=== PATIENT | female | born 1945 | race Caucasian/White ===

== ENCOUNTER 2016-12-02 11:11 | Emergency (ER) | payer BC ==
[~2016-12-02] VITALS: Ht 165.1 cm; Wt 118.0 kg
[~2016-12-02 11:11] MED LIST: ALL180 PO; DULO-24 PO; HYDC25 PO; LISI5TAB3 PO; MELO15TA3 PO; MULT-513 PO; PRLSR20 PO
[2016-12-02 11:20] VITALS: TEMP 37.1; Ht 165.1 cm; Wt 118.0 kg
[2016-12-02 11:37] VITALS: O2SAT 95
[2016-12-02] MEDS ORDERED: ALBUT/IPRATROP 3MG/0.5MG NEB 3 ML VIAL INH STA (12:12)
[2016-12-02] MEDS ORDERED: SODIUM CHLORIDE 0.9% 1000ML 1,000 ML IV STA (12:12)
[2016-12-02] MEDS ORDERED: METHYLPREDNISOLONE 125 MG VIAL IV STA (12:12)
[2016-12-02] MEDS ORDERED: LISI-788 PO (12:29)
[2016-12-02] MEDS ORDERED: MOME1AER5 INH (12:29)
--- NOTE | 2016-12-02 12:57 | DIAGNOSTIC IMAGING REPORT ---
CHEST ONE VIEW PORTABLE CLINICAL HISTORY: Respiratory distress. Dyspnea. COMPARISON STUDY: Chest radiograph May 27, 2011. FINDINGS: Lung volumes are normal. There is no pneumothorax or pleural effusion. There is no consolidation to suggest pneumonia. Cardiomediastinal silhouette is normal. IMPRESSION: No acute cardiopulmonary findings. Electronically signed by: Denton Cotton M.D. 12/02/2016 12:55 PM Dictated Date/Time: 12/02/2016 12:54 PM
--- NOTE | 2016-12-02 14:04 | EMERGENCY ROOM VISIT NOTE ---
History Report prepared by Zeferino: Tiana Kraft Under the Supervision of: Dr. Noah Brower M.D. First contact with patient: 12:08 Chief Complaint: SHORTNESS OF BREATH Stated Complaint: SEVERE COUGHING,CAN'T BREATH,VOMITING,NO SLEEP Nursing Triage Summary: Pt arrives with c/o SOB for approx 1 week. Pt reports being diagnosed with COPD. Pt c/o productive cough with white mucus. I&E wheezes heard throughout lung [place]. History of Present Illness The patient is a 71 year old female who presents to the Emergency Room with complaints of worsening shortness of breath that started 8 days ago. The patient is not on oxygen at home, but she uses an inhaler twice a day without any relief. The patient is also experiencing a productive cough with clear white sputum. She is also experiencing a sore throat, nausea, vomiting, loss of appetite, and fatigue. The patient has not seen her PCP for her symptoms, but she states that she called the office earlier today. They could not get her in until 1800 and the nurse told the patient that she "sounded awful" so she recommended coming into the ED. She states that she has been diagnosed with moderate COPD, but she states that she is unsure of if she believes that diagnosis. She has a history of pneumonia. The patient states that her is sick with similar symptoms, but his symptoms started 10 days ago and are improving. The patient states that she received her flu shot this year. Source of History: patient Onset: 8 days ago Position: chest Quality: other (shortnes of breath) Timing: worsening Modifying Factors (Relieving): other (None) Associated Symptoms: + cough (productive with clear white sputum), + fatigue , + nausea, + sorethroat, + vomiting Note: loss of appetite Review of Systems See HPI for pertinent positives & negatives. A total of 10 systems reviewed and were otherwise negative. Past Medical & Surgical Medical Problems: (1) Body mass index 30+ - obesity (2) Carcinoma of breast (3) Chronic osteoarthritis (4) Dyslipidemia Family History Cancer Diabetes mellitus Social History Smoking Status: Never Smoker Marital Status: Occupation Status: disabled, other Current/Historical Medications Scheduled Azithromycin (Zithromax Z-Marek), 0 PO UD Duloxetine Hcl (Cymbalta), 20 MG PO DAILY Lisinopril/Hctz (Zestoretic 20MG/25MG), 1 TAB PO DAILY Meloxicam (Mobic), 15 MG PO DAILY Mometasone Furoate (Inhalation (Asmanex Hfa), 2 PUFFS INH BID Multivitamins/Minerals (Mvi With Minerals), 1 TAB PO DAILY Omeprazole (Prilosec), 40 MG PO DAILY Prednisone (Prednisone), 2 TAB PO DAILY Scheduled PRN Benzonatate (Tessalon Perles), 1 CAP PO TID PRN for Cough Allergies Coded Allergies: Imidazole Antifungals (Verified Allergy, Severe, "BURNING, AGONIZING PAIN ", 05/10/14) Penicillins (Verified Allergy, Intermediate, RASH/HIVES; FATHER FROM PCN REACTION, 05/10/14) HIVES,RASH, UNSURE IF SHORT OF BREATH WITH AMOX PT. FATHER FROM PCN. REACTION Zolpidem (Verified Allergy, Mild, RASH, 05/10/14) Talc (Verified Allergy, Unknown, "CANNOT USE TALC PRODUCTS!" SEVERE BURNING, PAIN, 05/10/14) Physical Exam Vital Signs Date Time Temp Pulse Resp B/P Pulse Ox O2 Delivery O2 Flow Rate FiO2 12/02/16 16:30 100 24 132/84 96 12/02/16 15:15 102 20 125/85 95 Room Air 12/02/16 13:17 104 24 150/95 96 Room Air 12/02/16 11:37 95 Room Air 12/02/16 11:37 95 Room Air 12/02/16 11:20 37.1 110 22 151/88 96 Room Air Physical Exam GENERAL: Patient is in no acute distress. HEENT: No acute trauma, normocephalic atraumatic, mucous membranes moist, no nasal congestion, no scleral icterus. NECK: No stridor, no adenopathy, no meningismus, trachea is midline. LUNGS: Dry cough noted, shortness of breath with speaking, breath sound equal bilaterally, wheezing bilaterally, no rhonchi. HEART: Without murmurs gallops or rubs, regular rate and rhythm. ABDOMEN: Soft, nontender, bowel sounds positive, no hernias, no peritonitis. EXTREMITIES: No cyanosis or edema, full range of motion of all the joints without pain or difficulty, no signs for acute trauma. NEUROLOGIC: Oriented x 3, no acute motor or sensory deficits, no focal weakness. SKIN: No rash, no jaundice, no diaphoresis. Medical Decision & Procedures ER Provider Diagnostic Interpretation: X-ray results as stated below per interpretation by me and the radiologist: CHEST ONE VIEW PORTABLE IMPRESSION: No acute cardiopulmonary findings. Electronically signed by: Denton Cotton M.D. 12/02/2016 12:55 PM Dictated Date/Time: 12/02/2016 12:54 PM Laboratory Results 12/02/16 13:30 Red Blood Count 5.13, Mean Corpuscular Volume 92.0, Mean Corpuscular Hemoglobin 30.6, Mean Corpuscular Hemoglobin Concent 33.3, Mean Platelet Volume 10.0, Neutrophils (%) (Auto) 77.2, Lymphocytes (%) (Auto) 11.8, Monocytes (%) (Auto) 10.1, Eosinophils (%) (Auto) 0.3, Basophils (%) (Auto) 0.3, Neutrophils # (Auto ) 9.07, Lymphocytes # (Auto) 1.39, Monocytes # (Auto) 1.18, Eosinophils # (Auto ) 0.03, Basophils # (Auto) 0.03 12/02/16 13:30 Test 12/02/16 13:20 12/02/16 13:30 12/02/16 15:18 Influenza Type A Antigen Neg for Influ A (NEG) Influenza Type B Antigen Neg for Influ B (NEG) White Blood Count 11.73 K/uL (4.8-10.8) Red Blood Count 5.13 M/uL (4.2-5.4) Hemoglobin 15.7 g/dL (12.0-16.0) Hematocrit 47.2 % (37-47) Mean Corpuscular Volume 92.0 fL (80-100) Mean Corpuscular Hemoglobin 30.6 pg (25-34) Mean Corpuscular Hemoglobin Concent 33.3 g/dl (32-36) Platelet Count 233 K/uL (130-400) Mean Platelet Volume 10.0 fL (7.4-10.4) Neutrophils (%) (Auto) 77.2 % Lymphocytes (%) (Auto) 11.8 % Monocytes (%) (Auto) 10.1 % Eosinophils (%) (Auto) 0.3 % Basophils (%) (Auto) 0.3 % Neutrophils # (Auto) 9.07 K/uL (1.4-6.5) Lymphocytes # (Auto) 1.39 K/uL (1.2-3.4) Monocytes # (Auto) 1.18 K/uL (0.11-0.59) Eosinophils # (Auto) 0.03 K/uL (0-0.5) Basophils # (Auto) 0.03 K/uL (0-0.2) RDW Standard Deviation 48.1 fL (36.4-46.3) RDW Coefficient of Variation 14.2 % (11.5-14.5) Immature Granulocyte % (Auto) 0.3 % Immature Granulocyte # (Auto) 0.03 K/uL (0.00-0.02) Anion Gap 5.0 mmol/L (3-11) Est Creatinine Clear Calc Drug Dose 74.2 ml/min Estimated GFR () 73.6 Estimated GFR (Non- 63.5 BUN/Creatinine Ratio 15.9 (10-20) Calcium Level 9.0 mg/dl (8.5-10.1) Total Bilirubin 1.0 mg/dl (0.2-1) Aspartate Amino Transf (AST/SGOT) 25 U/L (15-37) Alanine Aminotransferase (ALT/SGPT) 31 U/L (12-78) Alkaline Phosphatase 88 U/L (45-117) Troponin I < 0.015 ng/ml (0-0.045) Total Protein 7.9 gm/dl (6.4-8.2) Albumin 3.7 gm/dl (3.4-5.0) Globulin 4.2 gm/dl (2.5-4.0) Albumin/Globulin Ratio 0.9 (0.9-2) Chemistry Specimen Hemolysis Prothrombin Time 10.4 SECONDS (9.0-12.0) Prothromb Time International Ratio 1.0 (0.9-1.1) Activated Partial Thromboplast Time 30.0 SECONDS (21.0-31.0) Partial Thromboplastin Ratio 1.2 Laboratory results reviewed by me. Medications Administered Medications (Trade) Dose Ordered Sig/Mary Route Start Time Stop Time Status Last Admin Dose Admin Sodium Chloride (Nss 1000ml) 1,000 ml @ 200 mls/hr Q5H STAT IV 12/02/16 12:12 12/02/16 17:11 DC 12/02/16 13:56 200 MLS/HR Albuterol/ Ipratropium (Duoneb) 3 ml NOW STAT INH 12/02/16 12:12 12/02/16 12:17 DC 12/02/16 13:16 3 ML Methylprednisolone Sodium Succinate (Solu-Medrol IV) 125 mg NOW STAT IV 12/02/16 12:12 12/02/16 12:17 DC 12/02/16 13:56 125 MG Azithromycin (Zithromax Tab) 500 mg NOW STAT PO 12/02/16 15:42 12/02/16 15:43 DC 12/02/16 16:24 500 MG ECG Indication: SOB/dyspnea Rate (beats per minute): 98 Rhythm: normal sinus Findings: no acute ischemic change, no ectopy, other (Old inferior and possible anterior infarct) ED Course 1211: The patient was evaluated in room C8. A complete history and physical exam was performed. 1212: Ordered Solu-Medrol 125 mg IV, DuoNeb 3 ml INH, Sodium Chloride 1000 ml @ 200 mls/hr IV 1523: I reassessed and updated the patient. 1542: Ordered Azithromycin 500 mg PO 1558: Reevaluated the patient. She would like to go home. Discussed results and discharge instructions: she verbalized understanding and agreement. The patient is ready for discharge. Medical Decision Differential diagnoses considered include bronchitis or pneumonia, exacerbation of COPD, CHF, anemia, electrolyte imbalance, cardiac ischemia. There is a mild leukocytosis which would be consistent with infection, no concerning anemia. No significant electrolyte abnormality, kidney failure or hepatitis. EKG shows a normal sinus rhythm with some older changes, no evidence for acute ischemia. Cardiac enzyme testing times one is not consistent with acute cardiac injury. Chest x-ray does not show pneumonia, CHF or pneumothorax. Influenza testing was negative. Blood cultures are pending. The patient did seem short of breath. She was given a DuoNeb, IV Solu-Medrol, she was given oral Zithromax and IV saline. She feels improved. She would like to try to go home. I think this is reasonable. The patient has an acute bronchitis with an exacerbation of COPD. Given the length of time she's been ill, given her COPD, antibiotics are indicated. She is being discharged on prednisone as well, hydration was encouraged. If she is worsening or not improving, she will report back for reassessment. Impression Primary Impression: Acute bronchitis Additional Impression: COPD exacerbation Scribe Attestation The scribe's documentation has been prepared under my direction and personally reviewed by me in its entirety. I confirm that the note above accurately reflects all work, treatment, procedures, and medical decision making performed by me. Departure Information Dispostion Home / Self-Care Prescriptions Benzonatate (TESSALON PERLES) 100 Mg Cap 1 CAP PO TID Y for Cough for 7 Days, #21 CAP Prov: Noah Brower M.D. 12/02/16 Prednisone (Prednisone) 20 Mg Tab 2 TAB PO DAILY for 4 Days, #8 TAB Prov: Noah Brower M.D. 12/02/16 Azithromycin (ZITHROMAX Z-MAREK) 250 Mg Tab 0 PO UD, #1 PKT Prov: Noah Brower M.D. 12/02/16 Referrals No Doctor, Assigned (PCP) Forms HOME CARE DOCUMENTATION FORM, IMPORTANT VISIT INFORMATION Patient Instructions My [facility] Additional Instructions fluids rest try tessalon perles for cough zpac as directed prednisone as directed use albuterol 3 puffs every 4 hours see nalini johansen this week return for worsening symptoms, worsening breathing or if not improving Problem Qualifiers Primary Impression: Acute bronchitis Bronchitis organism: unspecified organism Qualified Codes: J20.9 - Acute bronchitis, unspecified
[2016-12-02 14:09] LABS: BASO % 0.3 %; BASO ABS # 0.03 K/uL (0-0.2); COMPLETE YES; EOS % 0.3 %; HEMATOCRIT 47.2 % (37-47); IG% 0.3 %; LYMPH % 11.8 %; LYMPH ABS # 1.39 K/uL (1.2-3.4); MEAN CORPUSCULAR HEMOGLOBIN 30.6 pg (25-34); MEAN CORPUSCULAR HGB CONC 33.3 g/dl (32-36); MONO % 10.1 %; NEUT % 77.2 %; PLATELET COUNT 233 K/uL (130-400); RED BLOOD COUNT 5.13 M/uL (4.2-5.4); WHITE BLOOD COUNT 11.73 K/uL (4.8-10.8)
[2016-12-02 15:10] LABS: ALB/GLOB RATIO 0.9 (0.9-2); ALKALINE PHOSPHATASE 88 U/L (45-117); ALT/SGPT 31 U/L (12-78); AST/SGOT 25 U/L (15-37); BLOOD UREA NITROGEN 15 mg/dl (7-18); BUN/CREATININE RATIO 15.9 (10-20); CARBON DIOXIDE 32 mmol/L (21-32); CHLORIDE 103 mmol/L (98-107); CREATININE 0.92 mg/dl (0.60-1.20); GLUCOSE 101 mg/dl (70-99); POTASSIUM 4.2 mmol/L (3.5-5.1); SODIUM 140 mmol/L (136-145)
[2016-12-02 15:40] LABS: PARTIAL THROMBOPLASTIN RATIO 1.2; PROTHROMBIN TIME (PATIENT) 10.4 SECONDS (9.0-12.0)
[2016-12-02] MEDS ORDERED: AZITHROMYCIN 250 MG TAB PO STA (15:42)
[2016-12-02] MEDS ORDERED: BENZ100C18 PO (16:11)
[2016-12-02] MEDS ORDERED: PRED20TA PO (16:11)
[2016-12-02] MEDS ORDERED: AZITTAB PO (16:11)
[2016-12-02 16:30] VITALS: BP 132/84; PULSE 100; O2SAT 96
== END 2016-12-02 16:32 | disposition home or self-care (01) ==
LOC: C.EDB 11:13 → C.EDC 16:32
DX: J44.0 Chronic obstructive pulmonary disease with (acute) lower respiratory infection (principal); J44.1 Chronic obstructive pulmonary disease with (acute) exacerbation; Z87.01 Personal history of pneumonia (recurrent); E66.9 Obesity, unspecified; Z68.41 Body mass index [BMI] 40.0-44.9, adult; Z85.3 Personal history of malignant neoplasm of breast; E78.5 Hyperlipidemia, unspecified; M19.90 Unspecified osteoarthritis, unspecified site; Z80.9 Family history of malignant neoplasm, unspecified; Z83.3 Family history of diabetes mellitus; Z79.899 Other long term (current) drug therapy

== ENCOUNTER 2023-08-18 00:22 | Inpatient (IN) ==
--- OUTSIDE RECORDS SUMMARY | 2023-08-18 00:26 | External Medical Summary | Summary of Care ---
Author Name Unknown Organization [facility] Address [address] [facility] [address] Phone [phone] Care Team Providers Care Smoke Chaser Name Role Phone Maricarmen Ann DO Primary Care Provider Reason for Visit * Reason Onset Date Comments Information 08/14/202308/14; 08/15 Encounter Details Date Type Department Care Team (Late st Contact Info) Description 08/14/2023 Telephone Family Practice [address] [facility] [address] [place] [phone] Maricarmen Ann DO [address] [place] [address] Information (08/14; 08/15) Allergies Active Allergy Reactions Criticality Noted Date Comments Amoxicillin Unknown 03/13/1999 Imidazole Antifungals 03/13/1999 Vaginal infections Tamoxifen Citrate Nausea/vomiting High 02/14/2010 documented as of this encounter (statuses as of 08/15/2023) Medications Medication Sig Dispensed Refills Start Date End Date Status Multiple Vitamins-Minerals (MULTIVITAMIN WOMENS 50+ ADV) TABS Take by mouth daily at noon. 0 Active Calcium Carb-Cholecalciferol 500-600 MG-UNIT Oral Tablet Take by mouth daily at noon. 0 Active Perry-3 Fatty Acids (FISH OIL) 1000 MG Capsule Take 1 Capsule by mouth daily at noon. 0 Active Loratadine 10 MG Oral Tablet Take 1 Tablet by mouth in the morning. 30 Tab 11 03/27/2021 Active Diclofenac Sodium 1 % External Gel (Voltaren)Indication s:Hand arthritis Apply topically to affected area 3 times a day as needed for Pain or Pain, Mild (to hands). 150 g 1 07/26/2022 Active Vitamin B-12 6000 MCG Sublingual Tablet Sublingual Place under the tongue. 0 Active Lisinopril-hydroCHLO ROthiazide 20-12.5 MG Oral TabletIndications:Es sential hypertension with goal blood pressure less than 130/80 TAKE TWO TABLETS BY MOUTH EVERY MORNING 200 Tablet 3 11/20/2022 11/20/2023 Active Omeprazole 20 MG Oral Capsule Delayed Release (PriLOSEC)Indication s:Gastroesophageal reflux disease without esophagitis Take 2 Capsules by mouth daily before dinner. 200 Capsule 3 03/19/2023 Active Pregabalin 25 MG Oral Capsule (Lyrica)Indications: Neuropathy Take one capsule by mouth in the morning and two capsules by mouth in the evening 270 Capsule 1 04/17/2023 Active Meloxicam 7.5 MG Oral Tablet (Mobic) TAKE ONE TABLET BY MOUTH EVERY MORNING 90 Tablet 0 06/13/2023 06/12/2024 Active Qvar RediHaler 40 MCG/ACT Inhalation Aerosol Breath Activated (Beclomethasone Diprop HFA) Inhale 1 Puff by mouth in the morning and 1 Puff before bedtime. 10.6 g 2 07/18/2023 Active Atorvastatin Calcium 20 MG Oral Tablet (Lipitor) TAKE ONE TABLET BY MOUTH EVERY DAY 100 Tablet 3 07/31/2023 07/30/2024 Active Ipratropium-Albutero l 0.5-2.5 (3) MG/3ML Inhalation Solution (Duoneb)Indications: COPD, group A, by GOLD 2017 classification ([facility]) Inhale 3 mL via nebulizer in the morning and 3 mL at noon and 3 mL in the evening and 3 mL before bedtime. 50 mL 1 08/08/2023 Active predniSONE 20 MG Oral Tablet (Deltasone)Indicatio ns:Acute left-sided low back pain with left-sided sciatica Take 1 Tablet by mouth in the morning for 7 days. 7 Tablet 0 08/08/2023 08/15/2023 Active Baclofen 10 MG Oral Tablet (Lioresal)Indication s:Acute left-sided low back pain with left-sided sciatica Take 1 Tablet by mouth in the morning and 1 Tablet before bedtime. Do all this for 10 days. 20 Tablet 0 08/08/2023 08/18/2023 Active documented as of this encounter (statuses as of 08/15/2023) Active Problems Problem Noted Date Diagnosed Date Caregiver stress 10/31/2022 COPD, group A, by GOLD 2017 classification 07/22 Overview: Per COPD GOLD Classification Hypertensive kidney disease with stage 3a chronic kidney disease 07/12/2022 Other specified peripheral vascular diseases 09/2021 Morbid obesity 04/11/2022 Chronic kidney disease, stage 3a 10/16/2020 Overview: Per CKD protocol Solar purpura 09/21/2019 History of breast cancer 05/06/2019 Overview: Lower outer quadrant Prediabetes 08/24/2018 Overview: Per Prediabetes protocol #1 S/P TKR (total knee replacement), left 7 Body mass index (BMI) of 40.0 to 44.9 in adult 1 Overview: Per Obesity protocol #1 Gastroesophageal reflux disease without esophagi tis 12/12/2016 HTN, goal below 140/90 12/12/2016 ADVANCE DIRECTIVE INFORMATION 08/19/2007 Overview: No, Advance Directive brochure given to patient at prior appointment. Dyslipidemia, goal to be determined 10/21/2005 Allergic rhinitis 03/13/1999 documented as of this encounter (statuses as of 08/15/2023) Resolved Problems Problem Noted Date Diagnosed Date Resolved Date Morbid obesity 07/20/2019 10/21/2019 Recurrent major depressive d isorder, in remission 12/12/2016 07/20/2019 Voice quality disorder 08/27/201612/12 COPD, moderate 12/15/2014 07/25/2022 Overview: Per COPD GOLD Classification Obesity, Class II, BMI 35-39 .9, isolated (see actual BMI) 11/06/2009 01/17/2017 Overview: Per Obesity Taxonomy Malignant neoplasm of lower- outer quadrant of female breast 10/27/2007 05/06/2019 Overview: ICD-10 update of inactive term ACUTE BRONCHITIS 12/12/1999 08/17/2007 OBESITY, UNSPECIFIED 03/13/1999 010 Overview: Per Obesity Taxonomy JOINT PAIN-L-LEG 03/13/1999 01/17/2017 documented as of this encounter (statuses as of 08/15/2023) Immunizations Name Administration Dates Next Due COVID-19 mRNA, LNP-s, No Pre serve, 2-Dose Series ([place] For Expecteens) 09/20/2021,11/09/2020,10/19/2020 Pneumococcal Conjugate Vacc, 13 Valent (Prevnar) 07/28/2015 Pneumococcal Polysaccharide PPV23 (Pneumovax) 05/12/2013 Seasonal Influenza, PF, 6 M & above, IM , (FluLaval or Fluzone) 05/08/2020,06/05/2018,05/23/2017 Seasonal Influenza, Quadriva lent Hd (Fluzone Hd) 05/13/2023,04/11/2022,06/15/2021 Seasonal Influenza, Quadriva lent, No Preserve, IM 04/23/2016 Seasonal Influenza, Split, I IV3, With Preserve, Inj 04/21/2015,04/21/2013,04/20/2012,05/31,05/10/2008,06/03/2007 Seasonal Influenza, Trivalen t, Adjuvanted, 65+ yrs 06/28/2019 TDAP (age 10 and older)(Boostrix) 04/11/2022 TDAP (age 11 and older)(Adacel) 12/20/2011 Varicella Zoster Vaccine (Adult) 12/20/2011 Zoster Vaccine Recombinant (Shingrix) 12/25/2020 ,05/01/2020 documented as of this encounter Social History Tobacco Use Types Packs/Day Years Used Date Smoking Tobacco: Never Passive Smoke Exposure: Past Smokeless Tobacco: Never Alcohol Use Standard Drinks/Week Comments Yes 0 (1 standard drink = 0.6 oz pur e alcohol) occasionally PHQ-2 Answer Date Recorded PHQ Adult Total Score 0 08/08/2023 Hunger Vital Sign Answer Date Recorded Within the past 12 months, y ou worried that your food would run out before you got the money to buy more. Never true 08/08/20 23 Within the past 12 months, t he food you bought just didn't last and you didn't have money to get more. Never true 08/08/2023 Sex and Gender Information Value Date Recorded Sex Assigned at Female 04/11/2022 9:21 AM EDT Gender Identity Female 04/11/2022 9:21 AM EDT Sexual Orientation Straight 09/10/2019 2: 34 PM EST Job Start Date Occupation Industry Not on file Not on file Not on file documented as of this encounter Miscellaneous Notes * Telephone Encounter - Maricarmen Ann DO - 08/15/2023 11:56 AM EST Noted. * Telephone Encounter - Beverly Bond LPN - 08/15/2023 11:43 AM EST Call placed to patient and relayed information from Dr. Ann. Patient acknowledged understanding and will try Tylenol as recommended. States she completed prednisone. States she got up to her recliner at 3 am and after several position changes was able to sleep for 3-4 hours. Reports she is scheduled for PT on Friday and as soon as she starts to walk, her muscles tense and she cries. Confirmed office visit scheduled 08/19/23. Instructed to contact office with any questions or concerns. * Telephone Encounter - Maricarmen Ann DO - 08/15/2023 8:05 AM EST Pt should have enough to get her til the or . She then has f/ u with me on 08/19. We can further discuss at that visit. Be sure she is taking the prednisone as well. Can use tylenol 1000mg three times a day for pain as well. * Telephone Encounter - Beverly Bond LPN - 08/14/2023 4:48 PM EST Call placed to patient for more information. Patient reports that her physical therapist suggested she ask for 2 more weeks of Baclofen. In therapy she is receiving massage and heat therapy. Stated she is out of Baclofen. Reviewed directions on taking Baclofen and that she should still have a few days left. Pt stated she may have more left - stated she is only taking them twice a day. Asked if they have caused increased drowsiness or any other side effects - stated she is always drowsyd/t not sleeping d/t pain. Pt states she cries with pain with any movement and cries for hours in bed d/t pain. Also reported that she has been having ocular migraines for the past few days. States they happen when she clenches her eyes and face or cries d/t pain. States she is working on relaxation techniqueswhich help some. * Telephone Encounter - Mery Casey OSA - 08/14/2023 3:56 PM EST Pt calling to request a refill of baclofen. States she saw Dr Toney who prescribed. States her PT doc is asking if this can be re ordered for two more weeks. [facility] is who was requesting. Please send to [facility] in [place] if agreeable. documented in this encounter Plan of Treatment Upcoming Encounters Date Type Department Care Team (Late st Contact Info) Description 08/19/2023 2:20 PM EST Office Visit Family Practice [address] [place] [address] [place] [phone] Maricarmen Ann DO [address] [place] [address] 03/30/2024 2:00 PM EDT Nurse Only Ancillary [address] [facility] [place] [address] [place] [address] College, Nurse Annual Wellness Visit [address] [facility] [address] [place] [address] 08/20/2024 10:45 AM EST [facility] [address] [facility] [place] [address] Richard Ley MD [address] [facility] [place] [address] Scheduled Procedures Name Priority Associated Diagnoses Date/Ti me COLONOSCOPY FLEXIBLE PROXIMA L DIAGNOSTIC Recall Family history of colon cancer Health Maintenance Due Date Last Done Comments Alpha-1 Antitrypsin 1963 CKD PHOS USE SMARTSET 79875 05/10/2022 05/10/2021 COVID-19 Vaccine ( season) 2023 09/20/2021, 11/09/2020, 10/19/2020 GFR 12/29/2023 06/30/2023, 10/10, 04/12/2022, Additional history exists Albumin/Creatinine Ratio 02/29/2024 02/28/2023, 08/2021 O2 ASSESSMENT COMPLETED IN PAST YEAR FOR COPD 05/01/2024 05/01/2023 CKD HGB USE SMARTSET 59667 06/30/202406/30, 06/30/2023, 04/08/2022, Additional history exists HbA1c 06/30/2024 06/30/2023, 090 09/2021, 05/10/2021, Additional history exists Depression Screening 08/08/2024 08/08/2023 COLONOSCOPY-EVERY 5 YRS AGES 18-100 04/21/2025 04/21/2020, 04/21/2020, 03/15/2015, Additional history exists DXA Scan 03/21/2027 03/21/2020, 05/11, 05/26/2013 DTaP,Tdap,and Td Vaccines (3 - Td or Tdap) 04/11/2032 04/11/2022, 12/20/2011, 09/03/2005, Additional history exists Pneumococcal Vaccine: 65+ Years Completed 07/28/2015, 05/12/2013 Zoster Vaccines Completed 12/25/2020, 04/12, 12/20/2011 Influenza Vaccine (FLU shot) Completed 10/2022, 04/11/2022, 06/15/2021, Additional history exists GARDASIL-HPV IMMUNIZATION SERIES Aged Out No longer eligible based on patient's age to complete this topic Hepatitis B Aged Out No longer eligi ble based on patient's age to complete this topic MENINGOCOCCAL (MENACTRA/MENVEO) Aged Out No longer eligible based on patient's age to complete this topic documented as of this encounter Medical Devices Implanted Type Area Metal Caster Device Identifier Shelf Expiration Date Model / Serial / Lot Lens Li61ao 13.00mm 19.00 - [id number] - [id number] Implanted:Qty: 1 on 04/17/2023 by Bryan Richards MD at [facility] Left: Eye [employer] 12/09/2027 [id number] / [id number] / [id number] Lens Li61ao 13.00mm 18.50 - [id number] - [id number] Implanted:Qty: 1 on 05/01/2023 by Bryan Richards MD at [facility] Right: Eye [employer] 10/09/2027 [id number] / [id number] / [id number] documented as of this encounter Advance Directives Latest Code Status on File Code Status Date Activated Date Inactivated Comments Full Code 05/01/2023 9:33 AM 05/01/2023 4:13 PM This order reflects the patients wishes and were consensually agreed upon. Question Answer Comments Discussion of Advance Directives occurred with: Patient Does the patient have a Living Will? No Does the patient have Health Care Power of Job Molder? No Code Status History Code Status Date Activated Date Inactivated Comments Full Code 04/17/2023 8:37 AM 04/17/2023 2:50 PM This or adele reflects the patients wishes and were consensually agreed upon. Question Answer Comments Discussion of Advance Directives occurred with: Patient Does the patient have a Living Will? No Does the patient have Health Care Power of Job Molder? No Care Teams Smoke Chaser Relationship Specialty Start Date End Date Maricarmen Ann DO [address] [facility] [place] [address] PCP - General Family Medicine 03/26/23 documented as of this encounter
--- OUTSIDE RECORDS SUMMARY | 2023-08-18 00:27 | External Medical Summary | Summary of Care ---
Author Name Unknown Organization [facility] Address [address] [facility] [place] [address] Phone [phone] Care Team Providers Care Wire Mesh Filter Fabricator Name Role Phone Maricarmen Ricardo DO Primary Care Provider [phone] Reason for Visit * Reason Comments Medication Refill Encounter Details Date Type Department Care Team (Late st Contact Info) Description 07/31/2023 Refill [facility] [address] [place] [address] Maricarmen Ricardo DO [address] [place] [address] Allergies Active Allergy Reactions Criticality Noted Date Comments Amoxicillin Unknown 03/13/1999 Imidazole Antifungals 03/13/1999 Vaginal infections Tamoxifen Citrate Nausea/vomiting High 02/14/2010 documented as of this encounter (statuses as of 07/31/2023) Medications Medication Sig Dispensed Refills Start Date End Date Status Multiple Vitamins-Minerals (MULTIVITAMIN WOMENS 50+ ADV) TABS Take by mouth daily at noon. 0 Active Calcium Carb-Cholecalcifero l 500-600 MG-UNIT Oral Tablet Take by mouth daily at noon. 0 Active Rogers-3 Fatty Acids (FISH OIL) 1000 MG Capsule Take 1 Capsule by mouth daily at noon. 0 Active Loratadine 10 MG Oral Tablet Take 1 Tablet by mouth in the morning. 30 Tab 11 03/27/2021 Active Ipratropium-Albuter ol 0.5-2.5 (3) MG/3ML Inhalation Solution (Duoneb) Inhale 3 mL via nebulizer in the morning and 3 mL at noon and 3 mL in the evening and 3 mL before bedtime. 50 mL 1 07/23/2022 Active Additional Information Patient not taking.Reported on 04/11/2023 Diclofenac Sodium 1 % External Gel (Voltaren)Indicatio ns:Hand arthritis Apply topically to affected area 3 times a day as needed for Pain or Pain, Mild (to hands). 150 g 1 07/26/2022 Active Vitamin B-12 6000 MCG Sublingual Tablet Sublingual Place under the tongue. 0 Active Asmanex (120 Metered Doses) 220 MCG/ACT Inhalation Aerosol Powder Breath Activated (Mometasone Furoate)Indications :COPD, group A, by GOLD 2017 classification (HCC) Inhale 1 Puff by mouth in the morning and 1 Puff before bedtime. 3 Each 3 02/05/2023 Active Additional Information Patient not taking.Reported on 02/28/2023 Lisinopril-hydroCHL OROthiazide 20-12.5 MG Oral TabletIndications:E ssential hypertension with goal blood pressure less than 130/80 TAKE TWO TABLETS BY MOUTH EVERY MORNING 200 Tablet 3 11/20/2022 11/20/19 24 Active Omeprazole 20 MG Oral Capsule Delayed Release (PriLOSEC)Indicatio ns:Gastroesophageal reflux disease without esophagitis Take 2 Capsules by mouth daily before dinner. 200 Capsule 3 03/19/2023 Active Pregabalin 25 MG Oral Capsule (Lyrica)Indications :Neuropathy Take one capsule by mouth in the morning and two capsules by mouth in the evening 270 Capsule 1 04/17/2023 Active Meloxicam 7.5 MG Oral Tablet (Mobic) TAKE ONE TABLET BY MOUTH EVERY MORNING 90 Tablet 0 06/13/2023 06/12/20 24 Active Qvar RediHaler 40 MCG/ACT Inhalation Aerosol Breath Activated (Beclomethasone Diprop HFA) Inhale 1 Puff by mouth in the morning and 1 Puff before bedtime. 10.6 g 2 07/18/2023 Active Atorvastatin Calcium 20 MG Oral Tablet (Lipitor) TAKE ONE TABLET BY MOUTH EVERY DAY 100 Tablet 3 07/31/2023 07/30/20 24 Active Atorvastatin Calcium 20 MG Oral Tablet (Lipitor) TAKE ONE TABLET BY MOUTH EVERY DAY 100 Tablet 2 09/28/2022 07/31/20 23 Discontinu ed(Refill) documented as of this encounter (statuses as of 07/31/2023) Active Problems Problem Noted Date Diagnosed Date [...] as of this encounter (statuses as of 07/31/2023) Resolved Problems Problem Noted Date Diagnosed Date [...] as of this encounter (statuses as of 07/31/2023) Immunizations Name Administration Dates Next Due COVID-19 mRNA, LNP-s, No Pre serve, 2-Dose Series ([employer]) 09/20/2021,11/09/2020,10/19/2020 Pneumococcal Conjugate Vacc, 13 Valent (Prevnar) [...] Date Recorded PHQ Adult Total Score 0 05/13/2023 Hunger Vital Sign Answer Date Recorded Within the past 12 months, y ou worried that your food would run out before you got the money to buy more. Never true 05/13/20 23 Within the past 12 months, t he food you bought just didn't last and you didn't have money to get more. Never true 05/13/2023 Sex and Gender Information Value Date Recorded Sex Assigned at Female 04/11/2022 9:21 AM EDT Gender Identity Female 04/11/2022 9:21 AM EDT Sexual Orientation Straight 09/10/2019 2: 34 PM EST Job Start Date Occupation Industry Not on file Not on file Not on file documented as of this encounter Miscellaneous Notes * Telephone Encounter - Michael Hernandez [facility] - 07/31/2023 1:26 PM ESTSigned Prescriptions: Disp Refills Atorvastatin Calcium 20 MG Oral Tablet (Li*100 Ta*3 Sig: TAKE ONE TABLET BY MOUTH EVERY DAYAuthorizing Provider: MARICARMEN RICARDO User: MICHAEL HERNANDEZ documented in this encounter Plan of Treatment Upcoming Encounters Date Type Department Care Team (Late st Contact Info) Description 08/14/2023 9:15 AM EST Office Visit Dermatology [facility] [place] [address] [place] [address] Richard Ley MD [address] [place] [address] 08/19/2023 2:20 PM EST Office Visit Family Practice [address] [place] [address] 293 [facility] [place] [address] Maricarmen Ricardo DO 293 [facility], [place] [address] 03/30/2024 2:00 PM EDT Nurse Only Ancillary [address] [place] [address] [facility] [place] [address] College, Nurse Annual Wellness Visit [address] [facility] [address] [facility] [place] [address] Scheduled Procedures Name Priority Associated Diagnoses Date/Ti me COLONOSCOPY FLEXIBLE PROXIMA L DIAGNOSTIC Recall Family history of colon cancer Health Maintenance Due Date Last Done Comments Alpha-1 Antitrypsin 1965 CKD PHOS USE SMARTSET 15311 05/10/2022 05/10/2021 COVID-19 Vaccine ( season) 2023 09/20/2021, 11/09/2020, 10/19/2020 GFR 12/29/2023 06/30/2023, 10/10, 04/12/2022, Additional history exists Albumin/Creatinine Ratio 02/29/2024 02/28/2023, 0908/2021 O2 ASSESSMENT COMPLETED IN PAST YEAR FOR COPD 05/01/2024 05/01/2023 Depression Screening 05/13/2024 05/13/2023 CKD HGB USE SMARTSET 14712 06/30/202406/30, 06/30/2023, 04/08/2022, Additional history exists HbA1c 06/30/2024 06/30/2023, 090 09/2021, 05/10/2021, Additional history exists COLONOSCOPY-EVERY 5 YRS AGES 18-100 04/21/2025 04/21/2020, [...] this encounter Medical Devices Implanted Type Area Cattle Manager Device Identifier Shelf Expiration Date Model / Serial / Lot Lens Li61ao 13.00mm 19.00 - [id number] - [id number] Implanted:Qty: 1 on 04/17/2023 by Bryan Richards MD at OR [facility] Left: Eye [employer] 12/09/2027 [id number] / [id number] / [id number] Lens Li61ao 13.00mm 18.50 - [id number] - [id number] Implanted:Qty: 1 on 05/01/2023 by Bryan Richards MD at OR [facility] Right: Eye [employer]OM[employer] 10/09/2027 [id number] / [id number] / [id number] documented as of this encounter Advance Directives [...] the patient have Health Care Power of Imaging Tech? No Code Status History Code Status Date Activated Date Inactivated Comments Full Code 04/17/2023 8:37 AM 04/17/2023 2:50 PM This or adele reflects the patients wishes and were consensually agreed upon. Question Answer Comments Discussion of Advance Directives occurred with: Patient Does the patient have a Living Will? No Does the patient have Health Care Power of Imaging Tech? No Care Teams Wire Mesh Filter Fabricator Relationship Specialty Start Date End Date Maricarmen Ricardo DO [address] [place] [address] PCP - General Family Medicine 03/26/23 documented as of this encounter
--- OUTSIDE RECORDS SUMMARY | 2023-08-18 00:27 | External Medical Summary | Summary of Care ---
Author Name Unknown Organization [facility] Address [address] [facility] [place] [address] Phone [phone] Care Team Providers Care Network Communications Engineer Name Role Phone Maricarmen Ann DO Primary Care Provider Reason for Visit * Reason Onset Date Comments Appointment 07/17/2023 Advise and refil l question Advice 07/17/202307/18 Encounter Details Date Type Department Care Team (Late st Contact Info) Description 07/17/2023 Telephone Family Practice [address] [place] [address] [place] [address] Maricarmen Ann DO [address] [place] [address] Appointment (Advise and refill question); ... Allergies Active Allergy Reactions Criticality Noted Date Comments Amoxicillin Unknown 03/13/1999 Imidazole Antifungals 03/13/1999 Vaginal infections Tamoxifen Citrate Nausea/vomiting High 02/14/2010 documented as of this encounter (statuses as of 07/21/2023) Medications Medication Sig Dispensed Refills Start Date End Date Status Multiple Vitamins-Minerals (MULTIVITAMIN WOMENS 50+ ADV) TABS Take by mouth daily at noon. 0 Active Calcium Carb-Cholecalciferol 500-600 MG-UNIT Oral Tablet Take by mouth daily at noon. 0 Active Hellier-3 Fatty Acids (FISH OIL) 1000 MG Capsule Take 1 Capsule by mouth daily at noon. 0 Active Loratadine 10 MG Oral Tablet Take 1 Tablet by mouth in the morning. 30 Tab 11 03/27/2021 Active Ipratropium-Albutero l 0.5-2.5 (3) MG/3ML Inhalation Solution (Duoneb) Inhale 3 mL via nebulizer in the morning and 3 mL at noon and 3 mL in the evening and 3 mL before bedtime. 50 mL 1 07/23/2022 Active Additional Information Patient not taking.Reported on 04/11/2023 Diclofenac Sodium 1 % External Gel (Voltaren)Indication s:Hand arthritis Apply topically to affected area 3 times a day as needed for Pain or Pain, Mild (to hands). 150 g 1 07/26/2022 Active Vitamin B-12 6000 MCG Sublingual Tablet Sublingual Place under the tongue. 0 Active Asmanex (120 Metered Doses) 220 MCG/ACT Inhalation Aerosol Powder Breath Activated (Mometasone Furoate)Indications: COPD, group A, by GOLD 2017 classification ([facility]) Inhale 1 Puff by mouth in the morning and 1 Puff before bedtime. 3 Each 3 02/05/2023 Active Additional Information Patient not taking.Reported on 02/28/2023 Lisinopril-hydroCHLO ROthiazide 20-12.5 MG Oral TabletIndications:Es sential hypertension with goal blood pressure less than 130/80 TAKE TWO TABLETS BY MOUTH EVERY MORNING 200 Tablet 3 11/20/2022 4 Active Atorvastatin Calcium 20 MG Oral Tablet (Lipitor) TAKE ONE TABLET BY MOUTH EVERY DAY 100 Tablet 2 09/28/2022 4 Active Omeprazole 20 MG Oral Capsule Delayed [...] MOUTH EVERY MORNING 90 Tablet 0 06/13/2023 4 Active documented as of this encounter (statuses as of 07/21/2023) Active Problems Problem Noted Date Diagnosed Date [...] as of this encounter (statuses as of 07/21/2023) Resolved Problems Problem Noted Date Diagnosed Date [...] as of this encounter (statuses as of 07/21/2023) Immunizations Name Administration Dates Next Due COVID-19 mRNA, LNP-s, No Pre serve, 2-Dose Series (Pfizer) 09/20/2021,11/09/2020,10/19/2020 Pneumococcal Conjugate Vacc, 13 Valent (Prevnar) 07/28/2015 Pneumococcal Polysaccharide PPV23 (Pneumovax) 05/12/2013 SEASONAL INFLUENZA, PF, 6 M & Above, IM , (FLULAVAL or FLUZONE) 05/08/2020,06/05/2018,05/23/2017 Seasonal Influenza, Quadriva lent Hd (Fluzone [...] encounter Miscellaneous Notes * Telephone Encounter - Jessie Bills LPN - 07/21/2023 10:35 AM EST Called, left message for patient to return call. Sent my [employer] message. * Telephone Encounter - Maricarmen Ann DO - 07/21/2023 9:40 AM EST Continue Qvar all the time as this is her controller inhaler. Can use nebulizer if needed until improved. Sounds like she is doing better. Call if she feels she needs appt. * Telephone Encounter - Jessie Bills LPN - 07/21/2023 8:28 AM EST Patient is aware and will comply. States she did start taking the Qvar and also is using the nebulizer-uses duoneb. States she is feeling better Should she use both? Thank you * Telephone Encounter - Jessie Nath RN - 07/18/2023 10:24 AM EST Call to pt- no answer-message left to call back at [phone] * Telephone Encounter - Maricarmen Ann DO - 07/18/2023 9:37 AM EST Qvar was sent. She will likely have cough for some time after COVID. Would need visit prior to consideration of any medications. May also just take time and may not need any prescription. Can come in today as a squeeze in around 140PM. * Telephone Encounter - Beverly Bond LPN - 07/17/2023 4:42 PM EST Call placed to patient. She reports symptoms began on 07/08/23. Aware she is out of window for Paxlovid. Reports she is now testing negative and recovering but states she is still having "bronchial symptoms and cough". Asking if something could be called in. States she would prefer to NOT come in for office visit if possible. She also states that [facility] pharmacy informed her that her Qvar will need reordered. She states that [facility] pharmacy has told her they have sent a request to the office. Pt states she only has a few daysleft of Qvar inhaler. Pharmacy confirmed. * Telephone Encounter - Mery Casey OSA - 07/17/2023 4:16 PM EST Pt calling stating she tested positive for covid last week. She is asking for something to be prescribed for her as the bronchial symptoms are horrible. She needs something for the cough and other symptoms. If agreeable, please send to [facility] in [place] on [address] Pt can be reached at [phone]. Further asking about qvar refill they said it was denied, and they were reaching out to our office,however; she has not heard back and only has a few days left of pills. documented in this encounter Plan of Treatment Upcoming Encounters Date Type Department Care Team (Late st Contact Info) Description 08/14/2023 9:15 AM EST Office Visit Dermatology [facility] [place] [address] [place] [address] Richard Ley MD [address] [place] [address] 08/19/2023 2:20 PM EST Office Visit Family Practice [address] [facility] [address] [place] [address] Maricarmen Ann DO 293 [place] [address] 03/30/2024 2:00 PM EDT Nurse Only Ancillary [address] [facility] [address] [place] [address] College, Nurse Annual Wellness Visit [address] [place] [address] Scheduled Procedures Name Priority Associated Diagnoses Date/Ti me COLONOSCOPY FLEXIBLE PROXIMA L DIAGNOSTIC Recall Family history of colon cancer Health Maintenance Due Date Last Done Comments Alpha-1 Antitrypsin 1965 CKD PHOS USE SMARTSET 21172 05/10/2022 05/10/2021 COVID-19 Vaccine ( season) 2023 09/20/2021, 11/09/2020, 10/19/2020 GFR 12/29/2023 06/30/2023, 10/10, 04/12/2022, Additional history exists Albumin/Creatinine Ratio 02/29/2024 02/28/2023, 08/2021 O2 ASSESSMENT COMPLETED IN PAST YEAR FOR COPD 05/01/2024 05/01/2023 Depression Screening 05/13/2024 05/13/2023 CKD HGB USE SMARTSET 54154 06/30/202406/30, 06/30/2023, 04/08/2022, Additional history exists HbA1c 06/30/2024 06/30/2023, 0 09/2021, 05/10/2021, Additional history exists COLONOSCOPY-EVERY 5 [...] this encounter Medical Devices Implanted Type Area Product Safety Expert Device Identifier Shelf Expiration Date Model / Serial / Lot Lens Li61ao 13.00mm 19.00 - [id number] - [id number] Implanted:Qty: 1 on 04/17/2023 by Bryan Richards MD at OR [facility] Left: Eye [employer] 12/09/2027 [id number] / [id number] / [id number] Lens Li61ao 13.00mm 18.50 - [id number] - [id number] Implanted:Qty: 1 on 05/01/2023 by Bryan Richards MD at OR [facility] Right: Eye [employer]OM[employer] 10/09/2027 [id number] / [id number] / [id number] documented as of this encounter Advance Directives [...] the patient have Health Care Power of Caul Puller? No Code Status History Code Status Date Activated Date Inactivated Comments Full Code 04/17/2023 8:37 AM 04/17/2023 2:50 PM This or adele reflects the patients wishes and were consensually agreed upon. Question Answer Comments Discussion of Advance Directives occurred with: Patient Does the patient have a Living Will? No Does the patient have Health Care Power of Caul Puller? No Care Teams Network Communications Engineer Relationship Specialty Start Date End Date Maricarmen Ann DO [address] [place] [address] PCP - General Family Medicine 03/26/23 documented as of this encounter
--- OUTSIDE RECORDS SUMMARY | 2023-08-18 00:27 | External Medical Summary | Summary of Care ---
Author Name Unknown Organization [facility] Address [address] [place] [address] Phone [phone] Care Team Providers Care Cherry Dipper Name Role Phone SethMaricarmen Primary Care Provider Reason for Visit * Reason Comments Acute Encounter Details Date Type Department Care Team (Latest Contact Info) Description 08/08/2023 2:00 PM EST Office Visit Family Practice [address] [facility] [address] [place] [address] Ben Toney, [address] [place] [address] Acute left-sided low back pain with left-sided sciatica*; Hypertensive kidney disease with stage 3a chronic kidney disease (HCC); COPD, group A, by GOLD 2017 classification ([facility]); Prediabetes Allergies Active Allergy Reactions Criticality Noted Date Comments Amoxicillin Unknown 03/13/1999 Imidazole Antifungals 03/13/1999 Vaginal infections Tamoxifen Citrate Nausea/vomiting High 02/14/2010 documented as of this encounter (statuses as of 08/08/2023) Medications Medication Sig Dispensed Refills Start Date End Date Status Multiple Vitamins-Minerals (MULTIVITAMIN WOMENS 50+ ADV) TABS Take by mouth daily at noon. 0 Active Calcium Carb-Cholecalcifero l 500-600 MG-UNIT Oral Tablet Take by mouth daily at noon. 0 Active Elizabeth-3 Fatty Acids (FISH OIL) 1000 MG Capsule Take 1 Capsule by mouth daily at noon. 0 Active Loratadine 10 MG Oral Tablet Take 1 Tablet by mouth in the morning. 30 Tab 11 03/27/2021 Active Diclofenac Sodium 1 % External Gel (Voltaren)Indicatio ns:Hand arthritis Apply topically to affected area 3 times a day as needed for Pain or Pain, Mild (to hands). 150 g 1 07/26/2022 Active Vitamin B-12 6000 MCG Sublingual Tablet Sublingual Place under the tongue. 0 Active Lisinopril-hydroCHL OROthiazide 20-12.5 MG Oral TabletIndications:E ssential hypertension with goal blood pressure less than 130/80 TAKE TWO TABLETS BY MOUTH EVERY MORNING 200 Tablet 3 11/20/2022 4 Active Omeprazole 20 MG Oral Capsule [...] MORNING 90 Tablet 0 06/13/2023 4 Active Qvar RediHaler 40 MCG/ACT Inhalation Aerosol Breath Activated (Beclomethasone Diprop HFA) Inhale 1 Puff by mouth in the morning and 1 Puff before bedtime. 10.6 g 2 07/18/2023 Active Atorvastatin Calcium 20 MG Oral Tablet (Lipitor) TAKE ONE TABLET BY MOUTH EVERY DAY 100 Tablet 3 07/31/2023 4 Active Ipratropium-Albuter ol 0.5-2.5 (3) MG/3ML Inhalation Solution (Duoneb)Indications :COPD, group A, by GOLD 2017 classification (HCC) Inhale 3 mL via nebulizer in the morning and 3 mL at noon and 3 mL in the evening and 3 mL before bedtime. 50 mL 1 08/08/2023 Active predniSONE 20 MG Oral Tablet (Deltasone)Indicati ons:Acute left-sided low back pain with left-sided sciatica Take 1 Tablet by mouth in the morning for 7 days. 7 Tablet 0 08/08/2023 4 Active Baclofen 10 MG Oral Tablet (Lioresal)Indicatio ns:Acute left-sided low back pain with left-sided sciatica Take 1 Tablet by mouth in the morning and 1 Tablet before bedtime. Do all this for 10 days. 20 Tablet 0 08/08/2023 4 Active Ipratropium-Albuter ol 0.5-2.5 (3) MG/3ML Inhalation Solution (Duoneb) Inhale 3 mL via nebulizer in the morning and 3 mL at noon and 3 mL in the evening and 3 mL before bedtime. 50 mL 1 07/23/2022 3 Discontinue d(Refill) Asmanex (120 Metered Doses) 220 MCG/ACT Inhalation Aerosol Powder Breath Activated (Mometasone Furoate)Indications :COPD, group A, by GOLD 2017 classification ([facility]) Inhale 1 Puff by mouth in the morning and 1 Puff before bedtime. 3 Each 3 02/05/2023 3 Discontinue d(Medicatio n List Clean Up) documented as of this encounter (statuses as of 08/08/2023) Active Problems Problem Noted Date Diagnosed Date [...] as of this encounter (statuses as of 08/08/2023) Resolved Problems Problem Noted Date Diagnosed Date [...] as of this encounter (statuses as of 08/08/2023) Immunizations Name Administration Dates Next Due COVID-19 [...] Passive Smoke Exposure: Past Smokeless Tobacco: Never Tobacco Cessation:Counseling Given: Yes Alcohol Use Standard Drinks/Week Comments Yes 0 [...] on file documented as of this encounter Last Filed Vital Signs Vital Sign Reading Time Taken Comments Blood Pressure 110/66 08/08/2023 2:14 PM EST Pulse 74 08/08/2023 2:14 PM EST Temperature 36.5 C (97.7 F) 08/08/2023 2:14 PM ES T Respiratory Rate 14 08/08/2023 2:14 PM EST Oxygen Saturation 98% 08/08/2023 2:14 PM EST Inhaled Oxygen Concentration - - Weight 107.5 kg (236 lb 14.4 oz) 08/08/2023 2:14 PM EST Height 165.1 cm (5' 5") 08/08/2023 2:14 PM EST Body Mass Index 39.42 08/08/2023 2:14 PM EST documented in this encounter Progress Notes * Ben Toney, DO - 08/08/2023 2:54 PM EST SUBJECTIVE: Yari Long is a 78 year old female. Chief Complaint Patient presents with Acute HPI: Patient is a 78 year old female with a history of HTN, COPD, Peripheral Neuropathy, GERD, and Prediabetes that is seen for left back pain that radiates to the left lateral thigh. The patient started 4 days ago. The patient did a lot of cleaning 5 days ago. No falls or trauma. No loss of bowel or bladder function. No saddle anesthesia is present. No chest pain or shortness of breath. Patient Active Problem List Diagnosis Code Allergic rhinitis J30.9 Dyslipidemia, goal to be determined E78.5 ADVANCE DIRECTIVE INFORMATION Gastroesophageal reflux disease without esophagitis K21.9 HTN, goal below 140/90 I10 Body mass index (BMI) of 40.0 to 44.9 in adult ([facility]) Z68.41 S/P TKR (total knee replacement), left Z96.652 Prediabetes R73.03 History of breast cancer Z85.3 Solar purpura ([facility]) D69.2 Chronic kidney disease, stage 3a N18.31 Morbid obesity ([facility]) E66.01 Hypertensive kidney disease with stage 3a chronic kidney disease ([facility]) I12.9, N18.31 Other specified peripheral vascular diseases ([facility]) I73.89 COPD, group A, by GOLD 2017 classification ([facility]) J44.9 Caregiver stress Z63.6 Current Outpatient Medications Medication Sig Dispense Refill Multiple Vitamins-Minerals (MULTIVITAMIN WOMENS 50+ ADV) TABS Take by mouth daily at noon. Calcium Carb-Cholecalciferol 500-600 MG-UNIT Oral Tablet Take by mouth daily at noon. Elizabeth-3 Fatty Acids (FISH OIL) 1000 MG Capsule Take 1 Capsule by mouth daily at noon. Loratadine 10 MG Oral Tablet Take 1 Tablet by mouth in the morning. 30 Tab 11 Diclofenac Sodium 1 % External Gel (Voltaren) Apply topically to affected area 3 times a day as needed for Pain or Pain, Mild (to hands). 150 g 1 Vitamin B-12 6000 MCG Sublingual Tablet Sublingual Place under the tongue. Lisinopril-hydroCHLOROthiazide 20-12.5 MG Oral Tablet TAKE TWO TABLETS BY MOUTH EVERY MORNING 200 Tablet 3 Omeprazole 20 MG Oral Capsule Delayed Release (PriLOSEC) Take 2 Capsules by mouth daily before dinner. 200 Capsule 3 Pregabalin 25 MG Oral Capsule (Lyrica) Take one capsule by mouth in the morning and two capsules bymouth in the evening 270 Capsule 1 Meloxicam 7.5 MG Oral Tablet (Mobic) TAKE ONE TABLET BY MOUTH EVERY MORNING 90 Tablet 0 Qvar RediHaler 40 MCG/ACT Inhalation Aerosol Breath Activated (Beclomethasone Diprop HFA) Inhale 1 Puff by mouth in the morning and 1 Puff before bedtime. 10.6 g 2 Atorvastatin Calcium 20 MG Oral Tablet (Lipitor) TAKE ONE TABLET BY MOUTH EVERY DAY 100 Tablet 3 Ipratropium-Albuterol 0.5-2.5 (3) MG/3ML Inhalation Solution (Duoneb) Inhale 3 mL via nebulizer in the morning and 3 mL at noon and 3 mL in the evening and 3 mL before bedtime. 50 mL 1 predniSONE 20 MG Oral Tablet (Deltasone) Take 1 Tablet by mouth in the morning for 7 days. 7 Tablet0 Baclofen 10 MG Oral Tablet (Lioresal) Take 1 Tablet by mouth in the morning and 1 Tablet before bedtime. Do all this for 10 days. 20 Tablet 0 No current facility-administered medications for this visit. The patient's medication list was reviewed and updated as needed. Past Medical History: Diagnosis Date Allergic rhinitis Benign neoplasm of colon 03/07/10 diverticulosis, polyp x1--hyperplastic tissue repeat in 5 years Breast cancer (HCC) 08/24/2007 Infiltrating Lobular Carcinoma w/ Lumpectomy 2007 Diverticulosis of colon 11/13 colo Gastroesophageal reflux disease without esophagitis 12/12/2016 HTN, goal below 140/90 INFORMATION MRI-restricted blood flow to big toes Malignant neoplasm of lower-outer quadrant of female breast (HCC) 10/27/2007 ICD-10 update of inactive term Recurrent major depressive disorder, in remission (HCC) 12/12/2016 Vertigo BPV, MRI 2007, min microvascular disease Past Surgical History: Procedure Laterality Date BREAST LESION,OTHER,EXCISION 08/24/2007 Excision left breast mass (infiltrating lobular carcinoma) at [facility] - Dr. You DELIVERY 1982 Delivery Only COLONOSCOPY 11/2004 tics COLONOSCOPY W/ LESION REMOVAL, SNARE 03/07/2010 done diverticulosis, polyp x1--hyperplastic tissue repeat in 5 years COLONOSCOPY, DIAGNOSTIC (RECTUM) 03/15/2015 diverticulosis, repeat 5 yrs/COLONOSCOPY FLEXIBLE PROXIMAL DIAGNOSTIC performed by Brendan Miller MD at ENDOSCOPY [facility] COLONOSCOPY, DIAGNOSTIC (RECTUM) 04/21/2020 diverticulosis, repeat 5 yrs / COLONOSCOPY FLEXIBLE PROXIMAL DIAGNOSTIC performed by Janneth Coffey MDa ENDOSCOPY [facility] INFORMATION 1999 double knee replacement INFORMATION 7 knee surgeries INFORMATION EPL tendon rupture repair KNEE ARTHROSCOPY, DIAGNOSTIC bilateral MASTECTOMY, PARTIAL 09/11/2007 Left PM with deep axillary SLNB at [facility] -Dr. You MISCELLANEOUS ORDER ([facility] ONLY) 1979 FNAB of left breast (benign) REMOVAL OF APPENDIX 04/30/2008 REMOVE CATARACT, INSERT LENS PROSTH Left 04/17/2023 Left EXTRACAPSULAR CATARACT REMOVAL WITH INTRAOCULAR LENS performed by Bryan Richards MD at OR [facility] REMOVE CATARACT, INSERT LENS PROSTH Right 05/01/2023 Right EXTRACAPSULAR CATARACT REMOVAL WITH INTRAOCULAR LENS performed by Bryan Richards MD at OR [facility] REVISION OF TENNIS ELBOW Review of patient's allergies indicates: Allergen Reactions Tamoxifen Citrate Nausea/vomiting Amoxicillin Unknown Imidazole Antifungals Vaginal infections Review of Systems Constitutional: Negative for appetite change, fatigue and unexpected weight change. Respiratory: Negative for cough, shortness of breath and wheezing. Cardiovascular: Negative for chest pain, palpitations and leg swelling. Musculoskeletal: Positive for arthralgias, back pain and gait problem. OBJECTIVE: BP 110/66 | Pulse 74 | Temp 36.5 C (97.7 F) (Tympanic) | Resp 14 | Ht 1.651 m (5' 5") | Wt 107.5 kg (236 lb 14.4 oz) | SpO2 98% | BMI 39.42 kg/m | BSA 2.22 m Physical Exam Vitals and nursing note reviewed. Constitutional: General: She is not in acute distress. Appearance: Normal appearance. She is not toxic-appearing. HENT: Head: Normocephalic and atraumatic. Cardiovascular: Rate and Rhythm: Normal rate and regular rhythm. Heart sounds: Normal heart sounds. No murmur heard. No gallop. Pulmonary: Effort: Pulmonary effort is normal. Breath sounds: Normal breath sounds. No wheezing, rhonchi or rales. Musculoskeletal: Lumbar back: Spasms and tenderness present. No bony tenderness. Right lower leg: No edema. Left lower leg: No edema. Comments: Bilateral lower extremity strength is normal Neurological: Mental Status: She is alert. PLAN AND ASSESSMENT: Acute left-sided low back pain with left-sided sciatica (Primary) - predniSONE 20 MG Oral Tablet (Deltasone); Take 1 Tablet by mouth in the morning for 7 days. - Baclofen 10 MG Oral Tablet (Lioresal); Take 1 Tablet by mouth in the morning and 1 Tablet before bedtime. Do all this for 10 days. Patient will consider PT if medication does not work Hypertensive kidney disease with stage 3a chronic kidney disease (HCC) Controlled with Lisinopril and HCTZ COPD, group A, by GOLD 2017 classification (HCC) - Ipratropium-Albuterol 0.5-2.5 (3) MG/3ML Inhalation Solution (Duoneb); Inhale 3 mL via nebulizer in the morning and 3 mL at noon and 3 mL in the evening and 3 mL before bedtime. Prediabetes Ben Toney DO 2:54 PM 08/08/2023 documented in this encounter Nursing Notes * Jessie Bills LPN - 08/08/2023 2:14 PM EST Patient presents today with complaint of lower left sided back pain radiates into left thigh. Has had since . documented in this encounter Plan of Treatment Upcoming Encounters Date Type Department Care Team (Late st Contact Info) Description 08/14/2023 9:15 AM EST Office Visit [facility] [address] [place] [id number] Richard Ley MD [address] [place] [address] 08/19/2023 2:20 PM EST Office Visit Family Practice [address] [place] [address] [place] [address] Maricarmen Ann, [address] [place] [address] 03/30/2024 2:00 PM EDT Nurse Only Ancillary [address] [facility] [address] [place] [address] College, Nurse Annual Wellness Visit [address] [address] Scheduled Procedures Name Priority Associated Diagnoses Date/Ti me COLONOSCOPY FLEXIBLE PROXIMA L DIAGNOSTIC Recall Family history of colon cancer Health Maintenance Due Date Last Done Comments Alpha-1 Antitrypsin 1965 CKD PHOS USE SMARTSET 20798 05/10/2022 05/10/2021 COVID-19 Vaccine ( season) 2023 09/20/2021, 11/09/2020, 10/19/2020 GFR 12/29/2023 06/30/2023, 10/10, 04/12/2022, Additional history exists Albumin/Creatinine Ratio 02/29/2024 02/28/2023, 08/2021 O2 ASSESSMENT COMPLETED IN PAST YEAR FOR COPD 05/01/2024 05/01/2023 Depression Screening 05/13/2024 08/08/2023 CKD HGB USE SMARTSET 64184 06/30/202406/30, 06/30/2023, 04/08/2022, Additional history exists HbA1c [...] this encounter Medical Devices Implanted Type Area Crtts Device Identifier Shelf Expiration Date Model / Serial / Lot Lens Li61ao 13.00mm 19.00 - [id number] - [id number] Implanted:Qty: 1 on 04/17/2023 by Bryan Richards MD at OR [facility] Left: Eye [employer] 12/09/2027 [id number] / [id number] / [id number] Lens Li61ao 13.00mm 18.50 - [id number] - [id number] Implanted:Qty: 1 on 05/01/2023 by Bryan Richards MD at OR [facility] Right: Eye [employer] 10/09/2027 [id number] / [id number] / [id number] documented as of this encounter Visit Diagnoses Diagnosis Acute left-sided low back pain with left-sided sciatica- Primary Hypertensive kidney disease with stage 3a chronic kidney disease (HCC) COPD, group A, by GOLD 2017 classification (HCC) Prediabetes Other abnormal glucose documented in this encounter Advance Directives Latest Code Status on File Code Status Date Activated Date Inactivated Comments Full Code 05/01/2023 9:33 AM 05/01/2023 4:13 PM This order reflects the patients wishes and were consensually agreed upon. Question Answer Comments Discussion of Advance Directives occurred with: Patient Does the patient have a Living Will? No Does the patient have Health Care Power of Park Services Specialist? No Code Status History Code Status Date Activated Date Inactivated Comments Full Code 04/17/2023 8:37 AM 04/17/2023 2:50 PM This or adele reflects the patients wishes and were consensually agreed upon. Question Answer Comments Discussion of Advance Directives occurred with: Patient Does the patient have a Living Will? No Does the patient have Health Care Power of Park Services Specialist? No Care Teams Cherry Dipper Relationship Specialty Start Date End Date Maricarmen Ann DO [address] [place] [address] PCP - General Family Medicine 03/26/23 documented as of this encounter
--- OUTSIDE RECORDS SUMMARY | 2023-08-18 00:27 | External Medical Summary | Summary of Care ---
Author Name Unknown Organization [facility] Address [address] [place] [place] [address] Phone [phone] Care Team Providers Care Help Desk Technician Name Role Phone Maricarmen Ricardo Primary Care Provider Reason for Visit * Reason Comments Follow Up Patient here for a s kin check with hx of NMSC. Encounter Details Date Type Department Care Team (Late st Contact Info) Description 08/14/2023 9:15 AM EST Office Visit Dermatology [facility] [address] [facility] [place] [address] Richard Ley MD [address] [facility] [place] [address] Actinic skin damage*; Seborrheic keratoses; Hx of basal cell carcinoma; Scar; Actinic keratosis Allergies Active Allergy Reactions Criticality Noted Date Comments Amoxicillin Unknown 03/13/1999 Imidazole Antifungals 03/13/1999 Vaginal infections Tamoxifen Citrate Nausea/vomiting High 02/14/2010 documented as of this encounter (statuses as of 08/14/2023) Medications Medication Sig Dispensed Refills Start Date End Date Status Multiple Vitamins-Minerals (MULTIVITAMIN WOMENS 50+ ADV) TABS Take by mouth daily at noon. 0 Active Calcium Carb-Cholecalciferol 500-600 MG-UNIT Oral Tablet Take by mouth daily at noon. 0 Active Bradley-3 Fatty Acids (FISH OIL) 1000 MG Capsule [...] COPD, group A, by GOLD 2017 classification ([facility]) Inhale 3 mL via nebulizer in the [...] as of this encounter (statuses as of 08/14/2023) Active Problems Problem Noted Date Diagnosed Date [...] as of this encounter (statuses as of 08/14/2023) Resolved Problems Problem Noted Date Diagnosed Date [...] as of this encounter (statuses as of 08/14/2023) Immunizations Name Administration Dates Next Due COVID-19 mRNA, LNP-s, No Pre serve, 2-Dose Series ([employer]) 09/20/2021,11/09/2020,10/19/2020 Pneumococcal Conjugate Vacc, 13 Valent (Prevnar) [...] on file documented as of this encounter Progress Notes * Richard Ley MD - 08/14/2023 9:29 AM EST SUBJECTIVE: Chief Complaint: Chief Complaint Patient presents with Follow Up Patient here for a skin check with hx of NMSC. HPI: Yari Long is a 78 year old female seen for a full skin check for history of nonmelanomaskin cancer. Patient with no concerns. Denies any spots that are itching, burning, and bleeding. Denies any spots that are changing. DERMATOLOGIC HISTORY: 2022 - BCC, l mid cheek s/p mohs 2021 - BCC left ala s/p mohs 2021 - BCC r superior [place] - efudex REVIEW OF SYSTEMS: CONSTITUTIONAL: negative SKIN: No new or changing moles or rashes other than those noted in HPI HEME/LYMPH: No new or enlarging lumps or bumps OBJECTIVE: GEN: Alert, no distress, appears oriented, pleasant, and cooperative SKIN: Detailed exam of hair, face, trunk, arms, and legs Right cheek x2, left upper eyelid - 3 thin gritty erythematous macules/papules Well-healed scar(s) at primary site(s) without evidence of recurrence Scattered on face, chest, back - diffuse mottled hypopigmented and hyperpigmented macules without significant irregularity. Associated telangiectasias At the trunk and extremities are several scattered parra/brown hyperkeratotic stuck on appearing waxypapules. ASSESSMENT/PLAN: Actinic Keratosis - The patient was counseled on the premalignant nature of these lesions. - Discussed observation only, cryotherapy and topical Efudex. Patient opted for observation. - Does have efudex at home that she has used in the past. Has been treating these spots. Recommend continuing for 2-3 weeks then stop - If area worsens encouraged to call office for treatment. Scar(s), History of Nonmelanoma Skin Cancer - Well healed scar(s) with no evidence of recurrence - Recommended periodic skin exams and instructed to call clinic if patient notices any changing lesions, including rapid enlargement, changes in color or shape or symptoms, bleeding, or other concerns. The common features and behavior of non-melanoma skin cancers (e.g. basal cell carcinoma/squamouscell carcinoma) as well as the features of melanoma were also reviewed. -Daily sun protection recommended including physical (i.e. clothing) and chemical blockers. Broad spectrum sunscreens with at least SPF 30 for UVA and UVA protection were recommended. Chronic Actinic Damage - Discussed that skin changes are due to chronic sun exposure. - Daily sun protection recommended as discussed above Seborrheic keratoses - The benign nature of these lesions was discussed with the patient and that no treatment is indicated today. Richard Ley MD Ref: SELF[[id number]] NO STREET ADDRESS AVAILABLE None (office) None (fax) PCP: MARICARMEN RICARDO [address] [place] [address] [phone] documented in this encounter Nursing Notes * Holli Mesa LPN - 08/14/2023 9:17 AM EST Patient identified by name and date of . Do you have any concerns about pain management for today's visit? No Living Will or Advance Directive for Health Care as noted on problem list. [facility] is a way you can talk to your provider online through e-mail. Would you like to sign up? I can activate it for you? ALREADY ACTIVE Chief Complaint Patient presents with Follow Up Patient here for a skin check with hx of NMSC. documented in this encounter Plan of Treatment Upcoming Encounters Date Type Department Care Team (Late st Contact Info) Description 08/19/2023 2:20 PM EST Office Visit Family Practice [address] [facility] [address] [facility] [address] [place] [address] Maricarmen Ricardo, [address] [place] [address] 03/30/2024 2:00 PM EDT Nurse Only Ancillary [address] [address] [employer], Nurse Annual Wellness Visit [address] [address] 08/20/2024 10:45 AM EST Office Visit Dermatology [facility] [place] [address] [facility] [place], [place] [address] [facility] [address] Scheduled Procedures Name Priority Associated Diagnoses Date/Ti me COLONOSCOPY FLEXIBLE PROXIMA L DIAGNOSTIC Recall Family history of colon cancer Health Maintenance Due Date Last Done Comments Alpha-1 Antitrypsin 1963 CKD PHOS USE SMARTSET 08149 05/10/2022 05/10/2021 COVID-19 Vaccine ( season) 2023 09/20/2021, 11/09/2020, 10/19/2020 GFR 12/29/2023 06/30/2023, 10/10, 04/12/2022, Additional history exists Albumin/Creatinine Ratio 02/29/2024 02/28/2023, 0908/2021 O2 ASSESSMENT COMPLETED IN PAST YEAR FOR COPD 05/01/2024 05/01/2023 CKD HGB USE SMARTSET 76981 06/30/202406/30, 06/30/2023, 04/08/2022, Additional history exists HbA1c 06/30/2024 06/30/2023, 0 09/2021, 05/10/2021, Additional history exists Depression Screening [...] this encounter Medical Devices Implanted Type Area Medical Lab Director Device Identifier Shelf Expiration Date Model / Serial / Lot Lens Li61ao 13.00mm 19.00 - [id number] - [id number] Implanted:Qty: 1 on 04/17/2023 by Bryan Richards MD at OR [facility] Left: Eye [employer]OM[employer] 12/09/2027 [id number] / [id number] / [id number] Lens Li61ao 13.00mm 18.50 - [id number] - [id number] Implanted:Qty: 1 on 05/01/2023 by Bryan Richards MD at OR [facility] Right: Eye [employer]OMB 10/09/2027 [id number] / [id number] / [id number] documented as of this encounter Visit Diagnoses Diagnosis Actinic skin damage- Primary Other dermatitis due to solar radiation Seborrheic keratoses Hx of basal cell carcinoma Personal history of other malignant neoplasm of skin Scar Scar condition and fibrosis of skin Actinic keratosis documented in this encounter Advance Directives Latest Code Status on File Code Status Date Activated Date Inactivated Comments Full Code 05/01/2023 9:33 AM 05/01/2023 4:13 PM This order reflects the patients wishes and were consensually agreed upon. Question Answer Comments Discussion of Advance Directives occurred with: Patient Does the patient have a Living Will? No Does the patient have Health Care Power of Cell Stripper? No Code Status History Code Status Date Activated Date Inactivated Comments Full Code 04/17/2023 8:37 AM 04/17/2023 2:50 PM This or adele reflects the patients wishes and were consensually agreed upon. Question Answer Comments Discussion of Advance Directives occurred with: Patient Does the patient have a Living Will? No Does the patient have Health Care Power of Cell Stripper? No Care Teams Help Desk Technician Relationship Specialty Start Date End Date Maricarmen Ricardo DO [address] [place] [address] PCP - General Family Medicine 03/26/23 documented as of this encounter
--- OUTSIDE RECORDS SUMMARY | 2023-08-18 00:27 | External Medical Summary | Summary of Care ---
Author Name Unknown Organization [facility] Address [address] [place] [address] Phone [phone] Care Team Providers Care Delivery Stock Clerk Name Role Phone Maricarmen Ann DO Primary Care Provider [phone] Reason for Referral * Evaluate & Treat - Unlimited Visits (Within 10 days (routine)) - Authorized Specialty Diagnoses / Procedures Referred By Contlisa t Referred To Contact Physical Therapy / Physical Medicine And Rehab Diagnoses Low back pain with left-sided sciatica Maricarmen Ann DO [address] [place] [address] Referral ID Status Reason Start Date Expiration Date Visits Requested Visits Authorized [id number] Authorized Specialty Services Required 08/12/2023 999 999 Question Answer Referral Priority Within 10 days (routine) Where should this appointment be scheduled? External Reason for Visit * Reason Onset Date Comments Referral 08/12/2023 PT requested Encounter Details Date Type Department Care Team (Late st Contact Info) Description 08/12/2023 Telephone Family Practice [address] [place] [address] [place] [address] Maricarmen Ann DO [address] [place] [address] Referral (PT requested) Allergies Active Allergy Reactions Criticality Noted Date Comments Amoxicillin Unknown 03/13/1999 Imidazole Antifungals 03/13/1999 Vaginal infections Tamoxifen Citrate Nausea/vomiting High 02/14/2010 documented as of this encounter (statuses as of 08/12/2023) Medications Medication Sig Dispensed Refills Start Date End Date Status Multiple Vitamins-Minerals (MULTIVITAMIN WOMENS 50+ ADV) TABS Take by mouth daily at noon. 0 Active Calcium Carb-Cholecalciferol 500-600 MG-UNIT Oral Tablet Take by mouth daily at noon. 0 Active Dewart-3 Fatty Acids (FISH OIL) 1000 MG Capsule [...] COPD, group A, by GOLD 2017 classification ([facility]) Inhale 3 mL via nebulizer in the [...] as of this encounter (statuses as of 08/12/2023) Active Problems Problem Noted Date Diagnosed Date [...] as of this encounter (statuses as of 08/12/2023) Resolved Problems Problem Noted Date Diagnosed Date [...] as of this encounter (statuses as of 08/12/2023) Immunizations Name Administration Dates Next Due COVID-19 mRNA, LNP-s, No Pre serve, 2-Dose Series ([employer] 09/20/2021,11/09/2020,10/19/2020 Pneumococcal Conjugate Vacc, 13 Valent (Prevnar) [...] encounter Miscellaneous Notes * Telephone Encounter - Mery Casey OSA - 08/12/2023 4:32 PM EST Order faxed to [facility] in [place]. Pt aware * Telephone Encounter - Ben Toney DO - 08/12/2023 4:26 PM EST PT order signed Assist with scheduling * Telephone Encounter - Beverly Bond LPN - 08/12/2023 4:13 PM EST Please advise. Therapy order pended. * Telephone Encounter - Mery Casey OSA - 08/12/2023 4:08 PM EST Pt calling in to request a PT referral for back pain. Pt asking to go to [facility] in [place] Pt saw Dr toney 08.08.23 who recommended PT as a next step. Pt called [facility] and if we can get them a referral by today, she can be scheduled next week, otherwise she will have to wait much longer. [facility] in [place] fax [phone] today. documented in this encounter Plan of Treatment Upcoming Encounters Date Type Department Care Team (Late st Contact Info) Description 08/14/2023 9:15 AM EST Office Visit Dermatology [facility] [address] [facility] [place] [address] Richard Ley MD [address] [facility] [place] [address] 08/19/2023 2:20 PM EST Office Visit Family Practice [address] [address] Maricarmen Ann DO [address] [place] [address] 03/30/2024 2:00 PM EDT Nurse Only Ancillary [address] [place] [address] College, Nurse Annual Wellness Visit [address] [place] [address] Scheduled Procedures Name Priority Associated Diagnoses Date/Ti me COLONOSCOPY FLEXIBLE PROXIMA L DIAGNOSTIC Recall Family history of colon cancer Scheduled Referrals Name Type Priority Associated Diagnoses Orde r Schedule PHYSICAL THERAPY REFERRAL OP Referral Within 10 days (routine) Low back pain with left-sided sciatica Ordered: 08/12/2023 Health Maintenance Due Date Last Done Comments Alpha-1 Antitrypsin 1963 CKD PHOS USE SMARTSET 68095 05/10/2022 05/10/2021 COVID-19 Vaccine ( season) 2023 09/20/2021, 11/09/2020, 10/19/2020 GFR 12/29/2023 06/30/2023, 10/10, 04/12/2022, Additional history exists Albumin/Creatinine Ratio 02/29/2024 02/28/2023, 09/0 08/2021 O2 ASSESSMENT COMPLETED IN PAST YEAR FOR COPD 05/01/2024 05/01/2023 CKD HGB USE SMARTSET 21044 06/30/202406/30, 06/30/2023, 04/08/2022, Additional history exists HbA1c [...] this encounter Medical Devices Implanted Type Area Low Pressure Kettle Operator Device Identifier Shelf Expiration Date Model / Serial / Lot Lens Li61ao 13.00mm 19.00 - [id number] - [id number] Implanted:Qty: 1 on 04/17/2023 by Bryan Richards MD at OR [facility] Left: Eye [employer]OMB 12/09/2027 [id number] / [id number] / [id number] Lens Li61ao 13.00mm 18.50 - [id number] - [id number] Implanted:Qty: 1 on 05/01/2023 by Bryan Richards MD at OR [facility] Right: Eye [employer]CH [employer] LOMB 10/09/2027 [id number] / [id number] / [id number] documented as of this encounter Visit Diagnoses Diagnosis Low back pain with left-sided sciatica- Primary documented in this encounter Advance Directives Latest Code Status on File Code Status Date Activated Date Inactivated Comments Full Code 05/01/2023 9:33 AM 05/01/2023 4:13 PM This order reflects the patients wishes and were consensually agreed upon. Question Answer Comments Discussion of Advance Directives occurred with: Patient Does the patient have a Living Will? No Does the patient have Health Care Power of Choir Director? No Code Status History Code Status Date Activated Date Inactivated Comments Full Code 04/17/2023 8:37 AM 04/17/2023 2:50 PM This or adele reflects the patients wishes and were consensually agreed upon. Question Answer Comments Discussion of Advance Directives occurred with: Patient Does the patient have a Living Will? No Does the patient have Health Care Power of Choir Director? No Care Teams Delivery Stock Clerk Relationship Specialty Start Date End Date Maricarmen Ann DO [address] [place] [address] PCP - General Family Medicine 03/26/23 documented as of this encounter
--- OUTSIDE RECORDS SUMMARY | 2023-08-18 00:28 | External Medical Summary | Summary of Care ---
Author Name Unknown Organization [facility] Address [address] [facility] [place] [address] Phone [phone] Care Team Providers Care Nuclear Waste Management Engineer Name Role Phone Maricarmen Ricardo DO Primary Care Provider [phone] Reason for Visit * Reason Onset Date Comments Medication Refill 07/17/2023 Encounter Details Date Type Department Care Team (Late st Contact Info) Description 07/17/2023 Refill Family Practice [address] [place] [address] [place] [address] Maricarmen Ricardo DO [address] [place] [address] Allergies Active Allergy Reactions Criticality Noted Date Comments Amoxicillin Unknown 03/13/1999 Imidazole Antifungals 03/13/1999 Vaginal infections Tamoxifen Citrate Nausea/vomiting High 02/14/2010 documented as of this encounter (statuses as of 07/18/2023) Medications Medication Sig Dispensed Refills Start Date [...] 200 Tablet 3 11/20/2022 11/20/19 24 Active Atorvastatin Calcium 20 MG Oral Tablet (Lipitor) TAKE ONE TABLET BY MOUTH EVERY DAY 100 Tablet 2 09/28/2022 09/28/19 24 Active Omeprazole 20 MG Oral Capsule [...] before bedtime. 10.6 g 2 07/18/2023 Active Qvar RediHaler 40 MCG/ACT Inhalation Aerosol Breath Activated (Beclomethasone Diprop HFA) Inhale 1 Puff by mouth in the morning and 1 Puff before bedtime. 10.6 g 0 05/16/2023 07/17/20 Discontinu ed(Refill) documented as of this encounter (statuses as of 07/18/2023) Active Problems Problem Noted Date Diagnosed Date [...] as of this encounter (statuses as of 07/18/2023) Resolved Problems Problem Noted Date Diagnosed Date [...] as of this encounter (statuses as of 07/18/2023) Immunizations Name Administration Dates Next Due COVID-19 mRNA, LNP-s, No Pre serve, 2-Dose Series ([employer]ool) 09/20/2021,11/09/2020,10/19/2020 Pneumococcal Conjugate Vacc, 13 Valent (Prevnar) [...] Miscellaneous Notes * Telephone Encounter - Maricarmen Ricardo DO - 07/18/2023 8:54 AM ESTSigned Prescriptions: Disp Refills Qvar RediHaler 40 MCG/ACT Inhalation Aeros*10.6 g 2 Sig: Inhale 1 Puff by mouth in the morning and 1 Puff before bedtime. Authorizing Provider: MARICARMEN RICARDO * Telephone Encounter - Isabelle Rendon [facility] - 07/18/2023 5:12 AM ESTPending Prescriptions: Disp Refills Qvar RediHaler 40 MCG/ACT Inhalation Aeros*10.6 g 2 Sig: Inhale 1 Puff by mouth in the morning and 1 Puff before bedtime. * Telephone Encounter - Isabelle Rendon [facility] - 07/18/2023 5:12 AM EST Unable to authorize proactive medication refills at this time. Part of the criteria used for refill authorization was not satisfied. Patients using a daily maintenance inhaler should have an active short-acting beta agonist rescue inhaler. Please approve if appropriate. Thank You, Isabelle Rendon [facility] Clinical Pharmacist [facility] ([facility] [phone] 07/18/2023, 5:12 AM * Telephone Encounter - Brisa Crowley PHARM Tech - 07/17/2023 3:04 PM EST Did you pend patient's preferred pharmacy and medication before forwarding?yes Pharmacy: [id number] Pending Prescriptions: Disp Refills Qvar RediHaler 40 MCG/ACT Inhalation Aero*10.6 g 0 Sig: Inhale 1 Puff by mouth in the morning and 1 Puff before bedtime. Last Visit: 05/13/2023 (in office), Visit date not found (telemedicine) Next Visit: 08/19/2023 If no future appointments scheduled, and last appointment is greater than a year ago, please schedule patient for a follow-up appointment Last date the medication was ordered: 05/16 Is this request for a controlled substance?No Urine Drug Screen:No results found for this or any previous visit. Patient Phone Numbers Labs: Lab Results Component Value Date/Time CREAT 1.0 06/30/2023 12:47 PM CREAT 1.1 (H) 03/21/2020 11:03 AM POTASSIUM 4.2 06/30/2023 12:47 PM POTASSIUM 5.0 03/21/2020 11:03 AM TSH 0.58 10/14/2020 01:49 PM TSH 1.68 02/13/2010 08:05 AM TSH 1.12 06/16/1996 08:15 AM LDLCALC 119 04/12/2022 10:26 AM LDLCALC 115 03/21/2020 11:03 AM LDLCALC 131. (H) 06/16/1996 08:15 AM LDLDIRECT 62 06/30/2023 12:47 PM LDLDIRECT NOT APPLICABLE 03/21/2020 11:03 AM LDLDIRECT 131 (H) 12/12/2014 03:45 PM ALT 14 06/30/2023 12:47 PM ALT 20 03/21/2020 11:03 AM HGBA1C 5.7 (H) 06/30/2023 12:47 PM HGBA1C 5.9 (H) 03/21/2020 11:03 AM documented in this encounter Plan of Treatment Upcoming Encounters Date Type Department Care Team (Late st Contact Info) Description 08/14/2023 9:15 AM EST [facility] [address] [facility] [place] [address] Richard Ley MD [address] [facility] [place] [address] 08/19/2023 2:20 PM EST Office Visit Family Practice [address] [facility] [address] [place] [address] Maricarmen Ricardo DO [address] [place] [address] 03/30/2024 2:00 PM EDT Nurse Only Ancillary [address] [address] College, Nurse Annual Wellness Visit [address] [address] Scheduled Procedures Name Priority Associated Diagnoses Date/Ti me COLONOSCOPY FLEXIBLE PROXIMA L DIAGNOSTIC Recall Family history of colon cancer Health Maintenance Due Date Last Done Comments Alpha-1 Antitrypsin 1963 CKD PHOS USE SMARTSET 17177 05/10/2022 05/10/2021 COVID-19 Vaccine ( season) 2023 09/20/2021, 11/09/2020, 10/19/2020 GFR 12/29/2023 06/30/2023, 10/10, 04/12/2022, Additional history exists Albumin/Creatinine Ratio 02/29/2024 02/28/2023, 08/2021 O2 ASSESSMENT COMPLETED IN PAST YEAR FOR COPD 05/01/2024 05/01/2023 Depression Screening 05/13/2024 05/13/2023 CKD HGB USE SMARTSET 04430 06/30/202406/30, 06/30/2023, 04/08/2022, Additional history exists HbA1c 06/30/2024 06/30/2023, 09/2021, 05/10/2021, Additional history exists COLONOSCOPY-EVERY 5 [...] this encounter Medical Devices Implanted Type Area Transport Rn Device Identifier Shelf Expiration Date Model / Serial / Lot Lens Li61ao 13.00mm 19.00 - [id number] - [id number] Implanted:Qty: 1 on 04/17/2023 by Bryan Richards MD at OR [facility] Left: Eye [employer]OMB 12/09/2027 [id number] / [id number] / [id number] Lens Li61ao 13.00mm 18.50 - [id number] - [id number] Implanted:Qty: 1 on 05/01/2023 by Bryan Richards MD at OR [facility] Right: Eye [employer] LOMB 10/09/2027 [id number] / [id number] / [id number] documented as of this encounter Advance Directives [...] the patient have Health Care Power of Physician Obstetrician? No Code Status History Code Status Date Activated Date Inactivated Comments Full Code 04/17/2023 8:37 AM 04/17/2023 2:50 PM This or adele reflects the patients wishes and were consensually agreed upon. Question Answer Comments Discussion of Advance Directives occurred with: Patient Does the patient have a Living Will? No Does the patient have Health Care Power of Physician Obstetrician? No Care Teams Nuclear Waste Management Engineer Relationship Specialty Start Date End Date Maricarmen Ricardo DO [address] [place] [address] PCP - General Family Medicine 03/26/23 documented as of this encounter
--- OUTSIDE RECORDS SUMMARY | 2023-08-18 00:28 | External Medical Summary | Summary of Care ---
Author Name Unknown Organization [facility] Address [address] [facility] [place] [address] Phone [phone] Care Team Providers Care Tunnel Heading Inspector Name Role Phone Maricarmen Ann DO Primary Care Provider Reason for Visit * Reason Onset Date Comments Appointment 07/17/2023 Advise and refil l question Advice 07/17/202307/18 Encounter Details Date Type Department Care Team (Late st Contact Info) Description 07/17/2023 Telephone Family Practice [address] [place] [address] [place] [address] Maricarmen Ann DO [address] [place] [address] Appointment (Advise and refill question); ... Allergies [...] by mouth daily at noon. 0 Active [place]-3 Fatty Acids (FISH OIL) 1000 MG Capsule [...] group A, by GOLD 2017 classification ([facility]) Inhale 1 Puff by mouth [...] for patient to return call. Sent my Trovit message. * Telephone Encounter - Maricarmen Ann [...] no answer-message left to call back at [phone] * Telephone Encounter - Maricarmen Ann DO [...] visit if possible. She also states that [facility] pharmacy informed her that her Qvar will need reordered. She states that [facility] pharmacy has told her they have sent [...] other symptoms. If agreeable, please send to [facility] in [place] on [email or web address] Pt can be reached at [phone]. Further asking about qvar refill they said it was denied, and they were reaching out to our office,however; she has not heard back and only has a few days left of pills. documented in this encounter Plan of Treatment Upcoming Encounters Date Type Department Care Team (Late st Contact Info) Description 08/14/2023 9:15 AM EST Office Visit Dermatology [facility] [place] 200 [facility] [place] [address] Richard Ley MD [address] [facility] [place] [address] 08/19/2023 2:20 PM EST Office Visit Family Practice 65 [facility] 293 [facility] [address] Maricarmen Ann DO 293 [place] [address] 03/30/2024 2:00 PM EDT Nurse Only Ancillary 65 [facility] 293 [facility] [address] College, Nurse Annual Wellness Visit [address] [place] [address] Scheduled Procedures Name Priority Associated Diagnoses Date/Ti me COLONOSCOPY FLEXIBLE PROXIMA L DIAGNOSTIC Recall Family history of colon cancer Health Maintenance Due Date Last Done Comments Alpha-1 Antitrypsin 1963 CKD PHOS USE SMARTSET 39320 05/10/2022 05/10/2021 COVID-19 Vaccine ( season) 2023 09/20/2021, 11/09/2020, 10/19/2020 GFR 12/29/2023 06/30/2023, 10/10, 04/12/2022, Additional history exists Albumin/Creatinine Ratio 02/29/2024 02/28/2023, 08/2021 O2 ASSESSMENT COMPLETED IN PAST YEAR FOR COPD 05/01/2024 05/01/2023 Depression Screening 05/13/2024 05/13/2023 CKD HGB USE SMARTSET 83782 06/30/202406/30, 06/30/2023, 04/08/2022, Additional history exists HbA1c [...] this encounter Medical Devices Implanted Type Area Computerized Mill Recorder Device Identifier Shelf Expiration Date Model / Serial / Lot Lens Li61ao 13.00mm 19.00 - [id number] - [id number] Implanted:Qty: 1 on 04/17/2023 by Bryan Richards MD at OR [facility] Left: Eye [employer]USCH [employer] LOMB 12/09/2027 [id number] / [id number] / [id number] Lens Li61ao 13.00mm 18.50 - [id number] - [id number] Implanted:Qty: 1 on 05/01/2023 by Bryan Richards MD at OR [facility] Right: Eye BAUSCH [employer] LOMB 10/09/2027 [id number] / [id number] / [id number] documented as of this encounter Advance Directives [...] the patient have Health Care Power of Spanish Translator? No Code Status History Code Status Date Activated Date Inactivated Comments Full Code 04/17/2023 8:37 AM 04/17/2023 2:50 PM This or adele reflects the patients wishes and were consensually agreed upon. Question Answer Comments Discussion of Advance Directives occurred with: Patient Does the patient have a Living Will? No Does the patient have Health Care Power of Spanish Translator? No Care Teams Tunnel Heading Inspector Relationship Specialty Start Date End Date Maricarmen Ann DO [address] [place] [address] PCP - General Family Medicine 03/26/23 documented as of this encounter
--- OUTSIDE RECORDS SUMMARY | 2023-08-18 00:28 | External Medical Summary | Summary of Care ---
Author Name Unknown Organization [facility] Address [address] [place] [address] Phone [phone] Care Team Providers Care Hospice Massage Therapist Name Role Phone Maricarmen Ann Primary Care Provider Encounter Details Date Type Department Care Team (Late st Contact Info) Description 07/08/2023 Orders Only Outcomes Research Department [address] [place], [place] [id number] Allie Tesfaye CHRA MyCode Research Other*[id number] Allergies Active Allergy Reactions Criticality Noted Date Comments Amoxicillin Unknown 03/13/1999 Imidazole Antifungals 03/13/1999 Vaginal infections Tamoxifen Citrate Nausea/vomiting High 02/14/2010 documented as of this encounter (statuses as of 07/08/2023) Medications Medication Sig Dispensed Refills Start Date End Date Status Multiple Vitamins-Minerals (MULTIVITAMIN WOMENS 50+ ADV) TABS Take by mouth daily at noon. 0 Active Calcium Carb-Cholecalciferol 500-600 MG-UNIT Oral Tablet Take by mouth daily at noon. 0 Active [place]-3 Fatty Acids (FISH OIL) 1000 MG Capsule [...] group A, by GOLD 2017 classification ([facility]) Inhale 1 Puff by [...] the evening 270 Capsule 1 04/17/2023 Active Qvar RediHaler 40 MCG/ACT Inhalation Aerosol Breath Activated (Beclomethasone Diprop HFA) Inhale 1 Puff by mouth in the morning and 1 Puff before bedtime. 10.6 g 0 05/16/2023 Active Meloxicam 7.5 MG Oral Tablet (Mobic) TAKE ONE TABLET BY MOUTH EVERY MORNING 90 Tablet 0 06/13/2023 4 Active documented as of this encounter (statuses as of 07/08/2023) Active Problems Problem Noted Date Diagnosed Date [...] as of this encounter (statuses as of 07/08/2023) Resolved Problems Problem Noted Date Diagnosed Date [...] as of this encounter (statuses as of 07/08/2023) Immunizations Name Administration Dates Next Due COVID-19 [...] on file documented as of this encounter Plan of Treatment Upcoming Encounters Date Type Department Care Team (Late st Contact Info) Description 08/14/2023 9:15 AM EST Office [facility] 200 [facility] [place] [address] Richard Ley MD 200 [facility] [place] [address] 08/19/2023 2:20 PM EST Office Visit Family Practice [address] [address] Maricarmen Ann DO [address] [place] [address] 03/30/2024 2:00 PM EDT Nurse Only Ancillary [address] [address] [place], Nurse Annual Wellness Visit [address] [address] Scheduled Orders Name Type Priority Associated Diagnoses Orde r Schedule MYCODE SUBSEQUENT ADULT Lab Routine MyCode Research Other*[id number] Every 6 Months for 2 Occurrences starting 07/08/2023 until 07/27/2024 Scheduled Procedures Name Priority Associated Diagnoses Date/Ti me COLONOSCOPY FLEXIBLE PROXIMA L DIAGNOSTIC Recall Family history of colon cancer Health Maintenance Due Date Last Done Comments Alpha-1 Antitrypsin 1963 CKD PHOS USE SMARTSET 40581 05/10/2022 05/10/2021 COVID-19 Vaccine ( season) 2023 09/20/2021, 11/09/2020, 10/19/2020 GFR 12/29/2023 06/30/2023, 10/10, 04/12/2022, Additional history exists Albumin/Creatinine Ratio 02/29/2024 02/28/2023, 08/2021 O2 ASSESSMENT COMPLETED IN PAST YEAR FOR COPD 05/01/2024 05/01/2023 Depression Screening 05/13/2024 05/13/2023 CKD HGB USE SMARTSET 37040 06/30/202406/30, 06/30/2023, 04/08/2022, Additional history exists HbA1c [...] this encounter Medical Devices Implanted Type Area Integration Developer Device Identifier Shelf Expiration Date Model / Serial / Lot Lens Li61ao 13.00mm 19.00 - [id number] - [id number] Implanted:Qty: 1 on 04/17/2023 by Bryan Richards MD at [facility] Left: Eye [employer]USCH [employer] LOMB 12/09/2027 [id number] / [id number] / [id number] Lens Li61ao 13.00mm 18.50 - [id number] - [id number] Implanted:Qty: 1 on 05/01/2023 by Bryan Richards MD at OR [facility] Right: Eye BAUSCH [employer] LOMB 10/09/2027 [id number] / [id number] / [id number] documented as of this encounter Visit Diagnoses Diagnosis MyCode Research Other*[id number] documented in this encounter Advance Directives Latest Code Status on File Code Status Date Activated Date Inactivated Comments Full Code 05/01/2023 9:33 AM 05/01/2023 4:13 PM This order reflects the patients wishes and were consensually agreed upon. Question Answer Comments Discussion of Advance Directives occurred with: Patient Does the patient have a Living Will? No Does the patient have Health Care Power of Project Manager Industrial? No Code Status History Code Status Date Activated Date Inactivated Comments Full Code 04/17/2023 8:37 AM 04/17/2023 2:50 PM This or adele reflects the patients wishes and were consensually agreed upon. Question Answer Comments Discussion of Advance Directives occurred with: Patient Does the patient have a Living Will? No Does the patient have Health Care Power of Project Manager Industrial? No Care Teams Hospice Massage Therapist Relationship Specialty Start Date End Date Maricarmen Ann DO [address] [place] [address] PCP - General Family Medicine 03/26/23 documented as of this encounter
--- OUTSIDE RECORDS SUMMARY | 2023-08-18 00:28 | External Medical Summary | Summary of Care ---
Author Name Unknown Organization [facility] Address [address] [facility] [address] Phone [phone] Care Team Providers Care Flight Coordinator Name Role Phone Maricarmen Ann Primary Care Provider Reason for Visit * Reason Comments Outpatient Testing Encounter Details Date Type Department Care Team (Late st Contact Info) Description 06/30/2023 1:10 PM EST Laboratory [facility], [facility] [address] [facility] [phone] [facility] [address] [facility] [address] Dyslipidemia, goal to be determined; Chronic kidney disease, stage 3a; Prediabetes; Gastroesophageal reflux disease without esophagitis Allergies Active Allergy Reactions Criticality Noted Date Comments Amoxicillin Unknown 03/13/1999 Imidazole Antifungals 03/13/1999 Vaginal infections Tamoxifen Citrate Nausea/vomiting High 02/14/2010 documented as of this encounter (statuses as of 06/30/2023) Medications Medication Sig Dispensed Refills Start Date End Date Status Multiple Vitamins-Minerals (MULTIVITAMIN WOMENS 50+ ADV) TABS Take by mouth daily at noon. 0 Active Calcium Carb-Cholecalciferol 500-600 MG-UNIT Oral Tablet Take by mouth daily at noon. 0 Active [place]-3 Fatty Acids (FISH OIL) 1000 MG Capsule [...] A, by GOLD 2017 classification ([facility]) Inhale 1 Puff by mouth in the [...] as of this encounter (statuses as of 06/30/2023) Active Problems Problem Noted Date Diagnosed Date [...] as of this encounter (statuses as of 06/30/2023) Resolved Problems Problem Noted Date Diagnosed Date [...] as of this encounter (statuses as of 06/30/2023) Immunizations Name Administration Dates Next Due COVID-19 mRNA, LNP-s, No Pre serve, 2-Dose Series ([employer]) 09/20/2021,11/09/2020,10/19/2020 Pneumococcal Conjugate Vacc, 13 Valent (Prevnar) [...] 08/14/2023 9:15 AM EST Office Visit Dermatology [facility] [address] [facility] [address] Richard Ley MD 200 [place] [address] 08/19/2023 2:20 PM EST Office Visit Family Practice 65 [facility] [address] [place] [address] Maricarmen Ann DO [address] [place] [address] 03/30/2024 2:00 PM EDT Nurse Only Ancillary [address] [address] College, Nurse Annual Wellness Visit [address] [address] Pending Results Name Type Priority Associated Diagnoses Date /Time LIPID PANEL WITH DIRECT LDL IF TG IS HIGH Lab Routine Dyslipidemia, goal to be determined 06/30/2023 12:47 PM EST COMPREHENSIVE METABOLIC PANEL Lab Routine Dyslipidemia, goal to be determined 06/30/2023 12:47 PM EST HEMOGLOBIN A1C Lab Routine Prediabetes 06/30/2023 12:47 PM EST MAGNESIUM Lab Routine Gastroesophageal reflux disease without esophagitis 06/30/2023 12:47 PM EST VITAMIN B12 Lab Routine Gastroesophageal reflux disease without esophagitis 06/30/2023 12:47 PM EST Scheduled Procedures Name Priority Associated Diagnoses Date/Ti me COLONOSCOPY FLEXIBLE PROXIMA L DIAGNOSTIC Recall Family history of colon cancer Health Maintenance Due Date Last Done Comments Alpha-1 Antitrypsin 1963 CKD PHOS USE SMARTSET 29743 05/10/2022 05/10/2021 CKD HGB USE SMARTSET 71588 04/08/202306/30, 06/30/2023, 04/08/2022, Additional history exists COVID-19 Vaccine ( season) 2023 09/20/2021, 11/09/2020, 10/19/2020 HbA1c 04/12/2023 04/12/2022, 04/13, 03/21/2020, Additional history exists GFR 05/03/2023 10/31/2022, 090 09/2021, 05/10/2021, Additional history exists Albumin/Creatinine Ratio 02/29/2024 02/28/2023, 090 08/2021 O2 ASSESSMENT COMPLETED IN PAST YEAR FOR COPD 05/01/2024 05/01/2023 Depression Screening 05/13/2024 05/13/2023 COLONOSCOPY-EVERY 5 YRS AGES 18-100 04/21/2025 04/21/2020, [...] this encounter Medical Devices Implanted Type Area Bag Builder Device Identifier Shelf Expiration Date Model / Serial / Lot Lens Li61ao 13.00mm 19.00 - [id number] - [id number] Implanted:Qty: 1 on 04/17/2023 by Bryan Richards MD at OR [facility] Left: Eye BAUSCH [employer] LOMB 12/09/2027 [id number] / [id number] / [id number] Lens Li61ao 13.00mm 18.50 - [id number] - [id number] Implanted:Qty: 1 on 05/01/2023 by Bryan Richards MD at OR [facility] Right: Eye BAUSCH & LOMB 10/09/2027 [id number] / [id number] / [id number] documented as of this encounter Procedures Procedure Name Priority Date/Time Associated Diagnosis Comments DIFFERENTIAL, AUTOMATED Routine 06/30/2023 12:47 PM EST Chronic kidney disease, stage 3a CBC Routine 06/30/2023 12:47 PM EST Chronic kidney disease, stage 3a CBC Routine 06/30/2023 12:47 PM EST Chronic kidney disease, stage 3a documented in this encounter Results * (ABNORMAL) DIFFERENTIAL, AUTOMATED (06/30/2023 12:47 PM EST) WBC 7.30 4.00 - 10.80 K/uL 06/30/2023 1:00 PM EST [facility] Neutrophils % 61.7 40.0 - 75.0 % 06/30/2023 1:00 PM EST [facility] Lymphocytes % 21.2 18.0 - 42.0 % 06/30/2023 1:00 PM EST [facility] Monocytes % 12.6(H) 1.0 - 11.0 % 06/30/2023 1:00 PM EST [facility] Eosinophils % 2.6 0.0 - 6.0 % 06/30/2023 1:00 PM EST [facility] Basophils % 1.9 0.0 - 2.0 % 06/30/2023 1:00 PM EST [facility] Absolute Neutrophils 4.50 1.80 - 7.70 K/uL 06/30/2023 1:00 PM EST [facility] Absolute Lymphocytes 1.55 1.00 - 4.80 K/ul 06/30/2023 1:00 PM EST [facility] Absolute Monocytes 0.92 0.00 - 1.10 K/uL 06/30/2023 1:00 PM EST [facility] Absolute Eosinophils 0.19 0.00 - 0.70 K/uL 06/30/2023 1:00 PM EST [facility] Absolute Basophils 0.14 0.00 - 0.20 K/uL 06/30/2023 1:00 PM EST [facility] Blood Venous blood specimen / Unknown Venipuncture / Unknown 06/30/2023 12:47 PM EST 06/30/2023 12:47 PM EST Maricarmen Ann DO LAB BLOOD ORDERABLES [facility] [place] [address] * CBC (06/30/2023 12:47 PM EST) WBC 7.30 4.00 - 10.80 K/uL 06/30/2023 1:00 PM EST [facility] RBC 4.62 3.85 - 5.15 M/uL 06/30/2023 1:00 PM EST [facility] HGB 14.0 12.0 - 15.3 g/dL 06/30/2023 1:00 PM EST [facility] HCT 42.6 36.0 - 45.2 % 06/30/2023 1:00 PM EST [facility] MCV 92.2 81.5 - 97.5 fL 06/30/2023 1:00 PM EST [facility] MCH 30.3 27.0 - 34.0 pg 06/30/2023 1:00 PM EST [facility] MCHC 32.9 32.0 - 36.0 g/dL 06/30/2023 1:00 PM EST [facility] RDW 13.9 11.5 - 15.5 % 06/30/2023 1:00 PM EST [facility] PLT 291 140 - 400 K/uL 06/30/2023 1:00 PM EST [facility] MPV 9.4 6.6 - 11.1 fL 06/30/2023 1:00 PM EST [facility] Blood Venous blood specimen / Unknown Venipuncture / Unknown 06/30/2023 12:47 PM EST 06/30/2023 12:47 PM EST Maricarmen Ann DO LAB BLOOD ORDERABLES [facility] [place] [address] documented in this encounter Visit Diagnoses Diagnosis Dyslipidemia, goal to be determined Other and unspecified hyperlipidemia Chronic kidney disease, stage 3a Prediabetes Other abnormal glucose Gastroesophageal reflux disease without esophagitis Esophageal reflux documented in this encounter Advance Directives Latest Code Status on File Code Status Date Activated Date Inactivated Comments Full Code 05/01/2023 9:33 AM 05/01/2023 4:13 PM This order reflects the patients wishes and were consensually agreed upon. Question Answer Comments Discussion of Advance Directives occurred with: Patient Does the patient have a Living Will? No Does the patient have Health Care Power of Paper Bag Making Machinist? No Code Status History Code Status Date Activated Date Inactivated Comments Full Code 04/17/2023 8:37 AM 04/17/2023 2:50 PM This or adele reflects the patients wishes and were consensually agreed upon. Question Answer Comments Discussion of Advance Directives occurred with: Patient Does the patient have a Living Will? No Does the patient have Health Care Power of Paper Bag Making Machinist? No Care Teams Flight Coordinator Relationship Specialty Start Date End Date Maricarmen Ann DO [address] [facility] [place] [address] PCP - General Family Medicine 03/26/23 documented as of this encounter
--- OUTSIDE RECORDS SUMMARY | 2023-08-18 00:29 | External Medical Summary ---
Author Name Unknown Address Unknown Organization K01:[facility] [address] [place] [address] Laboratory Report Ordering Provider Test Date Status DAVION PIÑA 06/30/2023 12:47:06 Final Observation Date Value Abnormality Reference (Units ) Status Magnesium 06/30/2023 12:47:06 2.1 1.5-2.6 (m g/dL) Final Performing Location [facility] [address] [place] [address]
--- OUTSIDE RECORDS SUMMARY | 2023-08-18 00:29 | External Medical Summary ---
Author Name Unknown Address Unknown Organization [id number]:[facility] - [address] [place] [address] Laboratory Report Ordering Provider Test Date Status DAVION PIÑA 06/30/2023 12:47:06 Final Observation Date Value Abnormality Reference (Units ) Status WBC, Total 06/30/2023 12:47:06 7.30 4.00-10.8 0 (K/uL) Final RBC 06/30/2023 12:47:06 4.62 3.85-5.15 (M/uL) Final Hemoglobin 06/30/2023 12:47:06 14.0 12.0-15.3 (g/dL) Final HCT 06/30/2023 12:47:06 42.6 36.0-45.2 (%) Final MCV 06/30/2023 12:47:06 92.2 81.5-97.5 (fL) Final MCH 06/30/2023 12:47:06 30.3 27.0-34.0 (pg) Final MCHC 06/30/2023 12:47:06 32.9 32.0-36.0 (g/dL) Final RDW 06/30/2023 12:47:06 13.9 11.5-15.5 (%) Final Platelets 06/30/2023 12:47:06 291 140-400 (K /uL) Final MPV 06/30/2023 12:47:06 9.4 6.6-11.1 ( fL) Final Performing Location [facility] [address] - [address] [place] [address]
--- OUTSIDE RECORDS SUMMARY | 2023-08-18 00:29 | External Medical Summary ---
Author Name Unknown Address Unknown Organization K01:[facility] [address] [facility] [address] [place] [address] Laboratory Report Ordering Provider Test Date Status DAVION PIÑA 06/30/2023 12:47:06 Final Observation Date Value Abnormality Reference (Units ) Status Triglyceride 06/30/2023 12:47:06 172 <=174 ( mg/dL) Final Triglyceride Reference Range s (mg/dL):
<150 Acceptable
150-174 Borderline high
175-499 High
>=500 Very high Cholesterol 06/30/2023 12:47:06 149 <200 (mg /dL) Final Total Cholesterol Reference Ranges (mg/dL):
<200 Desirable
200-239 Borderline high
>=240 High HDL 06/30/2023 12:47:06 63 >49 (mg/dL ) Final HDL Cholesterol Reference Ra nges (mg/dL):
>=60 High (Desirable)
<50 Low (Undesirable) For Females
<40 Low (Undesirable) For Males NON-HDL CHOLESTEROL 06/30/2023 12:47:06 86 <=159 (mg/dL) Final Non-HDL Cholesterol Referenc e Range (mg/dL):
<100 Target level for high risk ASCVD patient
<130 Optimal for general population
130-159 Near optimal for general population
160-189 Borderline High
190-219 High
>=220 Very High Performing Location [facility] - [address] [place] [address]
--- OUTSIDE RECORDS SUMMARY | 2023-08-18 00:29 | External Medical Summary | Summary of Care ---
Author Name Unknown Organization [facility] Address [address] [facility] [place] [address] Phone [phone] Care Team Providers Care Numerical Control Nesting Operator Name Role Phone Maricarmen Ann DO Primary Care Provider [phone] Reason for Visit * Reason Onset Date Comments Appointment 05/13/2023 Fitness assessme nt Encounter Details Date Type Department Care Team Description 05/13/2023 Telephone Family Practice [facility] [address] [place] [address] Maricarmen Ann DO [address] [place] [address] Appointment (Fitness assessment) Allergies Active Allergy Reactions Severity Noted Date Comments Amoxicillin Unknown 03/13/1999 Imidazole Antifungals 03/13/1999 Vaginal infections Tamoxifen Citrate Nausea/vomiting High 02/14/2010 documented as of this encounter (statuses as of 05/20/2023) Medications Medication Sig Dispensed Refills Start Date End Date Status Multiple Vitamins-Minerals (MULTIVITAMIN WOMENS 50+ ADV) TABS Take by mouth daily at noon. 0 Active Calcium Carb-Cholecalciferol 500-600 MG-UNIT Oral Tablet Take by mouth daily at noon. 0 Active Coram-3 Fatty Acids (FISH OIL) 1000 MG Capsule [...] group A, by GOLD 2017 classification ([facility]) Inhale 1 Puff by mouth in the [...] DAY 100 Tablet 2 09/28/2022 4 Active Meloxicam 7.5 MG Oral Tablet (Mobic) TAKE ONE TABLET BY MOUTH EVERY MORNING 90 Tablet 0 09/19/2022 4 Active Arnuity Ellipta 100 MCG/ACT Inhalation Aerosol Powder Breath Activated (fluticasone Furoate) Inhale 1 Puff by mouth in the morning. 90 Each 3 02/28/2023 Active Omeprazole 20 MG Oral Capsule Delayed Release (PriLOSEC)Indication s:Gastroesophageal reflux disease without esophagitis Take 2 Capsules by mouth daily before dinner. 200 Capsule 3 03/19/2023 Active Pregabalin 25 MG Oral Capsule (Lyrica)Indications: Neuropathy Take one capsule by mouth in the morning and two capsules by mouth in the evening 270 Capsule 1 04/17/2023 Active documented as of this encounter (statuses as of 05/20/2023) Active Problems Problem Noted Date Caregiver stress 10/31/2022 COPD, group A, by GOLD 2017 classificati on 07/22/2022 Overview: Per COPD GOLD Classification Hypertensive kidney disease with stage 3 a chronic kidney disease 07/12/2022 Other specified peripheral vascular dise ases 07/12/2022 Morbid obesity 04/11/2022 Chronic kidney disease, stage 3a 021 Overview: Per CKD protocol Solar purpura 09/21/2019 History of breast cancer 05/06/2019 Overview: Lower outer quadrant Prediabetes 08/24/2018 Overview: Per Prediabetes protocol #1 S/P TKR (total knee replacement), left 1 Body mass index (BMI) of 40.0 to 44.9 in adult 05/12/2017 Overview: Per Obesity protocol #1 Gastroesophageal reflux disease without esophagitis 12/12/2016 HTN, goal below 140/90 12/12/2016 ADVANCE DIRECTIVE INFORMATION 08/19/2007 Overview: No, Advance Directive brochure given to patient at prior appointment. Dyslipidemia, goal to be determined 10/09 Allergic rhinitis 03/13/1999 documented as of this encounter (statuses as of 05/20/2023) Resolved Problems Problem Noted Date Resolved Date Morbid obesity 07/20/2019 10/21/2019 Recurrent major depressive disorder, in remissio n 12/12/2016 07/20/2019 Voice quality disorder 08/27/2016 7 COPD, moderate 12/15/2014 07/25/2022 Overview: Per COPD GOLD Classification Obesity, Class II, BMI 35-39.9, isolated (see ac tual BMI) 11/06/2009 01/17/2017 Overview: Per Obesity Taxonomy Malignant neoplasm of lower-outer quadrant of fe male breast 10/27/2007 05/06/2019 Overview: ICD-10 update of inactive term ACUTE BRONCHITIS 12/12/1999 08/17/2007 OBESITY, UNSPECIFIED 03/13/1999 11/06/2009 Overview: Per Obesity Taxonomy JOINT PAIN-L-LEG 03/13/1999 01/17/2017 documented as of this encounter (statuses as of 05/20/2023) Immunizations Name Administration Dates Next Due COVID-19 mRNA, LNP-s, No Pre serve, 2-Dose Series (Pfizer) 09/20/2021,11/09/2020,10/19/2020 Diptheria/Tetanus (Adult) 07/07/1991 Pneumococcal Conjugate Vacc, 13 Valent (Prevnar) 07/28/2015 Pneumococcal Polysaccharide PPV23 (Pneumovax) 05/12/2013 SEASONAL INFLUENZA, PF, 6 M & Above, IM , (FLULAVAL or FLUZONE) 05/08/2020,06/05/2018,05/23/2017 Seasonal Influenza, Quadriva lent Hd (Fluzone Hd) 05/13/2023,04/11/2022,06/15/2021 Seasonal Influenza, Quadriva lent, No Preserve, IM 04/23/2016 Seasonal Influenza, Split, I IV3, With Preserve, Inj 04/21/2015,04/21/2013,04/20/2012,05/31,05/10/2008,06/03/2007,06/11/2005 ,06/22/2003 Seasonal Influenza, Trivalen t, Adjuvanted, 65+ yrs 06/28/2019 TD - Tetanus/Diptheria (ADULT) 09/03/2005 TDAP (age 10 and older)(Boostrix) 04/11/2022 TDAP [...] = 0.6 oz pur e alcohol) occasionally Food Insecurity Answer Date Recorded Within the past 12 months, y ou worried that your food would run out before you got money to buy more. Never true 05/13/2023 Within the past 12 months, t he food you bought just didn't last and you didn't have money to get more. Never true 05/13/2023 Sex Assigned at Date Recorded Female 04/11/2022 9:21 AM E DT Job Start Date Occupation Industry Not on file Not on file Not on file documented as of this encounter Miscellaneous Notes * Telephone Encounter - Lindsay Olivares Health Board Saw Runner - 05/20/2023 3:35 PM EDT Patient canceled her fitness and balance assessment that was scheduled for 05/19 and rescheduled for05/20. She no showed for her assessments on 05/20. I called and spoke to patient to see if she would like to reschedule. She is rescheduled for her assessment on 05/30/23 at 2:00 p.m. * Telephone Encounter - Lindsay Olivares Health Board Saw Runner - 05/14/2023 3:36 PM EDT Called and spoke to patient about scheduling a balance and fitness assessment. She was agreeable and is scheduled for 05/19/23 at 10:00 a.m. * Telephone Encounter - AMAN Murphy - 05/13/2023 10:30 AM EDT Please contact pt to set up balance assessment. documented in this encounter Plan of Treatment Upcoming Encounters Date Type Specialty Care Team Description 08/14/2023 Office Visit Dermatology Richard Ley MD [address] [place] [address] 08/19/2023 Office Visit Family Medicine Maricarmen Ann DO [address] [place] [address] 03/30/2024 Nurse Only Ancillary College, Nurse Annual Wellness Visit [address] [facility] [address] [place] [address] Scheduled Procedures Name Priority Associated Diagnoses Date/Ti me COLONOSCOPY FLEXIBLE PROXIMA L DIAGNOSTIC Recall Family history of colon cancer Health Maintenance Due Date Last Done Comments Alpha-1 Antitrypsin 1963 CKD PHOS USE SMARTSET 15699 05/10/2022 05/10/2021 CKD HGB USE SMARTSET 36894 04/08/202304/08, 04/08/2022, 10/14/2020, Additional history exists COVID-19 Vaccine ( season) 2023 09/20/2021, 11/09/2020, 10/19/2020 HbA1c 04/12/2023 04/12/2022, 04/13, 03/21/2020, Additional history exists GFR 05/03/2023 10/31/2022, 09/0 09/2021, 05/10/2021, Additional history exists Albumin/Creatinine Ratio [...] this encounter Medical Devices Implanted Type Area Consumer Lender Device Identifier Shelf Expiration Date Model / Serial / Lot Lens Li61ao 13.00mm 19.00 - [id number] - [id number] Implanted:Qty: 1 on 04/17/2023 by Bryan Richards MD at OR [facility] Left: Eye BAUSCH [employer] LOMB 12/09/2027 [id number] / [id number] / [id number] Lens Li61ao 13.00mm 18.50 - [id number] - [id number] Implanted:Qty: 1 on 05/01/2023 by Bryan Richards MD at OR [facility] Right: Eye BAUSCH & LOMB 10/09/2027 [id number] / [id number] / [id number] documented as of this encounter Advance Directives [...] the patient have Health Care Power of Line Dancer? No Code Status History Code Status Date Activated Date Inactivated Comments Full Code 04/17/2023 8:37 AM 04/17/2023 2:50 PM This or adele reflects the patients wishes and were consensually agreed upon. Question Answer Comments Discussion of Advance Directives occurred with: Patient Does the patient have a Living Will? No Does the patient have Health Care Power of Line Dancer? No Care Teams Numerical Control Nesting Operator Relationship Specialty Start Date End Date Maricarmen Ann, DO [address] [place] [address] PCP - General Family Medicine 03/26/23 documented as of this encounter
--- OUTSIDE RECORDS SUMMARY | 2023-08-18 00:29 | External Medical Summary | Summary of Care ---
Author Name Unknown Organization [facility] Address [address] [facility] [address] Phone [phone] Care Team Providers Care Energy Efficient Site Manager Name Role Phone Maricarmen Ann Primary Care Provider [phone] Encounter Details Date Type Department Care Team Description 05/30/2023 Documentation [facility] Lindsay Olivares, Health Field Tech Allergies Active Allergy Reactions Severity Noted Date Comments Amoxicillin Unknown 03/13/1999 Imidazole Antifungals 03/13/1999 Vaginal infections Tamoxifen Citrate Nausea/vomiting High 02/14/2010 documented as of this encounter (statuses as of 05/30/2023) Medications Medication Sig Dispensed Refills Start Date End Date Status Multiple Vitamins-Minerals (MULTIVITAMIN WOMENS 50+ ADV) TABS Take by mouth daily at noon. 0 Active Calcium Carb-Cholecalciferol 500-600 MG-UNIT Oral Tablet Take by mouth daily at noon. 0 Active Doyle-3 Fatty Acids (FISH OIL) 1000 MG Capsule [...] group A, by GOLD 2017 classification ([facility]) Inhale 1 Puff by mouth in the [...] before bedtime. 10.6 g 0 05/16/2023 Active documented as of this encounter (statuses as of 05/30/2023) Active Problems Problem Noted Date Caregiver stress [...] as of this encounter (statuses as of 05/30/2023) Resolved Problems Problem Noted Date Resolved Date [...] as of this encounter (statuses as of 05/30/2023) Immunizations Name Administration Dates Next Due COVID-19 [...] as of this encounter Progress Notes * Lindsay Olivares, Health Field Tech - 05/30/2023 3:24 PM EDT Images from the original note were not included. 1. Chair Stand (30 seconds): Followed Protocol: Yes, Result 7 2. Arm Curls (30 seconds): Followed Protocol: Yes, Result: Right 13, Left 13 3. Two Minute October: Followed Protocol: No, 1 minute with 57 reps SO2 was 94% 4. Chair Sit and Reach (nearest 1/2 inch: +/-): Followed Protocol: Yes, Result: Right 0, Left -2 5. Back Stretch (nearest 1/2 inch: +/-): Followed Protocol: No, deferred due to L shoulder pain and limited ROM 6. Tug test Followed Protocol: (less than 12 seconds No, completed in 15.01s Modified Carlos Balance Test - Standing unsupported with eyes closed instructions: 4 - able to stand 10 seconds safely Standing unsupported with feet together instructions: 4 - able to place feet together independentlyand stand 1 minute safely Reaching forward with outstretched arm while standin - can reach forward 12 cm (5 inches) dive supervisor object from the floor from a standing position: 4 - able to poultry picker slipper safely and easily Turning to look behind over left and right shoulders while standin - looks behind from both sides and weight shifts well Turn 360 degrees: 2 - able to turn 360 degrees safely but slowly Place alternate foot on step or stool while standing unsupported: 3 - able to stand independently and complete 8 steps in greater than 20 seconds Standing unsupported one foot in front: 4 - able to place foot tandem independently and hold 30 seconds Standing on one le - tries to lift leg, unable to hold 3 seconds but remains standing independently Balance Assessment Modified total: Patient completed fitness and balance assessment. She tolerated exercises well. She is interested in improving strength and balance. She states she has noticed a big difference in both. She is interested in group exercise classes and is going to check her calendar to see when she can attend. I gaveher my contact information and encouraged her to reach out with any questions and if she needed me to sign her up for classes. documented in this encounter Plan of Treatment Upcoming Encounters Date Type Specialty Care Team Description 08/14/2023 Office Visit Dermatology Richard Ley MD [address] [place] [address] 08/19/2023 Office Visit Family Medicine Maricarmen Ann, DO [address] [place] [address] 03/30/2024 Nurse Only Ancillary College, Nurse Annual Wellness Visit [address] [facility] [address] [place] [address] Scheduled Procedures Name Priority Associated Diagnoses Date/Ti me COLONOSCOPY FLEXIBLE PROXIMA L DIAGNOSTIC Recall Family history of colon cancer Health Maintenance Due Date Last Done Comments Alpha-1 Antitrypsin 1965 CKD PHOS USE SMARTSET 65479 05/10/2022 05/10/2021 CKD HGB USE SMARTSET 88929 04/08/202304/08, 04/08/2022, 10/14/2020, Additional history exists COVID-19 [...] this encounter Medical Devices Implanted Type Area Nonprofit Director Device Identifier Shelf Expiration Date Model / Serial / Lot Lens Li61ao 13.00mm 19.00 - [id number] - [id number] Implanted:Qty: 1 on 04/17/2023 by Bryan Richards MD at OR [facility] Left: Eye BAUSCH [employer] LOMB 12/09/2027 [id number] / [id number] / [id number] Lens Li61ao 13.00mm 18.50 - [id number] - [id number] Implanted:Qty: 1 on 05/01/2023 by Bryan Richards MD at OR [facility] Right: Eye BAUSCH & LOMB 10/09/2027 [id number] / [id number] / [id number] documented as of this encounter Advance Directives [...] the patient have Health Care Power of Targeteer? No Code Status History Code Status Date Activated Date Inactivated Comments Full Code 04/17/2023 8:37 AM 04/17/2023 2:50 PM This or adele reflects the patients wishes and were consensually agreed upon. Question Answer Comments Discussion of Advance Directives occurred with: Patient Does the patient have a Living Will? No Does the patient have Health Care Power of Targeteer? No Care Teams Energy Efficient Site Manager Relationship Specialty Start Date End Date Maricarmen Ann, DO [address] [place] [address] PCP - General Family Medicine 03/26/23 documented as of this encounter
--- OUTSIDE RECORDS SUMMARY | 2023-08-18 00:29 | External Medical Summary ---
Author Name Unknown Address Unknown Organization [id number]:[facility] [place] [address] [place] [address] Laboratory Report Ordering Provider Test Date Status DAVION PIÑA 06/30/2023 12:47:06 Final Observation Date Value Abnormality Reference (Units ) Status LDL, (direct) 06/30/2023 12:47:06 62 <=129 (mg/dL) Final LDL Cholesterol Reference Ra nges (mg/dL):
<70 Target level for high risk ASCVD patient
<100 Optimal for general population
100-129 Near optimal for general population
130-159 Borderline high
160-189 High
>=190 Very high Performing Location [facility] - [address] [place] [address]
--- OUTSIDE RECORDS SUMMARY | 2023-08-18 00:29 | External Medical Summary ---
Author Name Unknown Address Unknown Organization [id number]:[facility] [place] [address] [place] [address] Laboratory Report Ordering Provider Test Date Status DAVION PIÑA 06/30/2023 12:47:06 Final Observation Date Value Abnormality Reference (Units ) Status SYNC LEUKOCYTES IN BLOOD BY AUTOMATED COUNT 06/30/2023 12:47:06 7.30 4.00-10.80 (K/uL) Final Segs 06/30/2023 12:47:06 61.7 40.0-75.0 (%) Final Lymphs % 06/30/2023 12:47:06 21.2 18.0-42.0 (%) Final Monos 06/30/2023 12:47:06 12.6 Above high normal 1.0-11.0 (%) Final Eosinophils 06/30/2023 12:47:06 2.6 0.0-6.0 (%) Final Basos 06/30/2023 12:47:06 1.9 0.0-2.0 (%) Final Absolute Segs 06/30/2023 12:47:06 4.50 1.80-7.70 (K/uL) Final Lymphs, absolute 06/30/2023 12:47:06 1.55 1.00-4.80 (K/ul) Final Monos, Abs 06/30/2023 12:47:06 0.92 0.00-1.10 (K/uL) Final Eos, Abs 06/30/2023 12:47:06 0.19 0.00-0.70 (K/uL) Final Basos, Abs 06/30/2023 12:47:06 0.14 0.00-0.20 (K/uL) Final Performing Location [facility] [place] [address] [place] [address]
--- OUTSIDE RECORDS SUMMARY | 2023-08-18 00:29 | External Medical Summary ---
Author Name Unknown Address Unknown Organization [id number][facility] [place] [address] [facility] [address] [place] [address] Laboratory Report Ordering Provider Test Date Status DAVION PIÑA 06/30/2023 12:47:06 Final Observation Date Value Abnormality Reference (Units ) Status HbA1C 06/30/2023 12:47:06 5.7 Above high normal 4. 0-5.6 (%) Final The use of HbA1c to monitor glycemic status is based on normal hemoglobin and HbA composition. This test should not be used in patients with abnormal hemoglobin that affects the half life of the red blood cell or the in vivo glycation rates. Glucose, estimated average 06/30/2023 12:47:06 117 <126 (mg/dL) Final Performing Location [facility] [place] [address] [place] [address]
--- OUTSIDE RECORDS SUMMARY | 2023-08-18 00:29 | External Medical Summary ---
Author Name Unknown Address Unknown Organization [id number]:[facility] [place] [place] [address] - [address] [place] [address] Laboratory Report Ordering Provider Test Date Status DAVION PIÑA 06/30/2023 12:47:06 Final Observation Date Value Abnormality Reference (Units ) Status BUN 06/30/2023 12:47:06 26 Above high normal 6-20 (mg/dL) Final Creatinine 06/30/2023 12:47:06 1.0 0.5-1.0 (mg/dL) Final Glomerular filtration rate/1.73 sq M.predicted [Volume Rate/Area] in Serum, Plasma or Blood by Creatinine-based formula (CKD-EPI) 06/30/2023 12:47:06 61 >=60 (mL/min) Final eGFR is calculated based on the CKD-EPI 2020 equation SODIUM 06/30/2023 12:47:06 142 135-146 (m mol/L) Final Potassium 06/30/2023 12:47:06 4.2 3.5-5.1 (m mol/L) Final Cl 06/30/2023 12:47:06 102 98-107 (mm ol/L) Final CO2 06/30/2023 12:47:06 30 22-32 (mmo l/L) Final Anion gap 06/30/2023 12:47:06 10 7-15 (mmol /L) Final Glucose 06/30/2023 12:47:06 81 70-120 (mg /dL) Final Albumin 06/30/2023 12:47:06 4.0 3.8-5.0 (g /dL) Final AST (Aspartate aminotransferase) 06/30/2023 12:47:06 17 10-35 (U/L) Final Alk Phos 06/30/2023 12:47:06 93 35-130 (U/ L) Final Bilirubin, Total 06/30/2023 12:47:06 0.5 <=1 .2 (mg/dL) Final Calcium 06/30/2023 12:47:06 9.6 8.4-10.2 ( mg/dL) Final Protein 06/30/2023 12:47:06 6.3 6.0-8.3 (g /dL) Final ALT (Alanine aminotransferase) 06/30/2023 12:47:06 14 10-35 (U/L) Final Performing Location [facility] [address] - [address] [facility] [address]
--- OUTSIDE RECORDS SUMMARY | 2023-08-18 00:29 | External Medical Summary | Summary of Care ---
Author Name Unknown Organization [facility] Address [address] [place] [address] Phone [phone] Care Team Providers Care Director Prison Name Role Phone SolomonMaricarmen sim Primary Care Provider [phone] Reason for Visit * Reason Comments Medication Refill Encounter Details Date Type Department Care Team (Late st Contact Info) Description 06/13/2023 Refill Family Practice [address] [facility] [address] [place] [address] Ben Toney, [address] [place] [address] Allergies Active Allergy Reactions Criticality Noted Date Comments Amoxicillin Unknown 03/13/1999 Imidazole Antifungals 03/13/1999 Vaginal infections Tamoxifen Citrate Nausea/vomiting High 02/14/2010 documented as of this encounter (statuses as of 06/13/2023) Medications Medication Sig Dispensed Refills Start Date End Date Status Multiple Vitamins-Minerals (MULTIVITAMIN WOMENS 50+ ADV) TABS Take by mouth daily at noon. 0 Active Calcium Carb-Cholecalcifero l 500-600 MG-UNIT Oral Tablet Take by mouth daily at noon. 0 Active Mcarthur-3 Fatty Acids (FISH OIL) 1000 MG Capsule [...] :COPD, group A, by GOLD 2017 classification ([facility]) Inhale 1 Puff by mouth [...] 100 Tablet 2 09/28/2022 09/28/19 24 Active Arnuity Ellipta 100 MCG/ACT Inhalation Aerosol [...] 90 Tablet 0 06/13/2023 06/12/20 24 Active Meloxicam 7.5 MG Oral Tablet (Mobic) TAKE ONE TABLET BY MOUTH EVERY MORNING 90 Tablet 0 09/19/2022 06/13/20 23 Discontinu ed(Refill) documented as of this encounter (statuses as of 06/13/2023) Active Problems Problem Noted Date Diagnosed Date [...] as of this encounter (statuses as of 06/13/2023) Resolved Problems Problem Noted Date Diagnosed Date [...] as of this encounter (statuses as of 06/13/2023) Immunizations Name Administration Dates Next Due COVID-19 mRNA, LNP-s, No Pre serve, 2-Dose Series (Speek) 09/20/2021,11/09/2020,10/19/2020 Pneumococcal Conjugate Vacc, 13 Valent (Prevnar) [...] encounter Miscellaneous Notes * Telephone Encounter - Alexandr Hinojosa [facility] - 06/13/2023 12:56 PM EDTSigned Prescriptions: Disp Refills Meloxicam 7.5 MG Oral Tablet (Mobic) 90 Tab*0 Sig: TAKE ONE TABLET BY MOUTH EVERY MORNINGAuthorizing Provider: MARICARMEN RICARDO User: ALEXANDR GUNDERSON----- documented in this encounter Plan of Treatment Upcoming Encounters Date Type Department Care Team (Late st Contact Info) Description 08/14/2023 9:15 AM EST Office Visit Dermatology [facility] [place] [address] [place] [address] Richard Ley MD [address] [place] [address] 08/19/2023 2:20 PM EST Office Visit Family Practice [address] [place] [address] 293 [place] [address] Maricarmen Ricardo DO 293 [place] [address] 03/30/2024 2:00 PM EDT Nurse Only Ancillary [address] [facility] 293 [place] [address] College, Nurse Annual Wellness Visit [address] [place] [address] Scheduled Procedures Name Priority Associated Diagnoses Date/Ti me COLONOSCOPY FLEXIBLE PROXIMA L DIAGNOSTIC Recall Family history of colon cancer Health Maintenance Due Date Last Done Comments Alpha-1 Antitrypsin 1963 CKD PHOS USE SMARTSET 57109 05/10/2022 05/10/2021 CKD HGB USE SMARTSET 77534 04/08/202304/08, 04/08/2022, 10/14/2020, Additional history exists COVID-19 [...] this encounter Medical Devices Implanted Type Area Quartz Cutter Device Identifier Shelf Expiration Date Model / Serial / Lot Lens Li61ao 13.00mm 19.00 - [id number] - [id number] Implanted:Qty: 1 on 04/17/2023 by Bryan Richards MD at OR [facility] Left: Eye BAUSCH [employer] LOMB 12/09/2027 [id number] / [id number] / [id number] Lens Li61ao 13.00mm 18.50 - [id number] - [id number] Implanted:Qty: 1 on 05/01/2023 by Bryan Richards MD at OR [facility] Right: Eye BAUSCH & LOMB 10/09/2027 [id number] / [id number] / [id number] documented as of this encounter Advance Directives [...] the patient have Health Care Power of Rest Room Attendant? No Code Status History Code Status Date Activated Date Inactivated Comments Full Code 04/17/2023 8:37 AM 04/17/2023 2:50 PM This or adele reflects the patients wishes and were consensually agreed upon. Question Answer Comments Discussion of Advance Directives occurred with: Patient Does the patient have a Living Will? No Does the patient have Health Care Power of Rest Room Attendant? No Care Teams Director Prison Relationship Specialty Start Date End Date Maricarmen Ricardo DO [address] [place] [address] PCP - General Family Medicine 03/26/23 documented as of this encounter
--- OUTSIDE RECORDS SUMMARY | 2023-08-18 00:29 | External Medical Summary ---
Author Name Unknown Address Unknown Organization K01:[facility] [place] [address] [place] [address] Laboratory Report Ordering Provider Test Date Status DAVION PIÑA 06/30/2023 12:47:06 Final Observation Date Value Abnormality Reference (Units ) Status Vitamin B12 06/30/2023 12:47:06 2948 112-2352 (pg/mL) Final Performing Location [facility] - [address] [place] [address]
--- OUTSIDE RECORDS SUMMARY | 2023-08-18 00:30 | External Medical Summary | Summary of Care ---
Author Name Unknown Organization [facility] Address [address] [place] [address] Phone [phone] Care Team Providers Care Power Cleaner Operator Name Role Phone Maricarmen Ann DO Primary Care Provider [phone] Reason for Visit * Reason Onset Date Comments Pre Cert/Prior Auth 05/13/2023 asmanex Encounter Details Date Type Department Care Team Description 05/13/2023 Telephone Family Practice [facility] [place] [address] [place] [id number] Maricarmen Ann DO [address] [place] [address] Pre Cert/Prior Auth (asmanex) Allergies Active Allergy Reactions Severity Noted Date Comments Amoxicillin Unknown 03/13/1999 Imidazole Antifungals 03/13/1999 Vaginal infections Tamoxifen Citrate Nausea/vomiting High 02/14/2010 documented as of this encounter (statuses as of 05/16/2023) Medications Medication Sig Dispensed Refills Start Date End Date Status Multiple Vitamins-Minerals (MULTIVITAMIN WOMENS 50+ ADV) TABS Take by mouth daily at noon. 0 Active Calcium Carb-Cholecalciferol 500-600 MG-UNIT Oral Tablet Take by mouth daily at noon. 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 * Telephone Encounter - Jessie Bills LPN - 05/16/2023 1:32 PM EDT Patient is aware and will comply. Please send on inhaler to the [facility] in [place]. Thank you * Telephone Encounter - Maricarmen Ann DO - 05/15/2023 1:10 PM EDT Pt can continue to be forced to try all of these different inhalers or they can approve the one shehas been controlled on for nearly a decade. Spoke with [facility] again given the call. They are noting a denial because patient did not trial Qvar. Nursing, please see previous message to pt and relay * Telephone Encounter - AMAN Murphy - 05/15/2023 12:18 PM EDT Rhett from [facility] calling to speak with someone regarding the auth. States a formulary alternative of qvar and want to know if pt can take that. Rhett stated to contact [phone] * Telephone Encounter - Maricarmen Ann DO - 05/15/2023 8:56 AM EDT freelance art director from insurance is stating med is denied and must try Qvar will see what pt would like to do. Please let pt know that insurance is requiring she try one more inhaler before they will approve the Asmanex. I would suggest we send 1 inhaler locally for a month trial. If it is not working when she picks up within the first couple of weeks, she should let us know and we can send the Asamanex. Isshe agreeable to this? * Telephone Encounter - AMAN Murphy - 05/14/2023 3:58 PM EDT Received voicemail from [facility] Med director stating that the med was denied, however; what is in formulary is QVAR and pulmacort. Was unable to catch name on voicemail left. The number he called in from was [phone] but askedto call him directly at [phone] * Telephone Encounter - Maricarmen Ann DO - 05/14/2023 2:42 PM EDT Spoke with Shanna and requested peer to peer. She will initiate and I should expect a call back. She was not able to give a time line but stated they would call with a call back number for me to contact. * Telephone Encounter - Ree Tirado [facility] - 05/14/2023 8:05 AM EDT Received fax stating that patient does not meet clinical criteria for Asmanex because of not tryingqvar. IT provided a number for peer to peer - given to Dr. Seth Tirado Pharm D, SUKICP Clinical Pharmacist [facility] 05/13/2023, 4:05 PM Ph. [phone] * Telephone Encounter - Ree Tirado RP - 05/13/2023 3:49 PM EDT Spoke to [facility] - [place]. Wants to know if patient has tried Qvar. She has not - but let her know that she has tried and failed 3 other steroid inhalers and none have gotten her back to her baseline of Asmanex. They will let us know about inhaler PA shortly Ulysses Gray D, FRANCK Clinical Pharmacist [facility] 05/13/2023, 3:50 PM Ph. [phone] * Telephone Encounter - Ree Tirado [facility] - 05/13/2023 11:39 AM EDT Per PCP - arnuity not working for patient. Will file prior auth again for Asmanex. [facility] Prompt PA ID - [id number] Ulysses Gray D, FRANCK Clinical Pharmacist [facility] 05/13/2023, 11:39 AM Ph. [phone] documented in this encounter Plan of Treatment Upcoming Encounters Date Type Specialty Care Team Description 08/14/2023 [facility] [address] [facility] [address] [facility]/30/2024 Nurse Only [employer], Nurse Annual Wellness Visit [address] [facility] [address] [place] [address] Scheduled Procedures Name Priority Associated Diagnoses Date/Ti me COLONOSCOPY FLEXIBLE PROXIMA L DIAGNOSTIC Recall Family history of colon cancer Health Maintenance Due Date Last Done Comments Alpha-1 Antitrypsin 1963 CKD PHOS USE SMARTSET 08026 05/10/2022 05/10/2021 CKD HGB USE SMARTSET 82021 04/08/202304/08, 04/08/2022, 10/14/2020, Additional history exists COVID-19 [...] this encounter Medical Devices Implanted Type Area Or Director Device Identifier Shelf Expiration Date Model / Serial / Lot Lens Li61ao 13.00mm 19.00 - [id number] - [id number] Implanted:Qty: 1 on 04/17/2023 by Bryan Richards MD at OR [facility] Left: Eye [employer] 12/09/2027 [id number] / [id number] / [id number] Lens Li61ao 13.00mm 18.50 - [id number] - [id number] Implanted:Qty: 1 on 05/01/2023 by Bryan Richards MD at OR [facility] Right: Eye [employer] 10/09/2027 [id number] / [id number] / [id number] documented as of this encounter Advance Directives [...] the patient have Health Care Power of Plaster Die Maker? No Code Status History Code Status Date Activated Date Inactivated Comments Full Code 04/17/2023 8:37 AM 04/17/2023 2:50 PM This or adele reflects the patients wishes and were consensually agreed upon. Question Answer Comments Discussion of Advance Directives occurred with: Patient Does the patient have a Living Will? No Does the patient have Health Care Power of Plaster Die Maker? No Care Teams Power Cleaner Operator Relationship Specialty Start Date End Date Maricarmen Ann, DO [address] [place] [address] PCP - General Family Medicine 03/26/23 documented as of this encounter
--- OUTSIDE RECORDS SUMMARY | 2023-08-18 00:30 | External Medical Summary | Summary of Care ---
Author Name Unknown Organization [facility] Address [address] [place] [address] Phone [phone] Care Team Providers Care Tinsmith Helper Name Role Phone Maricarmen Ann DO Primary Care Provider [phone] Reason for Visit * Reason Onset Date Comments Follow Up Medication Administration 05/13/2023 Flu an d/or Pneumo Inj Encounter Details Date Type Department Care Team Description 05/13/2023 Office Visit Family Practice [address] [facility] [address] [place] [id number] Maricarmen Ann DO [address] [place] [address] HTN, goal below 140/90*; Prediabetes; Dyslipidemia, goal to be determined; Chronic kidney disease, stage 3a; COPD, group A, by GOLD 2017 classification ([facility]); Gastroesophageal reflux disease without esophagitis; Morbid obesity due to excess calories ([facility]); Need for prophylactic vaccination and inoculation against influenza; Risk and functional assessment Allergies Active Allergy Reactions Severity Noted Date Comments Amoxicillin Unknown 03/13/1999 Imidazole Antifungals 03/13/1999 Vaginal infections Tamoxifen Citrate Nausea/vomiting High 02/14/2010 documented as of this encounter (statuses as of 05/13/2023) Medications Medication Sig Dispensed Refills Start Date End Date Status Multiple Vitamins-Minerals (MULTIVITAMIN WOMENS 50+ ADV) TABS Take by mouth daily at noon. 0 Active Calcium Carb-Cholecalciferol 500-600 MG-UNIT Oral Tablet Take by mouth daily at noon. 0 Active [place]-3 Fatty Acids (FISH OIL) 1000 MG Capsule [...] as of this encounter (statuses as of 05/13/2023) Active Problems Problem Noted Date Caregiver stress [...] as of this encounter (statuses as of 05/13/2023) Resolved Problems Problem Noted Date Resolved Date [...] as of this encounter (statuses as of 05/13/2023) Immunizations Name Administration Dates Next Due COVID-19 mRNA, LNP-s, No Pre serve, 2-Dose Series ([employer]) 09/20/2021,11/09/2020,10/19/2020 Pneumococcal Conjugate Vacc, 13 Valent (Prevnar) [...] Sign Reading Time Taken Comments Blood Pressure 104/68 05/13/2023 10:01 AM EDT Pulse 84 05/13/2023 10:01 AM EDT Temperature 36 C (96.8 F) 05/13/2023 10: 01 AM EDT Respiratory Rate - - Oxygen Saturation 98% 05/13/2023 10: 01 AM EDT Inhaled Oxygen Concentration - - Weight 109.9 kg (242 lb 4.8 oz) 023 10:01 AM EDT Height - - Body Mass Index 40.37 05/01/2023 9:29 AM EDT documented in this encounter Patient Instructions * Patient Instructions* Maricarmen Ann, - 05/13/2023 9:56 AM EDT Patient Instructions - Fall Prevention (This education is for all patients over 65 regardless of symptoms) Remember to take your current medications as prescribed. In order to prevent falls, you are encouraged to: Exercise Utilize assistive/adaptive devices Avoid multifocal lenses when walking Avoid hazards in home Maintain a regular toileting schedule Any questions please contact our office. Preventing Falls in the Home (This education is for all patients over 65 regardless of symptoms) As you get older, falls are more likely. Thats because your reaction time slows. Your muscles and joints may also get stiffer, making them less flexible. Illness, medications, and vision changes can also affect your balance. A fall could leave you unable to live on your own. To make your home safer, follow these tips: Floors Put nonskid pads under area rugs Remove throw rugs Replace worn floor coverings Tack carpets firmly to each step on carpeted stairs. Put nonskid strips on the edges of uncarpeted stairs Keep floors and stairs free of clutter and cords Arrange furniture so there are clear pathways Clean up any spills right away Bathrooms Install grab bars in the tub or shower Apply nonskid strips or put a nonskid rubber mat in the tub or shower Sit on a bath chair to bathe Use bathmats with nonskid backing Lighting Keep a flashlight in each room Put a nightlight along the pathway between the bedroom and the bathroom [employer] Patient Education Copyright 2008 - 2010 [employer] except where otherwise noted Preventing Falls: Exercises to Improve Balance, Flexibility, Strength, and Staying Power (This education is for all patients over 65 regardless of symptoms) Certain types of exercises may help make you less likely to fall. Try the ones below. Or do other exercises that your healthcare provider suggests. Depending on your health, you may need to start slowly. Dont let that stop you. Even small amounts of exercise can help you. Be sure to talk to yourhealthcare provider before starting any exercise program. Improve Balance Many types of exercise can help improve balance. Miguel A chi and yoga are good examples. Heres another one to try. You can do it anytime and almost anywhere. Stand next to a counter or solid support. Push yourself up onto your tiptoes. Hold for 5 seconds. If you start to lose your balance, hold on to the counter. Rest and repeat 5 times. Work up to holding for 20 to 30 seconds, if you can. Increase Flexibility Being more flexible makes it easier for you to move around safely. Try exercises like the seated hamstring stretch. Sit in a chair and put one foot on a stool. Straighten your leg and reach with both hands down either side of your leg. Reach as far down your leg as you can. Hold for about 20 seconds. Go back to the starting position. Then repeat 5 times. Switch legs. Build Strength Resistance exercises help build strength. You can do them without equipment. Or you can use weights, elastic bands, or special machines. One such exercise is called the biceps curl. You can hold a 1 pound weight or even a can of soup. Do this exercise at least 3 times a week. Strive for everyday. Sit up straight in a chair. Keep your elbow close to your body and your wrist straight. Bend your arm, moving your hand up to your shoulder. Then slowly lower your arm. Repeat 5 times. Switch to the other arm. Build Your Staying Power Aerobic exercises make your heart and lungs stronger so you can keep moving longer. Walking and swimming are two of the best types of exercises you can do. Using a stationary bike is great, too. Find an aerobic exercise that you enjoy. Start slowly and build up. Even 5 minutes is helpful. Aimfor a goal of 30 minutes, at least 3 times a week. You dont have to do 30 minutes in one session. Break it up and walk a little throughout the day. More Helpful Tips Start easy. Slowly work up to doing more. Talk with your healthcare provider about the best exercises for you. Call senior centers or health clubs about exercise programs. If needed, have a family member watch you walk every so often to check your stability. Exercise with a friend. Choose an activity you both enjoy. Try exercises that you can do anytime, anywhere. Here are two examples. Have someone with you when you first try these: Practice walking by placing one foot right in front of the other. Stand up and sit down 10 times. Repeat this throughout the day. [facility] Patient Education Copyright 2009 - 2010 [employer] except where otherwise noted. Preventing Falls: Moving Safely Using a Cane or Walker (This education is for all patients over 65 regardless of symptoms) Keep the cane away from your feet so you dont trip. A walking aid, such as a cane or walker, can help you stay more independent and avoid falls. Remember to keep your walking aid within easy reach when youre in a chair or in bed. And learn how to use it safely so you dont injure yourself. Using a Cane If you have a stronger side, hold the cane on that side. Get your balance. Move the cane and your weaker leg forward. Support your weight on both the cane and your weaker side. Step with your stronger leg. Start again from step 1. If youre using a folding walker, be sure you know how to lock it open. Check that its locked open before each use. Using a Walker Roll the walker (or lift it, if youre using one without wheels) forward about 12 inches. Step forward with your weaker leg first. Use the walker to help keep your balance. Bring your other foot forward to the center of the walker. Start again from step 1. Helpful Tips Check with your healthcare provider about the right walking aid to use. Ask about a walker with a seat attached. Check the tips of your cane or walker to make sure they have nonskid covers. Move slowly from room to room. Dont ya. Sit down to get dressed. Use a zehra pack or backpack to keep your hands free. Get help for jobs that mean climbing, even on a stepstool. [employer] Patient Education Copyright 2008 - 2010 [employer] except where otherwise noted. Urinary Incontinence Plan of Care Documentation: (This education is for all patients over 65 regardless of symptoms) Current medications reconciled. Patient encouraged to: Practice kegal exercises Provide education materials Use the restroom every 2 hours throughout the day Limit caffeine, alcohol, spicy foods and acidic foods Keep a bladder diary Limit fluid intake 3-4 hours before bed Lose weight Prevent constipation Take fluid pills at a time when you can get to the bathroom quickly Control sugar better if diabetic Limit fluid intake to 60 oz. per day Wear support stockings (TEDs)if you have edema Jessie Nath RN 05/13/2023 Kegel Exercises Kegel exercises dont require special clothing or equipment. Theyre easy to learn and simple to do. And if you do them right, no one can tell youre doing them, so they can be done almost anywhere. Your doctor, nurse, or physical therapist can answer any questions you have and help you get started. A Weak Pelvic Floor The pelvic floor muscles may weaken due to aging, and vaginal childbirth, injury, surgery, chronic cough, or lack of exercise. If the pelvic floor is weak, your bladder and other pelvic organs may sag out of place. The urethra may also open too easily and allow urine to leak out. Kegel exercises can help you strengthen your pelvic floor muscles so they can better support the pelvic organs and control urine flow. How Kegel Exercises Are Done Try each of the Kegel exercises described below. When youre doing them, try not to move your leg, buttock, or stomach muscles. While youre urinating, try to stop the flow of urine. Start and stop it as often as you can. Contract as if you were stopping your urine stream, but do it when youre not urinating. Tighten your rectum as if trying not to pass gas. Contract your anus, but dont move your buttocks. Helpful Hints Do your Kegels as often as you can. The more you do them, the faster youll feel the results. Pick an activity you do often as a reminder. For instance, do your Kegels every time you sit down. Tighten your pelvic floor before you sneeze, get up from a chair, cough, laugh, or lift. This protects your pelvic floor from injury and can help prevent urine leakage. Try to hold each Kegel for a slow count to five. You probably wont be able to hold them for thatlong at first, but keep practicing. It will get easier as your pelvic floor gets stronger. Eventually, special weights that you place in your vagina may be recommended to help make your Kegels even more effective. [employer] Patient Education Copyright 2009 - 2010 [employer] except where otherwise noted. Here are some helpful tips for your urinary incontinence: (This education is for all patients over 65 regardless of symptoms) Practice Kegel exercises Use the restroom every 2 hours throughout the day Limit caffeine, alcohol, spicy foods, and acidic foods Keep a bladder diary Limit fluid intake 3-4 hours before bed Lose weight Prevent constipation Take fluid pills at a time when can get to the bathroom quickly Control sugar better if diabetic Limit fluid intake to 60 oz. per day Any questions, please feel free to contact our office. BMI (Body Mass Index) is the number obtained by dividing a person's weight in kilograms by his or her height in meters squared. BMI is used in determining obesity. 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 It is used to identify adults at increased risk for developing weight related medical problems. Estimated body mass index is 40.37 kg/m as calculated from the following: Height as of 05/01/23: 1.65 m (5' 4.96"). Weight as of this encounter: 109.9 kg (242 lb 4.8 oz). Severe Obesity - BMI 40 kg/m2 and above - Severely obese individuals are at a very high risk for developing: * Heart disease * Stroke * Diabetes * High Blood Pressure * High Cholesterol * GERD (acid reflux) * Sleep Apnea * Osteoarthritis * Fatty Liver Disease * Certain Types of Cancers * Gout * Gall Bladder Disease - Weight loss has been shown to decrease weight related medical problems. - A BMI of 40 kg/m2 or higher decreases lifespan by 10 yrs, compared to those with a normal BMI. - A 12-week weight management text message program is also available. Go to [employer] and seethe message under '[employer]' for more information and enrollment. Patient is Instructed to: Diet: * Limit total fat intake to no more than 40 grams per day (low fat diet). * Increase fruits and vegetables to 5 servings per day, combined. * Limited starches (breads, pasta, rice, potatoes, corn, cereals) to 4 servings per day. Avoid Calorie Containing Drinks: * No fruit juices, regular sodas or sweetened drinks. * Water is preferred - 64 ounces per day unless advised of a fluid restriction. * Diet sodas and drinks permitted. Keep Honest, Accurate Food logs: * www.[employer] * www.[employer] * If you bite it - write it! Weigh Yourself Weekly: * Morning is best. * Try to do this outside your home. * Have a friend/spouse remind you to weigh yourself, accountability to others helps. Perform 30 minutes of physical activity daily: * Can do all at once or 5 minutes 6 times per day * 8, 000-10,000 steps per day using a pedometer * Make it fun! documented in this encounter Progress Notes * Jessie Nath RN - 05/13/2023 10:00 AM EDT PRE - ADMINISTRATION DOCUMENTATION Are you experiencing any cold symptoms or fever? No Have you had Guillain-Orlando Syndrome (an illness that causes paralysis) within the last 6 weeks? No Have you had the flu shot in the past? YES Have you ever had a reaction to the flu shot? No Jessie Nath RN, 05/13/2023 10:00 AM Immunization Administration Documentation Time Out Procedure Performed: Yes Patient Identified (Ask Name/Date of ): Yes Does the patient have a fever greater than 101 degrees today? No Patient allergic to latex? No VFC Stock: No Immunization(s) verified: Yes, Immunization Name: Flu, VIS Sheet(s) given: Yes Verified Side and Site: Yes Verified Shot(s) with Parent(s)/Patient: Yes * Maricarmen Ann, DO - 05/13/2023 9:53 AM EDT SUBJECTIVE: Chief Complaint Patient presents with Follow Up Medication Administration Flu and/or Pneumo Inj HPI: Yari Long is a 77 year old female who presents today for regular return. Pt notes that she continues to not feel that her breathing is as good as it was on the Asmanex. She has tried several inhalers since then and has persistent shortness of breath or wheezing. She notes she can "hear her breathing". Pt notes that her hip pain remains but is improved. She has some difficulty with stairs. She notes that she does not really want to do more about it at this point. She continues to have stress caring for her . She notes she does try to get out to her lady meetings and do what she enjoys. She just had her second cataract surgery. She remains on drops. She will be seen in 3 weeks and have retesting done for her eyes. PHM: Patient Active Problem List Diagnosis Code Allergic rhinitis J30.9 Dyslipidemia, goal to be determined E78.5 ADVANCE DIRECTIVE INFORMATION Gastroesophageal reflux disease without esophagitis K21.9 HTN, goal below 140/90 I10 Body mass index (BMI) of 40.0 to 44.9 in adult ([facility]) Z68.41 S/P TKR (total knee replacement), left Z96.652 Prediabetes R73.03 History of breast cancer Z85.3 Solar purpura ([facility]) D69.2 Chronic kidney disease, stage 3a N18.31 Morbid obesity ([facility]) E66.01 Hypertensive kidney disease with stage 3a chronic kidney disease ([facility]) I12.9, N18.31 Other specified peripheral vascular diseases ([facility]) I73.89 COPD, group A, by GOLD 2017 classification ([facility]) J44.9 Caregiver stress Z63.6 Current Outpatient Medications Medication Sig Dispense Refill Multiple Vitamins-Minerals (MULTIVITAMIN WOMENS 50+ ADV) TABS Take by mouth daily at noon. Calcium Carb-Cholecalciferol 500-600 MG-UNIT Oral Tablet Take by mouth daily at noon. [place]-3 Fatty Acids (FISH OIL) 1000 MG Capsule [...] BY MOUTH EVERY MORNING 200 Tablet 3 Atorvastatin Calcium 20 MG Oral Tablet (Lipitor) TAKE ONE TABLET BY MOUTH EVERY DAY 100 Tablet 2 Meloxicam 7.5 MG Oral Tablet (Mobic) TAKE ONE TABLET BY MOUTH EVERY MORNING 90 Tablet 0 Arnuity Ellipta 100 MCG/ACT Inhalation Aerosol Powder Breath Activated (fluticasone Furoate) Inhale1 Puff by mouth in the morning. 90 Each 3 Omeprazole 20 MG Oral Capsule Delayed Release (PriLOSEC) Take 2 Capsules by mouth daily before dinner. 200 Capsule 3 Pregabalin 25 MG Oral Capsule (Lyrica) Take one capsule by mouth in the morning and two capsules bymouth in the evening 270 Capsule 1 Ipratropium-Albuterol 0.5-2.5 (3) MG/3ML Inhalation Solution (Duoneb) Inhale 3 mL via nebulizer in the morning and 3 mL at noon and 3 mL in the evening and 3 mL before bedtime. (Patient not taking: Reported on 04/11/2023) 50 mL 1 Asmanex (120 Metered Doses) 220 MCG/ACT Inhalation Aerosol Powder Breath Activated (Mometasone Furoate) Inhale 1 Puff by mouth in the morning and 1 Puff before bedtime. (Patient not taking: Reported on 02/28/2023) 3 Each 3 No current facility-administered medications for this visit. Past Medical History: Diagnosis Date Allergic rhinitis [...] [place]infiltrating [place]ular [place] [facility] [place] DEL[place] 1982 Delivery Only COLONOSCOPY 11/2004 tics COLONOSCOPY W/ LESION REMOVAL, SNARE 03/07/2010 done diverticulosis, polyp x1--hyperplastic tissue repeat in 5 years COLONOSCOPY, DIAGNOSTIC (RECTUM) 03/15/2015 diverticulosis, repeat 5 yrs/COLONOSCOPY FLEXIBLE PROXIMAL DIAGNOSTIC performed by Brendan Miller MD at ENDOSCOPY [facility] COLONOSCOPY, DIAGNOSTIC (RECTUM) 04/21/2020 diverticulosis, repeat 5 yrs / COLONOSCOPY FLEXIBLE PROXIMAL DIAGNOSTIC performed by Janneth Coffey MDa ENDOSCOPY [facility] INFORMATION 1999 double knee replacement INFORMATION 7 knee surgeries INFORMATION EPL tendon rupture repair KNEE ARTHROSCOPY, DIAGNOSTIC bilateral MASTECTOMY, PARTIAL 09/11/2007 Left PM with deep axillary SLNB at [facility] -Dr. You MISCELLANEOUS ORDER ([facility] ONLY) 1979 FNAB of left breast (benign) REMOVAL OF APPENDIX 04/30/2008 REMOVE CATARACT, INSERT LENS PROSTH Left 04/17/2023 Left EXTRACAPSULAR CATARACT REMOVAL WITH INTRAOCULAR LENS performed by Bryan Richards MD at OR [facility] REMOVE CATARACT, INSERT LENS PROSTH Right 05/01/2023 Right EXTRACAPSULAR CATARACT REMOVAL WITH INTRAOCULAR LENS performed by Bryan Richards MD at OR [facility] REVISION OF TENNIS ELBOW Review of patient's allergies indicates: Allergen Reactions Tamoxifen Citrate Nausea/vomiting Amoxicillin Unknown Imidazole Antifungals Vaginal infections Family History Problem Relation Age of Onset Cancer Mother Colon cancer (dec at age 78) Other (Other) Father Staff infection of heart valve Alcohol and Other Disorders Associated Sister Alcohol and Other Disorders Associated Brother Colon cancer Grandmother (Maternal) Family Status Relation Status Mo Fa Bro Sis Sis (Not Specified) Bro (Not Specified) MGMA (Not Specified) Social History Tobacco Use Smoking status: Never Passive exposure: Past Smokeless tobacco: Never Substance Use Topics Alcohol use: Yes Comment: occasionally Vaping/E-Cigarette Use Vaping/E-Cigarette Use Never User Vaping/E-Cigarette Substances Vaping/E-Cigarette Devices REVIEW OF SYSTEMS: Review of Systems Constitutional: Negative for chills, fatigue, fever and unexpected weight change. Respiratory: Negative for cough, chest tightness, shortness of breath and wheezing. Cardiovascular: Negative for chest pain, palpitations and leg swelling. Gastrointestinal: Negative for abdominal pain, constipation, diarrhea, nausea and vomiting. Musculoskeletal: Negative for arthralgias, gait problem and joint swelling. Skin: Negative for color change, pallor and rash. OBJECTIVE: BP 104/68 (BP Site: Left Arm, BP Position: Sitting, BP Cuff Size: Large) | Pulse 84 | Temp 36 C (96.8 F) | Wt 109.9 kg (242 lb 4.8 oz) | SpO2 98% | BMI 40.37 kg/m | BSA 2.24 m PHYSICAL EXAM: Physical Exam Constitutional: General: She is not in acute distress. Appearance: She is well-developed. Cardiovascular: Rate and Rhythm: Normal rate and regular rhythm. Heart sounds: Normal heart sounds. No murmur heard. No friction rub. No gallop. Pulmonary: Effort: Pulmonary effort is normal. No respiratory distress. Breath sounds: Wheezing present. No rales. Abdominal: General: Bowel sounds are normal. There is no distension. Palpations: Abdomen is soft. Tenderness: There is no abdominal tenderness. There is no guarding. Musculoskeletal: General: No tenderness or deformity. Normal range of motion. Skin: General: Skin is warm and dry. Coloration: Skin is not pale. Findings: No erythema or rash. Neurological: Mental Status: She is alert and oriented to person, place, and time. ASSESSMENT AND PLAN: (I10) HTN, goal below 140/90 (primary encounter diagnosis) Plan: BP controlled. She will remain on lisinopril-HCTZ for now. No issues. (R73.03) Prediabetes Plan: HEMOGLOBIN A1C Pt will complete A1C. (E78.5) Dyslipidemia, goal to be determined Plan: LIPID PANEL WITH DIRECT LDL IF TG IS HIGH, COMPREHENSIVE METABOLIC PANEL Pt will complete lipid panel and CMP. She will remain on atorvastatin at present dose. (N18.31) Chronic kidney disease, stage 3a Plan: CBC WITH WBC DIFFERENTIAL Pt will complete CBC. No significant issues. (J44.9) COPD, group A, by GOLD 2017 classification (HCC) Plan: Pt has tried serevent, flovent and arnuity, all with worsening or lack of control of her symptoms. Had been well controlled on Asmanex for years. Wheezing today. Will try for prior auth again. (K21.9) Gastroesophageal reflux disease without esophagitis Plan: MAGNESIUM, VITAMIN B12 Pt will complete lab studies. She will remain on omeprazole. (E66.01) Morbid obesity due to excess calories (HCC) Plan: Pt encouraged to work with Lindsay. Will set up for fitness assessment. (Z23) Need for prophylactic vaccination and inoculation against influenza Plan: INFLUENZA VACC, QUAD, HIGH DOSE (FLUZONE HD) Vaccine given. See admin record. (Z13.9) Risk and functional assessment Plan: See nursing note. Follow-up: 3 months Total time today including reviewing chart before the visit, pertinent labs, imaging reports, face to face time, and documentation time was 35 minutes. Meera Wernertienydia counseling on weight management given. documented in this encounter Nursing Notes * Jessie Nath RN - 05/13/2023 9:58 AM EDT 3 month return Arnuity inhaler-notices her breathing noisier documented in this encounter Plan of Treatment Upcoming Encounters Date Type Specialty Care Team Description 08/13/2023 Office Visit Dermatology Radha Bolivar MD 08/19/2023 Office Visit Family Medicine Maricarmen Ann DO [address], [place] [address] 03/30/2024 Nurse Only [employer], Nurse Annual Wellness Visit [address] [facility] [address] Scheduled Orders Name Type Priority Associated Diagnoses Orde r Schedule LIPID PANEL WITH DIRECT LDL IF TG IS HIGH Lab Routine Dyslipidemia, goal to be determined Expected: 05/13/2023, Expires: 05/13/2024 COMPREHENSIVE METABOLIC PANEL Lab Routine Dyslipidemia, goal to be determined Expected: 05/13/2023 (Approximate), Expires: 05/12/2024 CBC WITH WBC DIFFERENTIAL Lab Routine Chronic kidney disease, stage 3a Expected: 05/13/2023 (Approximate), Expires: 05/13/2024 HEMOGLOBIN A1C Lab Routine Prediabetes Expected: 05/13/2023 (Approximate), Expires: 05/12/2024 MAGNESIUM Lab Routine Gastroesophageal reflux disease without esophagitis Expected: 05/13/2023 (Approximate), Expires: 05/12/2024 VITAMIN B12 Lab Routine Gastroesophageal reflux disease without esophagitis Expected: 05/13/2023 (Approximate), Expires: 05/12/2024 Scheduled Procedures Name Priority Associated Diagnoses Date/Ti me COLONOSCOPY FLEXIBLE PROXIMA L DIAGNOSTIC Recall Family history of colon cancer Health Maintenance Due Date Last Done Comments Alpha-1 Antitrypsin 1963 CKD PHOS USE SMARTSET 04905 05/10/2022 05/10/2021 CKD HGB USE SMARTSET 57490 04/08/202304/08, 04/08/2022, 10/14/2020, Additional history exists COVID-19 Vaccine ( season) 2023 09/20/2021, 11/09/2020, 10/19/2020 HbA1c 04/12/2023 04/12/2022, 04/13, 03/21/2020, Additional history exists GFR 05/03/2023 10/31/2022, 09/0 09/2021, 05/10/2021, Additional history exists Albumin/Creatinine Ratio 02/29/2024 02/28/2023, 09/0 08/2021 Depression Screening 04/10/2024 05/13/2023 O2 ASSESSMENT COMPLETED IN PAST YEAR FOR COPD 05/01/2024 05/01/2023 COLONOSCOPY-EVERY 5 YRS AGES 18-100 04/21/2025 04/21/2020, [...] this encounter Medical Devices Implanted Type Area Diver Helper Device Identifier Shelf Expiration Date Model / Serial / Lot Lens Li61ao 13.00mm 19.00 - [id number] - [id number] Implanted:Qty: 1 on 04/17/2023 by Bryan Richards MD at OR [facility] Left: Eye [employer] 12/09/2027 [id number] / [id number] / [id number] Lens Li61ao 13.00mm 18.50 - [id number] - [id number] Implanted:Qty: 1 on 05/01/2023 by Bryan Richards MD at OR [facility] Right: Eye [employer] 10/09/2027 [id number] / [id number] / [id number] documented as of this encounter Visit Diagnoses Diagnosis HTN, goal below 140/90- Primary Unspecified essential hypertension Prediabetes Other abnormal glucose Dyslipidemia, goal to be determined Other and unspecified hyperlipidemia Chronic kidney disease, stage 3a COPD, group A, by GOLD 2017 classification (HCC) Gastroesophageal reflux disease without esophagitis Esophageal reflux Morbid obesity due to excess calories (HCC) Need for prophylactic vaccination and inoculation against influenza Risk and functional assessment Screening for unspecified condition documented in this encounter Advance Directives Latest Code Status on File Code Status Date Activated Date Inactivated Comments Full Code 05/01/2023 9:33 AM 05/01/2023 4:13 PM This order reflects the patients wishes and were consensually agreed upon. Question Answer Comments Discussion of Advance Directives occurred with: Patient Does the patient have a Living Will? No Does the patient have Health Care Power of Hoist Worker? No Code Status History Code Status Date Activated Date Inactivated Comments Full Code 04/17/2023 8:37 AM 04/17/2023 2:50 PM This or adele reflects the patients wishes and were consensually agreed upon. Question Answer Comments Discussion of Advance Directives occurred with: Patient Does the patient have a Living Will? No Does the patient have Health Care Power of Hoist Worker? No Care Teams Tinsmith Helper Relationship Specialty Start Date End Date Maricarmen Ann, DO [address] [place] [address] PCP - General Family Medicine 03/26/23 documented as of this encounter
--- OUTSIDE RECORDS SUMMARY | 2023-08-18 00:30 | External Medical Summary | Summary of Care ---
Author Name Unknown Organization [facility] Address [address] [facility] [place] [address] Phone [phone] Care Team Providers Care Assistant Center Director Name Role Phone Maricarmen Ann DO Primary Care Provider Reason for Visit * Reason Onset Date Comments Appointment 05/13/2023 Fitness assessme nt Encounter Details Date Type Department Care Team Description 05/13/2023 Telephone Family Practice [address] [facility] [address] [place] [address] Maricarmen Ann DO [address] [place] [address] Appointment (Fitness assessment) Allergies Active Allergy Reactions Severity Noted Date Comments Amoxicillin Unknown 03/13/1999 Imidazole Antifungals 03/13/1999 Vaginal infections Tamoxifen Citrate Nausea/vomiting High 02/14/2010 documented as of this encounter (statuses as of 05/14/2023) Medications Medication Sig Dispensed Refills Start Date End Date Status Multiple Vitamins-Minerals (MULTIVITAMIN WOMENS 50+ ADV) TABS Take by mouth daily at noon. 0 Active Calcium Carb-Cholecalciferol 500-600 MG-UNIT Oral Tablet Take by mouth daily at noon. 0 Active [place]-3 Fatty Acids (FISH OIL) 1000 MG Capsule [...] COPD, group A, by GOLD 2017 classification ([facility]) Inhale 1 Puff by mouth in [...] as of this encounter (statuses as of 05/14/2023) Active Problems Problem Noted Date Caregiver stress [...] as of this encounter (statuses as of 05/14/2023) Resolved Problems Problem Noted Date Resolved Date [...] as of this encounter (statuses as of 05/14/2023) Immunizations Name Administration Dates Next Due COVID-19 [...] * Telephone Encounter - Lindsay Olivares Health Director Of Industrial Relations - 05/14/2023 3:36 PM EDT Called and [...] Visit Dermatology Richard Ley MD [address] [place] [address] 08/19/2023 Office Visit Family Medicine Maricarmen Ann, DO [address] [place] [address] 03/30/2024 Nurse Only Ancillary [employer], Nurse Annual Wellness Visit [address] [place] [address] Scheduled Procedures Name Priority Associated Diagnoses Date/Ti me COLONOSCOPY FLEXIBLE PROXIMA L DIAGNOSTIC Recall Family history of colon cancer Health Maintenance Due Date Last Done Comments Alpha-1 Antitrypsin 1963 CKD PHOS USE SMARTSET 22286 05/10/2022 05/10/2021 CKD HGB USE SMARTSET 10352 04/08/202304/08, 04/08/2022, 10/14/2020, Additional history exists COVID-19 Vaccine ( season) 2023 09/20/2021, 11/09/2020, 10/19/2020 HbA1c 04/12/2023 04/12/2022, 04/13, 03/21/2020, Additional history exists GFR 05/03/2023 10/31/2022, 09/2021, 05/10/2021, Additional history exists Albumin/Creatinine Ratio [...] this encounter Medical Devices Implanted Type Area Shelter Director Device Identifier Shelf Expiration Date Model / Serial / Lot Lens Li61ao 13.00mm 19.00 - [id number] - [id number] Implanted:Qty: 1 on 04/17/2023 by Bryan Richards MD at OR [facility] Left: Eye [employer] 12/09/2027 [id number] / [id number] / [id number] Lens Li61ao 13.00mm 18.50 - [id number] - [id number] Implanted:Qty: 1 on 05/01/2023 by Bryan Richards MD at OR [facility] Right: Eye [employer] 10/09/2027 [id number] / [id number] / [id number] documented as of this encounter Advance Directives [...] the patient have Health Care Power of Torpedo Man? No Code Status History Code Status Date Activated Date Inactivated Comments Full Code 04/17/2023 8:37 AM 04/17/2023 2:50 PM This or adele reflects the patients wishes and were consensually agreed upon. Question Answer Comments Discussion of Advance Directives occurred with: Patient Does the patient have a Living Will? No Does the patient have Health Care Power of Torpedo Man? No Care Teams Assistant Center Director Relationship Specialty Start Date End Date Maricarmen Ann, DO [address] [place] [address] PCP - General Family Medicine 03/26/23 documented as of this encounter
--- OUTSIDE RECORDS SUMMARY | 2023-08-18 00:31 | External Medical Summary | Summary of Care ---
Author Name Unknown Organization [facility] Address [address] [facility] [place] [address] Phone [phone] Care Team Providers Care Dot Etcher Apprentice Name Role Phone Maricarmen Ann DO Primary Care Provider Reason for Visit * Reason Comments pre-op exam Encounter Details Date Type Department Care Team Description 04/10/2023 Office Visit Family Practice [address] [place] [address] [place] [address] Maricarmen Ann [address] [place] [address] Pre-operative clearance*; Other age-related cataract of both eyes; Prediabetes; Chronic kidney disease, stage 3a Allergies Active Allergy Reactions Severity Noted Date Comments Amoxicillin Unknown 03/13/1999 Imidazole Antifungals 03/13/1999 Vaginal infections Tamoxifen Citrate Nausea/vomiting High 02/14/2010 documented as of this encounter (statuses as of 04/10/2023) Medications Medication Sig Dispensed Refills Start Date End Date Status Multiple Vitamins-Minerals (MULTIVITAMIN WOMENS 50+ ADV) TABS Take by mouth daily at noon. 0 Active Calcium Carb-Cholecalcifero l 500-600 MG-UNIT Oral Tablet Take by mouth daily at noon. 0 Active [place]-3 Fatty Acids (FISH OIL) 1000 MG Capsule Take 1 Capsule by mouth daily at noon. 0 Active Loratadine 10 MG Oral Tablet Take 1 Tablet by mouth in the morning. 30 Tab 11 1 Active Ipratropium-Albuter ol 0.5-2.5 (3) MG/3ML Inhalation Solution (Duoneb) Inhale 3 mL via nebulizer in the morning and 3 mL at noon and 3 mL in the evening and 3 mL before bedtime. 50 mL 1 2 Active Diclofenac Sodium 1 % External Gel (Voltaren)Indicatio ns:Hand arthritis Apply topically to affected area 3 times a day as needed for Pain or Pain, Mild (to hands). 150 g 1 2 Active Pregabalin 25 MG Oral Capsule (Lyrica)Indications :Neuropathy Take one capsule by mouth in the morning and two capsules by mouth in the evening 270 Capsule 1 3 Active Vitamin B-12 6000 MCG Sublingual Tablet Sublingual Place under the tongue. 0 Active Asmanex (120 Metered Doses) 220 MCG/ACT Inhalation Aerosol Powder Breath Activated (Mometasone Furoate)Indications :COPD, group A, by GOLD 2017 classification (HCC) Inhale 1 Puff by mouth in the morning and 1 Puff before bedtime. 3 Each 3 3 Active Additional Information Patient not taking.Reported on 02/28/2023 Lisinopril-hydroCHL OROthiazide 20-12.5 MG Oral TabletIndications:E ssential hypertension with goal blood pressure less than 130/80 TAKE TWO TABLETS BY MOUTH EVERY MORNING 200 Tablet 3 3 11/20/19 24 Active Atorvastatin Calcium 20 MG Oral Tablet (Lipitor) TAKE ONE TABLET BY MOUTH EVERY DAY 100 Tablet 2 3 09/28/19 24 Active Meloxicam 7.5 MG Oral Tablet (Mobic) TAKE ONE TABLET BY MOUTH EVERY MORNING 90 Tablet 0 3 09/19/19 24 Active Arnuity Ellipta 100 MCG/ACT Inhalation Aerosol Powder Breath Activated (fluticasone Furoate) Inhale 1 Puff by mouth in the morning. 90 Each 3 3 Active Omeprazole 20 MG Oral Capsule Delayed Release (PriLOSEC)Indicatio ns:Gastroesophageal reflux disease without esophagitis Take 2 Capsules by mouth daily before dinner. 200 Capsule 3 3 Active Fluorouracil 5 % External Cream (Efudex) Apply topically to affected area 2 times a day. apply to affected area R mancilla 2 time per day for 6 weeks 40 g 0 3 04/10/20 23 Discontinued documented as of this encounter (statuses as of 04/10/2023) Active Problems Problem Noted Date Caregiver stress [...] as of this encounter (statuses as of 04/10/2023) Resolved Problems Problem Noted Date Resolved Date [...] as of this encounter (statuses as of 04/10/2023) Immunizations Name Administration Dates Next Due COVID-19 mRNA, LNP-s, No Pre serve, 2-Dose Series (Pfizer) 09/20/2021,11/09/2020,10/19/2020 Pneumococcal Conjugate Vacc, 13 Valent (Prevnar) 07/28/2015 Pneumococcal Polysaccharide PPV23 (Pneumovax) 05/12/2013 Seasonal Influenza, PF, 6 mo ns & Above, IM , (Flulaval) 05/08/2020,06/05/2018,05/23/2017 Seasonal Influenza, Quadriva lent Hd (Fluzone Hd) 04/11/2022,06/15/2021 Seasonal Influenza, Quadriva lent, No Preserve, IM [...] got money to buy more. Never true 04/10/2023 Within the past 12 months, t he food you bought just didn't last and you didn't have money to get more. Never true 04/10/2023 Sex Assigned at Date Recorded Female 04/11/2022 9:21 AM E DT Job Start Date Occupation Industry Not on file Not on file Not on file documented as of this encounter Last Filed Vital Signs Vital Sign Reading Time Taken Comments Blood Pressure 102/62 04/10/2023 1:10 PM EDT Pulse 82 04/10/2023 1:10 PM EDT Temperature 36.3 C (97.4 F) 04/10/2023 1:10 PM ED T Respiratory Rate - - Oxygen Saturation 95% 04/10/2023 1:10 PM EDT Inhaled Oxygen Concentration - - Weight 108 kg (238 lb 1.6 oz) 04/10/2023 1:10 PM EDT Height - - Body Mass Index 39.62 03/27/2023 2:28 PM EDT documented in this encounter Progress Notes * Maricarmen Ann, DO - 04/10/2023 1:05 PM EDT SUBJECTIVE: Chief Complaint Patient presents with pre-op exam HPI: Yari Long is a 77 year old female who presents today for pre-op for cataract removal with Dr. Richards. She will have the left removed on 04/17 and the right on 05/01. She notes no history of issues with anesthesia in the past. Pt notes she would get a fever after anesthesia. They did talk to her about malignant hyperthermia but they determined she did not have it. She has since had surgery without issue. No chest pain or shortness of breath. She has been better on the Arunity. It is notas good as the Asmanex. She is hoping it will continue to improve. No false or fake teeth. No recent illnesses. Her will drive her. PHM: Patient Active Problem List Diagnosis Code Allergic rhinitis J30.9 Dyslipidemia, goal to be determined E78.5 ADVANCE DIRECTIVE INFORMATION Gastroesophageal reflux disease without esophagitis K21.9 HTN, goal below 140/90 I10 Body mass index (BMI) of 40.0 to 44.9 in adult ([facility]) Z68.41 S/P TKR (total knee replacement), left Z96.652 Prediabetes R73.03 History of breast cancer Z85.3 Solar purpura ([facility]) D69.2 Chronic kidney disease, stage 3a N18.31 Morbid obesity ([facility]) E66.01 Hypertensive kidney disease with stage 3a chronic kidney disease ([facility]) I12.9, N18.31 Other specified peripheral vascular diseases ([facility]) I73.89 COPD, group A, by GOLD 2017 classification ([facility]) J44.9 Caregiver stress Z63.6 Current Outpatient Medications Medication Sig Dispense Refill Multiple Vitamins-Minerals (MULTIVITAMIN WOMENS 50+ ADV) TABS Take by mouth daily at noon. Calcium Carb-Cholecalciferol 500-600 MG-UNIT Oral Tablet Take by mouth daily at noon. [place]-3 Fatty Acids (FISH OIL) 1000 MG Capsule Take 1 Capsule by mouth daily at noon. Loratadine 10 MG Oral Tablet Take 1 Tablet by mouth in the morning. 30 Tab 11 Ipratropium-Albuterol 0.5-2.5 (3) MG/3ML Inhalation Solution (Duoneb) Inhale 3 mL via nebulizer in the morning and 3 mL at noon and 3 mL in the evening and 3 mL before bedtime. 50 mL 1 Diclofenac Sodium 1 % External Gel (Voltaren) Apply topically to affected area 3 times a day as needed for Pain or Pain, Mild (to hands). 150 g 1 Pregabalin 25 MG Oral Capsule (Lyrica) Take one capsule by mouth in the morning and two capsules bymouth in the evening 270 Capsule 1 Vitamin B-12 6000 MCG Sublingual Tablet [...] mouth daily before dinner. 200 Capsule 3 Asmanex (120 Metered Doses) 220 MCG/ACT Inhalation [...] term Recurrent major depressive disorder, in remission ([facility]) 12/12/2016 Vertigo BPV, MRI 2006, min microvascular disease Past Surgical History: Procedure Laterality Date BREAST LESION,OTHER,EXCISION 08/24/2007 Excision left breast mass (infiltrating lobular carcinoma) at [facility] - Dr. You DELIVERY 1982 Delivery Only COLONOSCOPY 11/2004 tics COLONOSCOPY W/ LESION REMOVAL, SNARE 03/07/2010 done diverticulosis, polyp x1--hyperplastic tissue repeat in 5 years COLONOSCOPY, DIAGNOSTIC (RECTUM) 03/15/2015 diverticulosis, repeat 5 yrs/COLONOSCOPY FLEXIBLE PROXIMAL DIAGNOSTIC performed by Brendan Miller MD at ENDOSCOPY [facility] COLONOSCOPY, DIAGNOSTIC (RECTUM) 04/21/2020 diverticulosis, repeat 5 yrs / COLONOSCOPY FLEXIBLE PROXIMAL DIAGNOSTIC performed by Rosa Maria Medina ENDOSCOPY [facility] INFORMATION 1999 double knee replacement INFORMATION 7 knee surgeries INFORMATION EPL tendon rupture repair KNEE ARTHROSCOPY, DIAGNOSTIC bilateral MASTECTOMY, PARTIAL 09/11/2007 Left PM with deep axillary SLNB at [facility] -Dr. You MISCELLANEOUS ORDER ([facility] ONLY) 1979 FNAB of left breast (benign) REMOVAL OF APPENDIX 04/30/2008 REVISION OF TENNIS ELBOW Review of patient's [...] color change, pallor and rash. OBJECTIVE: BP 102/62 | Pulse 82 | Temp 36.3 C (97.4 F) | Wt 108 kg (238 lb 1.6 oz) | SpO2 95% | BMI 39.62 kg/m | BSA 2.23 m PHYSICAL EXAM: Physical Exam Constitutional: General: She is not in acute distress. Appearance: She is well-developed. HENT: Head: Normocephalic and atraumatic. Right Ear: Tympanic membrane, ear canal and external ear normal. Left Ear: Tympanic membrane, ear canal and external ear normal. Nose: Nose normal. No mucosal edema or rhinorrhea. Mouth/Throat: Pharynx: No oropharyngeal exudate. Neck: Thyroid: No thyromegaly. Cardiovascular: Rate and Rhythm: Normal rate and regular rhythm. Heart sounds: No murmur heard. No friction rub. No gallop. Pulmonary: Effort: No respiratory distress. Breath sounds: Normal breath sounds. No wheezing, rhonchi or rales. Chest: Chest wall: No tenderness. Abdominal: General: Bowel sounds are normal. Palpations: Abdomen is soft. There is no mass. Tenderness: There is no abdominal tenderness. There is no guarding. Musculoskeletal: General: No tenderness or deformity. Normal range of motion. Cervical back: Normal range of motion and neck supple. Lymphadenopathy: Cervical: No cervical adenopathy. Skin: General: Skin is warm and dry. Findings: No rash. Neurological: Mental Status: She is alert and oriented to person, place, and time. Cranial Nerves: No cranial nerve deficit. Psychiatric: Speech: Speech normal. Behavior: Behavior normal. Thought Content: Thought content normal. ASSESSMENT/PLAN: (Z01.818) Pre-operative clearance (primary encounter diagnosis) (H25.89) Other age-related cataract of both eyes Plan: Pt doing well overall. No recent illnesses. She is able to tolerate 4 METS of activity but somewhat limited by back pain. She is maximized for OR at present. She will call with issues. (R73.03) Prediabetes Plan: HEMOGLOBIN A1C Pt will complete A1C at next visit. Has been historically controlled. (N18.31) Chronic kidney disease, stage 3a Plan: CBC, BASIC METABOLIC PANEL Lab studies due at next visit. Follow-up: as scheduled Total time today including reviewing chart before the visit, pertinent labs, imaging reports, face to face time, and documentation time was 34 minutes. Maricarmen Ann DO documented in this encounter Plan of Treatment Upcoming Encounters Date Type Specialty Care Team Description 04/17/2023 Hospital Encounter Surgery Bryan Richards MD [address] [place] [address] 04/17/2023 Surgery Surgery Bryan Richards MD [address] [place] [address] Left EXTRACAPSULAR CATARACT REMOVAL WITH INTRAOCULAR LENS 05/01/2023 Hospital Encounter Surgery Bryan Richards MD [address] [place] [address] 05/01/2023 Surgery Surgery Bryan Richards MD [address] [place] [address] Right EXTRACAPSULAR CATARACT REMOVAL WITH INTRAOCULAR LENS 05/13/2023 Office Visit Family Medicine Maricarmen Ann, DO [address] [place] [address] 08/13/2023 Office Visit Dermatology Radha Bolivar MD 03/30/2024 Nurse Only Ancillary [place], Nurse Annual Wellness Visit [address] [facility] [place] [address] Scheduled Orders Name Type Priority Associated Diagnoses Orde r Schedule HEMOGLOBIN A1C Lab Routine Prediabetes Expected: 04/10/2023 (Approximate), Expires: 05/10/2024 CBC Lab Routine Chronic kidney disease, stage 3a Expected: 04/10/2023 (Approximate), Expires: 04/09/2024 BASIC METABOLIC PANEL Lab Routine Chronic kidney disease, stage 3a Expected: 04/10/2023 (Approximate), Expires: 04/09/2024 Scheduled Procedures Name Priority Associated Diagnoses Date/Ti me EXTRACAPSULAR CATARACT REMOVAL WITH INTRAOCULAR LENS Combined forms of age-related cataract of left eye 04/17/2023 9:23 AM EDT EXTRACAPSULAR CATARACT REMOVAL WITH INTRAOCULAR LENS Combined forms of age-related cataract of right eye 05/01/2023 10:37 AM EDT COLONOSCOPY FLEXIBLE PROXIMAL DIAGNOSTIC Recall Family history of colon cancer Health Maintenance Due Date Last Done Comments Alpha-1 Antitrypsin 1963 COVID-19 Vaccine (4 - Pfizer series) 11/15/2021 09/20/2021, 11/09/2020, 10/19/2020 CKD PHOS USE SMARTSET 39841 05/10/2022 05/10/2021 CKD HGB USE SMARTSET 85911 04/08/202304/08, 04/08/2022, 10/14/2020, Additional history exists Influenza Vaccine (FLU shot) (#1) 2023 04/11/2022, 06/15/2021, 05/08/2020, Additional history exists HbA1c 04/12/2023 04/12/2022, 04/13, 03/21/2020, Additional history exists GFR 05/03/2023 10/31/2022, 09/2021, 05/10/2021, Additional history exists Albumin/Creatinine Ratio 02/29/2024 02/28/2023, 09/0 08/2021 Depression Screening, Annual for Pts 12 and Over 03/27/2024 03/27/2023 O2 ASSESSMENT COMPLETED IN PAST YEAR FOR COPD 03/27/2024 03/27/2023 COLONOSCOPY-EVERY 5 YRS AGES 18-100 04/21/2025 04/21/2020, 04/21/2020, 03/15/2015, Additional history exists DXA Scan 03/21/2027 03/21/2020, 05/11, 05/26/2013 DTaP,Tdap,and Td Vaccines (3 - Td or Tdap) 04/11/2032 04/11/2022, 12/20/2011, 09/03/2005, Additional history exists Pneumococcal Vaccine: 65+ Years Completed 07/28/2015, 05/12/2013 Zoster Vaccines Completed 12/25/2020, 04/12, 12/20/2011 GARDASIL-HPV IMMUNIZATION SERIES Aged Out No longer eligible based on patient's age to complete this topic Hepatitis B Aged Out No longer eligi ble based on patient's age to complete this topic MENINGOCOCCAL (MENACTRA/MENVEO) Aged Out No longer eligible based on patient's age to complete this topic documented as of this encounter Medical Devices Not on filedocumented as of this encounter Visit Diagnoses Diagnosis Pre-operative clearance- Primary Preoperative examination, unspecified Other age-related cataract of both eyes Prediabetes Other abnormal glucose Chronic kidney disease, stage 3a Combined forms of age-related cataract of left eye Other and combined forms of senile cataract Combined forms of age-related cataract of right eye Other and combined forms of senile cataract documented in this encounter Care Teams Dot Etcher Apprentice Relationship Specialty Start Date End Date Maricarmen Ann, [address] [address] PCP - General Family Medicine 03/26/23 documented as of this encounter"
--- OUTSIDE RECORDS SUMMARY | 2023-08-18 00:31 | External Medical Summary | Summary of Care ---
Author Name Unknown Organization [facility] Address [address] [place] [address] Phone [phone] Care Team Providers Care Coal Handler Name Role Phone Maricarmen Ann Primary Care Provider Reason for Visit * Auth/Cert Specialty Diagnoses / Procedures Referred By Mary Kate ortega Referred To Contact Diagnoses Combined forms of age-related cataract of left eye Combined forms of age-related cataract of left eye [H25.812] Procedures REMOVE CATARACT, INSERT LENS PROSTH Left EXTRACAPSULAR CATARACT REMOVAL WITH INTRAOCULAR LENS Referral ID Status Reason Start Date Expiration Date Visits Re quested Visits Authorized [id number] Encounter Details Date Type Department Care Team Description 04/17/2023 Hospital Encounter OR [facility], Operating Room [facility] [place] [address] Bryan Richards MD [address] [place] [id number] Allergies Active Allergy Reactions Severity Noted Date Comments Amoxicillin Unknown 03/13/1999 Imidazole Antifungals 03/13/1999 Vaginal infections Tamoxifen Citrate Nausea/vomiting High 02/14/2010 documented as of this encounter (statuses as of 04/17/2023) Medications Medication Sig Dispensed Refills Start Date End Date Status Multiple Vitamins-Minerals (MULTIVITAMIN WOMENS 50+ ADV) TABS Take by mouth daily at noon. 0 Active Calcium Carb-Cholecalcifero l 500-600 MG-UNIT Oral Tablet Take by mouth daily at noon. 0 Active [place]-3 Fatty Acids (FISH OIL) 1000 MG Capsule [...] 100 Tablet 2 09/28/2022 09/28/19 24 Active Meloxicam 7.5 MG Oral Tablet (Mobic) TAKE ONE TABLET BY MOUTH EVERY MORNING 90 Tablet 0 09/19/2022 09/19/19 24 Active Arnuity Ellipta 100 MCG/ACT [...] mouth in the evening 270 Capsule 1 10/25/2022 04/16/20 23 Discontinu ed(Refill) documented as of this encounter (statuses as of 04/17/2023) Active Problems Problem Noted Date Caregiver stress [...] as of this encounter (statuses as of 04/17/2023) Resolved Problems Problem Noted Date Resolved Date [...] as of this encounter (statuses as of 04/17/2023) Immunizations Name Administration Dates Next Due COVID-19 mRNA, LNP-s, No Pre serve, 2-Dose Series ([employer]) 09/20/2021,11/09/2020,10/19/2020 Pneumococcal Conjugate Vacc, 13 Valent (Prevnar) [...] Sign Reading Time Taken Comments Blood Pressure 90/43 04/17/2023 10:30 AM EDT Pulse 69 04/17/2023 10:30 AM EDT Temperature 36.2 C (97.2 F) 04/17/2023 1 0:30 AM EDT Respiratory Rate 16 04/17/2023 10:3 0 AM EDT Oxygen Saturation 97% 04/17/2023 10: 30 AM EDT Inhaled Oxygen Concentration - - Weight 107.5 kg (236 lb 15.9 oz) 04/17/2023 8:53 AM EDT Height 165 cm (5' 4.96") 04/17/2023 8:53 AM EDT Body Mass Index 39.49 04/17/2023 8:53 AM EDT documented in this encounter Discharge Instructions * Discharge Instr - AVS* Bryan Richards MD - 04/08/2023 10:45 AM EDT Discharge Date: 04/17/23 You may call Doctor Susie at during business hours and for after-hours emergencies. Your attending physician at the time of your discharge was: Bryan Richards MD The information below provides you with the instructions and the list of medications you need to betaking following discharge from the hospital. If you have any questions, please ask before leaving.Please carry this letter with you when you see your doctor in the clinic. Diet: Normal diet Activity: No lifting or pushing or pulling more than 10 lbs for 1 week. Driving: Do not drive for 24 hours after surgery . Date you may return to work or school: N/A Follow Up - Return appointment(s): 04/18/23 @10:[address] Smalls See your medical radiation dosimetrist in 1day(s). SPECIAL INSTRUCTIONS EYEDROPS for healing and infection prevention. 8 am (Breakfast) 12 noon (Lunch) 6 pm (Supper) 10 pm (Bedtime) Duration PGB X X X X 1 Week PGB X X X 1 Week PGB X X 1 Week PGB X 1 Week 1. Use your eye drops 4 times on the afternoon and evening after your surgery. 2. DO NOT RUB OR PUT PRESSURE ON THE EYE for 4 weeks after surgery. 3. Please keep your surgical eye closed on the ride home and then at home for a total of 1-2 hours after surgery. 4. You may sit, walk, watch TV, read, and perform routine activities. 5. NO exercise for 2 weeks after surgery. It is OK to walk. 6. DO NOT go underwater for 2 weeks after surgery, e.g. no swimming or hot-tubs. 7. It is OK to shower, wash your face, shave, shampoo your hair the day AFTER Surgery (a few drops of water are OK). 8. Continue warm compresses for 5 minutes, 2 times per day. 9. Sleep with the shield taped over your eyes for 2 weeks after surgery. 10. NO eye make-up for 2 weeks after surgery. 11. DO NOT make any eye drop changes to your other eye. 12. Dr. Richards suggests that all patients remain in the area for a minimum of the one week following surgery if traveling within the [place]. Patients traveling internationally should wait 4 weeks. 13. You may return to work soon after surgery; please discuss this with Dr. Richards. 14. You can expect the following after surgery during the first 4-6 weeks. Itchiness/scratchiness around the eye. Redness in the white of the eye. Double vision/ Fluctuation in vision. Droopiness of the eyelid. 15. Your vision should gradually improve in days and weeks after surgery. If your vision is gettingworse (not better), or your eye more red, or you are having increasing pain, or you are having new floaters or flashing lights, CALL US IMMEDIATELY. IF YOU HAVE ANY PROBLEMS, QUESTIONS OR CONCERNS, DO NOT HESITATE TO CALL US AT [phone] AT ANY TIME I, Bryan Richards MD personally performed the services described in this documentation. All medical record entries made by the scribe were at my direction and in my presence. I have reviewed the chart and agree that the record reflects my personal performance and is accurate and complete. Bryan mosqueda MD. 04/17/2023. 10:11 AM. documented in this encounter H&P Notes * Bryan Richards MD - 04/17/2023 7:28 AM EDT HISTORY & PHYSICAL INTERVAL NOTE [facility] [address] [address] History and Physical Update: Name: Yari Long Location: Room/bed info not found Date: 04/17/2023 Time: 7:28 AM DATE OF HISTORY AND PHYSICAL: 04/10/23 BP: 111 mmHg/55 mmHg (04/17/23852) Pulse: 75 (04/17/23852) Temp: 36.67 C (04/17/23852) Resp: 16 (04/17/23852) SpO2: 98 % (04/17/23852) Does patient take a beta sam? No Did patient stop anticoagulants? No Heart Exam: regular rate and rhythm Lung Exam: clear to auscultation bilaterally Other Pertinent Physical Exam: none I have reviewed the H&P previously performed and examined the patient today. There are no new findings noted. documented in this encounter Nursing Notes * Jayashree Knight RN - 04/17/2023 10:49 AM EDT Patient awake and oriented x3. Denies pain. No drainage from eye noted. Tolerating PO fluids. Discharge instructions given and patient verbalizes understanding. Patient ambulated to private vehicle and discharged to home. * Jayashree Knight RN - 04/17/2023 10:15 AM EDT Patient transferred to pacu 2 status post left cataract removal and lens placement. No drainage noted. Patient awake. Denies pain and nausea. Respirations are even and unlabored on room air. Abdomen soft and non distended. Vital signs stable. * Debo Patel RN - 04/17/2023 8:54 AM EDT Surgical consent verified with patient. Patient agrees with listed procedure and verified signature. documented in this encounter Plan of Treatment Upcoming Encounters Date Type Specialty Care Team Description 05/01/2023 Hospital Encounter Surgery Bryan Richards MD [address] [address] 05/01/2023 Surgery Surgery Bryan Richards MD [address] [address] Right EXTRACAPSULAR CATARACT REMOVAL WITH INTRAOCULAR LENS 05/13/2023 Office Visit Family Medicine Maricarmen Ann DO [address] [place] [address] 08/13/2023 Office Visit Dermatology Radha Bolivar MD 03/30/2024 Nurse Only [facility], Nurse Annual Wellness Visit [address] [facility] [address] [place] [address] Scheduled Procedures Name Priority Associated Diagnoses Date/Ti me EXTRACAPSULAR CATARACT REMOVAL WITH INTRAOCULAR LENS Combined forms of age-related cataract of left eye 04/17/2023 9:40 AM EDT EXTRACAPSULAR CATARACT REMOVAL WITH INTRAOCULAR LENS Combined forms of age-related cataract of right eye 05/01/2023 10:37 AM EDT COLONOSCOPY FLEXIBLE PROXIMAL DIAGNOSTIC Recall Family history of colon cancer Health Maintenance Due Date Last Done Comments Alpha-1 Antitrypsin 1963 COVID-19 Vaccine (4 - Pfizer series) 11/15/2021 09/20/2021, 11/09/2020, 10/19/2020 CKD PHOS USE SMARTSET 45238 05/10/2022 05/10/2021 CKD HGB USE SMARTSET 28267 04/08/202304/08, 04/08/2022, 10/14/2020, Additional history exists Influenza Vaccine (FLU shot) (#1) 2023 04/11/2022, 06/15/2021, 05/08/2020, Additional history exists HbA1c 04/12/2023 04/12/2022, 04/13, 03/21/2020, Additional history exists GFR 05/03/2023 10/31/2022, 09/0 09/2021, 05/10/2021, Additional history exists Albumin/Creatinine Ratio 02/29/2024 02/28/2023, 09/0 08/2021 Depression Screening 04/10/2024 04/10/2023 O2 ASSESSMENT COMPLETED IN PAST YEAR FOR COPD 04/10/2024 04/17/2023 COLONOSCOPY-EVERY 5 YRS AGES 18-100 04/21/2025 04/21/2020, [...] this encounter Medical Devices Implanted Type Area Corporate Associate Attorney Device Identifier Shelf Expiration Date Model / Serial / Lot Lens Li61ao 13.00mm 19.00 - [id number] - [id number] Implanted:Qty: 1 on 04/17/2023 by Bryan Richards MD at [facility] Left: Eye [employer] 12/09/2027 [id number] / [id number] / [id number] documented as of this encounter Administered Medications Inactive Administered Medications - up to 3 most recent administrations Medication Order MAR Action Action Date Dose Rate Site Flurbiprofen Sodium (Ocufen) 0.03 % ophthalmic solution 1 Drop 1 Drop, Left eye, Q5 MINUTES, First dose on [place] 04/17/23 at 0915, Last dose on [place] 04/17/23 at 09, For 3 doses, PRE-OP: One drop to left eye every 5 minutes for 3 doses , Pre-Op Given 04/17/2023 8:57 AM EDT 1 Drop Given 04/17/2023 8:52 AM EDT 1 Drop Given 04/17/2023 8:47 AM EDT 1 Drop isolyte-S pH 7.4 infusion Intravenous, at 100 mL/hr, Plasma-LYTE 148, isolyte-S, and isolyte-S pH 7.4 are considered equivalent - including for MAR barcode scanning., CONTINUOUS, Starting on [place] 04/17/23 at 0915, Until [place] 04/17/23 at 1450, Pre-Op Continue from Pre-Op 04/17/2023 9:42 AM EDT 100 mL/hr New Bag 04/17/2023 8:53 AM EDT 100 mL/hr moxifloxacin (Vigamox) 0.5 % ophthalmic solution 1 Drop 1 Drop, Left eye, Q5 MINUTES, First dose on [place] 04/17/23 at 0915, Last dose on [place] 04/17/23 at 0925, For 3 doses, PRE-OP: One drop to left eye every 5 minutes for 3 doses, Pre-Op Given 04/17/2023 8:57 AM EDT 1 Drop Given 04/17/2023 8:52 AM EDT 1 Drop Given 04/17/2023 8:47 AM EDT 1 Drop proparacaine (Alcaine) 0.5 % ophthalmic solution 1 Drop 1 Drop, Left eye, ONCE, On [place] 04/17/23 at 0915, For 1 dose, PRE-OP: 15 minutes prior to scheduled surgery time for 1 dose, Pre-Op Given 04/17/2023 8:47 AM EDT 1 Drop tropicamide 1%-cyclopentolate 1%-phenylephrine 2.5% ophthalmic solution 1 Drop 1 Drop, Left eye, Q5 MINUTES, First dose on [place] 04/17/23 at 0915, Last dose on [place] 04/17/23 at 0925, For 3 doses, Pre-Op Given 04/17/2023 8:57 AM EDT 1 Drop Given 04/17/2023 8:52 AM EDT 1 Drop Given 04/17/2023 8:46 AM EDT 1 Drop documented in this encounter Active and Recently Administered Medications Times are shown in EDT. Scheduled Medication Order 04/15/2023 04/16/2023 04/17/2023 Flurbiprofen Sodium (Ocufen) 0.03 % ophthalmic solution 1 Drop (COMPLETED) 1 Drop, Left eye, Q5 MINUTES, First dose on [place] 04/17/23 at 0915, Last dose on [place] 04/17/23 at 0925, For 3 doses, PRE-OP: One drop to left eye every 5 minutes for 3 doses , Pre-Op 0847 (Given - Provid er: Debo Patel RN)0852 (Given - Provider: Debo Patel RN)0857 (Given - Provider: Debo Patel RN) moxifloxacin (Vigamox) 0.5 % ophthalmic solution 1 Drop (COMPLETED) 1 Drop, Left eye, Q5 MINUTES, First dose on [place] 04/17/23 at 0915, Last dose on [place] 04/17/23 at 0925, For 3 doses, PRE-OP: One drop to left eye every 5 minutes for 3 doses, Pre-Op 0847 (Given - Provid er: Debo Patel RN)0852 (Given - Provider: Debo Patel RN)0857 (Given - Provider: Debo Patel RN) Povidone-Iodine (Betadine) 5 % 2 mL syringe ophthalmic solution 1 Drop 1 Drop, Left eye, ONCE, On [place] 04/17/23 at 0915, For 1 dose, Pre-Op 0915 (Due) proparacaine (Alcaine) 0.5 % ophthalmic solution 1 Drop (COMPLETED) 1 Drop, Left eye, ONCE, On [place] 04/17/23 at 0915, For 1 dose, PRE-OP: 15 minutes prior to scheduled surgery time for 1 dose, Pre-Op 0847 (Given - Provid er: Debo Patel RN) tropicamide 1%-cyclopentolate 1%-phenylephrine 2.5% ophthalmic solution 1 Drop (COMPLETED) 1 Drop, Left eye, Q5 MINUTES, First dose on [place] 04/17/23 at 0915, Last dose on [place] 04/17/23 at 0925, For 3 doses, Pre-Op 0846 (Given - Provid er: Debo Patel RN)0852 (Given - Provider: Debo Patel RN)0857 (Given - Provider: Debo Patel RN) Continuous Medication Order 04/15/2023 04/16/2023 04/17/2023 isolyte-S pH 7.4 infusion Intravenous, at 100 mL/hr, Plasma-LYTE 148, isolyte-S, and isolyte-S pH 7.4 are considered equivalent - including for MAR barcode scanning., CONTINUOUS, Starting on [place] 04/17/23 at 0915, Until [place] 04/17/23 at 1450, Pre-Op 0853 (New Bag - Prov ider: Debo Patel RN)0942 (Continue from Pre-Op - Provider: Deirdre Roberts CRNA)1012 (Anes Intra-Op Fluid - Provider: Deirdre Roberts CRNA) PRN Medication Order 04/15/2023 04/16/2023 04/17/2023 balanced salt solution (Bss) ophthalmic solution (CANCELED) ONCE PRN INTRA PROCEDURE, Starting on [place] 04/17/23 at 1005, Until [place] 04/17/23 at 1008, Intra-Op 1005 (Given - Provid er: Bryan Richards MD - Comment: qs) DUOVISC inj KIT (CANCELED) ONCE PRN INTRA PROCEDURE, Starting on [place] 9/7/23 at 1005, Until [place] 04/17/23 at 1008, Intra-Op 1005 (Given - Provid er: Bryan Richards MD - Comment: qs) hydroxypropyl methylcellulose (Ocucoat) 2 % intraocular inj (CANCELED) ONCE PRN INTRA PROCEDURE, Starting on [place] 04/17/23 at 1005, Until [place] 04/17/23 at 1008, Intra-Op 1005 (Given - Provid er: Bryan Richards MD - Comment: qs) Lidocaine 1 % (PF) inj (CANCELED) ONCE PRN INTRA PROCEDURE, Starting on [place] 04/17/23 at 1005, Until [place] 04/17/23 at 1008, Intra-Op 1005 (Given - Provid er: Bryan Richards MD - Comment: qs) Moxifloxacin intracameral inj (CANCELED) ONCE PRN INTRA PROCEDURE, Starting on [place] 04/17/23 at 1006, Until [place] 04/17/23 at 1008, Intra-Op 1006 (Given - Provid er: Bryan Richards MD) prednisoLONE Acetate (Pred Forte) 1 % ophthalmic suspension (CANCELED) ONCE PRN INTRA PROCEDURE, Starting on [place] 04/17/23 at 1005, Until [place] 04/17/23 at 1008, Intra-Op 1005 (Given - Provid er: Bryan Richards MD) Tetracaine (Pontocaine) 0.5 % ophthalmic solution (CANCELED) ONCE PRN INTRA PROCEDURE, Starting on [place] 04/17/23 at 1006, Until [place] 04/17/23 at 1008, Intra-Op 1006 (Given - Provid er: Bryan Richards MD - Comment: qs) documented in this encounter Advance Directives Latest [...] the patient have Health Care Power of Supervisor [place]? No Care Teams Coal Handler Relationship Specialty Start Date End Date Maricarmen Ann, DO [address] [place] [address] PCP - General Family Medicine 03/26/23 documented as of this encounter
--- OUTSIDE RECORDS SUMMARY | 2023-08-18 00:31 | External Medical Summary | Summary of Care ---
Author Name Unknown Organization [facility] Address [address] [facility] [place] [address] Phone [phone] Care Team Providers Care Wellness Program Manager Name Role Phone Maricarmen Ricardo DO Primary Care Provider [phone] Reason for Visit * Reason Onset Date Comments Medication Refill 04/16/2023 Encounter Details Date Type Department Care Team Description 04/16/2023 [facility] [address] [place] [address] Maricarmen Ricardo DO [address] [place] [address] Neuropathy Allergies Active Allergy Reactions Severity Noted Date Comments Amoxicillin Unknown 03/13/1999 Imidazole Antifungals 03/13/1999 Vaginal infections Tamoxifen Citrate Nausea/vomiting High 02/14/2010 documented as of this encounter (statuses as of 04/17/2023) Medications Medication Sig Dispensed Refills Start Date End Date Status Pregabalin 25 MG Oral Capsule (Lyrica)Indications :Neuropathy Take one capsule by mouth in the morning and two capsules by mouth in the evening 270 Capsule 1 3 Active Multiple Vitamins-Minerals (MULTIVITAMIN WOMENS 50+ ADV) TABS Take by mouth daily at noon. 0 Suspended Calcium Carb-Cholecalcifero l 500-600 MG-UNIT Oral Tablet Take by mouth daily at noon. 0 Suspended [place]-3 Fatty Acids (FISH OIL) 1000 MG Capsule Take 1 Capsule by mouth daily at noon. 0 Suspended Loratadine 10 MG Oral Tablet Take 1 Tablet by mouth in the morning. 30 Tab 11 1 Suspended Ipratropium-Albuter ol 0.5-2.5 (3) MG/3ML Inhalation Solution (Duoneb) Inhale 3 mL via nebulizer in the morning and 3 mL at noon and 3 mL in the evening and 3 mL before bedtime. 50 mL 1 2 Suspended Additional Information Patient not taking.Reported on 04/11/2023 Diclofenac Sodium 1 % External Gel (Voltaren)Indicatio ns:Hand arthritis Apply topically to affected area 3 times a day as needed for Pain or Pain, Mild (to hands). 150 g 1 2 Suspended Additional Information Pregabalin 25 MG Oral Capsule (Lyrica)Indications :Neuropathy Take one capsule by mouth in the morning and two capsules by mouth in the evening 270 Capsule 1 3 04/16/20 23 Discontinued( Refill) Vitamin B-12 6000 MCG Sublingual Tablet Sublingual Place under the tongue. 0 Suspended Asmanex (120 Metered Doses) 220 MCG/ACT Inhalation Aerosol Powder Breath Activated (Mometasone Furoate)Indications :COPD, group A, by GOLD 2017 classification ([facility]) Inhale 1 Puff by mouth in the morning and 1 Puff before bedtime. 3 Each 3 3 Suspended Additional Information Patient not taking.Reported on 02/28/2023 Lisinopril-hydroCHL OROthiazide 20-12.5 MG Oral TabletIndications:E ssential hypertension with goal blood pressure less than 130/80 TAKE TWO TABLETS BY MOUTH EVERY MORNING 200 Tablet 3 3 11/20/19 24 Suspended Additional Information Atorvastatin Calcium 20 MG Oral Tablet (Lipitor) TAKE ONE TABLET BY MOUTH EVERY DAY 100 Tablet 2 3 09/28/19 24 Suspended Additional Information Meloxicam 7.5 MG Oral Tablet (Mobic) TAKE ONE TABLET BY MOUTH EVERY MORNING 90 Tablet 0 3 09/19/19 24 Suspended Additional Information Arnuity Ellipta 100 MCG/ACT Inhalation Aerosol Powder Breath Activated (fluticasone Furoate) Inhale 1 Puff by mouth in the morning. 90 Each 3 3 Suspended Additional Information Omeprazole 20 MG Oral Capsule Delayed Release (PriLOSEC)Indicatio ns:Gastroesophageal reflux disease without esophagitis Take 2 Capsules by mouth daily before dinner. 200 Capsule 3 3 Suspended Additional Information documented as of this encounter (statuses as [...] mRNA, LNP-s, No Pre serve, 2-Dose Series ([employer]) 09/20/2021,11/09/2020,10/19/2020 Pneumococcal Conjugate Vacc, 13 Valent (Prevnar) [...] Telephone Encounter - Maricarmen Ricardo DO - 04/17/2023 9:49 AM EDTSigned Prescriptions: Disp Refills Pregabalin 25 MG Oral Capsule (Lyrica) 270 Ca*1 Sig: Take one capsule by mouth in the morning and two capsules by mouth in the eveningAuthorizing Provider: MARICARMEN RICARDO * Telephone Encounter - Maricarmen Ricardo DO - 04/17/2023 9:48 AM EDT Rx sent. * Telephone Encounter - Augusta Moyer RPh - 04/16/2023 3:00 PM EDTPending Prescriptions: Disp Refills Pregabalin 25 MG Oral Capsule (Lyrica) 270 Ca*1 Sig: Take one capsule by mouth in the morning and two capsules by mouth in the evening documented in this encounter Plan of Treatment Upcoming Encounters Date Type Specialty Care Team Description 05/01/2023 Hospital Encounter Surgery Bryan Richards MD [address] [address] 05/01/2023 Surgery Surgery Bryan Richards MD [address] [address] Right EXTRACAPSULAR CATARACT REMOVAL WITH INTRAOCULAR LENS 05/13/2023 Office Visit Family Medicine Maricarmen Ricardo [address] [place] [address] 08/13/2023 Office Visit Dermatology Radha Bolivar MD 03/30/2024 Nurse Only [facility], Nurse Annual Wellness Visit [address] [place] [address] Scheduled Procedures Name Priority Associated Diagnoses Date/Ti [...] 09/20/2021, 11/09/2020, 10/19/2020 CKD PHOS USE SMARTSET 12468 05/10/2022 05/10/2021 CKD HGB USE SMARTSET 93392 04/08/202304/08, 04/08/2022, 10/14/2020, Additional history exists Influenza Vaccine (FLU shot) (#1) 2023 04/11/2022, 06/15/2021, 05/08/2020, Additional history exists HbA1c 04/12/2023 04/12/2022, 04/13, 03/21/2020, Additional history exists GFR 05/03/2023 10/31/2022, 09/2021, 05/10/2021, Additional history exists Albumin/Creatinine Ratio 02/29/2024 02/28/2023, 08/2021 Depression Screening, Annual for Pts 12 and Over 04/10/2024 04/10/2023 O2 ASSESSMENT COMPLETED IN PAST YEAR FOR COPD 04/10/2024 04/10/2023 COLONOSCOPY-EVERY 5 YRS AGES 18-100 04/21/2025 04/21/2020, [...] as of this encounter Visit Diagnoses Diagnosis Neuropathy Mononeuritis of unspecified site Combined forms of age-related cataract of right eye Other and combined forms of senile cataract documented in this encounter Advance Directives Latest Code Status on File Code Status Date Activated Date Inactivated Comments Full Code 04/17/2023 8:37 AM This order reflects the patients wishes and were consensually agreed upon. Question Answer Comments Discussion of Advance Directives occurred with: Patient Does the patient have a Living Will? No Does the patient have Health Care Power of Housekeeper Nanny? No Care Teams Wellness Program Manager Relationship Specialty Start Date End Date Maricarmen Ricardo, DO [address] [place] [address] PCP - General Family Medicine 03/26/23 documented as of this encounter
--- OUTSIDE RECORDS SUMMARY | 2023-08-18 00:31 | External Medical Summary | Summary of Care ---
Author Name Unknown Organization [facility] Address [address] [place] [address] Phone [phone] Care Team Providers Care Caddie Supervisor Name Role Phone Maricarmen Ann DO Primary Care Provider Reason for Visit * Reason Comments Acute Encounter Details Date Type Department Care Team Description 04/30/2023 Office Visit Family Practice [address] [place] [address] [place] [address] Maricarmen Ann DO [address] [place] [address] Blister of great toe of left foot, initial encounter* Allergies Active Allergy Reactions Severity Noted Date Comments Amoxicillin Unknown 03/13/1999 Imidazole Antifungals 03/13/1999 Vaginal infections Tamoxifen Citrate Nausea/vomiting High 02/14/2010 documented as of this encounter (statuses as of 04/30/2023) Medications Medication Sig Dispensed Refills Start Date End Date Status Multiple Vitamins-Minerals (MULTIVITAMIN WOMENS 50+ ADV) TABS Take by mouth daily at noon. 0 Active Calcium Carb-Cholecalciferol 500-600 MG-UNIT Oral Tablet Take by mouth daily at noon. 0 Active Ethan-3 Fatty Acids (FISH OIL) 1000 MG Capsule [...] COPD, group A, by GOLD 2017 classification ([facility]) Inhale 1 Puff by mouth [...] the evening 270 Capsule 1 04/17/2023 Active Cephalexin 500 MG Oral CapsuleIndications:B monico of great toe of left foot, initial encounter Take 1 Capsule by mouth in the morning and 1 Capsule before bedtime. Do all this for 10 days. 20 Capsule 0 04/30/2023 3 Active documented as of this encounter (statuses as of 04/30/2023) Active Problems Problem Noted Date Caregiver stress [...] as of this encounter (statuses as of 04/30/2023) Resolved Problems Problem Noted Date Resolved Date [...] as of this encounter (statuses as of 04/30/2023) Immunizations Name Administration Dates Next Due COVID-19 mRNA, LNP-s, No Pre serve, 2-Dose Series ([employer]) 09/20/2021,11/09/2020,10/19/2020 Pneumococcal Conjugate Vacc, 13 Valent (Prevnar) [...] Sign Reading Time Taken Comments Blood Pressure 118/72 04/30/2023 8:17 AM EDT Pulse 66 04/30/2023 8:17 AM EDT Temperature 35.9 C (96.7 F) 04/30/2023 8:17 AM ED T Respiratory Rate - - Oxygen Saturation - - Inhaled Oxygen Concentration - - Weight 109 kg (240 lb 3.2 oz) 04/30/2023 8:17 AM EDT Height - - Body Mass Index 40.02 04/17/2023 8:53 AM EDT documented in this encounter Progress Notes * Maricarmen Ann, DO - 04/30/2023 8:15 AM EDT SUBJECTIVE: Chief Complaint Patient presents with Acute HPI: Yari Long is a 77 year old female who presents today with complaints of left big toe pain. She had a blister. She is not sure if she had a bite. She notes that it was very painful. She had been trying to get it to drain. It is a clear liquid. She does not recall any specific injury. Shewas weeding outside in sandals with no socks. She notes It is throbbing. She has had redness. It is keeping her up at night. No blisters anywhere else. It is actually a little less red today. No paininto the foot. PHM: Patient Active Problem List Diagnosis Code Allergic rhinitis J30.9 Dyslipidemia, goal to be determined E78.5 ADVANCE DIRECTIVE INFORMATION Gastroesophageal reflux disease without esophagitis K21.9 HTN, goal below 140/90 I10 Body mass index (BMI) of 40.0 to 44.9 in adult (HCC) Z68.41 S/P TKR (total knee replacement), left Z96.652 Prediabetes R73.03 History of breast cancer Z85.3 Solar purpura ([facility]) D69.2 Chronic kidney disease, stage 3a N18.31 Morbid obesity ([facility]) E66.01 Hypertensive kidney disease with stage 3a chronic kidney disease ([facility]) I12.9, N18.31 Other specified peripheral vascular diseases ([facility]) I73.89 COPD, group A, by GOLD 2017 classification ([facility]) J44.9 Caregiver stress Z63.6 Current Outpatient Medications Medication Sig Dispense Refill Cephalexin 500 MG Oral Capsule Take 1 Capsule by mouth in the morning and 1 Capsule before bedtime.Do all this for 10 days. 20 Capsule 0 Multiple Vitamins-Minerals (MULTIVITAMIN WOMENS 50+ ADV) TABS Take by mouth daily at noon. Calcium Carb-Cholecalciferol 500-600 MG-UNIT Oral Tablet Take by mouth daily at noon. Ethan-3 Fatty Acids (FISH OIL) 1000 MG Capsule [...] taking: Reported on 04/11/2023) 50 mL 1 Diclofenac Sodium 1 % External Gel (Voltaren) Apply topically to affected area 3 times a day as needed for Pain or Pain, Mild (to hands). 150 g 1 Vitamin B-12 6000 MCG Sublingual Tablet Sublingual Place under the tongue. Asmanex (120 Metered Doses) 220 MCG/ACT Inhalation Aerosol Powder Breath Activated (Mometasone Furoate) Inhale 1 Puff by mouth in the morning and 1 Puff before bedtime. (Patient not taking: Reported on 02/28/2023) 3 Each 3 Lisinopril-hydroCHLOROthiazide 20-12.5 MG Oral Tablet TAKE TWO [...] bymouth in the evening 270 Capsule 1 No current facility-administered medications for this visit. [...] term Recurrent major depressive disorder, in remission ([facility]) 12/12/2016 Vertigo BPV, MRI 2006, min microvascular disease Past Surgical History: Procedure Laterality Date BREAST LESION,OTHER,EXCISION 08/24/2007 Excision left breast mass (infiltrating lobular carcinoma) at [facility] [place] - Dr. You DELIVERY 1982 Delivery Only COLONOSCOPY 11/2004 tics COLONOSCOPY W/ LESION REMOVAL, SNARE 03/07/2010 done diverticulosis, polyp x1--hyperplastic tissue repeat in 5 years COLONOSCOPY, DIAGNOSTIC (RECTUM) 03/15/2015 diverticulosis, repeat 5 yrs/COLONOSCOPY FLEXIBLE PROXIMAL DIAGNOSTIC performed by Brendan Miller MD at ENDOSCOPY [facility] COLONOSCOPY, DIAGNOSTIC (RECTUM) 04/21/2020 diverticulosis, repeat 5 yrs / COLONOSCOPY FLEXIBLE PROXIMAL DIAGNOSTIC performed by Rosa Maria Medina ENDOSCOPY [facility] INFORMATION 1999 double knee replacement INFORMATION 7 knee surgeries INFORMATION EPL tendon rupture repair KNEE ARTHROSCOPY, DIAGNOSTIC bilateral MASTECTOMY, PARTIAL 09/11/2007 Left PM with deep axillary SLNB at [facility] -Dr. You MISCELLANEOUS ORDER ([facility] ONLY) 1979 FNAB of left breast (benign) REMOVAL OF APPENDIX 04/30/2008 REMOVE CATARACT, INSERT LENS PROSTH Left 04/17/2023 Left EXTRACAPSULAR CATARACT REMOVAL WITH INTRAOCULAR LENS performed by Bryan Richards MD at OR [facility] REVISION OF TENNIS ELBOW Review of patient's [...] color change, pallor and rash. OBJECTIVE: BP 118/72 | Pulse 66 | Temp 35.9 C (96.7 F) | Wt 109 kg (240 lb 3.2 oz) | BMI 40.02 kg/m | BSA 2.24 m PHYSICAL EXAM: Physical Exam Constitutional: General: She is not in acute distress. Appearance: She is well-developed. Cardiovascular: Rate and Rhythm: Normal rate and regular rhythm. Heart sounds: Normal heart sounds. No murmur heard. No friction rub. No gallop. Pulmonary: Effort: Pulmonary effort is normal. No respiratory distress. Breath sounds: Normal breath sounds. No wheezing or rales. Abdominal: General: Bowel sounds are normal. There is no distension. Palpations: Abdomen is soft. Tenderness: There is no abdominal tenderness. There is no guarding. Musculoskeletal: General: No tenderness or deformity. Normal range of motion. Skin: General: Skin is warm and dry. Coloration: Skin is not pale. Findings: Erythema (left great toe with large blister, some edema) present. No rash. Neurological: Mental Status: She is alert and oriented to person, place, and time. ASSESSMENT/PLAN: (S90.422A) Blister of great toe of left foot, initial encounter (primary encounter diagnosis) Plan: Cephalexin 500 MG Oral Capsule Pt will start Keflex. Keep some compression dressing on the toe to keep blister from filling up. Monitor for any worsening redness or discomfort. Call office if symptoms worsen or fail to improve. Ptreassured she can proceed with her cataract surgery. She would like to hold off on flu vaccine until next week. Advised she can walk in. Follow-up: as scheduled Total time today including reviewing chart before the visit, pertinent labs, imaging reports, face to face time, and documentation time was 31 minutes. Maricarmen Ann DO documented in this encounter Plan of Treatment Upcoming Encounters Date Type Specialty Care Team Description 05/01/2023 Hospital Encounter Surgery Bryan Richards MD [address] [address] 05/01/2023 Surgery Surgery Bryan Richards MD [address] [id number] Right EXTRACAPSULAR CATARACT REMOVAL WITH INTRAOCULAR LENS 05/13/2023 Office Visit Family Medicine Maricarmen Ann DO [address] [place] [address] 08/13/2023 Office Visit Dermatology Radha Bolivar MD 03/30/2024 Nurse Only [facility], Nurse Annual Wellness Visit [address] [place] [address] Scheduled Procedures Name Priority Associated Diagnoses Date/Ti me EXTRACAPSULAR CATARACT REMOVAL WITH INTRAOCULAR LENS Combined forms of age-related cataract of right eye 05/01/2023 10:25 AM EDT COLONOSCOPY FLEXIBLE PROXIMAL DIAGNOSTIC Recall Family history of colon cancer Health Maintenance Due Date Last Done Comments Alpha-1 Antitrypsin 1963 COVID-19 Vaccine (4 - Pfizer series) 11/15/2021 09/20/2021, 11/09/2020, 10/19/2020 CKD PHOS USE SMARTSET 62052 05/10/2022 05/10/2021 CKD HGB USE SMARTSET 56501 04/08/202304/08, 04/08/2022, 10/14/2020, Additional history exists Influenza Vaccine (FLU shot) (#1) 2023 04/11/2022, 06/15/2021, 05/08/2020, Additional history exists HbA1c 04/12/2023 04/12/2022, 04/13, 03/21/2020, Additional history exists GFR 05/03/2023 10/31/2022, 0 09/2021, 05/10/2021, Additional history exists Albumin/Creatinine Ratio 02/29/2024 02/28/2023, 08/2021 Depression Screening 04/10/2024 04/10/2023 O2 ASSESSMENT COMPLETED IN PAST YEAR FOR COPD 04/17/2024 04/17/2023 COLONOSCOPY-EVERY 5 YRS AGES 18-100 04/21/2025 [...] this encounter Medical Devices Implanted Type Area Supervisor Electron Tube Processing Device Identifier Shelf Expiration Date Model / Serial / Lot Lens [id number] 13.00mm 19.00 - [id number] - [id number] Implanted:Qty: 1 on 04/17/2023 by Bryan Richards MD at OR [facility] Left: Eye [employer] 12/09/2027 [id number] / [id number] / [id number] documented as of this encounter Visit Diagnoses Diagnosis Blister of great toe of left foot, initial encounter- Primary Combined forms of age-related cataract of right [...] the patient have Health Care Power of Water Use Inspector? No Care Teams Caddie Supervisor Relationship Specialty Start Date End Date Maricarmen Ann, DO [address] [place] [address] PCP - General Family Medicine 03/26/23 documented as of this encounter"
--- OUTSIDE RECORDS SUMMARY | 2023-08-18 00:31 | External Medical Summary | Summary of Care ---
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 [H25.811] Procedures REMOVE CATARACT, INSERT LENS PROSTH Right EXTRACAPSULAR CATARACT REMOVAL WITH INTRAOCULAR LENS Referral ID Status Reason Start Date Expiration Date Visits Re quested Visits Authorized [id number] Encounter Details Date Type Department Care Team Description 05/01/2023 Hospital Encounter OR [facility], Operating Room [facility] [address] [place], [place] [address] [place] [address] Bryan Richards MD [address] [address] Allergies Active Allergy Reactions Severity Noted Date Comments Amoxicillin Unknown 03/13/1999 Imidazole Antifungals 03/13/1999 Vaginal infections Tamoxifen Citrate Nausea/vomiting High 02/14/2010 documented as of this encounter (statuses as of 05/02/2023) Medications Medication Sig Dispensed Refills Start Date End Date Status Multiple Vitamins-Minerals (MULTIVITAMIN WOMENS 50+ ADV) TABS Take by mouth daily at noon. 0 Active Calcium Carb-Cholecalcifero l 500-600 MG-UNIT Oral Tablet Take by mouth daily at noon. 0 Active [place]-3 Fatty Acids (FISH OIL) 1000 MG Capsule [...] 1 04/17/2023 Active Cephalexin 500 MG Oral CapsuleIndications: Blister of great toe of left foot, initial encounter Take 1 Capsule by mouth in the morning and 1 Capsule before bedtime. Do all this for 10 days. 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 [...] as of this encounter (statuses as of 05/02/2023) Resolved Problems Problem Noted Date Resolved Date [...] as of this encounter (statuses as of 05/02/2023) Immunizations Name Administration Dates Next Due COVID-19 mRNA, LNP-s, No Pre serve, 2-Dose Series (SHEEX) 09/20/2021,11/09/2020,10/19/2020 Pneumococcal Conjugate Vacc, 13 Valent (Prevnar) [...] Sign Reading Time Taken Comments Blood Pressure 99/46 05/01/2023 11:35 AM EDT Pulse 64 05/01/2023 11:35 AM EDT Temperature 36.1 C (97 F) 05/01/2023 11:20 AM EDT Respiratory Rate 18 05/01/2023 11:35 AM EDT Oxygen Saturation 99% 05/01/2023 11:35 AM EDT Inhaled Oxygen Concentration - - Weight 108.9 kg (240 lb) 05/01/2023 9:29 AM EDT Height 165 cm (5' 4.96") 05/01/2023 9:29 AM EDT Body Mass Index 39.99 05/01/2023 9:29 AM EDT documented in this encounter Discharge Instructions * Discharge Instr - AVS* Bryan Richards MD - 04/15/2023 9:28 AM EDT Discharge Date: 05/01/23 You may call Doctor Susie at during [...] pulling more than 10 lbs for 1 week Driving: Do not drive for 24 hours after surgery . Date you may return to work or school: N/A Follow Up - Return appointment(s): 05/02/23 @10:[address] Landa See your medical director/head team physician in 1 day(s). SPECIAL INSTRUCTIONS EYEDROPS for healing and infection [...] DO NOT HESITATE TO CALL US AT [phone] AT ANY TIME I, Bryan Richards MD personally performed the services described in this documentation. All medical record entries made by the scribe were at my direction and in my presence. I have reviewed the chart and agree that the record reflects my personal performance and is accurate and complete. Bryan mosqueda MD. 05/01/2023. 12:07 PM. documented in this encounter H&P Notes * Bryan Richards MD - 05/01/2023 7:06 AM EDT HISTORY & PHYSICAL INTERVAL NOTE [facility] [address] [address] History and Physical Update: Name: Yari Long Location: Room/bed info not found Date: 05/01/2023 Time: 7:06 AM DATE OF HISTORY AND PHYSICAL: 04/10/23 BP: 105 mmHg/67 mmHg (05/01/23928) Pulse: 63 (05/01/23928) Temp: 36 C (05/01/23928) Resp: 17 (05/01/23928) SpO2: 100 % (05/01/23928) Does patient take a beta sam? No Did patient stop anticoagulants? No Heart Exam: regular rate and rhythm Lung Exam: clear to auscultation bilaterally Other Pertinent Physical Exam: none I have reviewed the H&P previously performed and examined the patient today. There are no new findings noted. documented in this encounter Nursing Notes * Viviana Fonseca RN - 05/01/2023 12:12 PM EDT Patient awake and oriented x3. Denies pain. No drainage from eye noted. Tolerating PO fluids. Discharge instructions given and patient verbalizes understanding. Patient ambulated to private vehicle and discharged to home. * Viviana Fonseca RN - 05/01/2023 11:20 AM EDT Pt received PACU II awake, denies pain, eye tape intact to R eye. * Desiree Akbar RN - 05/01/2023 10:15 AM EDT Roll Builder notified Dr. Richards that patient reports an infection to her R great toe, states that she got it approx 5 days ago and it looks like a blister that kept popping open and draining. Patient denies fever or chills with it, states that she had it looked at by her PCP who prescribed her cephalexin, and after 2 doses yesterday it seems to be improving greatly. Dr. Richards in to see patient at this time, and per MD, it is okay to proceed with her scheduled surgery. * Desiree Akbar RN - 05/01/2023 9:49 AM EDT Surgical consent verified with patient. Patient agrees with listed procedure and verified signature. documented in this encounter OR Notes * OR Surgeon - Bryan Richards MD - 05/01/2023 11:22 AM EDT [facility] [address] [address] OPERATIVE REPORT Name: Yari Long Date: 05/01/2023 Time: 11:22 AM Location: [facility] Service: Ophthalmology Date of Operation: 05/01/2023 Pre-op Diagnosis: Visually significant combined cataract, right eye Post-op Diagnosis: Same Operative Procedure: Phacoemulsification with posterior chamber intraocular lens implantation, right eye (83846 Standard Cataract) Surgeon: Bryan Richards MD Assistants: None Anesthesia: topical Implant/Graft: B&L: 18.5 [id number] SN: [id number] Complications: none Drains: none Urine Output: minimal Specimen and Disposition: none Estimated Blood Loss: minimal Indications: The patient has noticed a decrease in their visual acuity now interfering with their activities of daily living. Slit-lamp examination revealed a visually significant lens opacity which appears to be a significant component of the decrease in visual acuity. After discussion of risks, benefits, and alternatives, the patient has elected to proceed with cataract extraction and lens implantation. Description of Procedure: The patient was brought to the operating room. A "time out" was called toconfirm the correct patient, the correct eye, the correct diagnosis, the correct procedure, relevant allergies and surgical considerations. The patient's eye was prepped and draped in the usual fashion. A wire lid speculum was placed between the lids. A paracentesis site was made, approximately three oclock hours away from the incision site. Intracameral lidocaine was injected into the anterior chamber. A clear cornea incision was then made with a keratome, and then viscoelastic was injected into the anterior chamber. A continuous curvilinearcapsulorrhexis was created using a cystitome and Utrata forcep. Hydrodissection was then performed using balanced salt solution. The nucleus was emulsified using the phacoemulsification handpiece. The cortex was removed using the automated irrigation aspiration unit. Viscoelastic was then used to deepen the capsular bag. A posterior chamber lens was then inserted into the capsular bag. The capsular bag was polished and then excess viscoelastic was aspirated using the irrigation aspiration unit. The wound was hydrated, tested and found to be water tight. Intracameral Moxifloxacin was given. After the post-operative drops were given, including topical antibiotic, and steroid, a shield was placed. The patient tolerated the procedure well. Condition: The patient left the operating room in good condition. Disposition: In and Out Recovery Unit Attestation: I performed the procedure Note has been documented by Yari Menjivar on 05/01/2023 documented in this encounter Plan of Treatment Upcoming Encounters Date Type Specialty Care Team Description 05/13/2023 Office Visit Family Medicine Maricarmen Ann, DO [address] [place] [address] 08/13/2023 Office Visit Dermatology Radha Bolivar MD 03/30/2024 Nurse Only [facility], Nurse Annual Wellness Visit [address] [place] [address] Scheduled Procedures Name Priority Associated Diagnoses Date/Ti me COLONOSCOPY FLEXIBLE PROXIMA L DIAGNOSTIC Recall Family history of colon cancer Health Maintenance Due Date Last Done Comments Alpha-1 Antitrypsin 1963 COVID-19 Vaccine (4 - Pfizer series) 11/15/2021 09/20/2021, 11/09/2020, 10/19/2020 CKD PHOS USE SMARTSET 67648 05/10/2022 05/10/2021 CKD HGB USE SMARTSET 28689 04/08/202304/08, 04/08/2022, 10/14/2020, Additional history exists Influenza Vaccine (FLU shot) (#1) 2023 04/11/2022, 06/15/2021, 05/08/2020, Additional history exists HbA1c 04/12/2023 04/12/2022, 04/13, 03/21/2020, Additional history exists GFR 05/03/2023 10/31/2022, 09/2021, 05/10/2021, Additional history exists Albumin/Creatinine Ratio 02/29/2024 02/28/2023, 08/2021 Depression Screening 04/10/2024 04/10/2023 O2 ASSESSMENT COMPLETED IN PAST YEAR FOR COPD 04/17/2024 05/01/2023 COLONOSCOPY-EVERY 5 YRS AGES 18-100 04/21/2025 [...] this encounter Medical Devices Implanted Type Area Control And Recovery Combat Rescue Device Identifier Shelf Expiration Date Model / Serial / Lot Lens Li61ao 13.00mm 19.00 - [id number] - [id number] Implanted:Qty: 1 on 04/17/2023 by Bryan Richards MD at OR [facility] Left: Eye [employer] 12/09/2027 [id number] / [id number] / [id number] Lens Li61ao 13.00mm 18.50 - [id number] - [id number] Implanted:Qty: 1 on 05/01/2023 by Bryan Richards MD at OR [facility] Right: Eye [employer] 10/09/2027 [id number] / [id number] / [id number] documented as of this encounter Administered Medications Inactive Administered Medications - up to 3 most recent administrations Medication Order MAR Action Action Date Dose Rate Site Acetaminophen (Tylenol) tab 650 mg 650 mg, Oral, PRN Pain, Mild, Starting on [place] 05/01/23 at 1129, Until [place] 05/01/23 at 1613, For 1 dose, Maximum of 4 grams (4000 mg) per day., Post-op Flurbiprofen Sodium (Ocufen) 0.03 % ophthalmic solution 1 Drop 1 Drop, Right eye, Q5 MINUTES, First dose on [place] 05/01/23 at 1030, Last dose on Fri05/01/23 at 1040, For 3 doses, Given 05/01/2023 10:19 AM EDT 1 Drop Given 05/01/2023 10:09 AM EDT 1 Drop Given 05/01/2023 10:02 AM EDT 1 Drop isolyte-S pH 7.4 infusion Intravenous, at 100 mL/hr, Plasma-LYTE 148, isolyte-S, and isolyte-S pH 7.4 are considered equivalent - including for MAR barcode scanning., CONTINUOUS, Starting on [place] 05/01/23 at 1015, Until [place] 05/01/23 at 1613, Pre-Op Restarted 05/01/2023 11:12 AM EDT Continue from Pre-Op 05/01/2023 10:56 AM EDT 10 0 mL/hr New Bag 05/01/2023 10:02 AM EDT 100 mL/hr moxifloxacin (Vigamox) 0.5 % ophthalmic solution 1 Drop 1 Drop, Right eye, Q5 MINUTES, First dose on [place] 05/01/23 at 1015, Last dose on Fri05/01/23 at 1025, For 3 doses, PRE-OP: One drop to right eye every 5 minutes for 3 doses, Pre-Op Given 05/01/2023 10:19 AM EDT 1 Drop Given 05/01/2023 10:09 AM EDT 1 Drop Given 05/01/2023 9:50 AM EDT 1 Drop proparacaine (Alcaine) 0.5 % ophthalmic solution 1 Drop 1 Drop, Right eye, ONCE, On [place] 05/01/23 at 1015, For 1 dose, PRE-OP: 15 minutes prior to scheduled surgery time for 1 dose, Pre-Op Given 05/01/2023 9:49 AM EDT 1 Drop tropicamide 1%-cyclopentolate 1%-phenylephrine 2.5% ophthalmic solution 1 Drop 1 Drop, Right eye, Q5 MINUTES, First dose on [place] 05/01/23 at 1015, Last dose on Fri05/01/23 at 1025, For 3 doses, Pre-Op Given 05/01/2023 10:19 AM EDT 1 Drop Given 05/01/2023 10:09 AM EDT 1 Drop Given 05/01/2023 9:50 AM EDT 1 Drop documented in this encounter Active and Recently Administered Medications Times are shown in EDT. Scheduled Medication Order 04/29/2023 04/30/2023 05/01/2023 Flurbiprofen Sodium (Ocufen) 0.03 % ophthalmic solution 1 Drop (COMPLETED) 1 Drop, Right eye, Q5 MINUTES, First dose on [place] 05/01/23 at 1030, Last dose on Fri05/01/23 at 1040, For 3 doses, 1002 (Given - Provid er: Desiree Akbar RN)1009 (Given - Provider: Desiree Akbar RN)1019 (Given - Provider: Desiree Akbar RN) moxifloxacin (Vigamox) 0.5 % ophthalmic solution 1 Drop (COMPLETED) 1 Drop, Right eye, Q5 MINUTES, First dose on [place] 05/01/23 at 1015, Last dose on Fri05/01/23 at 1025, For 3 doses, PRE-OP: One drop to right eye every 5 minutes for 3 doses, Pre-Op 0950 (Given - Provid er: Desiree Akbar RN)1009 (Given - Provider: Desiree Akbar RN)1019 (Given - Provider: Desiree Akbar RN) Povidone-Iodine (Betadine) 5 % 2 mL syringe ophthalmic solution 1 Drop 1 Drop, Right eye, ONCE, On [place] 05/01/23 at 1015, For 1 dose, Pre-Op 1015 (Due) proparacaine (Alcaine) 0.5 % ophthalmic solution 1 Drop (COMPLETED) 1 Drop, Right eye, ONCE, On [place] 05/01/23 at 1015, For 1 dose, PRE-OP: 15 minutes prior to scheduled surgery time for 1 dose, Pre-Op 0949 (Given - Provid er: Desiree Akbar RN) tropicamide 1%-cyclopentolate 1%-phenylephrine 2.5% ophthalmic solution 1 Drop (COMPLETED) 1 Drop, Right eye, Q5 MINUTES, First dose on [place] 05/01/23 at 1015, Last dose on [place] 9/21/23 at 1025, For 3 doses, Pre-Op 0950 (Given - Provid er: Desiree Akbar RN)1009 (Given - Provider: Desiree Akbar RN)1019 (Given - Provider: Desiree Akbar RN) Continuous Medication Order 04/29/2023 04/30/2023 05/01/2023 isolyte-S pH 7.4 infusion Intravenous, at 100 mL/hr, Plasma-LYTE 148, isolyte-S, and isolyte-S pH 7.4 are considered equivalent - including for MAR barcode scanning., CONTINUOUS, Starting on [place] 05/01/23 at 1015, Until [place] 05/01/23 at 1613, Pre-Op 1002 (New Bag - Prov ider: Desiree kAbar RN)1056 (Continue from Pre-Op - Provider: Dang Carvalho CRNA)1111 (Paused - Provider: Dang Carvalho CRNA - Comment: Switch to gravity)1112 (Restarted - Provider: Dang Carvalho CRNA) PRN Medication Order 04/29/2023 04/30/2023 05/01/2023 Acetaminophen (Tylenol) tab 650 mg 650 mg, Oral, PRN Pain, Mild, Starting on [place] 05/01/23 at 1129, Until [place] 05/01/23 at 1613, For 1 dose, Maximum of 4 grams (4000 mg) per day., Post-op balanced salt solution (Bss) ophthalmic solution (CANCELED) ONCE PRN INTRA PROCEDURE, Starting on [place] 05/01/23 at 1110, Until [place] 05/01/23 at 1117, Intra-Op 1110 (Given - Provid er: Bryan Richards MD - Comment: qs) DUOVISC inj KIT (CANCELED) ONCE PRN INTRA PROCEDURE, Starting on [place] 05/01/23 at 1111, Until [place] 05/01/23 at 1117, Intra-Op 1111 (Given - Provid er: Bryan Richards MD - Comment: qs) hydroxypropyl methylcellulose (Ocucoat) 2 % intraocular inj (CANCELED) ONCE PRN INTRA PROCEDURE, Starting on [place] 05/01/23 at 1111, Until [place] 05/01/23 at 1117, Intra-Op 1111 (Given - Provid er: Bryan Richards MD - Comment: qs) Lidocaine 1 % (PF) inj (CANCELED) ONCE PRN INTRA PROCEDURE, Starting on [place] 05/01/23 at 1111, Until [place] 05/01/23 at 1117, Intra-Op 1111 (Given - Provid er: Bryan Richards MD - Comment: qs) Moxifloxacin intracameral inj (CANCELED) ONCE PRN INTRA PROCEDURE, Starting on [place] 05/01/23 at 1111, Until [place] 05/01/23 at 1117, Intra-Op 1111 (Given - Provid er: Bryan Richards MD - Comment: qs) prednisoLONE Acetate (Pred Forte) 1 % ophthalmic suspension (CANCELED) ONCE PRN INTRA PROCEDURE, Starting on [place] 05/01/23 at 1111, Until [place] 05/01/23 at 1117, Intra-Op 1111 (Given - Provid er: Ebony Rhodes RN) Tetracaine (Pontocaine) 0.5 % ophthalmic solution (CANCELED) ONCE PRN INTRA PROCEDURE, Starting on [place] 05/01/23 at 1104, Until [place] 05/01/23 at 1117, Intra-Op 1104 (Given - Provid er: Ebony Rhodes RN) documented in this encounter Advance Directives Latest Code Status on File Code Status Date Activated Date Inactivated Comments Full Code 05/01/2023 9:33 AM 05/01/2023 4:13 PM This order reflects the patients wishes and were consensually agreed upon. Question Answer Comments Discussion of Advance Directives occurred with: Patient Does the patient have a Living Will? No Does the patient have Health Care Power of Labor And Delivery Nurse? No Code Status History Code Status Date Activated Date Inactivated Comments Full Code 04/17/2023 8:37 AM 04/17/2023 2:50 PM This or adele reflects the patients wishes and were consensually agreed upon. Question Answer Comments Discussion of Advance Directives occurred with: Patient Does the patient have a Living Will? No Does the patient have Health Care Power of Labor And Delivery Nurse? No Care Teams Transmission Design Engineer Relationship Specialty Start Date End Date Maricarmen Ann, DO [address] [place] [address] PCP - General Family Medicine 03/26/23 documented as of this encounter
--- OUTSIDE RECORDS SUMMARY | 2023-08-18 00:32 | External Medical Summary | Summary of Care ---
Author Name Unknown Organization [facility] Address [address] [facility] [place] [place] [address] Phone [phone] Care Team Providers Care Pit Recorder Name Role Phone SolomonMaricarmen sim Primary Care Provider Reason for Visit * Reason Onset Date Comments Adult Annual Wellness Visit, Subsequent Visit Adult Annual Wellness Visit, Subsequent Visit Encounter Details Date Type Department Care Team Description 03/27/2023 Nurse Only Ancillary [address] [facility] [address] [place] [address] College, Nurse Annual Wellness Visit [address] [facility] [address] [place] [address] Adult Annual Wellness Visit, Subsequent Vi... Allergies Active Allergy Reactions Severity Noted Date Comments Amoxicillin Unknown 03/13/1999 Imidazole Antifungals 03/13/1999 Vaginal infections Tamoxifen Citrate Nausea/vomiting High 02/14/2010 documented as of this encounter (statuses as of 03/27/2023) Medications Medication Sig Dispensed Refills Start Date End Date Status Multiple Vitamins-Minerals (MULTIVITAMIN WOMENS 50+ ADV) TABS Take by mouth daily at noon. 0 Active Calcium Carb-Cholecalcifero l 500-600 MG-UNIT Oral Tablet Take by mouth daily at noon. 0 Active Ashton-3 Fatty Acids (FISH OIL) 1000 MG Capsule [...] before bedtime. 50 mL 1 07/23/2022 Active Diclofenac Sodium 1 % External Gel (Voltaren)Indicatio ns:Hand arthritis Apply topically to affected area 3 times a day as needed for Pain or Pain, Mild (to hands). 150 g 1 07/26/2022 Active Additional Information Patient not taking.Reported on 02/28/2023 Fluorouracil 5 % External Cream (Efudex) Apply topically to affected area 2 times a day. apply to affected area R mancilla 2 time per day for 6 weeks 40 g 0 08/28/2022 Active Additional Information Patient not taking.Reported on 10/31/2022 Pregabalin 25 MG Oral Capsule (Lyrica)Indications :Neuropathy Take one capsule by mouth in the morning and two capsules by mouth in the evening 270 Capsule 1 10/25/2022 Active Vitamin B-12 6000 MCG Sublingual Tablet [...] before dinner. 200 Capsule 3 03/19/2023 Active Meloxicam 7.5 MG Oral Tablet (Mobic)Indications: Pain in limb TAKE ONE TABLET BY MOUTH EVERY MORNING 90 Tablet 0 11/04/2022 03/27/20 23 Discontinu ed(Medicat ion List Clean Up) documented as of this encounter (statuses as of 03/27/2023) Active Problems Problem Noted Date Caregiver stress [...] as of this encounter (statuses as of 03/27/2023) Resolved Problems Problem Noted Date Resolved Date [...] as of this encounter (statuses as of 03/27/2023) Immunizations Name Administration Dates Next Due COVID-19 mRNA, LNP-s, No Pre serve, 2-Dose Series (Pfizer) 09/20/2021,11/09/2020,10/19/2020 Pneumococcal Conjugate Vacc, 13 Valent (Prevnar) 07/28/2015 Pneumococcal Polysaccharide PPV23 (Pneumovax) 05/12/2013 Seasonal Influenza, Quadriva lent Hd (Fluzone Hd) 04/11/2022,06/15/2021 Seasonal Influenza, Quadriva lent, No Preserve, 6 Mons & Above, IM 05/08/2020,06/05/2018,05/23/2017 Seasonal Influenza, Quadriva lent, No Preserve, IM [...] got money to buy more. Never true 03/27/2023 Within the past 12 months, t he food you bought just didn't last and you didn't have money to get more. Never true 03/27/2023 Sex Assigned at Date Recorded Female 04/11/2022 9:21 AM E DT Job Start Date Occupation Industry Not on file Not on file Not on file documented as of this encounter Last Filed Vital Signs Vital Sign Reading Time Taken Comments Blood Pressure 126/60 03/27/2023 2:28 PM EDT Pulse 97 03/27/2023 2:28 PM EDT Temperature 36.6 C (97.8 F) 03/27/2023 2:28 PM ED T Respiratory Rate - - Oxygen Saturation 95% 03/27/2023 2:28 PM EDT Inhaled Oxygen Concentration - - Weight 109 kg (240 lb 6.4 oz) 03/27/2023 2:28 PM EDT Height 165.1 cm (5' 5") 03/27/2023 2:28 PM EDT Body Mass Index 40 03/27/2023 2:28 PM EDT documented in this encounter Patient Instructions * Patient Instructions* Jessie Nath RN - 03/27/2023 2:57 PM EDT Hi Ms. Long, As your primary care physician, I know that regular visits with my patients who have several chronic conditions can go a long way in helping you stay healthy. Many times, the clinic team and I are in touch with you and/or other care team members between office visits to adjust medications, discuss any changes in your health, and review our care plan to make sure it is still meeting your needs. I am dedicated to helping you take a more active role in your overall care. It is important that there are resources available to you, so I created a personalized plan of care with a Health Calendar for you, which is included on the next page of this letter. Below is a list that summarizes your electronic health record: Health Maintenance Due: Health Maintenance Due Topic Date Due Alpha-1 Antitrypsin Never done COVID-19 Vaccine (4 - Pfizer series) 11/15/2021 CKD PHOS USE SMARTSET 51273 05/10/2022 CKD HGB USE SMARTSET 83368 04/08/2023 HbA1c 04/12/2023 Current Medication List: (as of Visit date not found (in office), Visit date not found (telemedicine) ) Current Outpatient Medications Medication Sig Dispense Refill Multiple Vitamins-Minerals (MULTIVITAMIN WOMENS 50+ ADV) TABS Take by mouth daily at noon. Calcium Carb-Cholecalciferol 500-600 MG-UNIT Oral Tablet Take by mouth daily at noon. Ashton-3 Fatty Acids (FISH OIL) 1000 MG Capsule Take 1 Capsule by mouth daily at noon. Loratadine 10 MG Oral Tablet Take 1 Tablet by mouth in the morning. 30 Tab 11 Pregabalin 25 MG Oral Capsule (Lyrica) Take one capsule by mouth in the morning and two capsules by mouth in the evening 270 Capsule 1 Vitamin [...] mouth daily before dinner. 200 Capsule 3 Ipratropium-Albuterol 0.5-2.5 (3) MG/3ML Inhalation Solution (Duoneb) Inhale 3 mL via nebulizerin the morning and 3 mL at noon and 3 mL in the evening and 3 mL before bedtime. 50 mL 1 Diclofenac Sodium 1 % External Gel (Voltaren) Apply topically to affected area 3 times a day asneeded for Pain or Pain, Mild (to hands). (Patient not taking: Reported on 02/28/2023) 150 g 1 Fluorouracil 5 % External Cream (Efudex) Apply topically to affected area 2 times a day. apply to affected area R mancilla 2 time per day for 6 weeks (Patient not taking: Reported on 10/31/2022) 40 g 0 Asmanex (120 Metered Doses) 220 MCG/ACT Inhalation Aerosol Powder Breath Activated (Mometasone Furoate) Inhale 1 Puff by mouth in the morning and 1 Puff before bedtime. (Patient not taking: Reported on 02/28/2023) 3 Each 3 No current facility-administered medications for this visit. Current List of Allergies: (as of Visit date not found (in office), Visit date not found (telemedicine) ) Review of patient's allergies indicates: Allergen Reactions Tamoxifen Citrate Nausea/vomiting Amoxicillin Unknown Imidazole Antifungals Vaginal infections Most Recent Lab Results: Results for orders placed or performed in visit on 02/28/23 ALBUMIN / CREATININE RATIO, URINE Result Value Ref Range Albumin, Random Urine <1.20 mg/dL Creatinine, Random Urine 49 mg/dL Albumin / Creatinine Ratio, Urine <24 <30 mg/g Creat Sincerely, Maricarmen Ann, DO 03/27/2023 [facility] Calendar (as of Visit date not found (in office), Visit date not found (telemedicine) ) Care needs Care needs Last completed Due next Alpha-1 Antitrypsin --- Never done COVID-19 Vaccine (4 - Pfizer series) 09/20/2021 11/15/2021 A1C blood sugar test 04/12/2022 04/12/2023 Flu vaccine (recommended) (1) 04/11/2022 04/11/2023 Kidney Function Test 10/31/2022 05/03/2023 Urine albumin/creatinine test 02/28/2023 02/29/2024 Yearly COPD oxygen test 02/28/2023 02/29/2024 Colonoscopy - every 5 years 04/21/2020 04/21/2025 Bone Density 03/21/2020 03/21/2027 Diphtheria, tetanus & pertussis vaccines (3 - Td or Tdap) 04/11/2022 04/11/2032 As you look over the recommended services, be sure to check with your insurance company to determine what's covered. [employer] is a great tool that helps you review your medical record online, including test results, doctor notes and your health summary. You can also schedule appointments with me and other members of your care team, request prescription refills and ask for advice related to your medical conditions at [email or web address]. documented in this encounter Progress Notes * Jessie Nath RN - 03/27/2023 2:32 PM EDT AD8 Dementia Screening Interview Person answering questions: patient Remember, "Yes, a change" indicates that there has been a change in the last several years caused by cognitive (thinking and memory) problems 1. Problems with judgement (eg: problems making decisions, bad financial decisions, problems with thinking). No (0) 2. Less interest in hobbies/activities. No (0) 3. Repeats the same things over and over (questions, stories, or statements). No (0) 4. Trouble learning how to use a tool, appliance, or gadget (eg: VCR, computer, microwave, remote control). No (0) 5. Forgets correct month or year. No (0) 6. Trouble handling complicated financial affairs (eg: balancing checkbook, income taxes, paying bills). No (0) 7. Trouble remembering appointments. No (0) 8. Daily problems with thinking and/or memory. No (0) TOTAL AD8: 0 - AD8 Dementia Screening Score The final score is a sum of the number items marked "Yes, A Change". 0 - 1: Normal cognition; 2 or greater: Cognitive impairments is likely to be present - further testing required Adult Annual Wellness Visit: Yari Long is a 77 year old female who presents for an Adult Annual Wellness Visit. Depression Screening: Did the patient complete the screening questionnaire for Depression? Yes Is the patient's total score for Depression 15 or greater? No, no further intervention needed, unless requested by patient. Did the patient answer positively to the suicide question? No, no further intervention needed, unless requested by patient. In general, compared to other people your age, what would you say that your health is? Good Ht Readings from Last 1 Encounters: 03/27/23 1.651 m (5' 5") Wt Readings from Last 1 Encounters: 03/27/23 109 kg (240 lb 6.4 oz) Body Mass Index: BMI Greater than 30 Body mass index is 40 kg/m. BP Readings from Last 1 Encounters: 03/27/23 126/60 Medical/Surgical/Family History Reviewed: Yes Past Medical History: Diagnosis Date Allergic rhinitis [...] left breast mass (infiltrating lobular carcinoma) at [facility] - Dr. You DELIVERY 1981 Delivery Only COLONOSCOPY 11/2004 tics COLONOSCOPY W/ LESION REMOVAL, SNARE 03/07/2010 done diverticulosis, polyp x1--hyperplastic tissue repeat in 5 years COLONOSCOPY, DIAGNOSTIC (RECTUM) 03/15/2015 diverticulosis, repeat 5 yrs/COLONOSCOPY FLEXIBLE PROXIMAL DIAGNOSTIC performed by Brendan Miller MD at [facility] COLONOSCOPY, DIAGNOSTIC (RECTUM) 04/21/2020 diverticulosis, repeat 5 yrs / COLONOSCOPY FLEXIBLE PROXIMAL DIAGNOSTIC performed by Rosa Maria Medina [facility] INFORMATION 1999 double knee replacement INFORMATION 7 knee surgeries INFORMATION EPL tendon rupture repair KNEE ARTHROSCOPY, DIAGNOSTIC bilateral MASTECTOMY, PARTIAL 09/11/2007 Left PM with deep axillary SLNB at [facility] -Dr. You MISCELLANEOUS ORDER ([facility] ONLY) 1979 FNAB of left breast (benign) REMOVAL OF APPENDIX 04/30/2008 REVISION OF TENNIS ELBOW Family History Problem Relation Age of Onset Cancer Mother Colon cancer (dec at age 78) Other (Other) Father Staff infection of heart valve Alcohol and Other Disorders Associated Sister Alcohol and Other Disorders Associated Brother Colon cancer Grandmother (Maternal) Has patient ever had cancer? History of cancer, type: breast and BCC and location: left breast; left cheek, left nose, right mancilla Social History Tobacco Use Smoking status: Never Passive exposure: Past Smokeless tobacco: Never Substance Use Topics Alcohol use: Yes Comment: occasionally Vaping/E-Cigarette Use Vaping/E-Cigarette Use Never User Vaping/E-Cigarette Substances Vaping/E-Cigarette Devices Tobacco/Alcohol screening completed today? Yes Hospital Care: Admissions (within the last year): Not Applicable ER within 30 days: No Does the patient have an Advance Directives/Living Will? Yes Last Physical Exam: Last physical exam: 02/28/2023 Does patient see primary provider regularly? Yes Does patient see other providers? Yes, Specialist Patient Care Team updated? Yes Review of patient's allergies indicates: Allergen Reactions Tamoxifen Citrate Nausea/vomiting Amoxicillin Unknown Imidazole Antifungals Vaginal infections Immunization History Administered Date(s) Administered COVID-19 mRNA, LNP-s, No Preserve, 2-Dose Series (ShopText) 10/19/2020, 11/09/2020, 09/20/2021 Diptheria/Tetanus (Adult) 07/07/1991 Pneumococcal Conjugate Vacc, 13 Valent (Prevnar) 07/28/2015 Pneumococcal Polysaccharide PPV23 (Pneumovax) 05/12/2013 Seasonal Influenza, Quadrivalent Hd (Fluzone Hd) 06/15/2021, 04/11/2022 Seasonal Influenza, Quadrivalent, No Preserve, 6 Mons & Above, IM 05/23/2017, 06/05/2018, 05/08/2020 Seasonal Influenza, Quadrivalent, No Preserve, IM 04/23/2016 Seasonal Influenza, Split, IIV3, With Preserve, Inj 06/22/2003, 06/11/2005, 06/03/2007, 05/10/2008,05/31/2011, 04/20/2012, 04/21/2013, 04/21/2015 Seasonal Influenza, Trivalent, Adjuvanted, 65+ yrs 06/28/2019 TD - Tetanus/Diptheria (ADULT) 09/03/2005 TDAP (age 10 and older)(Boostrix) 04/11/2022 TDAP (age 11 and older)(Adacel) 12/20/2011 Varicella Zoster Vaccine (Adult) 12/20/2011 Zoster Vaccine Recombinant (Shingrix) 05/01/2020, 12/25/2020 Current Outpatient Medications Medication Sig Dispense Refill Multiple Vitamins-Minerals (MULTIVITAMIN WOMENS 50+ ADV) TABS Take by mouth daily at noon. Calcium Carb-Cholecalciferol 500-600 MG-UNIT Oral Tablet Take by mouth daily at noon. Ashton-3 Fatty Acids (FISH OIL) 1000 MG Capsule Take 1 Capsule by mouth daily at noon. Loratadine 10 MG Oral Tablet Take 1 Tablet by mouth in the morning. 30 Tab 11 Pregabalin 25 MG Oral Capsule (Lyrica) Take [...] mouth daily before dinner. 200 Capsule 3 Ipratropium-Albuterol 0.5-2.5 (3) MG/3ML Inhalation Solution (Duoneb) Inhale 3 mL via nebulizer in the morning and 3 mL at noon and 3 mL in the evening and 3 mL before bedtime. 50 mL 1 Diclofenac Sodium 1 % External Gel (Voltaren) Apply topically to affected area 3 times a day as needed for Pain or Pain, Mild (to hands). (Patient not taking: Reported on 02/28/2023) 150 g 1 Fluorouracil 5 % External Cream (Efudex) Apply topically to affected area 2 times a day. apply to affected area R mancilla 2 time per day for 6 weeks (Patient not taking: Reported on 10/31/2022) 40 g 0 Asmanex (120 Metered Doses) 220 MCG/ACT Inhalation Aerosol Powder Breath Activated (Mometasone Furoate) Inhale 1 Puff by mouth in the morning and 1 Puff before bedtime. (Patient not taking: Reported on 02/28/2023) 3 Each 3 predniSONE 20 MG Oral Tablet (Deltasone) Take 1 Tablet by mouth in the morning and 1 Tablet before bedtime. Do all this for 7 days. 14 Tablet 0 No current facility-administered medications for this visit. Patient Active Problem List Diagnosis Code Allergic rhinitis J30.9 Dyslipidemia, goal to be determined E78.5 ADVANCE DIRECTIVE INFORMATION Gastroesophageal reflux disease without esophagitis K21.9 HTN, goal below 140/90 I10 Body mass index (BMI) of 40.0 to 44.9 in adult ([facility]) Z68.41 S/P TKR (total knee replacement), left Z96.652 Prediabetes R73.03 History of breast cancer Z85.3 Solar purpura ([facility]) D69.2 Chronic kidney disease, stage 3a N18.31 Morbid obesity ([facility]) E66.01 Hypertensive kidney disease with stage 3a chronic kidney disease ([facility]) I12.9, N18.31 Other specified peripheral vascular diseases ([facility]) I73.89 COPD, group A, by GOLD 2017 classification ([facility]) J44.9 Caregiver stress Z63.6 Medication Compliance: Patient is able to obtain all of her medications? Yes Patient takes medications as prescribed? Yes Patient manages own medications: Yes Patient uses a pill box? Yes, refill(s) completed by self Dental Exam: Yes: Every 6 Months Eye Screening: Yes: Every 1-2 years Are you having trouble with hearing? No Do you use an assistive device to help your hearing? No Exercise Screening: only the exercise associated with activities at work Nutrition Assessment: Eats a balanced diet and Eats three meals a day Pain Screening: Are you having any pain? Yes. Pain Scale: 3 out of 10; Location: right hip, When: all the time, Duration: years, Aggravating Factors: increased movement, Relieved by: rest Sleep Screening Tool 'STOP': Do you snore? No Do you feel fatigued during the day? Yes Do you wake up feeling like you haven't slept? No Have you been told you stop breathing at night? No Do you gasp for air or choke while sleeping? No Have you been told you have Sleep Apnea? No Do you have high blood pressure or are on medication(s) to control high blood pressure? Yes SCORE: If you check YES to two or more questions, make a referral for Obstructive Sleep Apnea Did sleep apnea testing-does not have sleep apnea Patient and Caregiver Support System: Patient lives with a spouse Means of Transportation: Drives. Not a concern. Patient lives in Two Story - How many stairs: 14 steps-has hand rail Community Resources: Not Applicable Functional Status and ADL Skills: Has patient ever had an amputation? No Functional Assessment: 80- Normal activity with effort: some symptoms of disease Ambulation: Patient ambulates with assistive device. Cane Dressing: Gets clothes and dresses without any assistance: Independent Able to move freely in chair or bed including turning over: Independent Repositioning (bed or chair): Not applicable Transfers: Independent Toileting: Goes to bathroom, uses toilet, arranges clothes and returns without any assistance: Independent Toileting: continent of bladder and continent of bowel Feeding: Self Bathing: Self; shower inside tub, has grab bars, textured floor in tub, steps out onto a mat Requires none assistance with ADLs. Instrumental ADL's: Shopping: Independent Housekeeping: Independent Handling Finances: Independent DME Vendor Name: Not Applicable Fall Risk Assessment: Can the patient demonstrate that she can stand from a sitting position? Yes Has the patient had a fall within the last 6 months? No Does the patient have a problem with her gait or balance? Yes Does the patient take 4 or more prescription medicines? Yes Does the patient use sedatives or narcotics? No Fall Risk Factors Present: Uses more than 4 medications Uses assistive devices Balance or gait disturbances Older than age 70 Cis-Vu-kyk-Go Test: Time began at 2:00. Patient stood from sitting position and walked approximately 10 feet, returned and sat down. Total time for rxu-rh-mik-go test was 9 seconds. Evi-Rq-owi-Go Test completed? Yes Gender Specific Preventative Plan: Health Maintenance Topic Date Due Alpha-1 Antitrypsin Never done COVID-19 Vaccine (4 - Pfizer series) 11/15/2021 CKD PHOS USE SMARTSET 22057 05/10/2022 CKD HGB USE SMARTSET 20030 04/08/2023 HbA1c 04/12/2023 Influenza Vaccine (FLU shot) (1) 04/11/2023 GFR 05/03/2023 Albumin/Creatinine Ratio 02/29/2024 Depression Screening, Annual for Pts 12 and Over 02/29/2024 O2 ASSESSMENT COMPLETED IN PAST YEAR FOR COPD 02/29/2024 COLONOSCOPY-EVERY 5 YRS AGES 18-100 04/21/2025 DXA Scan 03/21/2027 DTaP,Tdap,and Td Vaccines (3 - Td or Tdap) 04/11/2032 Zoster Vaccines Completed Pneumococcal Vaccine: 65+ Years Completed Hepatitis B Aged Out MENINGOCOCCAL (MENACTRA/MENVEO) Aged Out GARDASIL-HPV IMMUNIZATION SERIES Aged Out Follow Up/ Referrals/Handouts: No further action needed Routine general medical examination at a health care facility (Primary) Allergic rhinitis Continue to monitor and with current medication Body mass index (BMI) of 40.0 to 44.9 in adult (HCC) Morbid obesity (HCC) Continue to monitor diet and exercise as able to. Discussed going back to the [facility] to start swimming again. Chronic kidney disease, stage 3a Continue to monitor and with current medication. COPD, group A, by GOLD 2017 classification ([facility]) Pt currently using Arnuity inhaler-states working better than the last one-still coughing up some phlegm but not as much as she had been-feels improving some. Getting her voice back. States will continue with the trial period of inhaler and will call if not improving. [facility] Asmanex worked best forher but not approved by her insurance. Dyslipidemia, goal to be determined Lab Results Component Value Date/Time LDL (CALCULATED) 131. (H) 06/16/1996 08:15 AM LDL CHOLESTEROL (CALCULATED) - [facility] 119 04/12/2022 10:26 AM LDL CHOLESTEROL (CALCULATED) - [facility] 115 03/21/2020 11:03 AM LDL CHOLESTEROL (DIRECT MEASURE) - [facility] NOT APPLICABLE 03/21/2020 11:03 AM LDL CHOLESTEROL (DIRECT MEASURE) - [facility] 131 (H) 12/12/2014 03:45 PM Continue to monitor diet and with current medication Gastroesophageal reflux disease without esophagitis Continue to monitor diet and with current medication History of breast cancer Pt's last mammogram was 05/27/22. Repeat in 1 year Continue to monitor and with yearly mammograms HTN, goal below 140/90 Hypertensive kidney disease with stage 3a chronic kidney disease (HCC) BP Readings from Last 3 Encounters: 03/27/23 126/60 02/28/23 122/64 10/31/22 112/72 Continue to monitor and with current medication. Other specified peripheral vascular diseases (HCC) Continue to monitor and with current medication. Continue to follow with cardiology Prediabetes Hemoglobin AIC Results: Lab Results Component Value Date/Time HEMOGLOBIN A1C - [facility] 5.9 (H) 04/12/2022 10:26 AM HEMOGLOBIN A1C - [facility] 5.9 (H) 05/10/2021 08:31 AM HEMOGLOBIN A1C - [facility] 5.9 (H) 03/21/2020 11:03 AM HEMOGLOBIN A1C - [facility] 6.0 (H) 05/28/2018 10:30 AM HEMOGLOBIN A1C - [facility] 5.7 04/21/2012 08:38 AM Continue to monitor diet and exercise. Solar purpura (HCC) Continue to monitor and follow with dermatology. Pt has both covid vaccines and 1 booster-already updated in her immunization record. Declines getting further boosters at this time. 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 Having hard time sleeping d/t discomfort. Spoke with Dr Ann and she states she will send in a rx for prednisone to see if helps-if doesn't she can call to schedule an appt. Pt scored 3 on her depression screening-no depression. Discussed bringing in a copy of her living will to have scanned into her chart. Follow Up: Return in 1 year (on 03/27/2024) for 12 month Subsequent Adult Wellness Visit. | For: 12 month Subsequent Adult Wellness Visit | Check-out note: 12 month Subsequent Adult Wellness Visit Would patient like to schedule next AWV visit? Yes Jessie Nath RN documented in this encounter Miscellaneous Notes * Pt Handout (on AVS) - Jessie Nath RN - 03/27/2023 3:04 PM EDT Images from the original note were not included. [id number] Preventing Falls: Making Changes in Your Living Space Is your living space filled with hazards that could cause you to fall? Changes can make you safer. They could even save your life. Take a careful look around your home. Change what you can on your own. Hire someone or ask friends or family to help with harder tasks. Be sure to add a nonslip mat to the inside of your shower or bathtub. Always keep a nightlight on. Keep a clear path from your bed to the bathroom. Move items from higher shelves to lower ones. Remove hazards Remove things that can trip you, like throw rugs, boxes, piles of paper, or cords. Nail down rugs or carpeting if you don't want to remove them. Use slip- resistant backing. Don't store items on stairs. Keep walkways clear. Clean up spills right away. Replace glass tables with wooden ones. They're safer if you fall. Add safety devices Add handrails to both sides of stairs. Buy a raised toilet seat. Add grab bars near the toilet and in the shower. Get grabbers to help you reach things and avoid climbing. Improve lighting Add nightlights to halls, bedrooms, and bathrooms. Put light switches at the top and bottom of stairs. Be sure each room and flight of stairs has proper lighting. Use shades or curtains to cut glare from windows. Put flashlights in each room. Replace burned-out bulbs. Get glowing light switches for room entrances. Take other precautions Use nonskid floor wax. Buy a nonslip mat and a liquid soap dispenser for the shower. Put most-used items within easy reach. Add bright paint or tape on the top front edge of steps. Save big jobs, such as moving furniture or other heavy objects, for family or friends. Get professional help installing grab bars. They can be unsafe if not installed the right way. Fix riskier rooms first Don't tackle everything at once. Focus on one room at a time. The bathroom is a common spot for falls, so you may want to start there. Or start with a room you spend lots of time in, such as your bedroom. Make only a few changes at once. This will give you time to adjust to them. Outside safety You might arrange for these changes yourself, or you might need to talk to your repairer maintenance building orhomeowners' association about them. Have loose boards on porches or damaged stairs repaired. Have rough edges, holes, or large cracks in sidewalks or driveways repaired. Remove hazards that could trip you, such as hoses or grabiel. Use high-wattage light bulbs (100 raman or greater) near outside doors and stairs. Add handrails to outside stairs. Have them extend beyond the bottom step. Get help in winter weather with ice or snow removal. Last Reviewed Date: 07/11/202219994135-8118 [employer]. All rights reserved. This information is not intended as a substitute for professional medical care. Always follow your healthcare professional's instructions. * Pt Handout (on AVS) - Jessie Nath RN - 03/27/2023 3:04 PM EDT [id number] Fall Prevention Falls often take place due to slipping, tripping, or losing your balance. Millions of people fall every year and injure themselves. Among older adults in the [place] falls are the most common cause of traumatic brain injuries. Every 20 minutes, an older adult dies from a fall. Here are ways to reduceyour risk of falling again: Think about your fall. Was there anything that caused your fall that can be fixed, removed, or replaced? Make your home safe by keeping walkways clear of objects you may trip over, such as electrical cords. Use nonslip pads under rugs. Don't use area rugs or small throw rugs. Use nonslip mats in bathtubs and showers. Hang grab rails by the toilet and inside and outside the shower. Install handrails and lights on staircases. The handrails should be on both sides of the stairs. Use night lights. Don't walk in poorly lit areas. Don't stand on chairs or wobbly ladders. Use care when reaching overhead or looking up. This position can cause a loss of balance. Be sure your shoes fit well, are in good condition, and have nonslip bottoms. Wear shoes both inside and outside of your home. Don't go barefoot or wear slippers. Be cautious when going up and down stairs, curbs, and when walking on uneven sidewalks. If your balance is poor, consider using a cane or walker. Talk with your healthcare provider about having a balance assessment. If your fall was related to alcohol use, stop or limit alcohol intake. Ask your provider for help if you think you may overuse alcohol and can't stop. If your fall was related to use of sleeping medicines, talk with your provider about this. You may need to reduce your dosage at bedtime if you wake up during the night to go to the bathroom. To reduce the need for nighttime bathroom trips: o Don't drink fluids for several hours before going to bed o Empty your bladder before going to bed o Men can keep a urinal at the bedside Stay as active as you can. Balance, flexibility, strength, and endurance all come from exercise.They all play a role in preventing falls. Ask your provider which types of activity are right for you. Try to do some type of exercise every day. Get your eyes checked once a year or more often if your vision changes If you have pets, know where they are before you stand up or walk so you don't trip over them. Go over all your medicines with a pharmacist or other provider. This is to see if any of them could make you more likely to fall. Have this type of medicine review at least once every year. If your provider advises a new medicine, ask if the side effects will affect your balance. Don't move quickly from one position to another. For instance, don't stand up fast from sitting.This can cause dizziness and may lead to a fall. Sit down when putting on pants, socks, and shoes. This will make you less likely to lose your balance and fall. Always let your provider know if you have fallen since your last visit. Contact your provider right away if you're having balance problems or falling more often. Last Reviewed Date: 08/11/202119997941-6576 [employer]. All rights reserved. This information is not intended as a substitute for professional medical care. Always follow your healthcare professional's instructions. * Pt Handout (on AVS) - Jessie Nath RN - 03/27/2023 2:56 PM EDT Images from the original note were not included. Fall Prevention in the Hospital - Video When you're in the hospital, you may be in a small room with a lot of equipment. The medication youtake may make you lightheaded or dizzy. You may be weak or injured. All of these things make a fallmore likely. So let's learn how to stay safe. To view the video go to this web address: https://[email or web address]/[email or web address] Or, scan this QR code with your smart phone [employer]. documented in this encounter Plan of Treatment Upcoming Encounters Date Type Specialty Care Team Description 04/17/2023 Hospital Encounter Surgery Bryan Richards MD [address] [address] 04/17/2023 Surgery Surgery Bryan Richards MD [address] [address] Left EXTRACAPSULAR CATARACT REMOVAL WITH INTRAOCULAR LENS 05/01/2023 Hospital Encounter Surgery Bryan Richards MD [address] [address] 05/01/2023 Surgery Surgery Bryan Richards MD [address] [address] Right EXTRACAPSULAR CATARACT REMOVAL WITH INTRAOCULAR LENS 05/13/2023 Office Visit Family Medicine Maricarmen Ann, DO [address] [place] [address] 08/13/2023 Office Visit Dermatology Radha Bolivar MD 03/30/2024 Nurse Only [facility], Nurse Annual Wellness Visit [address] [facility] [address] [place] [address] Scheduled Procedures Name Priority Associated Diagnoses Date/Ti [...] 09/20/2021, 11/09/2020, 10/19/2020 CKD PHOS USE SMARTSET 29513 05/10/2022 05/10/2021 CKD HGB USE SMARTSET 16915 04/08/202304/08, 04/08/2022, 10/14/2020, Additional history exists Influenza Vaccine (FLU shot) (#1) 2023 04/11/2022, 06/15/2021, 05/08/2020, Additional history exists HbA1c 04/12/2023 04/12/2022, 3 , 03/21/2020, Additional history exists GFR 05/03/2023 10/31/2022, 09/0 09/2021, 05/10/2021, Additional history exists Albumin/Creatinine Ratio 02/29/2024 02/28/2023, 09/0 08/2021 Depression Screening, Annual for Pts 12 and Over 02/29/2024 02/28/2023 O2 ASSESSMENT COMPLETED IN PAST YEAR FOR COPD 02/29/2024 02/28/2023 COLONOSCOPY-EVERY 5 YRS AGES 18-100 04/21/2025 04/21/2020, [...] as of this encounter Visit Diagnoses Diagnosis Routine general medical examination at a health care facility- Primary Allergic rhinitis Allergic rhinitis, cause unspecified Body mass index (BMI) of 40.0 to 44.9 in adult (HCC) Chronic kidney disease, stage 3a COPD, group A, by GOLD 2017 classification ([facility]) Dyslipidemia, goal to be determined Other and unspecified hyperlipidemia Gastroesophageal reflux disease without esophagitis Esophageal reflux History of breast cancer Personal history of malignant neoplasm of breast HTN, goal below 140/90 Unspecified essential hypertension Hypertensive kidney disease with stage 3a chronic kidney disease (HCC) Morbid obesity (HCC) Morbid obesity Other specified peripheral vascular diseases (HCC) Prediabetes Other abnormal glucose Solar purpura (HCC) Other nonthrombocytopenic purpuras Combined forms of age-related cataract of left eye Other and combined forms of senile cataract Combined forms of age-related cataract of right eye Other and combined forms of senile cataract documented in this encounter Care Teams Pit Recorder Relationship Specialty Start Date End Date Maricarmen Ann, DO [address] [place] [address] PCP - General Family Medicine 03/26/23 documented as of this encounter
--- OUTSIDE RECORDS SUMMARY | 2023-08-18 00:32 | External Medical Summary | Summary of Care ---
Author Name Unknown Organization [facility] Address [address] [facility] [address] Phone [phone] Care Team Providers Care Bilingual Hr Generalist Name Role Phone SolomonMaricarmen sim Primary Care Provider Reason for Visit * Reason Onset Date Comments Adult Annual Wellness Visit, Subsequent Visit Adult Annual Wellness Visit, Subsequent Visit Encounter Details Date Type Department Care Team Description 03/27/2023 Nurse Only Ancillary [address] [facility] [address] [place] [address] College, Nurse Annual Wellness Visit [address] [facility] [address] [place] [address] Adult Annual Wellness Visit, Subsequent Vi... Allergies [...] by mouth daily at noon. 0 Active [place]-3 Fatty Acids (FISH OIL) 1000 MG Capsule [...] Pfizer series) 11/15/2021 CKD PHOS USE SMARTSET 82973 05/10/2022 CKD HGB USE SMARTSET 60643 04/08/2023 HbA1c 04/12/2023 Current Medication List: (as of Visit date not found (in office), Visit date not found (telemedicine) ) Current Outpatient Medications Medication Sig Dispense Refill Multiple Vitamins-Minerals (MULTIVITAMIN WOMENS 50+ ADV) TABS Take by mouth daily at noon. Calcium Carb-Cholecalciferol 500-600 MG-UNIT Oral Tablet Take by mouth daily at noon. [place]-3 Fatty Acids (FISH OIL) 1000 MG Capsule [...] mg/g Creat Sincerely, Maricarmen Ann, DO 03/27/2023 [facility] Calendar (as of Visit date not found [...] your insurance company to determine what's covered. Socset. is a great tool that helps you review your medical record online, including test results, doctor notes and your health summary. You can also schedule appointments with me and other members of your care team, request prescription refills and ask for advice related to your medical conditions at Socset..TEVIZZ. documented in this encounter Progress Notes * [...] term Recurrent major depressive disorder, in remission ([facility]) 12/12/2016 Vertigo BPV, MRI 2007, min microvascular disease Past Surgical History: Procedure Laterality Date BREAST LESION,OTHER,EXCISION 08/24/2007 Excision left breast mass (infiltrating lobular carcinoma) [place] [facility] [place]. You DELIVERY 1982 Delivery Only COLONOSCOPY 11/2004 tics COLONOSCOPY W/ LESION REMOVAL, SNARE 03/07/2010 done diverticulosis, polyp x1--hyperplastic tissue repeat in 5 years COLONOSCOPY, DIAGNOSTIC (RECTUM) 03/15/2015 diverticulosis, repeat 5 yrs/COLONOSCOPY FLEXIBLE PROXIMAL DIAGNOSTIC performed by Brendan Miller MD at ENDOSCOPY [facility] COLONOSCOPY, DIAGNOSTIC (RECTUM) 04/21/2020 diverticulosis, repeat 5 yrs / COLONOSCOPY FLEXIBLE PROXIMAL DIAGNOSTIC performed by Janneth Coffey MDa ENDOSCOPY [facility] INFORMATION 1999 double knee replacement INFORMATION 7 knee surgeries INFORMATION EPL tendon rupture repair KNEE ARTHROSCOPY, DIAGNOSTIC bilateral MASTECTOMY, PARTIAL 09/11/2007 Left PM with deep axillary SLNB at [facility] -Dr. You MISCELLANEOUS ORDER ([facility] ONLY) 1979 FNAB of left breast [...] COVID-19 mRNA, LNP-s, No Preserve, 2-Dose Series ([employer]) 10/19/2020, 11/09/2020, 09/20/2021 Diptheria/Tetanus (Adult) 07/07/1991 Pneumococcal [...] Tablet Take by mouth daily at noon. [place]-3 Fatty Acids (FISH OIL) 1000 MG Capsule [...] (BMI) of 40.0 to 44.9 in adult ([facility]) Z68.41 S/P TKR (total knee replacement), left Z96.652 Prediabetes R73.03 History of breast cancer Z85.3 Solar purpura ([facility]) D69.2 Chronic kidney disease, stage 3a N18.31 Morbid obesity ([facility]) E66.01 Hypertensive kidney disease with stage 3a chronic kidney disease ([facility]) I12.9, N18.31 Other specified peripheral vascular diseases ([facility]) I73.89 COPD, group A, by GOLD 2017 classification ([facility]) J44.9 Caregiver stress Z63.6 Medication Compliance: Patient [...] or gait disturbances Older than age 70 Hlj-Dx-wgf-Go Test: Time began at 2:00. Patient stood from sitting position and walked approximately 10 feet, returned and sat down. Total time for oow-ij-fet-go test was 9 seconds. Zgu-Nz-cbq-Go Test completed? Yes Gender Specific Preventative Plan: Health Maintenance Topic Date Due Alpha-1 Antitrypsin Never done COVID-19 Vaccine (4 - Pfizer series) 11/15/2021 CKD PHOS USE SMARTSET 32718 05/10/2022 CKD HGB USE SMARTSET 96000 04/08/2023 HbA1c 04/12/2023 Influenza Vaccine (FLU shot) [...] able to. Discussed going back to the [facility] to start swimming again. Chronic kidney disease, stage 3a Continue to monitor and with current medication. COPD, group A, by GOLD 2017 classification (HCC) Pt currently using Arnuity inhaler-states working better than the last one-still coughing up some phlegm but not as much as she had been-feels improving some. Getting her voice back. States will continue with the trial period of inhaler and will call if not improving. States Asmanex worked best forher but not approved by her insurance. Dyslipidemia, goal to be determined Lab Results Component Value Date/Time LDL (CALCULATED) 131. (H) 06/16/1996 08:15 AM LDL CHOLESTEROL (CALCULATED) - [facility] 04/12/2022 10:26 AM LDL CHOLESTEROL (CALCULATED) - [facility] 115 03/21/2020 11:03 AM LDL CHOLESTEROL (DIRECT MEASURE) - [facility] NOT APPLICABLE 03/21/2020 11:03 AM LDL CHOLESTEROL (DIRECT MEASURE) - [facility] 131 (H) 12/12/2014 03:45 PM Continue to [...] can call to schedule an appt. Pt had asked for a pain med but Dr Ann would prefer pt try the prednisone first-pt notified. Pt scored 3 on her depression screening-no [...] from the original note were not included. [address] Preventing Falls: Making Changes in Your Living [...] you might need to talk to your green building engineer or[employer]un[employer]' association about them. Have loose boards on [...] ice or snow removal. Last Reviewed Date: 07/11/202219992948-5266 [employer]. All rights reserved. This information is not intended as a substitute for professional medical care. Always follow your healthcare professional's instructions. * Pt Handout (on AVS) - Jessie Nath RN - 03/27/2023 3:04 PM EDT [id number] Fall Prevention Falls often take place due [...] or falling more often. Last Reviewed Date: 08/11/202119990168-1672 The [employer]. All rights reserved. This information is not [...] the video go to this web address: [email or web address] Or, scan this QR code with your smart phone [employer] documented in this encounter Plan of Treatment Upcoming Encounters Date Type Specialty Care Team Description 04/17/2023 Hospital Encounter Surgery Bryan Richards MD [address] [address] 04/17/2023 Surgery Surgery Bryan Richards MD [address] [address] Left EXTRACAPSULAR CATARACT REMOVAL WITH INTRAOCULAR LENS 05/01/2023 Hospital Encounter Surgery Bryan Richards MD [address] [address] 05/01/2023 Surgery Surgery Bryan Richards MD [address] [address] Right EXTRACAPSULAR CATARACT REMOVAL WITH INTRAOCULAR LENS 05/13/2023 Office Visit Family Medicine Maricarmen Ann DO [address] [place] [address] 08/13/2023 Office Visit Dermatology Radha Bolivar MD 03/30/2024 Nurse Only [facility], Nurse Annual Wellness Visit [address] [facility] [address] [place] [address] Scheduled Procedures Name Priority Associated Diagnoses Date/Ti [...] 09/20/2021, 11/09/2020, 10/19/2020 CKD PHOS USE SMARTSET 58031 05/10/2022 05/10/2021 CKD HGB USE SMARTSET 87948 04/08/202304/08, 04/08/2022, 10/14/2020, Additional history exists Influenza Vaccine (FLU shot) (#1) 2023 04/11/2022, 06/15/2021, 05/08/2020, Additional history exists HbA1c 04/12/2023 04/12/2022, 3 , 03/21/2020, Additional history exists GFR 05/03/2023 10/31/2022, 090 09/2021, 05/10/2021, Additional history exists Albumin/Creatinine Ratio 02/29/2024 02/28/2023, 090 08/2021 Depression Screening, Annual for Pts 12 [...] group A, by GOLD 2017 classification (HCC) Dyslipidemia, goal to be determined Other and [...] cataract documented in this encounter Care Teams Bilingual Hr Generalist Relationship Specialty Start Date End Date Maricarmen Ann, [address] [place] [address] PCP - General Family Medicine 03/26/23 documented as of this encounter
--- OUTSIDE RECORDS SUMMARY | 2023-08-18 00:32 | External Medical Summary | Summary of Care ---
Author Name Unknown Organization [facility] Address [address] [facility] [place] [address] Phone [phone] Care Team Providers Care Granite Installer Name Role Phone Maricarmen Ann DO Primary Care Provider Reason for Visit * Reason Comments Follow Up Encounter Details Date Type Department Care Team Description 02/28/2023 Office Visit Family Practice [address] [facility] [place] [address] [place] [address] Maricarmen Ann [address] [place] [address] Chronic left-sided low back pain with left-sided sciatica*; COPD, group A, by GOLD 2017 classification ([facility]); Hypertensive kidney disease with stage 3a chronic kidney disease ([facility]) Allergies Active Allergy Reactions Severity Noted Date Comments Amoxicillin Unknown 03/13/1999 Imidazole Antifungals 03/13/1999 Vaginal infections Tamoxifen Citrate Nausea/vomiting High 02/14/2010 documented as of this encounter (statuses as of 03/07/2023) Medications Medication Sig Dispensed Refills Start Date End Date Status Multiple Vitamins-Minerals (MULTIVITAMIN WOMENS 50+ ADV) TABS Take by mouth daily at noon. 0 Active Calcium Carb-Cholecalciferol 500-600 MG-UNIT Oral Tablet Take by mouth daily at noon. 0 Active [place]-3 Fatty Acids (FISH OIL) 1000 MG Capsule [...] on 10/31/2022 Pregabalin 25 MG Oral Capsule (Lyrica)Indications: Neuropathy Take one capsule by mouth in the morning and two capsules by mouth in the evening 270 Capsule 1 10/25/2022 Active Vitamin B-12 6000 MCG Sublingual Tablet Sublingual Place under the tongue. 0 Active Asmanex (120 Metered Doses) 220 MCG/ACT Inhalation Aerosol Powder Breath Activated (Mometasone Furoate)Indications: COPD, group A, by GOLD 2017 classification ([facility]) Inhale 1 Puff by mouth in the morning and 1 Puff before bedtime. 3 Each 3 02/05/2023 Active Additional Information Patient not taking.Reported on 02/28/2023 Lisinopril-hydroCHLO ROthiazide 20-12.5 MG Oral TabletIndications:Es sential hypertension with goal blood pressure less than 130/80 TAKE TWO TABLETS BY MOUTH EVERY MORNING 200 Tablet 3 11/20/2022 4 Active Meloxicam 7.5 MG Oral Tablet (Mobic)Indications:P ain in limb TAKE ONE TABLET BY MOUTH EVERY MORNING 90 Tablet 0 11/04/2022 4 Active Atorvastatin Calcium 20 MG Oral Tablet (Lipitor) TAKE ONE TABLET BY MOUTH EVERY DAY 100 Tablet 2 09/28/2022 4 Active Meloxicam 7.5 MG Oral Tablet (Mobic) TAKE ONE TABLET BY MOUTH EVERY MORNING 90 Tablet 0 09/19/2022 4 Active Omeprazole 20 MG Oral Capsule Delayed Release (PriLOSEC)Indication s:Gastroesophageal reflux disease without esophagitis TAKE TWO CAPSULES BY MOUTH EVERY DAY (40 MG) 180 Capsule 0 09/19/2022 4 Active Arnuity Ellipta 100 MCG/ACT Inhalation Aerosol Powder Breath Activated (fluticasone Furoate) Inhale 1 Puff by mouth in the morning. 90 Each 3 02/28/2023 Active documented as of this encounter (statuses as of 03/07/2023) Active Problems Problem Noted Date Caregiver stress [...] as of this encounter (statuses as of 03/07/2023) Resolved Problems Problem Noted Date Resolved Date [...] as of this encounter (statuses as of 03/07/2023) Immunizations Name Administration Dates Next Due COVID-19 [...] Past Smokeless Tobacco: Never Tobacco Cessation:Counseling Given: Not Answered Alcohol Use Standard Drinks/Week Comments Yes 0 (1 standard drink = 0.6 oz pur e alcohol) occasionally Food Insecurity Answer Date Recorded Within the past 12 months, y ou worried that your food would run out before you got money to buy more. Never true 10/31/2022 Within the past 12 months, t he food you bought just didn't last and you didn't have money to get more. Never true 10/31/2022 Sex Assigned at Date Recorded Female 04/11/2022 9:21 AM E DT Job Start Date Occupation Industry Not on file Not on file Not on file documented as of this encounter Last Filed Vital Signs Vital Sign Reading Time Taken Comments Blood Pressure 122/64 02/28/2023 4:52 PM EDT Pulse 78 02/28/2023 4:52 PM EDT Temperature 35.9 C (96.7 F) 02/28/2023 4:52 PM ED T Respiratory Rate - - Oxygen Saturation 97% 02/28/2023 4:52 PM EDT Inhaled Oxygen Concentration - - Weight 109 kg (240 lb 3.2 oz) 02/28/2023 4:52 PM EDT Height - - Body Mass Index 39.97 07/26/2022 10:54 AM EST documented in this encounter Progress Notes * Maricarmen Ann, - 02/28/2023 5:07 PM EDT SUBJECTIVE: Chief Complaint Patient presents with Follow Up HPI: Yari Long is a 77 year old female who presents today for regular return. Pt notes that she is not doing well off of the Asmanex. The Flovent is not working well for her. She is wheezing. She feels like she cannot take as deep of a breath. She thinks it is affecting her vocal cords. She does not feel that her voice is as it was. She cannot hold her notes. She is coughing more. Pt notes that her sciatica is bothering her. She cannot lie on her left side. Certain chairs are uncomfortable. She notes that the bed at her son's was awful when she was visiting. She notes that it was much better prior to visiting her son and sleeping in a different bed and using a different chair. PHM: Patient Active Problem List Diagnosis Code Allergic rhinitis J30.9 Dyslipidemia, goal to be determined E78.5 ADVANCE DIRECTIVE INFORMATION Gastroesophageal reflux disease without esophagitis K21.9 HTN, goal below 140/90 I10 Body mass index (BMI) of 40.0 to 44.9 in adult ([facility]) Z68.41 S/P TKR (total knee replacement), left Z96.652 Prediabetes R73.03 History of breast cancer Z85.3 Solar purpura ([facility]) D69.2 Chronic kidney disease, stage 3a N18.31 Morbid obesity ([facility]) E66.01 Hypertensive kidney disease with stage 3a chronic kidney disease ([facility]) I12.9, N18.31 Other specified peripheral vascular diseases ([facility]) I73.89 COPD, group A, by GOLD 2017 classification ([facility]) J44.9 Caregiver stress Z63.6 Current Outpatient Medications Medication Sig Dispense Refill Multiple Vitamins-Minerals (MULTIVITAMIN WOMENS 50+ ADV) TABS Take by mouth daily at noon. Calcium Carb-Cholecalciferol 500-600 MG-UNIT Oral Tablet Take by mouth daily at noon. [place]-3 Fatty Acids (FISH OIL) 1000 MG Capsule [...] BY MOUTH EVERY MORNING 200 Tablet 3 Meloxicam 7.5 MG Oral Tablet (Mobic) TAKE ONE TABLET BY MOUTH EVERY MORNING 90 Tablet 0 Atorvastatin Calcium 20 MG Oral Tablet (Lipitor) TAKE ONE TABLET BY MOUTH EVERY DAY 100 Tablet 2 Omeprazole 20 MG Oral Capsule Delayed Release (PriLOSEC) TAKE TWO CAPSULES BY MOUTH EVERY DAY (40 MG) 180 Capsule 0 Ipratropium-Albuterol 0.5-2.5 (3) MG/3ML Inhalation Solution (Duoneb) [...] taking: Reported on 02/28/2023) 3 Each 3 Meloxicam 7.5 MG Oral Tablet (Mobic) TAKE ONE TABLET BY MOUTH EVERY MORNING 90 Tablet 0 No current facility-administered medications for [...] term Recurrent major depressive disorder, in remission ([facility]) 12/12/2016 Vertigo BPV, MRI 2007, min microvascular disease Past Surgical History: Procedure Laterality Date BREAST LESION,OTHER,EXCISION 08/24/2007 Excision left breast mass (infiltrating lobular carcinoma) at [facility] - Dr. You DELIVERY 1982 Delivery Only COLONOSCOPY 11/2004 tics COLONOSCOPY W/ LESION REMOVAL, SNARE 03/07/2010 done diverticulosis, polyp x1--hyperplastic tissue repeat in 5 years COLONOSCOPY, DIAGNOSTIC (RECTUM) 03/15/2015 diverticulosis, repeat 5 yrs/COLONOSCOPY FLEXIBLE PROXIMAL DIAGNOSTIC performed by Brendan Miller MD at ENDOSCOPY [facility] COLONOSCOPY, DIAGNOSTIC (RECTUM) 04/21/2020 diverticulosis, repeat 5 yrs / COLONOSCOPY FLEXIBLE PROXIMAL DIAGNOSTIC performed by oRsa Maria Medina [facility]COPY [facility] INFORMATION 1999 double knee replacement INFORMATION 7 knee surgeries INFORMATION EPL tendon rupture repair KNEE ARTHROSCOPY, DIAGNOSTIC bilateral MASTECTOMY, PARTIAL 09/11/2007 Left PM with deep axillary SLNB at [facility] -Dr. You MISCELLANEOUS ORDER ([facility]) 1979 FNAB of left breast (benign) [...] fatigue, fever and unexpected weight change. Respiratory: Positive for shortness of breath and wheezing. Negative for cough and chest tightness. Cardiovascular: Negative for chest pain, palpitations and leg swelling. Gastrointestinal: Negative for abdominal pain, constipation, diarrhea, nausea and vomiting. Musculoskeletal: Positive for back pain. Negative for arthralgias, gait problem and joint swelling. Skin: Negative for color change, pallor and rash. OBJECTIVE: BP 122/64 (BP Site: Right Arm, BP Position: Sitting, BP Cuff Size: Large) | Pulse 78 | Temp 35.9 C (96.7 F) | Wt 109 kg (240 lb 3.2 oz) | SpO2 97% | BMI 39.97 kg/m | BSA 2.24 m PHYSICAL EXAM: [...] oriented to person, place, and time. ASSESSMENT/PLAN: (M54.42, G89.29) Chronic left-sided low back pain with left-sided sciatica (primary encounter diagnosis) Plan: She will monitor. It is improving. Consider PT. (J44.9) COPD, group A, by GOLD 2017 classification ([facility]) Plan: Pt will trial Arnuity. If not tolerating, will have failed two additional inhalers and hopefully can get Asmanex improved. (I12.9, N18.31) Hypertensive kidney disease with stage 3a chronic kidney disease ([facility]) Plan: ALBUMIN / CREATININE RATIO, URINE, ALBUMIN / CREATININE RATIO, URINE Pt's BP controlled. She will continue lisinopril-HCTZ. Tolerating it well. Follow-up: 3 months Total time today including reviewing chart before the visit, pertinent labs, imaging reports, face to face time, and documentation time was 36 minutes. Maricarmen Ann DO documented in this encounter Nursing Notes * Jessie Nath RN - 02/28/2023 4:43 PM EDT 4 month return States was house sitting at her son's house-mattress was bad-having pain in both hips, leftt sciatica, right knee x 1 week. Also having right groin pain-? Pulled muscle-unknown injury Left shoulder pain-was x-rayed about 3 months ago by [facility]hto and was given a cortisone injection. Helped for a while. Pt fell 3 months ago at [employer]-landed on right side-followed with ortho-just bruising on right sidelegs and shoulder Dog scratches on left forearm.-scabbed with some redness around wound. Inhaler documented in this encounter Plan of Treatment Upcoming Encounters Date Type Specialty Care Team Description 03/27/2023 Nurse Only Ancillary [place], Nurse Annual Wellness Visit [address] [facility] [address] [place] [address] 04/17/2023 Hospital Encounter Surgery Bryan Richards MD [address] [address] 04/17/2023 Surgery Surgery Bryan Richards MD [address] [address] Left EXTRACAPSULAR CATARACT REMOVAL WITH INTRAOCULAR LENS 05/01/2023 Hospital Encounter Surgery Bryan Richards MD [address] [address] 05/01/2023 Surgery Surgery Bryan Richards MD [address] [address] Right EXTRACAPSULAR CATARACT REMOVAL WITH INTRAOCULAR LENS 05/13/2023 Office Visit Family Medicine Maricarmen Ann, DO [address] [place] [address] 08/13/2023 Office Visit Dermatology Radha Bolivar MD Scheduled Procedures Name Priority Associated Diagnoses Date/Ti me EXTRACAPSULAR CATARACT REMOVAL WITH INTRAOCULAR LENS Combined forms of age-related cataract of left eye 04/17/2023 10:40 AM EDT EXTRACAPSULAR CATARACT REMOVAL WITH INTRAOCULAR LENS Combined forms of age-related cataract of right eye 05/01/2023 12:15 PM EDT COLONOSCOPY FLEXIBLE PROXIMAL DIAGNOSTIC Recall Family history of colon cancer Health Maintenance Due Date Last Done Comments Alpha-1 Antitrypsin 1963 COVID-19 Vaccine (4 - Pfizer series) 11/15/2021 09/20/2021, 11/09/2020, 10/19/2020 CKD PHOS USE SMARTSET 02474 05/10/2022 05/10/2021 CKD HGB USE SMARTSET 13085 04/08/202304/08, 04/08/2022, 10/14/2020, Additional history exists Influenza [...] Not on filedocumented as of this encounter Procedures Procedure Name Priority Date/Time Associated Diagnosis Comments ALBUMIN / CREATININE RATIO, URINE Routine 02/28/2023 5:45 PM EDT Hypertensive kidney disease with stage 3a chronic kidney disease (HCC) documented in this encounter Results * ALBUMIN / CREATININE RATIO, URINE (02/28/2023 5:45 PM EDT) Albumin, Random Urine <1.20 mg/dL 02/28/2023 11:54 PM EDT [facility] Creatinine, Random Urine 49 mg/dL 02/28/2023 11:54 PM EDT [facility] Albumin / Creatinine Ratio, Urine <24 <30 mg/g Creat 02/28/2023 11:54 PM EDT LABORATORY [facility] Urine Urine specimen obtained by clean catch procedure / Unknown Non-blood Collection / Unknown 02/28/2023 5:45 PM EDT 02/28/2023 5:45 PM EDT Narrative [facility] - 02/28/2023 11:54 PM EDT Normal: <30 mg/g creatinine High: 30-300 mg/g creatinine Very High: >300 mg/g creatinine Nephrotic: >2200 mg/g creatinine Maricarmen Ann DO LAB URINE ORDERABLES LAB[facility]ATORY [facility] [address] [place] [address] documented in this encounter Visit Diagnoses Diagnosis Chronic left-sided low back pain with left-sided sciatica- Primary COPD, group A, by GOLD 2017 classification (HCC) Hypertensive kidney disease with stage 3a chronic kidney disease (HCC) Combined forms of age-related cataract of left eye Other and combined forms of senile cataract Combined forms of age-related cataract of right eye Other and combined forms of senile cataract documented in this encounter Care Teams Granite Installer Relationship Specialty Start Date End Date Maricarmen Ann DO [address], [place] [id number] PCP - General Family Medicine 09/21/19 documented as of this encounter"
--- OUTSIDE RECORDS SUMMARY | 2023-08-18 00:32 | External Medical Summary | Summary of Care ---
Author Name Unknown Organization [facility] Address [address] [place] [address] Phone [phone] Care Team Providers Care Merchandising Lead Name Role Phone Maricarmen Ann DO Primary Care Provider Reason for Visit * Reason Onset Date Comments Advice 03/27/2023 Encounter Details Date Type Department Care Team Description 03/27/2023 Telephone Family Practice [facility] [address] [place] [address] Maricarmen Ann DO [address] [place] [address] Advice Allergies Active Allergy Reactions Severity Noted Date [...] by mouth daily at noon. 0 Active [place]-3 Fatty Acids (FISH OIL) 1000 MG Capsule [...] a day. apply to affected area R macnilla 2 time per day for 6 weeks [...] COPD, group A, by GOLD 2017 classification ([facility]) Inhale 1 Puff by mouth in the [...] before dinner. 200 Capsule 3 03/19/2023 Active predniSONE 20 MG Oral Tablet (Deltasone) Take 1 Tablet by mouth in the morning and 1 Tablet before bedtime. Do all this for 7 days. 14 Tablet 0 03/27/2023 Active documented as of this encounter (statuses [...] mRNA, LNP-s, No Pre serve, 2-Dose Series (Merlin) 09/20/2021,11/09/2020,10/19/2020 Pneumococcal Conjugate Vacc, 13 Valent (Prevnar) [...] Telephone Encounter - Maricarmen Ann DO - 03/27/2023 3:15 PM EDT Rx sent to [facility] in [place]. Pt in for AWV complaining of hip pain. Prednisone advised and she was agreeable. documented in this encounter Plan of Treatment Upcoming Encounters Date Type Specialty Care Team Description 04/17/2023 Hospital Encounter Surgery Bryan Richards MD [address] [place] [address] 04/17/2023 Surgery Surgery Bryan Richards MD [address] [place] [address] Left EXTRACAPSULAR CATARACT REMOVAL WITH INTRAOCULAR LENS 05/01/2023 Hospital Encounter Surgery Bryan Richards MD [address] [place] [address] 05/01/2023 Surgery Surgery Bryan Richards MD [address] [place] [address] Right EXTRACAPSULAR CATARACT REMOVAL WITH INTRAOCULAR LENS 05/13/2023 Office Visit Family Medicine Maricarmen Ann, DO [address] [facility] [place] [address] 08/13/2023 Office Visit Dermatology Radha Bolivar MD 03/30/2024 Nurse Only Ancillary [employer], Nurse Annual Wellness Visit [address] [place] [address] Scheduled Procedures Name Priority Associated Diagnoses Date/Ti [...] 09/20/2021, 11/09/2020, 10/19/2020 CKD PHOS USE SMARTSET 86082 05/10/2022 05/10/2021 CKD HGB USE SMARTSET 63068 04/08/202304/08, 04/08/2022, 10/14/2020, Additional history exists Influenza [...] Not on filedocumented as of this encounter Care Teams Merchandising Lead Relationship Specialty Start Date End Date Maricarmen Ann, DO [address] [facility] [place] [address] PCP - General Family Medicine 03/26/23 documented as of this encounter
--- OUTSIDE RECORDS SUMMARY | 2023-08-18 00:33 | External Medical Summary ---
Author Name Unknown Address Unknown Organization K01:LABORATORY [facility] - [address] [facility] [place] [address] Laboratory Report Ordering Provider Test Date Status DAVION PIÑA 02/28/2023 17:45:57 Final Normal: <30 mg/g creatinine< br/>High: 30-300 mg/g creatinine
Very High: >300 mg/g creatinine
Nephrotic: >2200 mg/g creatinine Observation Date Value Abnormality Reference (Units ) Status Albumin, Urine 02/28/2023 17:45:57 <1.20 (mg/dL) Final Creatinine, Urine 02/28/2023 17:45:57 49 (mg/dL) Final Albumin/Creatinine [Mass Ratio] in Urine 02/28/2023 17:45:57 <24 <30 (mg/g Creat) Final Performing Location LABORATORY [facility] - [address] [place] [address]
--- OUTSIDE RECORDS SUMMARY | 2023-08-18 00:33 | External Medical Summary | Summary of Care ---
Author Name Unknown Organization [facility] Address [address] [place] [address] Phone [phone] Care Team Providers Care Ore Puncher Name Role Phone Maricarmen Modi DO Primary Care Provider Reason for Visit * Reason Onset Date Comments Advice 02/10/2023 Encounter Details Date Type Department Care Team Description 02/10/2023 Telephone Family Practice [facility] [address] [place] [address] Maricarmen Modi DO [address] [place] [address] Advice Allergies Active Allergy Reactions Severity Noted Date Comments Amoxicillin Unknown 03/13/1999 Imidazole Antifungals 03/13/1999 Vaginal infections Tamoxifen Citrate Nausea/vomiting High 02/14/2010 documented as of this encounter (statuses as of 02/25/2023) Medications Medication Sig Dispensed Refills Start Date End Date Status Multiple Vitamins-Minerals (MULTIVITAMIN WOMENS 50+ ADV) TABS Take by mouth daily at noon. 0 Active Calcium Carb-Cholecalcifer ol 500-600 MG-UNIT Oral Tablet Take by mouth daily at noon. 0 Active [place]-3 Fatty Acids (FISH OIL) 1000 MG Capsule Take 1 Capsule by mouth daily at noon. 0 Active Loratadine 10 MG Oral Tablet Take 1 Tablet by mouth in the morning. 30 Tab 11 1 Active Ipratropium-Albute rol 0.5-2.5 (3) MG/3ML Inhalation Solution (Duoneb) Inhale 3 mL via nebulizer in the morning and 3 mL at noon and 3 mL in the evening and 3 mL before bedtime. 50 mL 1 2 Active Diclofenac Sodium 1 % External Gel (Voltaren)Indicati ons:Hand arthritis Apply topically to affected area 3 times a day as needed for Pain or Pain, Mild (to hands). 150 g 1 2 Active Fluorouracil 5 % External Cream (Efudex) Apply topically to affected area 2 times a day. apply to affected area R manc[place] 2 time per day for 6 weeks 40 g 0 3 Active Additional Information Patient not taking.Reported on 10/31/2022 Pregabalin 25 MG Oral Capsule (Lyrica)Indication s:Neuropathy Take one capsule by mouth in the morning and two capsules by mouth in the evening 270 Capsule 1 3 Active Vitamin B-12 6000 MCG Sublingual Tablet Sublingual Place under the tongue. 0 Active Asmanex (120 Metered Doses) 220 MCG/ACT Inhalation Aerosol Powder Breath Activated (Mometasone Furoate)Indication s:COPD, group A, by GOLD 2017 classification ([facility]) Inhale 1 Puff by mouth in the morning and 1 Puff before bedtime. 3 Each 3 3 Active Omeprazole 20 MG Oral Capsule Delayed Release (PriLOSEC)Indicati ons:Gastroesophage al reflux disease without esophagitis TAKE 2 CAPSULES (40MG) ONCE DAILY 180 Capsule 0 3 023 Discontinued([facility] prescription brought in as discontinued) Atorvastatin Calcium 20 MG Oral Tablet (Lipitor) Take 1 Tablet by mouth in the morning. 100 Tablet 2 3 023 Discontinued([facility] prescription brought in as discontinued) Meloxicam 7.5 MG Oral Tablet (Mobic)Indications :Pain in limb Take 1 Tablet by mouth in the morning. 90 Tablet 0 3 023 Discontinued([facility] prescription brought in as discontinued) Lisinopril-hydroCH LOROthiazide 20-12.5 MG Oral TabletIndications: Essential hypertension with goal blood pressure less than 130/80 Take 2 Tablets by mouth in the morning. 200 Tablet 3 3 023 Discontinued([facility] prescription brought in as discontinued) documented as of this encounter (statuses as of 02/25/2023) Active Problems Problem Noted Date Caregiver stress [...] as of this encounter (statuses as of 02/25/2023) Resolved Problems Problem Noted Date Resolved Date [...] as of this encounter (statuses as of 02/25/2023) Immunizations Name Administration Dates Next Due COVID-19 mRNA, LNP-s, No Pre serve, 2-Dose Series ([employer]) 09/20/2021,11/09/2020,10/19/2020 Pneumococcal Conjugate Vacc, 13 Valent (Prevnar) [...] Packs/Day Years Used Date Smoking Tobacco: Never Smokeless Tobacco: Never Alcohol Use Standard Drinks/Week [...] encounter Miscellaneous Notes * Telephone Encounter - Ree Tirado RPh - 02/12/2023 1:48 PM EDT Patient Phone Numbers Patient has to try and fail Flovent, Qvar and Arnuity Ellipta prior to getting approved to take Asmanex. Left voicemail and sent MyG message to patient to check on history and preference moving forward. * Telephone Encounter - AMAN Villanueva - 02/12/2023 11:20 AM EDT Per the [employer] med denied.. going to be faxing the denial letter * Telephone Encounter - Ree Tirado RPh - 02/12/2023 9:06 AM EDT Images from the original note were not included. Checked status of Prior Auth - still in progress * Telephone Encounter - Ree Tirado RPh - 02/10/2023 4:15 PM EDT Images from the original note were not included. Filed prior auth at [facility] * Telephone Encounter - Jessie Bills LPN - 02/10/2023 3:38 PM EDT Insurance would not pay for asamnex--costs over $700.00 Currently is using--flovent for over a month states she is getting worse on flovent. Patient states that the pharmacist told her that we can ask for over ride or med auth on asamex. Can we try to get asmanex paid for due to flovent does not cover. Thank you * Telephone Encounter - AMAN Murphy - 02/10/2023 3:14 PM EDT Pt asking someone to contact her regarding her recent change in meds for COPD. She was recently switched, then tried to switch back bc it wasn't working The pharmacy did receive the script, however; states her insurance has advised she will have to payover 700.00 to pick up attendant. The pharmacy told her that if dr modi's office can contact the insurance to advise the other meds dont work, they may authorize it Pt is asking what to do. Please call her at [phone] documented in this encounter Plan of Treatment Upcoming Encounters Date Type Specialty Care Team Description 02/28/2023 Office Visit Family Medicine Maricarmen Modi, DO [address] [place] [address] 03/27/2023 Nurse Only [employer]illary [employer], Nurse Annual Wellness Visit [address] [facility] [address] [place] [address] 08/13/2023 Office Visit Dermatology Radha Bolivar MD Scheduled Procedures Name Priority Associated Diagnoses Date/Ti me COLONOSCOPY FLEXIBLE PROXIMA L DIAGNOSTIC Recall Family history of colon cancer Health Maintenance Due Date Last Done Comments Alpha-1 Antitrypsin 1963 COVID-19 Vaccine (4 - Pfizer series) 11/15/2021 09/20/2021, 11/09/2020, 10/19/2020 CKD PHOS USE SMARTSET 76806 05/10/2022 05/10/2021 CKD HGB USE SMARTSET 58275 04/08/202304/08, 04/08/2022, 10/14/2020, Additional history exists Albumin/Creatinine Ratio 04/11/2023 04/11/2022 Influenza Vaccine (FLU shot) (#1) 2023 04/11/2022, 06/15/2021, 05/08/2020, Additional history exists HbA1c 04/12/2023 04/12/2022, 04/13, 03/21/2020, Additional history exists GFR 05/03/2023 10/31/2022, 09/2021, 05/10/2021, Additional history exists Depression Screening, Annual for Pts 12 and Over 11/01/2023 10/31/2022 O2 ASSESSMENT COMPLETED IN PAST YEAR FOR COPD 11/01/2023 10/31/2022 COLONOSCOPY-EVERY 5 YRS AGES 18-100 04/21/2025 04/21/2020, [...] filedocumented as of this encounter Care Teams Ore Puncher Relationship Specialty Start Date End Date Maricarmen Modi DO [address] [place] [address] PCP - General Family Medicine 09/21/19 documented as of this encounter
--- OUTSIDE RECORDS SUMMARY | 2023-08-18 00:33 | External Medical Summary | Summary of Care ---
Author Name Unknown Organization [facility] Address [address] [place] [address] Phone [phone] Care Team Providers Care Rfid Engineer Name Role Phone Maricarmen Modi DO Primary Care Provider [phone] Reason for Visit * Reason Onset Date Comments Advice 02/10/2023 Encounter Details Date Type Department Care Team Description 02/10/2023 Telephone Family Practice [facility] [address] [place] [address] Maricarmen Modi DO [address] [place] [address] Advice Allergies Active Allergy Reactions Severity Noted Date Comments Amoxicillin Unknown 03/13/1999 Imidazole Antifungals 03/13/1999 Vaginal infections Tamoxifen Citrate Nausea/vomiting High 02/14/2010 documented as of this encounter (statuses as of 02/28/2023) Medications Medication Sig Dispensed Refills Start Date End Date Status Multiple Vitamins-Minerals (MULTIVITAMIN WOMENS 50+ ADV) TABS Take by mouth daily at noon. 0 Active Calcium Carb-Cholecalcifer ol 500-600 MG-UNIT Oral Tablet Take by mouth daily at noon. 0 Active [place]-3 Fatty Acids (FISH OIL) 1000 MG Capsule [...] s:COPD, group A, by GOLD 2017 classification ([facility] [...] as of this encounter (statuses as of 02/28/2023) Active Problems Problem Noted Date Caregiver stress [...] as of this encounter (statuses as of 02/28/2023) Resolved Problems Problem Noted Date Resolved Date [...] as of this encounter (statuses as of 02/28/2023) Immunizations Name Administration Dates Next Due COVID-19 mRNA, LNP-s, No Pre serve, 2-Dose Series ([employer]) 09/20/2021,11/09/2020,10/19/2020 Diptheria/Tetanus (Adult) 07/07/1991 Pneumococcal Conjugate Vacc, [...] Telephone Encounter - Ree Tirado RPh - 02/28/2023 4:18 PM EDT Racquel hole to be explained to patient on visit on 02/28 Lisinopril-HCTZ fill on 02/24/23 and shipped. On [employer] * Telephone Encounter - Ree Tirado RPh [...] were not included. 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 The pharmacy told her that if dr modi's office can contact the insurance to advise the other meds dont work, they may authorize it Pt is asking what to do. Please call her at [phone] documented in this encounter Plan of Treatment Upcoming Encounters Date Type Specialty Care Team Description 02/28/2023 [facility] Visit [facility] [address] Ar[facility] 03/27/2023 Nurse Only [employer]illary [employer], Nurse Annual Wellness Visit [address] [facility] [address] [facility], [place] [address] 08/13/2023 Office Visit Dermatology Radha Bolivar MD Scheduled Procedures Name Priority Associated Diagnoses Date/Ti me COLONOSCOPY FLEXIBLE PROXIMA L DIAGNOSTIC Recall Family history of colon cancer Health Maintenance Due Date Last Done Comments Alpha-1 Antitrypsin 1963 COVID-19 Vaccine (4 - Pfizer series) 11/15/2021 09/20/2021, 11/09/2020, 10/19/2020 CKD PHOS USE SMARTSET 37616 05/10/2022 05/10/2021 CKD HGB USE SMARTSET 31228 04/08/202304/08, 04/08/2022, 10/14/2020, Additional history exists Albumin/Creatinine Ratio 04/11/2023 04/11/2022 Influenza Vaccine (FLU shot) (#1) 2023 04/11/2022, 06/15/2021, 05/08/2020, Additional history exists HbA1c 04/12/2023 04/12/2022, 04/13, 03/21/2020, Additional history exists GFR 05/03/2023 10/31/2022, 09/0 09/2021, 05/10/2021, Additional history exists Depression Screening, [...] filedocumented as of this encounter Care Teams Rfid Engineer Relationship Specialty Start Date End Date Maricarmen Modi, [address] [place] [address] PCP - General Family Medicine 09/21/19 documented as of this encounter
[2023-08-18] MEDS ORDERED: ACETAMINOPHEN 1,000 MG/100 ML VIAL IV STA (00:40)
[2023-08-18] MEDS ORDERED: LIDOCAINE 5% 1 PATCH TD STA (00:40)
[2023-08-18] MEDS ORDERED: SODIUM CHLORIDE 0.9% 1,000 ML IV SCH (00:45)
--- NOTE | 2023-08-18 00:46 | Emergency Department Note ---
Impression & Plan Low back pain, Acute lumbar radiculopathy, Abdominal pain, Diverticulitis of intestine with perforation and abscess ED Provider Note ED Provider Note NAME: ELISABETH HYLTON AGE:78 SEX: Female : 1945 ARRIVES VIA: EMS INFORMANT: Patient ED PROVIDER(s): Jennifer Camacho DO CHIEF COMPLAINT: Low back pain HPI: This is a 78-year-old female presents emergency department due to worsening low back pain and concern for sciatica. Patient states symptoms began on and she thought she had exacerbated her sciatica due to cleaning for the holidays. She states she has had persistent pain at that time across her low back however worse on the left than the right with radiation into her left buttock, left hip, and down the left lower extremity. She states she has been very uncomfortable and had difficulty sleeping, is unable to stand for more than a couple minutes at a time due to worsening pain. She states she did see her family doctor who gave her a muscle relaxer to take twice daily, and 7 Percocet to use in the interim. She has also been taking ibuprofen. She states she has not had any improvement or relief. She states she also has accompanying left-sided abdominal pain. No other change in urine or stools. She states she has been drinking a lot of water and so is also urinating more frequently. PAST MEDICAL HISTORY:See Below PAST SURGICAL HISTORY:See Below FAMILY HISTORY:See Below SOCIAL HISTORY:See Below HOME MEDICATIONS:See Below ALLERGIES:See Below VITALS:See Below PHYSICAL EXAMINATION: GENERAL: alert, uncomfortable appearing, well nourished, no distress, non-toxic EYE EXAM: normal conjunctiva, PERRL and EOM's grossly intact OROPHARYNX: no exudate, no erythema, lips, buccal mucosa, and tongue normal and mucous membranes are moist NECK: supple, no nuchal rigidity, no adenopathy, non-tender LUNGS: Clear to auscultation. Normal chest wall mechanics, no w/r/r HEART: no murmurs, S1 normal and S2 normal ABDOMEN: abdomen soft, left lower abd pain with palpation, normo-active bowel sounds, no masses, no rebound or guarding. BACK: Back is symmetrical on inspection and there is no deformity, diffuse tenderness across the low back, no CVA tenderness. SKIN: no rashes, petechiae, orbruising UPPER EXTREMITIES: upper extremities are grossly normal. FROM, nml pulses b/l. LOWER EXTREMITIES: No pitting edema. Decreased ROM due to pain, nml pulses b/l. Well-healed vertical midline incisions at bilateral knees consistent with prior knee replacements. Sensation intact bilaterally. Compartments soft. No evidence of trauma. NEURO EXAM: Normal sensorium, cranial nerves II-XII grossly intact, normal speech, no facial droop,nogross weakness of arms, weakness noted in lower extremities secondary to pain left greater than right. Gross sensation intact. No ataxia. Vital Signs: reviewed and remarkable Differential Diagnosis: Differential diagnoses includes but is not limited to lumbar radiculopathy, muscle strain, facture, cauda equina, mass, and disc herniation. MEDICAL DECISION MAKING: This is a 78-year-old female presents for 2 weeks of low back pain with radiation of the left lower extremity as well as some mild accompanying left- sided abdominal pain. Patient concern for exacerbation of sciatica. She was afebrile vital signs stable. Labs drawn and sent, IV established, EKG performed at bedside and interpreted by me and patient monitored on telemetry. Patient given IV Tylenol, Lidoderm patch, and IV fentanyl initially for pain and sent for CT of the lumbar spine as well as CT of the abdomen and pelvis due to exam findings. She was given IV fluids as well as a dose of IV Decadron. CT of the abdomen pelvis showed perforated diverticulitis with a small abscess. I did inquire with on-call general surgery via [facility] if they felt this could be kept here on IV antibiotics or need to transfer for more emergent drainage/intervention. Dr. Melgar felt patient could remain here on IV antibiotics and did not need any urgent intervention. Patient was updated at bedside and all results and plan. IV antibiotics added. Case discussed with the hospitalist for additional evaluation and management. Consultation(s): 0340: Discussed with Dr. Muse, [facility] hospitalist, for additional evaluation and management. ER Treatment Provided: See below Diagnostics Interpreted By Me: -ECG: Normal sinus at 77, normal axis, normal intervals, no acute ST/T wave changes. -Cardiac Monitoring: An order was placed for continuous cardiac monitoring. The monitor shows a rate of 80 with [normal sinus rhythm. -Laboratory studies: As stated above and show below. -Imaging studies: [] Triage Nursing Note Reviewed Prior/Outside Records Reviewed Past Med/Surg History Social History Smoking Status: Never smoker Preferred Language: Thai Feels Safe at Home: Yes Allergies Allergies Allergy/AdvReac Type Severity Reaction Status Date / Time Penicillins Allergy Intermediate RASH/HIVES; Verified 08/18/23 06:32 FATHER FROM PCN REACTION zolpidem Allergy Mild RASH Verified 08/18/23 01:20 talc Allergy Unknown "CANNOT Verified 08/18/23 01:20 USE TALC PRODUCTS!" SEVERE BURNING, PAIN tamoxifen AdvReac Severe nausea/vomi Verified 08/18/23 01:20 ting Imidazole Antifungals Allergy Severe "BURNING, Uncoded 08/18/23 01:20 AGONIZING PAIN" Home Meds Home Medications Medication Instructions Recorded Confirmed atorvastatin 20 mg tablet 20 mg PO DAILY 08/18/23 08/18/23 baclofen 10 mg tablet 10 mg PO BID 08/18/23 08/18/23 beclomethasone dipropionate 40 1 inh inhalation AMPM 08/18/23 08/18/23 mcg/actuation HFA breath activated aerosol (Qvar RediHaler) calcium carbonate 500 mg-vitamin 1 tab PO DAILY 08/18/23 08/18/23 D3 15 mcg (600 unit) tablet cyanocobalamin (vitamin B-12) 5,000 mcg sublingual DAILY 08/18/23 08/18/23 5,000 mcg sublingual tablet (Vitamin B-12) diclofenac sodium 1 % topical gel 0 g topical TID PRN Pain 08/18/23 08/18/23 ipratropium 0.5 mg-albuterol 3 mg 3 ml inhalation QID 08/18/23 08/18/23 (2.5 mg base)/3 mL nebulization soln lisinopril 20 2 tab PO QAM 08/18/23 08/18/23 mg-hydrochlorothiazide 12.5 mg tablet loratadine 10 mg tablet 10 mg PO DAILY 08/18/23 08/18/23 meloxicam 7.5 mg tablet 7.5 mg PO QAM 08/18/23 08/18/23 [id number] 1 tab PO DAILY 08/18/23 08/18/23 tablet (Multivitamin 50 Plus tablet) omega-3 fatty acids 1,000 mg 1,000 mg PO DAILY 08/18/23 08/18/23 capsule omeprazole 20 mg capsule,delayed 40 mg PO DAILY 08/18/23 08/18/23 release pregabalin 25 mg capsule 25 mg PO QAM 08/18/23 08/18/23 pregabalin 25 mg capsule 50 mg PO QPM 08/18/23 08/18/23 Results & Data (ED) Vital Signs Vital Signs - 24 hr 08/18/23 00:31 08/18/23 02:00 08/18/23 02:33 Temperature 36.5 C Temperature Source Oral Pulse Rate 92 H 77 Pulse Rate [Apical] 76 Pulse Rhythm [Apical] Respiratory Rate 18 16 Respiratory Effort / Characteristics Non-Labored Spontaneous Non-Labored Spontaneous Respiratory Depth Normal Normal Respiratory Pattern Regular Regular Blood Pressure 151/83 H Blood Pressure [Left Arm] 118/67 Blood Pressure Mean 105 Blood Pressure Mean [Left Arm] 84 Blood Pressure Position Semi-fowlers Blood Pressure Position [Left Arm] Semi-fowlers Pulse Oximetry 97 98 Oxygen Delivery Method Room Air Room Air Sepsis Recent Fever Within 48 Hours No Sepsis New/Unexplained Change in Mental Status N/A Sepsis Action Taken by Nursing No Action Required 08/18/23 04:49 Temperature 36.4 C L Temperature Source Oral Pulse Rate Pulse Rate [Apical] 71 Pulse Rhythm [Apical] Regular Respiratory Rate 20 Respiratory Effort / Characteristics Non-Labored Spontaneous Respiratory Depth Normal Respiratory Pattern Regular Blood Pressure Blood Pressure [Left Arm] 103/74 Blood Pressure Mean Blood Pressure Mean [Left Arm] 83 Blood Pressure Position Blood Pressure Position [Left Arm] Semi-fowlers Pulse Oximetry 95 Oxygen Delivery Method Room Air Sepsis Recent Fever Within 48 Hours Sepsis New/Unexplained Change in Mental Status Sepsis Action Taken by Nursing Laboratory Data 08/18/23 01:26 08/18/23 01:26 Lab Results 08/18/23 Range/Units 01: WBC 11.01 H (4.8-10.8) K/ul RBC 4.68 (4.20-5.40) M/uL Hgb 13.4 (12.0-16.0) g/dl Hct 41.8 (37.0-47.0) % MCV 89.3 (80.0-100.0) fL MCH 28.6 (25.0-34.0) pg MCHC 32.1 (32.0-36.0) g/dL RDW Std Deviation 45.4 (36.4-46.3) fL RDW Coeff of Kavita 14.0 (11.5-14.5) % Plt Count 262 (130-400) K/uL MPV 9.7 (9.4-12.4) fL Immature Gran % (Auto) 0.4 % Neut % (Auto) 78.3 % Lymph % (Auto) 10.1 % Cook % (Auto) 10.4 % Eos % (Auto) 0.5 % Baso % (Auto) 0.3 % Neut # (Auto) 8.62 H (1.40-6.50) K/uL Lymph # (Auto) 1.11 L (1.20-3.40) K/uL Cook # (Auto) 1.15 H (0.11-0.59) K/uL Eos # (Auto) 0.06 (0.00-0.50) K/uL Baso # (Auto) 0.03 (0.00-0.20) K/uL Immature Gran # (Auto) 0.04 (0.01-0.20) K/uL Sodium 137 (136-145) mmol/L Potassium 4.1 (3.5-5.1) mmol/L Chloride 103 (98-107) mmol/L Carbon Dioxide 28 (21-32) mmol/L Anion Gap 6 (3-11) BUN 30 H (6-23) mg/dl Creatinine 1.01 (0.6-1.2) mg/dl Est Cr Clr Drug Dosing 57.1 ml/min Est GFR ( Amer) 62.6 ml/min Est GFR (Non-Af Amer) 54.0 ml/min BUN/Creatinine Ratio 29.7 H (10-20) Glucose 137 H (70-99(Fasting)) mg/dl Calcium 8.8 (8.6-10.3) mg/dl Total Bilirubin 1.0 (0.2-1.0) mg/dl AST 18 (13-39) U/L ALT 11 (7-52) U/L Alkaline Phosphatase 67 (34-104) U/L Total Protein 6.1 (6.0-8.3) gm/dl Albumin 3.4 (3.4-5.0) gm/dl Globulin 2.7 (2.5-4.0) gm/dl Albumin/Globulin Ratio 1.3 (0.9-2) Lipase 9 L (11-82) U/L Administered Medications Sodium Chloride (Nss) 1,000 mls @ 125 mls/hr IV .Q8H ERIN Stop: 09/17/23 05:57 Last Admin: 08/18/23 06:52 Dose: 125 mls/hr Documented By: SAM Discontinued Medications Dexamethasone Sodium Phosphate (DexamethasonePf 10 Mg/Ml Vial) 10 mg IV NOW ONE Stop: 08/18/23 02:08 Last Admin: 08/18/23 02:34 Dose: 10 mg Documented By: SAM Fentanyl Citrate (Fentanyl Citrate Pf 100 Mcg/2 Ml Vial) 50 mcg IV Q15M PRN PRN Reason: Pain Stop: 09/01/23 00:39 Last Admin: 08/18/23 01:57 Dose: 50 mcg Documented By: Admin: 08/18/23 00:52 Dose: 50 mcg Documented By: SAM Sodium Chloride (Nss) 1,000 mls @ 125 mls/hr IV .Q8H ERIN Stop: 09/17/23 00:44 Last Infusion: 08/18/23 06:52 Dose: Infused Documented By: Admin: 08/18/23 00:57 Dose: 125 mls/hr Documented By: SAM Acetaminophen (Ofirmev) 1,000 mg in 100 mls @ 400 mls/hr IV NOW STA Stop: 08/18/23 00:54 Last Infusion: 08/18/23 01:06 Dose: Infused Documented By: Admin: 08/18/23 00:51 Dose: 400 mls/hr Documented By: SAM Metronidazole (Flagyl) 500 mg in 100 mls @ 100 mls/hr IV NOW STA; Protocol Stop: 08/18/23 04:37 Last Infusion: 08/18/23 05:12 Dose: Infused Documented By: Admin: 08/18/23 04:12 Dose: 100 mls/hr Documented By: SAM Levofloxacin/Dextrose (Levaquin/D5w) 750 mg in 150 mls @ 100 mls/hr IV NOW STA Stop: 08/18/23 05:07 Last Infusion: 08/18/23 06:16 Dose: Infused Documented By: Admin: 08/18/23 04:46 Dose: 100 mls/hr Documented By: SAM Lidocaine (Lidocaine 5% 1 Patch) 1 patch TD NOW STA Stop: 08/18/23 00:41 Last Admin: 08/18/23 00:51 Dose: 1 patch Documented By: SAM Imaging Data Radiologist's Impression: Abdomen/Pelvis CT 08/18/23 00:40 CR Exam(s): CT ABDOMEN + PELVIS Without Contrast EXAM: CT Abdomen and Pelvis Without Intravenous Contrast CLINICAL HISTORY: Reason for exam: LLQ abd pain. TECHNIQUE: Axial computed tomography images of the abdomen and pelvis without intravenous contrast. Automated exposure control was utilized for the study. A dose lowering technique was utilized adhering to the principles of ALARA. COMPARISON: 05/10/2014. FINDINGS: Lung bases: Unremarkable. No mass. No consolidation. ABDOMEN: Liver: Unremarkable. Gallbladder and bile ducts: Unremarkable. No calcified stones. No ductal dilation. Pancreas: Unremarkable. No ductal dilation. Spleen: Unremarkable. No splenomegaly. Adrenals: Unremarkable. No mass. Kidneys and ureters: Complex partially calcified 7.5 x 5.4 cm right renal cyst or cystic mass. No hydronephrosis or hydroureter. Stomach and bowel: No obstruction or ileus. Left and sigmoid colon diverticulosis. Proximal sigmoid colon wall thickening with surrounding fluid and infiltration and a extraluminal gas-containing collection 2.5 x 3.1 cm, consistent diverticulitis and localized perforation/abscess. No free intraperitoneal gas elsewhere in the abdomen or pelvis. PELVIS: Appendix: No findings to suggest acute appendicitis. Bladder: Partially contracted. No stones. Reproductive: Uterus is grossly unremarkable. Ovaries not visualized. ABDOMEN and PELVIS: Intraperitoneal space: No free air. No free fluid. Bones/joints: No acute fracture. Degenerative changes lumbar spine, unchanged. Soft tissues: Unremarkable. Vasculature: Atherosclerotic vascular calcifications. No abdominal aortic aneurysm. Lymph nodes: Unremarkable. No enlarged lymph nodes. IMPRESSION: Proximal sigmoid colon acute diverticulitis with adjacent air-fluid collection compatible with localized perforation. Right renal cyst seen on 05/10/2014 now with a complex partially calcified appearance. Recommend correlation with ultrasound. Communications: Call Doctor Pneumoperitoneum, new or unexpected Electronically signed by: Alexandr Benavides M.D. 08/18/23 03:[address] 08/18/23 00:40 Exam(s): CT L SPINE EXAM: CT Lumbar Spine Without Intravenous Contrast CLINICAL HISTORY: Reason for exam: low back pain, radiculopathy. TECHNIQUE: Axial computed tomography images of the lumbar spine without intravenous contrast. Automated exposure control was utilized for the study. A dose lowering technique was utilized adhering to the principles of ALARA. COMPARISON: CT abdomen pelvis 05/10/2014. FINDINGS: Vertebrae: No acute fracture. Maintenance of height of the vertebral bodies. Bilateral L5 spondylitic defects. Unchanged 1.1 cm grade 2 anterior spinal listhesis of L5 on S1 spondylolisthesis. Bone mineralization within normal limits. Discs/spinal canal/neural foramina: Multilevel degenerative changes, greatest at L4-5 and L5-S1.. Soft tissues: Paraspinal soft tissues are unremarkable. Partially visualized probable sigmoid colon diverticulitis. IMPRESSION: Chronic degenerative changes lumbar spine including grade 2 anterior subluxation of L5 on S1. Pelvic inflammatory changes, see CT abdomen pelvis performed at the same time. Electronically signed by: Alexandr Benavides M.D. 08/18/23 03:13 AM Discharge Plan Visit Data Chief Complaint: Back Injury/Pain Stated Complaint: SCIATIC NERVE PAIN ED Provider: Jennifer Camacho Discharge Problem: Low back pain, Acute lumbar radiculopathy, Abdominal pain, Diverticulitis of intestine with perforation and abscess Patient Disposition: Admitted As Inpatient Discharge Instructions Interventions: ED Discharge Assessment Last Done: 08/18/23 05:59
[2023-08-18] MEDS: fentaNYL citrate PF 100 MCG/2 ML VIAL IV PRN ×2 (00:52→01:57)
[2023-08-18 01:39] LABS: Basophils # (auto) 0.03 K/uL (0.00-0.20); Basophils % (auto) 0.3 %; Eosinophils # (auto) 0.06 K/uL (0.00-0.50); Eosinophils % (auto) 0.5 %; Hematocrit (blood only) 41.8 % (37.0-47.0); Hemoglobin 13.4 g/dl (12.0-16.0); Immature Granulocytes # (auto) 0.04 K/uL (0.01-0.20); Immature Granulocytes % (auto) 0.4 %; Lymphocytes # (auto) 1.11 K/uL (1.20-3.40); Lymphocytes % (auto) 10.1 %; Mean Corpuscular Hemoglobin 28.6 pg (25.0-34.0); Mean Corpuscular Hgb Conc 32.1 g/dL (32.0-36.0); Mean Corpuscular Volume 89.3 fL (80.0-100.0); Mean Platelet Volume 9.7 fL (9.4-12.4); Monocytes # (auto) 1.15 K/uL (0.11-0.59); Monocytes % (auto) 10.4 %; Neutrophils # (auto) 8.62 K/uL (1.40-6.50); Neutrophils % (auto) 78.3 %; Platelet Count 262 K/uL (130-400); RDW Standard Deviation 45.4 fL (36.4-46.3); Red Blood Count 4.68 M/uL (4.20-5.40); White Blood Count 11.01 K/ul (4.8-10.8)
[2023-08-18 01:54] LABS: Albumin Globulin Ratio 1.3 (0.9-2); Albumin Level 3.4 gm/dl (3.4-5.0); BUN Creatinine Ratio 29.7 (10-20); Calcium 8.8 mg/dl (8.6-10.3); Creatinine Clr Calc Pharmacy 57.1 ml/min; Est GFR (African American) 62.6 ml/min; Globulin 2.7 gm/dl (2.5-4.0); Potassium 4.1 mmol/L (3.5-5.1); Total Protein 6.1 gm/dl (6.0-8.3)
[2023-08-18] MEDS ORDERED: dexAMETHasone**PF** 10 MG/ML VIAL IV ONE (02:07)
--- NOTE | 2023-08-18 03:14 | CT Scan Report ---
Exam(s): CT L SPINE EXAM: CT Lumbar Spine Without Intravenous Contrast CLINICAL HISTORY: Reason for exam: low back pain, radiculopathy. TECHNIQUE: Axial computed tomography images of the lumbar spine without intravenous contrast. Automated exposure control was utilized for the study. A dose lowering technique was utilized adhering to the principles of ALARA. COMPARISON: CT abdomen pelvis 05/10/2014. FINDINGS: Vertebrae: No acute fracture. Maintenance of height of the vertebral bodies. Bilateral L5 spondylitic defects. Unchanged 1.1 cm grade 2 anterior spinal listhesis of L5 on S1 spondylolisthesis. Bone mineralization within normal limits. Discs/spinal canal/neural foramina: Multilevel degenerative changes, greatest at L4-5 and L5-S1.. Soft tissues: Paraspinal soft tissues are unremarkable. Partially visualized probable sigmoid colon diverticulitis. IMPRESSION: Chronic degenerative changes lumbar spine including grade 2 anterior subluxation of L5 on S1. Pelvic inflammatory changes, see CT abdomen pelvis performed at the same time. Electronically signed by: Alexandr Benavides M.D. 08/18/23 03:13 AM
--- NOTE | 2023-08-18 03:28 | CT Scan Report ---
Exam(s): CT ABDOMEN + PELVIS Without Contrast EXAM: CT Abdomen and Pelvis Without Intravenous Contrast CLINICAL HISTORY: Reason for exam: LLQ abd pain. TECHNIQUE: Axial computed tomography images of the abdomen and pelvis without intravenous contrast. Automated exposure control was utilized for the study. A dose lowering technique was utilized adhering to the principles of ALARA. COMPARISON: 05/10/2014. FINDINGS: Lung bases: Unremarkable. No mass. No consolidation. ABDOMEN: Liver: Unremarkable. Gallbladder and bile ducts: Unremarkable. No calcified stones. No ductal dilation. Pancreas: Unremarkable. No ductal dilation. Spleen: Unremarkable. No splenomegaly. Adrenals: Unremarkable. No mass. Kidneys and ureters: Complex partially calcified 7.5 x 5.4 cm right renal cyst or cystic mass. No hydronephrosis or hydroureter. Stomach and bowel: No obstruction or ileus. Left and sigmoid colon diverticulosis. Proximal sigmoid colon wall thickening with surrounding fluid and infiltration and a extraluminal gas-containing collection 2.5 x 3.1 cm, consistent diverticulitis and localized perforation/abscess. No free intraperitoneal gas elsewhere in the abdomen or pelvis. PELVIS: Appendix: No findings to suggest acute appendicitis. Bladder: Partially contracted. No stones. Reproductive: Uterus is grossly unremarkable. Ovaries not visualized. ABDOMEN and PELVIS: Intraperitoneal space: No free air. No free fluid. Bones/joints: No acute fracture. Degenerative changes lumbar spine, unchanged. Soft tissues: Unremarkable. Vasculature: Atherosclerotic vascular calcifications. No abdominal aortic aneurysm. Lymph nodes: Unremarkable. No enlarged lymph nodes. IMPRESSION: Proximal sigmoid colon acute diverticulitis with adjacent air-fluid collection compatible with localized perforation. Right renal cyst seen on 05/10/2014 now with a complex partially calcified appearance. Recommend correlation with ultrasound. Communications: Call Doctor Pneumoperitoneum, new or unexpected Electronically signed by: Alexandr Benavides M.D. 08/18/23 03:27 AM
[2023-08-18] MEDS ORDERED: levoFLOXacin/D5W 750 MG/150 ML BAG IV STA (03:38)
[2023-08-18] MEDS ORDERED: metroNIDAZOLE 500 MG/100 ML BAG IV STA (03:38)
--- NOTE | 2023-08-18 05:32 | History & Physical Report ---
Date of Service August 18, 2023 Assessment & Plan (1) Acute diverticulitis: Plan: 78-year-old female with past med significant for hyperlipidemia, prediabetes, COPD, allergic rhinitis, hypertension, solar purpura, peripheral vascular disease, obesity, CKD stage III, history of breast cancer, presents with severe back pain going on since radiating to the left hip, left abdomen and left leg. She is taking baclofen and daily Percocet but the pain was not getting better and the last few days she WAS HAVING nausea and not able to eat anything. Somewhat constipated. Denies any blood in the stools. Micturating okay. And she was having difficulty ambulating which prompted her to come to the ER today. Denies any headache. No runny nose or sore throat. No cough. No chest pain or shortness of breath. She also complains of last several days of seeing colors when she is closing eyes and when she opens eyes she almost feels like a 3D picture going on in front of her . That was happening until before she came to the hospital. But currently vision is okay. She also noticed some twitching of her right fingers. CT abdomen pelvis showing acute sigmoid diverticulitis with localized perforation. Acute diverticulitis Localized perforation ER notified surgery recommend conservative management Received IV Levaquin and Flagyl as patient is allergic to penicillins Will continue Cipro and Flagyl N.p.o. for now IV fluids IV Dilaudid as needed IV antiemetics as needed Surgery consult Close monitor Severe back pain History of sciatica CT lumbar spine showing degenerative changes and grade 2 anterior subluxation of L5 on S1 Received Decadron Pain control If not improving will consult orthospine Visual hallucinations Possibly from baclofen Will follow CT head Currently vision is okay Prediabetes Will follow HbA1c levels Hypertension On lisinopril hydrochlorothiazide Will monitor Hyperlipidemia On statin History of COPD Nebs as needed CKD stage III Presented creatinine 1 Will follow labs DVT prophylaxis Lovenox Disposition Medical floor Full code History of Present Illness Chief Complaint: Back pain Primary Care Provider: Maricarmen Ann DO 78-year-old female with past med significant for hyperlipidemia, prediabetes, COPD, allergic rhinitis, hypertension, solar purpura, peripheral vascular disease, obesity, CKD stage III, history of breast cancer, presents with severe back pain going on since radiating to the left hip, left abdomen and left leg. She is taking baclofen and daily Percocet but the pain was not getting better and the last few days she is also HAVING nausea and not able to eat anything. Somewhat constipated. Denies any blood in the stools. Micturating okay. And she was having difficulty ambulating which prompted her to come to the ER today. Denies any headache. No runny nose or sore throat. No cough. No chest pain or shortness of breath. She also complains of last several days of seeing colors when she is closing eyes and when she opens eyes she almost feels like a 3D picture going on in front of her . That was happening until before she came to the hospital. But currently vision is okay. She also noticed some twitching of her right fingers. CT abdomen pelvis showing acute sigmoid diverticulitis with localized perforation. Past medical history as mentioned above Past surgical history breast lesion excision. . Colonoscopy. Double knee replacement. Several knee surgeries. Bilateral knee arthroscopy. Cataracts. Appendectomy. Revision of tennis elbow. Social history. . No smoking. Alcohol occasionally. No drug use. Family history. Mother had colon cancer. Father had staph infection of heart valve. Maternal grandmother had colon cancer. Allergies Allergy/AdvReac Type Severity Reaction Status Date / Time Penicillins Allergy Intermediate RASH/HIVES; Verified 08/18/23 06:32 FATHER FROM PCN REACTION zolpidem Allergy Mild RASH Verified 08/18/23 01:20 talc Allergy Unknown "CANNOT Verified 08/18/23 01:20 USE TALC PRODUCTS!" SEVERE BURNING, PAIN tamoxifen AdvReac Severe nausea/vomi Verified 08/18/23 01:20 ting Imidazole Antifungals Allergy Severe "BURNING, Uncoded 08/18/23 01:20 AGONIZING PAIN" Home Medications Medication Instructions Recorded Confirmed Type atorvastatin 20 mg tablet 20 mg PO DAILY 08/18/23 08/18/23 History baclofen 10 mg tablet 10 mg PO BID 08/18/23 08/18/23 History beclomethasone dipropionate 40 1 inh inhalation AMPM 08/18/23 08/18/23 History mcg/actuation HFA breath activated aerosol (Qvar RediHaler) calcium carbonate 500 mg-vitamin 1 tab PO DAILY 08/18/23 08/18/23 History D3 15 mcg (600 unit) tablet cyanocobalamin (vitamin B-12) 5,000 mcg sublingual DAILY 08/18/23 08/18/23 History 5,000 mcg sublingual tablet (Vitamin B-12) diclofenac sodium 1 % topical gel 0 g topical TID PRN Pain 08/18/23 08/18/23 History ipratropium 0.5 mg-albuterol 3 mg 3 ml inhalation QID 08/18/23 08/18/23 History (2.5 mg base)/3 mL nebulization soln lisinopril 20 2 tab PO QAM 08/18/23 08/18/23 History mg-hydrochlorothiazide 12.5 mg tablet loratadine 10 mg tablet 10 mg PO DAILY 08/18/23 08/18/23 History meloxicam 7.5 mg tablet 7.5 mg PO QAM 08/18/23 08/18/23 History mmyxghstlepq-ndmcycge-mmqmpm 1 tab PO DAILY 08/18/23 08/18/23 History tablet (Multivitamin 50 Plus tablet) omega-3 fatty acids 1,000 mg 1,000 mg PO DAILY 08/18/23 08/18/23 History capsule omeprazole 20 mg capsule,delayed 40 mg PO DAILY 08/18/23 08/18/23 History release pregabalin 25 mg capsule 25 mg PO QAM 08/18/23 08/18/23 History pregabalin 25 mg capsule 50 mg PO QPM 08/18/23 08/18/23 History Past Med/Surg History Social History Smoking Status: Never smoker Preferred Language: Zambian Feels Safe at Home: Yes Review of Systems Review of Systems: All systems reviewed & are unremarkable except as noted in HPI & below Physical Exam Physical Exam: General- Not in distress Head- atraumatic Eyes- EOMI,vision ok. ENT- oropharynx clear Neck- supple, no JVD. Lungs- clear to auscultation no wheezing or crackles. Heart- regular rhythm; no murmur, no gallop. Abdomen- normal bowel sounds, soft, tenderness in LLQ region no distension. Extremities- no pretibial edema, no erythema seen Neuro- alert, oriented x 3; EOMI; no facial palsy; no dysarthria; moves extremities. Skin- warm & dry Results & Data Results & Data Vital Signs (Past 12 Hours) Vital Signs Temp Pulse Pulse Resp BP BP Pulse Ox 08/18/23 04:49 36.4 C L 71 20 103/74 95 08/18/23 02:33 76 16 118/67 98 08/18/23 02:00 77 08/18/23 00:31 36.5 C 92 H 18 151/83 H 97 O2 Del Method 08/18/23 04:49 Room Air 08/18/23 02:33 Room Air 08/18/23 02:00 08/18/23 00:31 Room Air Diagnostic Findings Laboratory Results WBC 11.01 K/ul (4.8-10.8) H 08/18/23 01:26 RBC 4.68 M/uL (4.20-5.40) 08/18/23 01:26 Hgb 13.4 g/dl (12.0-16.0) 08/18/23 01:26 Hct 41.8 % (37.0-47.0) 08/18/23 01:26 MCV 89.3 fL (80.0-100.0) 08/18/23 01:26 MCH 28.6 pg (25.0-34.0) 08/18/23 01:26 MCHC 32.1 g/dL (32.0-36.0) 08/18/23 01:26 RDW Std Deviation 45.4 fL (36.4-46.3) 08/18/23 01:26 RDW Coeff of Kavita 14.0 % (11.5-14.5) 08/18/23 01:26 Plt Count 262 K/uL (130-400) 08/18/23 01:26 MPV 9.7 fL (9.4-12.4) 08/18/23 01:26 Immature Gran % (Auto) 0.4 % 08/18/23 01:26 Neut % (Auto) 78.3 % 08/18/23 01:26 Lymph % (Auto) 10.1 % 08/18/23 01:26 [place] % (Auto) 10.4 % 08/18/23 01:26 Eos % (Auto) 0.5 % 08/18/23 01:26 Baso % (Auto) 0.3 % 08/18/23 01:26 Neut # (Auto) 8.62 K/uL (1.40-6.50) H 08/18/23 01:26 Lymph # (Auto) 1.11 K/uL (1.20-3.40) L 08/18/23 01:26 [place] # (Auto) 1.15 K/uL (0.11-0.59) H 08/18/23 01:26 Eos # (Auto) 0.06 K/uL (0.00-0.50) 08/18/23 01:26 Baso # (Auto) 0.03 K/uL (0.00-0.20) 08/18/23 01:26 Immature Gran # (Auto) 0.04 K/uL (0.01-0.20) 08/18/23 01:26 Sodium 137 mmol/L (136-145) 08/18/23: Potassium 4.1 mmol/L (3.5-5.1) 08/18/23: Chloride 103 mmol/L (98-107) 08/18/23: Carbon Dioxide 28 mmol/L (21-32) 08/18/23:26 Anion Gap 6 (3-11) 08/18/23 01:26 BUN 30 mg/dl (6-23) H 08/18/23 01: Creatinine 1.01 mg/dl (0.6-1.2) 08/18/23 01:26 Est Cr Clr Drug Dosing 57.1 ml/min 08/18/23 01: Est GFR ( Amer) 62.6 ml/min 08/18/23 01: Est GFR (Non-Af Amer) 54.0 ml/min 08/18/23 01: BUN/Creatinine Ratio 29.7 (10-20) H 08/18/23 01:26 Glucose 137 mg/dl (70-99(Fasting)) H 08/18/23:26 Calcium 8.8 mg/dl (8.6-10.3) 08/18/23: Total Bilirubin 1.0 mg/dl (0.2-1.0) 08/18/23 01:26 AST 18 U/L (13-39) 08/18/23: ALT 11 U/L (7-52) 08/18/23:26 Alkaline Phosphatase 67 U/L (34-104) 08/18/23:26 Total Protein 6.1 gm/dl (6.0-8.3) 08/18/23 01:26 Albumin 3.4 gm/dl (3.4-5.0) 08/18/23:26 Globulin 2.7 gm/dl (2.5-4.0) 08/18/23:26 Albumin/Globulin Ratio 1.3 (0.9-2) 08/18/23 01:26 Lipase 9 U/L (11-82) L 08/18/23 01:26 Impressions Abdomen/Pelvis CT 08/18/23 00:40 CR Exam(s): CT ABDOMEN + PELVIS Without Contrast EXAM: CT Abdomen and Pelvis Without Intravenous Contrast CLINICAL HISTORY: Reason for exam: LLQ abd pain. TECHNIQUE: Axial computed tomography images of the abdomen and pelvis without intravenous contrast. Automated exposure control was utilized for the study. A dose lowering technique was utilized adhering to the principles of ALARA. COMPARISON: 05/10/2014. FINDINGS: Lung bases: Unremarkable. No mass. No consolidation. ABDOMEN: Liver: Unremarkable. Gallbladder and bile ducts: Unremarkable. No calcified stones. No ductal dilation. Pancreas: Unremarkable. No ductal dilation. Spleen: Unremarkable. No splenomegaly. Adrenals: Unremarkable. No mass. Kidneys and ureters: Complex partially calcified 7.5 x 5.4 cm right renal cyst or cystic mass. No hydronephrosis or hydroureter. Stomach and bowel: No obstruction or ileus. Left and sigmoid colon diverticulosis. Proximal sigmoid colon wall thickening with surrounding fluid and infiltration and a extraluminal gas-containing collection 2.5 x 3.1 cm, consistent diverticulitis and localized perforation/abscess. No free intraperitoneal gas elsewhere in the abdomen or pelvis. PELVIS: Appendix: No findings to suggest acute appendicitis. Bladder: Partially contracted. No stones. Reproductive: Uterus is grossly unremarkable. Ovaries not visualized. ABDOMEN and PELVIS: Intraperitoneal space: No free air. No free fluid. Bones/joints: No acute fracture. Degenerative changes lumbar spine, unchanged. Soft tissues: Unremarkable. Vasculature: Atherosclerotic vascular calcifications. No abdominal aortic aneurysm. Lymph nodes: Unremarkable. No enlarged lymph nodes. IMPRESSION: Proximal sigmoid colon acute diverticulitis with adjacent air-fluid collection compatible with localized perforation. Right renal cyst seen on 05/10/2014 now with a complex partially calcified appearance. Recommend correlation with ultrasound. Communications: Call Doctor Pneumoperitoneum, new or unexpected Electronically signed by: Alexandr Benavides M.D. 08/18/23 03:[address] 08/18/23 00:40 Exam(s): CT L SPINE EXAM: CT Lumbar Spine Without Intravenous Contrast CLINICAL HISTORY: Reason for exam: low back pain, radiculopathy. TECHNIQUE: Axial computed tomography images of the lumbar spine without intravenous contrast. Automated exposure control was utilized for the study. A dose lowering technique was utilized adhering to the principles of ALARA. COMPARISON: CT abdomen pelvis 05/10/2014. FINDINGS: Vertebrae: No acute fracture. Maintenance of height of the vertebral bodies. Bilateral L5 spondylitic defects. Unchanged 1.1 cm grade 2 anterior spinal listhesis of L5 on S1 spondylolisthesis. Bone mineralization within normal limits. Discs/spinal canal/neural foramina: Multilevel degenerative changes, greatest at L4-5 and L5-S1.. Soft tissues: Paraspinal soft tissues are unremarkable. Partially visualized probable sigmoid colon diverticulitis. IMPRESSION: Chronic degenerative changes lumbar spine including grade 2 anterior subluxation of L5 on S1. Pelvic inflammatory changes, see CT abdomen pelvis performed at the same time. Electronically signed by: Alexandr Benavides M.D. 08/18/23 03:13 AM ECG Additional Comments: ECG. Sinus rhythm with PACs at a rate of 77. No acute ST changes seen. Code Status & VTE Plan VTE Prophylaxis Plan VTE Prophylaxis will be ordered: Yes
[2023-08-18] MEDS ORDERED: DICLOFENAC SOD 1% GEL 100 GM TUBE EXT PRN (05:58)
[2023-08-18] MEDS ORDERED: PROMETHAZINE HCL 12.5 MG in SODIUM CHLORIDE 0.9% 50 ML IV PRN (05:58)
--- NOTE | 2023-08-18 06:28 | Surgery Consultation ---
Date of Consultation August 18, 2023 Assessment & Plan (1) Acute diverticulitis: 78 F with acute diverticulitis is HS stable and afebrile. No acute surgical intervention. Admit for conservative management and supportive care with NPO, IVF for hydration, IV antibiotics. Provide PRN antiemetics and analgesics. May have chemical DVT ppx. SCDs while in bed. May ambulate with assistance as tolerated. F/U am labs, will see in the am History of Present Illness Reason for Consultation: Acute divertiulitis Attending Physician: Ren Barron MD History of Present Illness 78 F with PMHx of neuropathy on Lyrica, HTN, hyperlipidemia, arthritis takes Meloxicam. PSHx , appendectomy about 15 years ago, left thumb tendon repair, 2 facial Moh's surgeries on her face a year ago and 7 knee surgeries b/l who presents with LLQ abdominal pain. In the ED she is afebrile, with stable VSS, mild leukocytosis to 11,000, CT A/P revealed diverticulosis with proximinal sigmoid colon inflammation, diverticulitis with adjacent 3cm abscess collection. A right renal cyst vs mass incidentally noted. Patient says she started having pain at her left side on day. That night she went to bed and had difficulty waking. The following days she blamed her left sided pain on sciatica as she was diagnosed with a pinched nerve betwe en the 5th and 6th vertebrae two years ago. Had continued pain, difficulty positioning at night. The pain finally got to the point last night that she could not go another day. She has been noticing abdominal pain after eating the past few days with nausea, gagging on liquids. Finally she vomited after having applesauce, tomato soup and crackers last night. Says she vomited what she ate. She also says she has been seeing optical illusions for the past week that has been worsening. Patient denies diarrhea or constipation, states she has been having BMs that have been a little more difficult to pass but nothing terribly unusual. She denies any other GI issues prior to this, no bloody stools. Is currently having LLQ abdominal pain and is gaseous, denies nausea. Yari says she has never smoked and drinks next to nothing. Last colonoscopy 2019 next one due in 2024. Patient believes she had a polyp removed and was told you have diverticulosis. Has never had any previous episodes of diverticulitis. Mother of colon cancer at age 78, diagnosed by 79. Maternal grandmother was 78 when she of colon cancer. Allergies Allergy/AdvReac Type Severity Reaction Status Date / Time Penicillins Allergy Intermediate RASH/HIVES; Verified 08/18/23 06:32 FATHER FROM PCN REACTION zolpidem Allergy Mild RASH Verified 08/18/23 01:20 talc Allergy Unknown "CANNOT Verified 08/18/23 01:20 USE TALC PRODUCTS!" SEVERE BURNING, PAIN tamoxifen AdvReac Severe nausea/vomi Verified 08/18/23 01:20 ting Imidazole Antifungals Allergy Severe "BURNING, Uncoded 08/18/23 01:20 AGONIZING PAIN" Home Medications Medication Instructions Recorded Confirmed Type atorvastatin 20 mg tablet 20 mg PO DAILY 08/18/23 08/18/23 History baclofen 10 mg tablet 10 mg PO BID 08/18/23 08/18/23 History beclomethasone dipropionate 40 1 inh inhalation AMPM 08/18/23 08/18/23 History mcg/actuation HFA breath activated aerosol (Qvar RediHaler) calcium carbonate 500 mg-vitamin 1 tab PO DAILY 08/18/23 08/18/23 History D3 15 mcg (600 unit) tablet cyanocobalamin (vitamin B-12) 5,000 mcg sublingual DAILY 08/18/23 08/18/23 History 5,000 mcg sublingual tablet (Vitamin B-12) diclofenac sodium 1 % topical gel 0 g topical TID PRN Pain 08/18/23 08/18/23 History ipratropium 0.5 mg-albuterol 3 mg 3 ml inhalation QID 08/18/23 08/18/23 History (2.5 mg base)/3 mL nebulization soln lisinopril 20 2 tab PO QAM 08/18/23 08/18/23 History mg-hydrochlorothiazide 12.5 mg tablet loratadine 10 mg tablet 10 mg PO DAILY 08/18/23 08/18/23 History meloxicam 7.5 mg tablet 7.5 mg PO QAM 08/18/23 08/18/23 History jgvleginuuvf-yqirziuv-vxjlqv 1 tab PO DAILY 08/18/23 08/18/23 History tablet (Multivitamin 50 Plus tablet) omega-3 fatty acids 1,000 mg 1,000 mg PO DAILY 08/18/23 08/18/23 History capsule omeprazole 20 mg capsule,delayed 40 mg PO DAILY 08/18/23 08/18/23 History release pregabalin 25 mg capsule 25 mg PO QAM 08/18/23 08/18/23 History pregabalin 25 mg capsule 50 mg PO QPM 08/18/23 08/18/23 History Patient History Social History Smoking Status: Never smoker Preferred Language: Bermudian Feels Safe at Home: Yes Review of Systems Constitutional: + weight loss (lost 16 pounds 3 months d ue to dieting, and recent sickness); no fever, no chills, no body aches and no malaise Respiratory: no cough, no chest congestion, no dyspnea and no wheezing Cardiovascular: no orthopnea, no palpitations, no syncope and no calf pain Gastrointestinal: + abdominal pain (LLQ) and + belching; n o heartburn and no nausea Physical Exam Constitutional: + obese and healthy appearing; no acute distress and not diaphoretic Respiratory: normal respiratory effort; no respiratory distress, no labored breathing and does not use accessory muscles Cardiovascular: Rate/Rhythm: regular rate; not tachycardic Extremities: no calf tenderness, no pedal edema and no edema Gastrointestinal (Abdomen): Abdomen is obese, soft Moderately TTP at the LLQ. No peritonitis. Old, well healed transverse suprapubic scar Results & Data Vital Signs (Past 12 Hours) Vital Signs Temp Pulse Pulse Resp BP BP Pulse Ox 08/18/23 06:00 70 08/18/23 04:49 36.4 C L 71 20 103/74 95 08/18/23 02:33 76 16 118/67 98 08/18/23 02:00 77 08/18/23 00:31 36.5 C 92 H 18 151/83 H 97 O2 Del Method 08/18/23 06:00 08/18/23 04:49 Room Air 08/18/23 02:33 Room Air 08/18/23 02:00 08/18/23 00:31 Room Air Laboratory Results WBC 11,000 Diagnostic Findings FINDINGS: Lung bases: Unremarkable. No mass. No consolidation. ABDOMEN: Liver: Unremarkable. Gallbladder and bile ducts: Unremarkable. No calcified stones. No ductal dilation. Pancreas: Unremarkable. No ductal dilation. Spleen: Unremarkable. No splenomegaly. Adrenals: Unremarkable. No mass. Kidneys and ureters: Complex partially calcified 7.5 x 5.4 cm right renal cyst or cystic mass. No hydronephrosis or hydroureter. Stomach and bowel: No obstruction or ileus. Left and sigmoid colon diverticulosis. Proximal sigmoid colon wall thickening with surrounding fluid and infiltration and a extraluminal gas-containing collection 2.5 x 3.1 cm, consistent diverticulitis and localized perforation/abscess. No free intraperitoneal gas elsewhere in the abdomen or pelvis. PELVIS: Appendix: No findings to suggest acute appendicitis. Bladder: Partially contracted. No stones. Reproductive: Uterus is grossly unremarkable. Ovaries not visualized. ABDOMEN and PELVIS: Intraperitoneal space: No free air. No free fluid. Bones/joints: No acute fracture. Degenerative changes lumbar spine, unchanged. Soft tissues: Unremarkable. Vasculature: Atherosclerotic vascular calcifications. No abdominal aortic aneurysm. Lymph nodes: Unremarkable. No enlarged lymph nodes. IMPRESSION: Proximal sigmoid colon acute diverticulitis with adjacent air-fluid collection compatible with localized perforation. Right renal cyst seen on 05/10/2014 now with a complex partially calcified appearance. Recommend correlation with ultrasound. Communications: Call Doctor Pneumoperitoneum, new or unexpected Electronically signed by: Alexandr Benavides M.D. 08/18/23 03:27 AM PG Care Time/CCT Total # of Minutes Spent Total Time Spent with Patient: Total time spent is greater than 50% in coordination of care (as documented) at patient's floor/unit and/or counseling patient: [place] [address] OP VST NEW LOW 30 MIN Patient Type New History Detailed Exam Detailed Medical Decision Making Low Complexity Diagnoses Acute diverticulitis K57.92
[2023-08-18] MEDS: SODIUM CHLORIDE 0.9% 1,000 ML IV SCH ×3 (06:52→23:11)
[2023-08-18] MEDS ORDERED: ALBUT/IPRATROP 3MG/0.5MG NEB 3 ML VIAL INH SCH (07:00)
[2023-08-18] MEDS ORDERED: CALCIUM CARBONATE 1250MG TAB PO SCH (09:00)
--- NOTE | 2023-08-18 09:18 | Electrocardiogram Report ---
Test Reason : Blood Pressure : / mmHG Vent. Rate : 077 BPM Atrial Rate : 077 BPM P-R Int : 162 ms QRS Dur : 090 ms QT Int : 394 ms P-R-T Axes : 063 002 048 degrees QTc Int : 445 ms Sinus rhythm with Premature atrial complexes Low voltage QRS Borderline ECG When compared with ECG of 13-JUL-2019 11:41, Premature ventricular complexes are no longer Present Premature atrial complexes are now Present Confirmed by Martin Scott ([id number]) on 08/18/2023 9:17:43 AM Referred By: REFERRED SELF Confirmed By:Martin Scott
[2023-08-18 10:38] LABS: Appearance Urine Clear (Clear); Bacteria Urine Automated Negative (Negative); Bilirubin Urine Negative (Negative); Blood Urine Negative (Negative); Color Urine Yellow; Epithelial Cell Urine Auto >30 /lpf (0-5); Glucose Urine UA Negative (Negative); Ketones Urine Negative (Negative); Leukocyte Esterase Urine Trace (Negative); Nitrite Urine Negative (Negative); Protein Urine Negative (Negative); Urobilinogen Urine Negative (Negative); pH Urine 5.5 (4.5-7.5)
[2023-08-18] MEDS ORDERED: ALBUT/IPRATROP 3MG/0.5MG NEB 3 ML VIAL INH PRN (10:47)
[2023-08-18] MEDS: ATORVASTATIN 20 MG TAB PO SCH (10:59)
[2023-08-18] MEDS: CYANOCOBALAMIN (B-12) 2,500 MCG TABLET SL SCH (11:19)
[2023-08-18] MEDS: ENOXAPARIN INJ 40 MG/0.4 ML SYR SQ SCH ×2 (11:19→20:08)
[2023-08-18] MEDS: FLUTICASONE FUROATE 100MCG 14 PUFFS/INHALER INH SCH (11:20)
[2023-08-18] MEDS: LISINOPRIL/HCTZ 20/12.5MG 1 TAB TAB PO SCH (11:20)
[2023-08-18] MEDS: CEROVITE ADV FORMULA TAB PO SCH (11:21)
[2023-08-18] MEDS: LORATADINE 10 MG TAB PO SCH (11:21)
[2023-08-18] MEDS: PREGABALIN 25 MG CAP PO SCH (11:22)
[2023-08-18] MEDS: CALCIUM CARBONATE 1250MG TAB PO SCH (11:32)
--- NOTE | 2023-08-18 12:19 | CT Scan Report ---
CT SCAN OF THE BRAIN WITHOUT IV CONTRAST CLINICAL HISTORY: Change in mental status. Visual hallucinations. COMPARISON STUDY: MRI of the brain dated 06/15/2007. TECHNIQUE: Unenhanced axial CT scan of the brain is performed from the vertex to the skull base. A do se lowering technique was utilized adhering to the principles of ALARA. CT DOSE: 625.8 mGy.cm FINDINGS: Brain parenchyma: There is age-related involutional change noting [id number]-kv-ebaxqzyl subcortical and pe riventricular microangiopathic disease. There is no hemorrhage, mass effect, or evidence of acute ter ritorial ischemia by CT criteria. Cochran-white matter differentiation is preserved. No extra-axial flui d collection is seen. Ventricles, sulci, cisterns: Prominent secondary to involutional change. Intracranial vasculature: There is atherosclerotic calcification of the cavernous carotid arteries. Calvarium: Unremarkable. Sinuses and mastoids: The visualized paranasal sinuses are clear. The mastoid air cells are well pneu matized. Orbits: The bony orbits are grossly intact. There are bilateral ocular lens implants. IMPRESSION: There is no hemorrhage, mass effect, or evidence of acute territorial ischemia by CT ana soto. ACT 112: Negative or not required by law. Electronically signed by: Noah Rowe M.D. 08/18/2023 12:17 PM
[2023-08-18] MEDS: metroNIDAZOLE 500 MG/100 ML BAG IV SCH ×2 (13:19→20:08)
[2023-08-18] MEDS: ACETAMINOPHEN 325 MG TAB PO PRN (14:48)
[2023-08-18] MEDS: PANTOprazole 40 MG TAB PO SCH (15:54)
[2023-08-18] MEDS: PREGABALIN 50 MG CAP PO SCH (20:08)
--- NOTE | 2023-08-19 00:31 | Hospitalist Progress Note ---
Date of Service August 18, 2023 Assessment & Plan (1) Acute diverticulitis: Plan 78-year-old female with past med significant for hyperlipidemia, prediabetes, COPD, allergic rhinitis, hypertension, solar purpura, peripheral vascular disease, obesity, CKD stage III, history of breast cancer admitted with concerning acute diverticulitis with perforation. Continue IV abx, fluids, NPO status. General surgery consulted-appreciate recs. For further information, see H & P from the same date. Admission and Anticipated Discharge Date Admission Date: August 18, 2023 Subjective Pt seen while laying in bed. Stated that she was concerned about her who has dementia but is on his way to see her. Family is out helping to find him. States that she is worried about the dx of diverticulitis. Thought she had sciatica. Review of Systems Review of Systems: All systems reviewed & are unremarkable except as noted in Subjective Physical Exam Physical Exam: General: Alert, oriented. No acute distress Skin: No noted rashes or bruises Psych: Appropriate mood and affect Neuro: No gross deficits HEENT: NC/AT Chest: Nontender to palpation. CV: RRR Resp: no increased effort of breathing. Abdomen:Soft, tender more in upper quadrants Extremities: trace edema in lower extremities bilaterally. Results & Data Results & Data Vital Signs (Past 12 Hours) Vital Signs Temp Pulse Pulse Pulse Resp BP Pulse Ox 08/18/23 10:32 36.3 C L 70 16 105/70 95 08/18/23 10:10 36.3 C L 70 18 105/70 95 08/18/23 09:30 84 14 94 08/18/23 09:00 72 22 96 08/18/23 08:30 63 12 94 08/18/23 08:03 63 08/18/23 08:00 66 14 94 08/18/23 07:30 66 15 94 08/18/23 07:00 67 12 93 08/18/23 06:00 70 08/18/23 04:49 36.4 C L 71 20 103/74 95 08/18/23 02:33 76 16 118/67 98 O2 Del Method 08/18/23 10:32 Room Air 08/18/23 10:10 Room Air 08/18/23 09:30 Room Air 08/18/23 09:00 Room Air 08/18/23 08:30 Room Air 08/18/23 08:03 08/18/23 08:00 Room Air 08/18/23 07:30 Room Air 08/18/23 07:00 Room Air 08/18/23 06:00 08/18/23 04:49 Room Air 08/18/23 02:33 Room Air
[2023-08-19] MEDS: metroNIDAZOLE 500 MG/100 ML BAG IV SCH ×3 (03:17→20:15)
[2023-08-19] MEDS: CIPROFLOXACIN / D5W 400 MG/200 ML BAG IV SCH ×2 (05:03→16:05)
[2023-08-19 06:24] LABS: Basophils # (auto) 0.04 K/uL (0.00-0.20); Basophils % (auto) 0.4 %; Eosinophils # (auto) 0.01 K/uL (0.00-0.50); Eosinophils % (auto) 0.1 %; Hematocrit (blood only) 39.3 % (37.0-47.0); Immature Granulocytes # (auto) 0.05 K/uL (0.01-0.20); Immature Granulocytes % (auto) 0.5 %; Lymphocytes # (auto) 0.96 K/uL (1.20-3.40); Lymphocytes % (auto) 8.7 %; Mean Corpuscular Hemoglobin 29.1 pg (25.0-34.0); Mean Corpuscular Hgb Conc 33.1 g/dL (32.0-36.0); Mean Corpuscular Volume 88.1 fL (80.0-100.0); Mean Platelet Volume 9.9 fL (9.4-12.4); Monocytes # (auto) 0.84 K/uL (0.11-0.59); Monocytes % (auto) 7.6 %; Neutrophils # (auto) 9.19 K/uL (1.40-6.50); Neutrophils % (auto) 82.7 %; Platelet Count 239 K/uL (130-400); RDW Coefficient of Variation 13.9 % (11.5-14.5); RDW Standard Deviation 44.8 fL (36.4-46.3); Red Blood Count 4.46 M/uL (4.20-5.40); White Blood Count 11.09 K/ul (4.8-10.8)
[2023-08-19 06:35] LABS: BUN Creatinine Ratio 27.7 (10-20); Calcium 8.9 mg/dl (8.6-10.3); Creatinine Clr Calc Pharmacy 60.9 ml/min; Est GFR (African American) 68.3 ml/min; Est GFR (Non-African American) 58.9 ml/min; Potassium 4.1 mmol/L (3.5-5.1)
[2023-08-19 07:37] LABS: Estimated Average Glucose 128 mg/dl; Hemoglobin A1C 6.1 % (4.5-5.6)
--- NOTE | 2023-08-19 07:43 | Surgery Progress Note ---
Date of Service August 19, 2023 Assessment & Plan (1) Diverticulitis of intestine with perforation and abscess: Plan: Acute diverticulitis with abscess formation. HD stable and afebrile. Continue IV antibiotics, IV fluids. Recommend adding D5 to IV fluids. Would not advance her diet today. Will continue with conservative measures for an additional day. May have ice chips. Continue ambulation. Mild leukocytosis remains this a.m. Follow-up labs for tomorrow a.m. Admission and Anticipated Discharge Date Admission Date: August 18, 2023 Subjective Patient was seen and examined. She denies nausea or vomiting admits to greatly improved abdominal pain. This a.m. she complains of a severe flareup of her sciatica. Patient says she has been passing a lot of gas and continues to have BMs. Physical Exam Constitutional: + obese; not ill appearing, not in distr ess and not diaphoretic Respiratory: normal respiratory effort; no respiratory distress, no labored breathing and does not use accessory muscles Cardiovascular: Rate/Rhythm: regular rate; not tachycardic Gastrointestinal (Abdomen): Decrease TTP LLQ. No peritonitis. No rebound or guarding. Results & Data Vital Signs (Past 12 Hours) Vital Signs Temp Pulse Resp BP Pulse Ox O2 Del Method 08/18/23 20:34 36.6 C 79 18 103/66 95 Room Air PG Care Time/CCT Total # of Minutes Spent Total Time Spent with Patient: Total time spent is greater than 50% in coordination of care (as documented) at patient's floor/unit and/or counseling patient: Coding Level of Care Code 99227 SUB INP/OBS CARE 09/04MIN Diagnoses Diverticulitis of intestine with perforation and abscess K57.80
[2023-08-19] MEDS: FLUTICASONE FUROATE 100MCG 14 PUFFS/INHALER INH SCH (08:42)
[2023-08-19] MEDS: LISINOPRIL/HCTZ 20/12.5MG 1 TAB TAB PO SCH (08:42)
[2023-08-19] MEDS: CYANOCOBALAMIN (B-12) 2,500 MCG TABLET SL SCH (08:42)
[2023-08-19] MEDS: CEROVITE ADV FORMULA TAB PO SCH (08:42)
[2023-08-19] MEDS: ATORVASTATIN 20 MG TAB PO SCH (08:42)
[2023-08-19] MEDS: LORATADINE 10 MG TAB PO SCH (08:43)
[2023-08-19] MEDS: CALCIUM CARBONATE 1250MG TAB PO SCH (08:43)
[2023-08-19] MEDS: ENOXAPARIN INJ 40 MG/0.4 ML SYR SQ SCH ×2 (08:54→20:15)
[2023-08-19] MEDS: PREGABALIN 25 MG CAP PO SCH (08:54)
[2023-08-19] MEDS: SODIUM CHLORIDE 0.9% 1,000 ML IV SCH ×2 (08:59→15:59)
[2023-08-19] MEDS ORDERED: CALCIUM CARBONATE 1250MG TAB PO SCH (09:00)
[2023-08-19] MEDS: ACETAMINOPHEN 325 MG TAB PO PRN ×2 (15:04→19:01)
--- NOTE | 2023-08-19 15:59 | Hospitalist Progress Note ---
Date of Service August 19, 2023 Assessment & Plan (1) Acute diverticulitis: Plan: 78-year-old female with past med significant for hyperlipidemia, prediabetes, COPD, allergic rhinitis, hypertension, solar purpura, peripheral vascular disease, obesity, CKD stage III, history of breast cancer, presents with severe back pain going on since [place] radiating to the left hip, left abdomen and left leg. She is taking baclofen and daily Percocet but the pain was not getting better and the last few days she was having nausea and not able to eat anything. Somewhat constipated. Denies any blood in the stools. Micturating okay. And she was having difficulty ambulating which prompted her to come to the ER today. Denies any headache. No runny nose or sore throat. No cough. No chest pain or shortness of breath. She also complains of last several days of seeing colors when she is closing eyes and when she opens eyes she almost feels like a 3D picture going on in front of her . That was happening until before she came to the hospital. But currently vision is okay. She also noticed some twitching of her right fingers. CT abdomen pelvis showing acute sigmoid diverticulitis with localized perforation. Acute diverticulitis Localized perforation ER notified surgery recommend conservative management Received IV Levaquin and Flagyl as patient is allergic to penicillins Will continue Cipro and Flagyl N.p.o. for now IV fluids, will add D5 per gen surg recs IV Dilaudid as needed IV antiemetics as needed Surgery consult - appreciate recs Close monitor Severe back pain History of sciatica CT lumbar spine showing degenerative changes and grade 2 anterior subluxation of L5 on S1 Received Decadron Pain control If not improving will consult orthospine encourage ambulation Visual hallucinations Possibly from baclofen CT head negative Currently vision is okay resolved Prediabetes Will follow HbA1c levels a1c 6.1 pt educated regarding pre diabetes, lifestyle modifications Hypertension On lisinopril hydrochlorothiazide BP on softer side so will hold for now Hyperlipidemia On statin History of COPD Nebs as needed CKD stage III Presented creatinine 1 Will follow labs DVT prophylaxis Lovenox Disposition Medical floor, not yet medically stable for d/c Full code PCP: Dr. Ann Pt was seen and examined in collaboration with Dr. Severino, please see addendum A total of 56 was spent coordinating, documenting, and providing care for this patient excluding time spent in the performance of separately billed services. This included personally viewing all current laboratories and imaging studies, medication reconciliation, outpatient chart review, and discussion with specialists. (2) Diverticulitis of intestine with perforation and abscess: (3) Abdominal pain: Admission and Anticipated Discharge Date Admission Date: August 18, 2023 Supervising Physician Co-Signing Physician Notes Pt seen and examined by myself, Susan Severino MD on the day of service. Care was coordinated with uLciana Rodriguez PA-C. 78yoF admitted with diverticulitis with perforation. Was seen walking back to her room with her nurse. Was ambulating with no acute distress. On exam seated in chair at bedside, her abdomen was nontender. General surgery- consulted, recommending conservative management Continue IV abx, IV fluids, still NPO status. Prediabetes noted. Otherwise as noted above. Subjective Patient was seen and examined in room 357. Follow-up diverticulitis. Patient states she had significant flatus this morning which alleviated a lot of her abdominal symptoms. Still with pain but very mild. She is only having chips of ice. She denies fever, chills, sweats, lightheadedness, dizziness, chest pain, shortness with, nausea or vomiting. She denies prior episode of diverticulitis, but did state her last colonoscopy she was she was told she had diverticulosis. She gets them every 5 years due to family history of colon cancer. Review of Systems Review of Systems: All systems reviewed & are unremarkable except as noted in HPI & below Physical Exam Physical Exam: Gen: WD/WN, NAD, A&O x3 HEENT: Normocephalic, atraumatic, conjunctivae moist, sclerae anicteric, mucous membranes moist. Lung: Clear to Auscultation bilaterally, no wheezes/rales/rhonchi Heart: Regular rate, regular rhythm, no murmurs, rubs, or gallops Abdomen: Soft, NT, ND +BS x 4 Extremities: No edema Skin: Warm, no rash, negative turgor. Results & Data Results & Data Vital Signs (Past 12 Hours) Vital Signs Temp Pulse Resp BP Pulse Ox O2 Del Method 08/19/23 13:31 36.8 C 63 16 111/72 96 Room Air 08/19/23 07:48 36.4 C L 66 16 99/64 L 96 Room Air Laboratory Results Short CBC 08/19/23 Range/Units 06:02 WBC 11.09 H (4.8-10.8) K/ul Hgb 13.0 (12.0-16.0) g/dl Hct 39.3 (37.0-47.0) % Plt Count 239 (130-400) K/uL BMP 08/19/23 06:02 Sodium 141 Potassium 4.1 Chloride 109 H Carbon Dioxide 26 BUN 26 H Creatinine 0.94 Glucose 112 H Calcium 8.9 Medications Administered Current Inpatient Medications Acetaminophen (Acetaminophen 325 Mg Tab) 650 mg PO Q4H PRN PRN Reason: pain/fever Stop: 09/17/23 05:57 Last Admin: 08/19/23 15:04 Dose: 650 mg Albuterol (Albut/Ipratrop 3mg/0.5mg Neb 3 Ml Vial) 3 ml INH QIDR PRN; Protocol PRN Reason: Shortness Of Breath Or Wheezing Stop: 09/17/23 06:59 Atorvastatin Calcium (Atorvastatin 20 Mg Tab) 20 mg PO DAILY [facility]IN Stop: 09/17/23 08:59 Last Admin: 08/19/23 08:42 Dose: 20 mg Calcium Carbonate (Calcium Carbonate 1250mg Tab) 1,250 mg PO DAILY [facility] Stop: 09/17/23 11:29 Last Admin: 08/19/23 08:43 Dose: 1,250 mg Cyanocobalamin (Cyanocobalamin (B-12) 2,500 Mcg Tablet) 5,000 mcg SL DAILY [facility] Stop: 09/17/23 08:59 Last Admin: 08/19/23 08:42 Dose: 5,000 mcg Diclofenac Sodium (Diclofenac Sod 1% Gel 100 Gm Tube) 2 gm EXT TID PRN; Protocol PRN Reason: Pain Stop: 09/17/23 05:57 Enoxaparin Sodium (Enoxaparin Inj 40 Mg/0.4 Ml Syr) 40 mg SQ Q12 [facility] Stop: 09/17/23 08:59 Last Admin: 08/19/23 08:54 Dose: 40 mg Fluticasone Furoate (Fluticasone Furoate 100mcg 14 Puffs/Inhaler) 1 puffs INH DAILY [facility] Stop: 09/17/23 08:59 Last Admin: 08/19/23 08:42 Dose: 1 puffs Lisinopril/HCTZ (Lisinopril/Hctz 20/12.5mg 1 Tab Tab) 2 tab PO QAM [facility] Stop: 09/17/23 08:59 Last Admin: 08/19/23 08:42 Dose: 2 tab Hydromorphone HCl (Hydromorphone Inj 0.5 Mg/0.5 Ml Syr) 0.5 mg IV Q3H PRN PRN Reason: Mod-Sev Pain (Scale 4-10) Stop: 09/01/23 05:57 Metronidazole (Flagyl) 500 mg in 100 mls @ 100 mls/hr IV Q8H [facility]; Protocol Stop: 08/28/23 11:59 Last Infusion: 08/19/23 13:44 Dose: Infused Ciprofloxacin (Cipro / D5w) 400 mg in 200 mls @ 100 mls/hr IV Q12H [facility]; Protocol Stop: 08/29/23 04:59 Last Infusion: 08/19/23 07:06 Dose: Infused Promethazine HCl 12.5 mg/ (Sodium Chloride) 50.5 mls @ 202 mls/hr IV Q6H PRN PRN Reason: Nausea And Vomiting Stop: 09/17/23 05:57 Dextrose/Sodium Chloride (D5w And Nss) 1,000 mls @ 125 mls/hr IV .Q8H [facility] Stop: 09/18/23 15:59 Loratadine (Loratadine 10 Mg Tab) 10 mg PO DAILY [facility] Stop: 09/17/23 08:59 Last Admin: 08/19/23 08:43 Dose: 10 mg Multivitamins/Minerals (Cerovite Adv Formula Tab) 1 tab PO DAILY [facility] Stop: 09/17/23 08:59 Last Admin: 08/19/23 08:42 Dose: 1 tab Pantoprazole Sodium (Pantoprazole 40 Mg Tab) 40 mg PO DAILY@1630 [facility] Stop: 09/17/23 16:29 Last Admin: 08/18/23 15:54 Dose: 40 mg Pregabalin (Pregabalin 25 Mg Cap) 25 mg PO QAM [facility] Stop: 09/17/23 08:59 Last Admin: 08/19/23 08:54 Dose: 25 mg Pregabalin (Pregabalin 50 Mg Cap) 50 mg PO QPM [facility] Stop: 09/17/23 20:59 Last Admin: 08/18/23 20:08 Dose: 50 mg
[2023-08-19] MEDS: D5W AND NSS 1,000 ML IV SCH (16:02)
[2023-08-19] MEDS: PANTOprazole 40 MG TAB PO SCH (16:03)
[2023-08-19] MEDS: HYDROmorphone INJ 0.5 MG/0.5 ML SYR IV PRN ×2 (19:04→22:07)
[2023-08-19] MEDS: PREGABALIN 50 MG CAP PO SCH (20:15)
[2023-08-20] MEDS: D5W AND NSS 1,000 ML IV SCH ×4 (01:33→21:11)
[2023-08-20] MEDS: metroNIDAZOLE 500 MG/100 ML BAG IV SCH ×3 (04:12→21:11)
[2023-08-20] MEDS: CIPROFLOXACIN / D5W 400 MG/200 ML BAG IV SCH ×2 (04:12→17:25)
[2023-08-20 08:43] LABS: Basophils # (auto) 0.05 K/uL (0.00-0.20); Basophils % (auto) 0.5 %; Eosinophils # (auto) 0.14 K/uL (0.00-0.50); Eosinophils % (auto) 1.5 %; Hematocrit (blood only) 40.4 % (37.0-47.0); Hemoglobin 12.7 g/dl (12.0-16.0); Immature Granulocytes # (auto) 0.04 K/uL (0.01-0.20); Immature Granulocytes % (auto) 0.4 %; Lymphocytes # (auto) 1.21 K/uL (1.20-3.40); Lymphocytes % (auto) 12.8 %; Mean Corpuscular Hemoglobin 28.8 pg (25.0-34.0); Mean Corpuscular Hgb Conc 31.4 g/dL (32.0-36.0); Mean Corpuscular Volume 91.6 fL (80.0-100.0); Mean Platelet Volume 9.8 fL (9.4-12.4); Monocytes # (auto) 0.96 K/uL (0.11-0.59); Monocytes % (auto) 10.1 %; Neutrophils # (auto) 7.07 K/uL (1.40-6.50); Neutrophils % (auto) 74.7 %; Platelet Count 228 K/uL (130-400); RDW Coefficient of Variation 14.5 % (11.5-14.5); RDW Standard Deviation 48.5 fL (36.4-46.3); Red Blood Count 4.41 M/uL (4.20-5.40); White Blood Count 9.47 K/ul (4.8-10.8)
[2023-08-20] MEDS: CYANOCOBALAMIN (B-12) 2,500 MCG TABLET SL SCH (08:50)
[2023-08-20] MEDS: ATORVASTATIN 20 MG TAB PO SCH (08:50)
[2023-08-20] MEDS: FLUTICASONE FUROATE 100MCG 14 PUFFS/INHALER INH SCH (08:50)
[2023-08-20] MEDS: CALCIUM CARBONATE 1250MG TAB PO SCH (08:50)
[2023-08-20] MEDS: LORATADINE 10 MG TAB PO SCH (08:50)
[2023-08-20] MEDS: CEROVITE ADV FORMULA TAB PO SCH (08:50)
[2023-08-20] MEDS: PREGABALIN 25 MG CAP PO SCH (08:56)
[2023-08-20] MEDS: ACETAMINOPHEN 325 MG TAB PO PRN (08:56)
[2023-08-20] MEDS: ENOXAPARIN INJ 40 MG/0.4 ML SYR SQ SCH ×2 (09:01→21:11)
[2023-08-20 09:08] LABS: Albumin Globulin Ratio 1.2 (0.9-2); Albumin Level 3.1 gm/dl (3.4-5.0); BUN Creatinine Ratio 23.7 (10-20); Bilirubin,Total 0.6 mg/dl (0.2-1.0); Calcium 8.6 mg/dl (8.6-10.3); Creatinine Clr Calc Pharmacy 61.6 ml/min; Est GFR (African American) 69.2 ml/min; Est GFR (Non-African American) 59.7 ml/min; Globulin 2.5 gm/dl (2.5-4.0); Magnesium 1.8 mg/dl (1.7-2.4); Potassium 4.2 mmol/L (3.5-5.1); Total Protein 5.6 gm/dl (6.0-8.3)
--- NOTE | 2023-08-20 10:50 | Surgery Progress Note ---
Date of Service August 20, 2023 Assessment & Plan (1) Diverticulitis of intestine with perforation and abscess: Plan: Patient continues to be afebrile, HD stable. Leukocytosis resolved this am . Continue IVF, IV abx She may have sips and chips today Continue to ambulate DVT ppx am labs Admission and Anticipated Discharge Date Admission Date: August 18, 2023 Subjective Patient seen and examined this am. She says she had an episode of increased abdominal pain o/n. She denies N/V, F/C. States she is passing flatus, no BM. Physical Exam Constitutional: + obese and healthy appearing; not in di stress and not diaphoretic Respiratory: normal respiratory effort; no respiratory distress, no labored breathing and does not use accessory muscles Cardiovascular: Rate/Rhythm: regular rate; not tachycardic Gastrointestinal (Abdomen): Localized TTP LLQ Abdomen soft Results & Data Vital Signs (Past 12 Hours) Vital Signs Temp Pulse Resp BP Pulse Ox O2 Del Method 08/20/23 08:09 36.8 C 63 16 102/66 96 Room Air Laboratory Results WBC 9.47 from 11.09 yesterday PG Care Time/CCT Total # of Minutes Spent Total Time Spent with Patient: Total time spent is greater than 50% in coordination of care (as documented) at patient's floor/unit and/or counseling patient: Coding [place] [address] SUB INP/OBS CARE 1/25MIN Patient Type Established History Problem Focused Exam Problem Focused Medical Decision Making Straight Forward Diagnoses Diverticulitis of intestine with perforation and abscess K57.80
[2023-08-20] MEDS: HYDROmorphone INJ 0.5 MG/0.5 ML SYR IV PRN ×2 (12:20→21:20)
[2023-08-20] MEDS: TROLAMINE SALICYLATE 10% CRM 255 APPLN/85 GM TUBE EXT SCH ×2 (14:17→21:11)
[2023-08-20] MEDS: ACETAMINOPHEN 325 MG TAB PO SCH ×3 (14:19→21:11)
--- NOTE | 2023-08-20 15:17 | Hospitalist Progress Note ---
Date of Service August 20, 2023 Assessment & Plan (1) Acute diverticulitis: Plan: 78-year-old female with past med significant for hyperlipidemia, prediabetes, COPD, allergic rhinitis, hypertension, solar purpura, peripheral vascular disease, obesity, CKD stage III, history of breast cancer, presents with severe back pain going on since [place] radiating to the left hip, left abdomen and left leg. She is taking baclofen and daily Percocet but the pain was not getting better and the last few days she was having nausea and not able to eat anything. Somewhat constipated. Denies any blood in the stools. Micturating okay. And she was having difficulty ambulating which prompted her to come to the ER today. Denies any headache. No runny nose or sore throat. No cough. No chest pain or shortness of breath. She also complains of last several days of seeing colors when she is closing eyes and when she opens eyes she almost feels like a 3D picture going on in front of her . That was happening until before she came to the hospital. But currently vision is okay. She also noticed some twitching of her right fingers. CT abdomen pelvis showing acute sigmoid diverticulitis with localized perforation. Acute diverticulitis Localized perforation ER notified surgery recommend conservative management Received IV Levaquin and Flagyl as patient is allergic to penicillins Will continue Cipro and Flagyl N.p.o. except sips/chips continue IVF/Antbiotics CBC, CMP in a.m. IV Dilaudid as needed IV antiemetics as needed Surgery consult - appreciate recs Close monitor Severe back pain History of sciatica CT lumbar spine showing degenerative changes and grade 2 anterior subluxation of L5 on S1 Received Decadron Pain control MRI reviewed and independently interpreted as L5-S1 anterior listhesis, L1-L2 severe neuroforaminal narrowing secondary to disc protrusion Consult Dr. Chavez -discussed at bedside with Dr. Chavez consult PT, add myoflex, await MRI results encourage ambulation Visual hallucinations Possibly from baclofen CT head negative Currently vision is okay resolved Prediabetes Will follow HbA1c levels a1c 6.1 pt educated regarding pre diabetes, lifestyle modifications Hypertension On lisinopril hydrochlorothiazide BP on softer side so will hold for now Hyperlipidemia On statin History of COPD Nebs as needed CKD stage III Presented creatinine 1 Will follow labs DVT prophylaxis Lovenox Disposition Medical floor, not yet medically stable for d/c Full code PCP: Dr. Ann Pt was seen and examined in collaboration with Dr. Severino, please see addendum A total of 56 was spent coordinating, documenting, and providing care for this patient excluding time spent in the performance of separately billed services. This included personally viewing all current laboratories and imaging studies, medication reconciliation, outpatient chart review, and discussion with specialists. (2) Diverticulitis of intestine with perforation and abscess: (3) Abdominal pain: Admission and Anticipated Discharge Date Admission Date: August 18, 2023 Supervising Physician Co-Signing Physician Notes Pt seen and examined by myself, Susan Severino MD on the day of service. Care was coordinated with Luciana Rodriguez PA-C. 78yoF admitted with diverticulitis with perforation. Was seen laying in bed, with no acute distress. General surgery- consulted, recommending conservative management at this time. Continue IV abx, IV fluids, sips and chips. Prediabetes noted. MRI spine for f/u chronic back pain. Otherwise as noted above. Subjective Patient was seen and examined in room 357. Follow-up acute diverticulitis and low back pain with radiation to left lower extremity. She continues to pass gas, but no bowel movement. She continues to have left lower quadrant abdominal pain but not as severe. She denies any nausea or vomiting. She remains NPO. She continues to complain of low back pain with radiation to her left buttock and down the lateral side of her left leg to her level of her knee. She has been dealing with this since the day after . She denies any known trauma or injury, but states she was working really hard over the season and feels that she likely overdid it. She was seen by PCP who prescribed her Percocet which did seem to alleviate her pain, but symptoms have been worsening. Her pain is impairing her mobility. She states she had similar symptoms approximately 2 years ago and she underwent PT which improved her symptoms. Review of Systems Review of Systems: All systems reviewed & are unremarkable except as noted in HPI & below Physical Exam Physical Exam: Gen: WD/WN, NAD, A&O x3 HEENT: Normocephalic, atraumatic, conjunctivae moist, sclerae anicteric, mucous membranes moist. Lung: Clear to Auscultation bilaterally, no wheezes/rales/rhonchi Heart: Regular rate, regular rhythm, no murmurs, rubs, or gallops Abdomen: Soft, NT, ND +BS x 4 Extremities: No edema Skin: Warm, no rash, negative turgor. Results & Data Results & Data Vital Signs (Past 12 Hours) Vital Signs Temp Pulse Resp BP Pulse Ox O2 Del Method 08/20/23 08:09 36.8 C 63 16 102/66 96 Room Air Laboratory Results Short CBC 08/20/23 Range/Units 08:09 WBC 9.47 (4.8-10.8) K/ul Hgb 12.7 (12.0-16.0) g/dl Hct 40.4 (37.0-47.0) % Plt Count 228 (130-400) K/uL BMP 08/20/23 08:09 Sodium 140 Potassium 4.2 Chloride 108 H Carbon Dioxide 28 BUN 22 Creatinine 0.93 Glucose 108 H Calcium 8.6 Liver Function 08/20/23 Range/Units 08:09 Total Bilirubin 0.6 (0.2-1.0) mg/dl AST 32 (13-39) U/L ALT 16 (7-52) U/L Alkaline Phosphatase 53 (34-104) U/L Albumin 3.1 L (3.4-5.0) gm/dl I have independently reviewed and interpreted patient's labs including CBC, CMP, mag Diagnostic Findings MRI pending Medications Administered Current Inpatient Medications Acetaminophen (Acetaminophen 325 Mg Tab) 650 mg PO QID [facility] Stop: 09/19/23 12:59 Last Admin: 08/20/23 14:19 Dose: 650 mg Albuterol (Albut/Ipratrop 3mg/0.5mg Neb 3 Ml Vial) 3 ml INH QIDR PRN; Protocol PRN Reason: Shortness Of Breath Or Wheezing Stop: 09/17/23 06:59 Atorvastatin Calcium (Atorvastatin 20 Mg Tab) 20 mg PO DAILY [facility] Stop: 09/17/23 08:59 Last Admin: 08/20/23 08:50 Dose: 20 mg Calcium Carbonate (Calcium Carbonate 1250mg Tab) 1,250 mg PO DAILY [facility] Stop: 09/17/23 11:29 Last Admin: 08/20/23 08:50 Dose: 1,250 mg Cyanocobalamin (Cyanocobalamin (B-12) 2,500 Mcg Tablet) 5,000 mcg SL DAILY [facility] Stop: 09/17/23 08:59 Last Admin: 08/20/23 08:50 Dose: 5,000 mcg Diclofenac Sodium (Diclofenac Sod 1% Gel 100 Gm Tube) 2 gm EXT TID PRN; Protocol PRN Reason: Pain Stop: 09/17/23 05:57 Enoxaparin Sodium (Enoxaparin Inj 40 Mg/0.4 Ml Syr) 40 mg SQ Q12 [facility] Stop: 09/17/23 08:59 Last Admin: 08/20/23 09:01 Dose: 40 mg Fluticasone Furoate (Fluticasone Furoate 100mcg 14 Puffs/Inhaler) 1 puffs INH DAILY [facility] Stop: 09/17/23 08:59 Last Admin: 08/20/23 08:50 Dose: 1 puffs Lisinopril/HCTZ (Lisinopril/Hctz 20/12.5mg 1 Tab Tab) 2 tab PO QAM [facility] Stop: 09/17/23 08:59 Last Admin: 08/19/23 08:42 Dose: 2 tab Hydromorphone HCl (Hydromorphone Inj 0.5 Mg/0.5 Ml Syr) 0.5 mg IV Q3H PRN PRN Reason: Mod-Sev Pain (Scale 4-10) Stop: 09/01/23 05:57 Last Admin: 08/20/23 12:20 Dose: 0.5 mg Metronidazole (Flagyl) 500 mg in 100 mls @ 100 mls/hr IV Q8H [facility]; Protocol Stop: 08/28/23 11:59 Last Infusion: 08/20/23 12:44 Dose: Infused Ciprofloxacin (Cipro / D5w) 400 mg in 200 mls @ 100 mls/hr IV Q12H [facility]; Protocol Stop: 08/29/23 04:59 Last Infusion: 08/20/23 06:14 Dose: Infused Promethazine HCl 12.5 mg/ (Sodium Chloride) 50.5 mls @ 202 mls/hr IV Q6H PRN PRN Reason: Nausea And Vomiting Stop: 09/17/23 05:57 Dextrose/Sodium Chloride (D5w And Nss) 1,000 mls @ 125 mls/hr IV .Q8H [facility] Stop: 09/18/23 15:59 Last Infusion: 08/20/23 14:19 Dose: 125 mls/hr Loratadine (Loratadine 10 Mg Tab) 10 mg PO DAILY [facility] Stop: 09/17/23 08:59 Last Admin: 08/20/23 08:50 Dose: 10 mg Multivitamins/Minerals (Cerovite Adv Formula Tab) 1 tab PO DAILY [facility] Stop: 09/17/23 08:59 Last Admin: 08/20/23 08:50 Dose: 1 tab Pantoprazole Sodium (Pantoprazole 40 Mg Tab) 40 mg PO DAILY@1630 [facility] Stop: 09/17/23 16:29 Last Admin: 08/19/23 16:03 Dose: 40 mg Pregabalin (Pregabalin 25 Mg Cap) 25 mg PO QAM [facility] Stop: 09/17/23 08:59 Last Admin: 08/20/23 08:56 Dose: 25 mg Pregabalin (Pregabalin 50 Mg Cap) 50 mg PO QPM [facility] Stop: 09/17/23 20:59 Last Admin: 08/19/23 20:15 Dose: 50 mg Trolamine Salicylate (Trolamine Salicylate 10% Crm 255 Appln/85 Gm Tube) 1 appln EXT BID [facility] Stop: 09/19/23 10:44 Last Admin: 08/20/23 14:17 Dose: Not Given
--- NOTE | 2023-08-20 15:31 | Magnetic Resonance Report ---
LUMBAR SPINE MRI HISTORY: Low back pain with left-sided sciatica. eval for disc herniation TECHNIQUE: Multiplanar multisequence MRI of the lumbar spine was performed without the use of contras t. COMPARISON: Lumbar spine CT 08/18/2023. Abdomen and pelvis CT 08/18/2023. FINDINGS: For the purpose of the report the L5-S1 disc space will be located on axial image 23 of 26. Bilateral L5 spondylolysis with associated 9 mm of anterolisthesis. This remains unchanged. Severe di sc space narrowing at L5-S1. There is mild disc space narrowing at L2-L3, L3-L4, L4-5. [id number] te facet degenerative changes within the lumbar spine. The conus terminates at the L1 level. Mild dis c space narrowing within the lower thoracic spine. The sacrum is intact. Partially visualized acute s igmoid diverticulitis with associated pericolonic contained perforation/abscess measuring 2.7 cm. Mul tiseptated cystic lesion within the right kidney is only partially imaged on this study. Paravertebra l soft tissues are unremarkable. L1-L2: There is 9 x 4 mm left paracentral/foraminal disc extrusion best seen on axial image 2 and sag ittal image 11. This likely compresses the exiting left L1 nerve root at this level. No significant c entral canal or right-sided neural foraminal narrowing. There is severe left-sided neural foraminal n arrowing due to the disc extrusion. L2-L3: Small broad-based posterior disc bulge without significant central canal or neural foraminal n arrowing. L3-L4: No significant central canal or neural foraminal narrowing. L4-L5: Small broad-based posterior disc bulge asymmetric to the left without significant central yaritza l or right-sided neural foraminal narrowing. There is mild left-sided neural foraminal narrowing. L5-S1: No significant central canal narrowing. There is moderate to severe bilateral neural foraminal narrowing due to the anterolisthesis. IMPRESSION: 1. A 9 x 4 mm left paracentral/foraminal disc extrusion at L1-L2 which compresses the exiting left L1 nerve root and results in severe left-sided neural foraminal narrowing. 2. Moderate to severe bilateral neural foraminal narrowing at L5-S1 secondary to the L5 spondylolysis /spondylolisthesis. 3. No acute fractures within the lumbar spine. 4. Partially visualized acute sigmoid diverticulitis with an associated pericolonic contained perfora tion/abscess measuring 2.7 cm. This is better appreciated on the recent abdomen and pelvis CT. 5. Partially visualized septated right renal cystic lesion is also better appreciated on the recent a bdomen and pelvis CT. ACT 112: Negative or not required by law. Electronically signed by: Rivas Kelly M.D. 08/20/2023 3:29 PM
--- NOTE | 2023-08-20 16:06 | Orthopedic Consultation ---
Date of Consultation August 20, 2023 Assessment & Plan (1) Acute lumbar radiculopathy: A CAT scan and MRI lumbar spine available for review. Demonstrates evidence of anterior listhesis L5-S1 with severe bilateral neuroforaminal disease. There is advanced vacuum phenomenon at L4-L5. There is evidence of a foraminal disc herniation L1-L2 on the left. Plan at this time she clearly needs to resolve her diverticulitis. Once this is been treated I would recommend a course of interventional pain management. I would also like to obtain standing x-rays lumbar spine throughout hospital stay to help us understand any dynamic component to her instability. History of Present Illness Reason for Consultation: Back and leg pain Attending Physician: Susan Severino MD History of Present Illness This is a very pleasant 78-year-old female that has been admitted for diverticulitis is pain management for possible abscess. She is complaining of significant back and leg pain with ambulation. Appears with lumbosacral junction rating into the bilateral buttocks left greater than right. It is exacerbated with standing and walking. It has been progressive in nature. She denies any history of undergoing interventional pain management. Allergies Allergy/AdvReac Type Severity Reaction Status Date / Time Penicillins Allergy Intermediate RASH/HIVES; Verified 08/18/23 06:32 FATHER FROM PCN REACTION zolpidem Allergy Mild RASH Verified 08/18/23 01:20 talc Allergy Unknown "CANNOT Verified 08/18/23 01:20 USE TALC PRODUCTS!" SEVERE BURNING, PAIN tamoxifen AdvReac Severe nausea/vomi Verified 08/18/23 01:20 ting Imidazole Antifungals Allergy Severe "BURNING, Uncoded 08/18/23 01:20 AGONIZING PAIN" Home Medications Medication Instructions Recorded Confirmed Type atorvastatin 20 mg tablet 20 mg PO DAILY 08/18/23 08/18/23 History baclofen 10 mg tablet 10 mg PO BID 08/18/23 08/18/23 History beclomethasone dipropionate 40 1 inh inhalation AMPM 08/18/23 08/18/23 History mcg/actuation HFA breath activated aerosol (Qvar RediHaler) calcium carbonate 500 mg-vitamin 1 tab PO DAILY 08/18/23 08/18/23 History D3 15 mcg (600 unit) tablet cyanocobalamin (vitamin B-12) 5,000 mcg sublingual DAILY 08/18/23 08/18/23 History 5,000 mcg sublingual tablet (Vitamin B-12) diclofenac sodium 1 % topical gel 0 g topical TID PRN Pain 08/18/23 08/18/23 History ipratropium 0.5 mg-albuterol 3 mg 3 ml inhalation QID 08/18/23 08/18/23 History (2.5 mg base)/3 mL nebulization soln lisinopril 20 2 tab PO QAM 08/18/23 08/18/23 History mg-hydrochlorothiazide 12.5 mg tablet loratadine 10 mg tablet 10 mg PO DAILY 08/18/23 08/18/23 History meloxicam 7.5 mg tablet 7.5 mg PO QAM 08/18/23 08/18/23 History dapmhhjykbno-afzcgjle-qurseo 1 tab PO DAILY 08/18/23 08/18/23 History tablet (Multivitamin 50 Plus tablet) omega-3 fatty acids 1,000 mg 1,000 mg PO DAILY 08/18/23 08/18/23 History capsule omeprazole 20 mg capsule,delayed 40 mg PO DAILY 08/18/23 08/18/23 History release pregabalin 25 mg capsule 25 mg PO QAM 08/18/23 08/18/23 History pregabalin 25 mg capsule 50 mg PO QPM 08/18/23 08/18/23 History Patient History Social History Smoking Status: Never smoker Hx Alcohol Use: Yes Alcohol type: wine Hx Substance Use: No Preferred Language: Spanish Communication Ability: Effective Hose Builder Required: No Beliefs That Will Affect Care: None Current Living Situation: Spouse Feels Safe at Home: Yes Assistive Devices: Cane Physical Exam Physical Exam: On exam she is sitting up at the bedside. She is cooperative. Is reasonable strength plantarflexion dorsiflexion to the bilateral feet. She has no significant tenderness palpation of the trochanteric region. Sensory appears to be intact. Results & Data Vital Signs (Past 12 Hours) Vital Signs Temp Pulse Resp BP Pulse Ox O2 Del Method 08/20/23 15:26 36.6 C 65 16 94/64 L 97 Room Air 08/20/23 08:09 36.8 C 63 16 102/66 96 Room Air
[2023-08-20] MEDS: PANTOprazole 40 MG TAB PO SCH (17:20)
[2023-08-20] MEDS: PREGABALIN 50 MG CAP PO SCH (21:11)
[2023-08-21] MEDS: metroNIDAZOLE 500 MG/100 ML BAG IV SCH ×3 (03:28→20:55)
[2023-08-21] MEDS: CIPROFLOXACIN / D5W 400 MG/200 ML BAG IV SCH ×2 (05:24→17:39)
[2023-08-21] MEDS: D5W AND NSS 1,000 ML IV SCH (05:25)
--- NOTE | 2023-08-21 06:44 | XRay Report ---
XR lumbar spine 2-3V CLINICAL HISTORY: standing films. Low back pain. COMPARISON STUDY: Lumbar spine MRI 08/20/2023. 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 Severe disc space narrowing at L5-S1. Mild disc space narrowing throughout the remaining lumbar spine. No acute fractures. The sacrum is intact. IMPRESSION: No acute fractures. Degenerative changes as described above. ACT 112: Negative or not required by law. Electronically signed by: Rivas Kelly M.D. 08/21/2023 6:41 AM
[2023-08-21 08:14] LABS: Basophils # (auto) 0.03 K/uL (0.00-0.20); Basophils % (auto) 0.6 %; Eosinophils # (auto) 0.18 K/uL (0.00-0.50); Eosinophils % (auto) 3.7 %; Hematocrit (blood only) 39.2 % (37.0-47.0); Hemoglobin 12.3 g/dl (12.0-16.0); Immature Granulocytes # (auto) 0.02 K/uL (0.01-0.20); Immature Granulocytes % (auto) 0.4 %; Lymphocytes # (auto) 1.18 K/uL (1.20-3.40); Lymphocytes % (auto) 24.1 %; Mean Corpuscular Hemoglobin 29.1 pg (25.0-34.0); Mean Corpuscular Hgb Conc 31.4 g/dL (32.0-36.0); Mean Corpuscular Volume 92.7 fL (80.0-100.0); Mean Platelet Volume 9.7 fL (9.4-12.4); Monocytes # (auto) 0.83 K/uL (0.11-0.59); Neutrophils # (auto) 2.65 K/uL (1.40-6.50); Neutrophils % (auto) 54.2 %; Platelet Count 203 K/uL (130-400); RDW Coefficient of Variation 14.5 % (11.5-14.5); RDW Standard Deviation 49.2 fL (36.4-46.3); Red Blood Count 4.23 M/uL (4.20-5.40); White Blood Count 4.89 K/ul (4.8-10.8)
[2023-08-21 08:17] LABS: Albumin Globulin Ratio 1.3 (0.9-2); Albumin Level 2.9 gm/dl (3.4-5.0); BUN Creatinine Ratio 17.6 (10-20); Bilirubin,Total 0.5 mg/dl (0.2-1.0); Calcium 8.1 mg/dl (8.6-10.3); Creatinine Clr Calc Pharmacy 67.4 ml/min; Est GFR (African American) 77.1 ml/min; Est GFR (Non-African American) 66.6 ml/min; Globulin 2.3 gm/dl (2.5-4.0); Magnesium 1.7 mg/dl (1.7-2.4); Potassium 3.5 mmol/L (3.5-5.1); Total Protein 5.2 gm/dl (6.0-8.3)
[2023-08-21] MEDS ORDERED: HYDROmorphone INJ 0.5 MG/0.5 ML SYR IV PRN (08:17)
--- NOTE | 2023-08-21 09:16 | Surgery Progress Note ---
<Statement entered by Viraj Melgar, DO - 08/21/23 21:59> This patient was seen and examined with the surgical PA and plan devised. Date of Service August 21, 2023 Assessment & Plan (1) Diverticulitis of intestine with perforation and abscess: Plan: Patient here with acute diverticulitis and abscess WBC 4.8. Vitals stable and patient afebrile Abdominal pain and nausea improving. She is starting to pass gas She is soft and not overly tender Will trial starting patient on clears today Continue IV abx Will follow. seen/examined with dr. melgar Admission and Anticipated Discharge Date Admission Date: August 18, 2023 Subjective Patient reports feeling better today and is passing a lot of flatus. Abdominal pain improved. No nausea this AM. No emesis. Physical Exam Physical Exam: awake/alert, no distress Respiratory: normal respiratory effort Gastrointestinal (Abdomen): Percussion/Palpation: abdomen soft; abdomen nontender Results & Data Vital Signs (Past 12 Hours) Vital Signs Temp Pulse Resp BP Pulse Ox O2 Del Method 08/21/23 07:21 36.7 C 66 16 124/79 97 Room Air PG Care Time/CCT Total # of Minutes Spent Total Time Spent with Patient: Total time spent is greater than 50% in coordination of care (as documented) at patient's floor/unit and/or counseling patient: Coding Level of Care Code 22563 SUB INP/OBS CARE 25MIN Diagnoses Diverticulitis of intestine with perforation and abscess K57.80
[2023-08-21] MEDS: ACETAMINOPHEN 325 MG TAB PO SCH ×4 (09:41→21:36)
[2023-08-21] MEDS: ATORVASTATIN 20 MG TAB PO SCH (09:41)
[2023-08-21] MEDS: CYANOCOBALAMIN (B-12) 2,500 MCG TABLET SL SCH (09:42)
[2023-08-21] MEDS: CALCIUM CARBONATE 1250MG TAB PO SCH (09:42)
[2023-08-21] MEDS: ENOXAPARIN INJ 40 MG/0.4 ML SYR SQ SCH ×2 (09:43→21:37)
[2023-08-21] MEDS: FLUTICASONE FUROATE 100MCG 14 PUFFS/INHALER INH SCH (09:43)
[2023-08-21] MEDS: CEROVITE ADV FORMULA TAB PO SCH (09:44)
[2023-08-21] MEDS: LORATADINE 10 MG TAB PO SCH (09:44)
[2023-08-21] MEDS: PREGABALIN 25 MG CAP PO SCH (09:53)
[2023-08-21] MEDS: TROLAMINE SALICYLATE 10% CRM 255 APPLN/85 GM TUBE EXT SCH ×2 (09:55→21:37)
--- NOTE | 2023-08-21 15:04 | Hospitalist Progress Note ---
Date of Service August 21, 2023 Assessment & Plan (1) Acute diverticulitis: Plan: 78-year-old female with past med significant for hyperlipidemia, prediabetes, COPD, allergic rhinitis, hypertension, solar purpura, peripheral vascular disease, obesity, CKD stage III, history of breast cancer, presents with severe back pain going on since Wolf radiating to the left hip, left abdomen and left leg. She is taking baclofen and daily Percocet but the pain was not getting better and the last few days she was having nausea and not able to eat anything. Somewhat constipated. Denies any blood in the stools. Micturating okay. And she was having difficulty ambulating which prompted her to come to the ER today. Denies any headache. No runny nose or sore throat. No cough. No chest pain or shortness of breath. She also complains of last several days of seeing colors when she is closing eyes and when she opens eyes she almost feels like a 3D picture going on in front of her . That was happening until before she came to the hospital. But currently vision is okay. She also noticed some twitching of her right fingers. CT abdomen pelvis showing acute sigmoid diverticulitis with localized perforation. Acute diverticulitis Localized perforation ER notified surgery recommend conservative management Received IV Levaquin and Flagyl as patient is allergic to penicillins Will continue Cipro and Flagyl Advanced to clear liquids today continue IVF/Antibiotics CBC, CMP in a.m. IV Dilaudid as needed IV antiemetics as needed Surgery consult - appreciate recs Close monitor Severe back pain History of sciatica CT lumbar spine showing degenerative changes and grade 2 anterior subluxation of L5 on S1 Received Decadron Pain control MRI reviewed and independently interpreted as L5-S1 anterior listhesis, L1-L2 severe neuroforaminal narrowing secondary to disc protrusion Consult Dr. Chavez -discussed at bedside with Dr. Chavez consult PT, add myoflex Standing lumbar XR reviewed Prn OXY IR Visual hallucinations Possibly from baclofen CT head negative Currently vision is okay resolved Prediabetes Will follow HbA1c levels a1c 6.1 pt educated regarding pre diabetes, lifestyle modifications Hypertension On lisinopril hydrochlorothiazide BP on softer side so will hold for now resume as able Hyperlipidemia On statin History of COPD Nebs as needed CKD stage III Presented creatinine 1 Will follow labs DVT prophylaxis Lovenox Disposition Medical floor, not yet medically stable for d/c Full code PCP: Dr. Ann Pt was seen and examined in collaboration with Dr. Severino, please see addendum A total of 42 was spent coordinating, documenting, and providing care for this patient excluding time spent in the performance of separately billed services. This included personally viewing all current laboratories and imaging studies, medication reconciliation, outpatient chart review, and discussion with specialists. (2) Diverticulitis of intestine with perforation and abscess: (3) Abdominal pain: Admission and Anticipated Discharge Date Admission Date: August 18, 2023 Supervising Physician Co-Signing Physician Notes Pt seen and examined by myself, Susan Severino MD on the day of service. Care was coordinated with Luciana Rodriguez PA-C. 78yoF admitted with diverticulitis with perforation. Was seen sitting at bedside, no acute distress. States pain controlled, no abdominal pain. Tolerated clear diet today with no issues. General surgery- consulted, recommending conservative management at this time. Continue IV abx, IV fluids, clear liquids today. Prediabetes noted. MRI spine for f/u chronic back pain, appreciate orthospine recs. Otherwise as noted above. Subjective Patient was seen and examined in room 357. Follow-up acute diverticulitis and low back pain with radiation to left lower extremity. She has passed a lot of flatus,"I've passed enough for the whole floor." She is feeling improved. She denies abdominal pain. She is currently eating clears for breakfast and is so happy for some form of food. She denies f/c/s, chest pain, sob, n/v/d. Continues to have back pain but IV dilaudid helped. Review of Systems Review of Systems: All systems reviewed & are unremarkable except as noted in HPI & below Physical Exam Physical Exam: Gen: WD/WN, NAD, A&O x3 HEENT: Normocephalic, atraumatic, conjunctivae moist, sclerae anicteric, mucous membranes moist. Lung: Clear to Auscultation bilaterally, no wheezes/rales/rhonchi Heart: Regular rate, regular rhythm, no murmurs, rubs, or gallops Abdomen: Soft, NT, ND +BS x 4 Extremities: No edema Skin: Warm, no rash, negative turgor. Results & Data Results & Data Vital Signs (Past 12 Hours) Vital Signs Temp Pulse Resp BP Pulse Ox O2 Del Method 08/21/23 14:49 36.7 C 65 16 102/67 98 Room Air 08/21/23 09:59 Room Air 08/21/23 07:21 36.7 C 66 16 124/79 97 Room Air Laboratory Results Short CBC 08/21/23 Range/Units 07:13 WBC 4.89 (4.8-10.8) K/ul Hgb 12.3 (12.0-16.0) g/dl Hct 39.2 (37.0-47.0) % Plt Count 203 (130-400) K/uL BMP 08/21/23 07:13 Sodium 140 Potassium 3.5 Chloride 109 H Carbon Dioxide 27 BUN 15 Creatinine 0.85 Glucose 97 Calcium 8.1 L Liver Function 08/21/23 Range/Units 07:13 Total Bilirubin 0.5 (0.2-1.0) mg/dl AST 39 (13-39) U/L ALT 25 (7-52) U/L Alkaline Phosphatase 53 (34-104) U/L Albumin 2.9 L (3.4-5.0) gm/dl I have independently reviewed and interpreted patient's labs including CBC, CMP, mag. Medications Administered Current Inpatient Medications Acetaminophen (Acetaminophen 325 Mg Tab) 650 mg PO QID ERIN Stop: 09/19/23 12:59 Last Admin: 08/21/23 13:47 Dose: 650 mg Albuterol (Albut/Ipratrop 3mg/0.5mg Neb 3 Ml Vial) 3 ml INH QIDR PRN; Protocol PRN Reason: Shortness Of Breath Or Wheezing Stop: 09/17/23 06:59 Atorvastatin Calcium (Atorvastatin 20 Mg Tab) 20 mg PO DAILY ERIN Stop: 09/17/23 08:59 Last Admin: 08/21/23 09:41 Dose: 20 mg Calcium Carbonate (Calcium Carbonate 1250mg Tab) 1,250 mg PO DAILY ERIN Stop: 09/17/23 11:29 Last Admin: 08/21/23 09:42 Dose: 1,250 mg Cyanocobalamin (Cyanocobalamin (B-12) 2,500 Mcg Tablet) 5,000 mcg SL DAILY ERIN Stop: 09/17/23 08:59 Last Admin: 08/21/23 09:42 Dose: 5,000 mcg Diclofenac Sodium (Diclofenac Sod 1% Gel 100 Gm Tube) 2 gm EXT TID PRN; Protocol PRN Reason: Pain Stop: 09/17/23 05:57 Enoxaparin Sodium (Enoxaparin Inj 40 Mg/0.4 Ml Syr) 40 mg SQ Q12 [facility] Stop: 09/17/23 08:59 Last Admin: 08/21/23 09:43 Dose: 40 mg Fluticasone Furoate (Fluticasone Furoate 100mcg 14 Puffs/Inhaler) 1 puffs INH DAILY [facility] Stop: 09/17/23 08:59 Last Admin: 08/21/23 09:43 Dose: 1 puffs Lisinopril/HCTZ (Lisinopril/Hctz 20/12.5mg 1 Tab Tab) 2 tab PO QAM [facility] Stop: 09/17/23 08:59 Last Admin: 08/19/23 08:42 Dose: 2 tab Hydromorphone HCl (Hydromorphone Inj 0.5 Mg/0.5 Ml Syr) 0.5 mg IV Q3H PRN PRN Reason: Severe Pain (Scale 7, 8, 9,10) Stop: 09/01/23 05:57 Metronidazole (Flagyl) 500 mg in 100 mls @ 100 mls/hr IV Q8H [facility]; Protocol Stop: 08/28/23 11:59 Last Admin: 08/21/23 13:50 Dose: 100 mls/hr Ciprofloxacin (Cipro / D5w) 400 mg in 200 mls @ 100 mls/hr IV Q12H [facility]; Protocol Stop: 08/29/23 04:59 Last Infusion: 08/21/23 07:35 Dose: Infused Promethazine HCl 12.5 mg/ (Sodium Chloride) 50.5 mls @ 202 mls/hr IV Q6H PRN PRN Reason: Nausea And Vomiting Stop: 09/17/23 05:57 Potassium Chloride/Sodium Chloride (Normal Saline W/20 Meq Kcl) 20 meq in 1,000 mls @ 80 mls/hr IV .[id number] [facility]; Protocol Stop: 09/20/23 13:44 Loratadine (Loratadine 10 Mg Tab) 10 mg PO DAILY [facility] Stop: 09/17/23 08:59 Last Admin: 08/21/23 09:44 Dose: 10 mg Multivitamins/Minerals (Cerovite Adv Formula Tab) 1 tab PO DAILY [facility] Stop: 09/17/23 08:59 Last Admin: 08/21/23 09:44 Dose: 1 tab Oxycodone HCl (Oxycodone Hcl Ir 5 Mg Tab (Immediate Release)) 5 mg PO Q6H PRN PRN Reason: Mild-Mod Pain (Scale 1-6) Stop: 09/04/23 08:15 Pantoprazole Sodium (Pantoprazole 40 Mg Tab) 40 mg PO DAILY@1630 [facility] Stop: 09/17/23 16:29 Last Admin: 08/20/23 17:20 Dose: 40 mg Pregabalin (Pregabalin 25 Mg Cap) 25 mg PO QAM [facility] Stop: 09/17/23 08:59 Last Admin: 08/21/23 09:53 Dose: 25 mg Pregabalin (Pregabalin 50 Mg Cap) 50 mg PO QPM [facility] Stop: 09/17/23 20:59 Last Admin: 08/20/23 21:11 Dose: 50 mg Trolamine Salicylate (Trolamine Salicylate 10% Crm 255 Appln/85 Gm Tube) 1 appln EXT BID [facility] Stop: 09/19/23 10:44 Last Admin: 08/21/23 09:55 Dose: Not Given
[2023-08-21] MEDS: NSS + 20MEQ KCL 20 MEQ/1,000 ML BAG IV SCH (15:47)
[2023-08-21] MEDS: PANTOprazole 40 MG TAB PO SCH (17:39)
[2023-08-21] MEDS: PREGABALIN 50 MG CAP PO SCH (21:37)
[2023-08-22] MEDS: NSS + 20MEQ KCL 20 MEQ/1,000 ML BAG IV SCH ×2 (03:53→17:52)
[2023-08-22] MEDS: metroNIDAZOLE 500 MG/100 ML BAG IV SCH ×3 (03:54→20:19)
[2023-08-22] MEDS: CIPROFLOXACIN / D5W 400 MG/200 ML BAG IV SCH ×2 (05:21→17:48)
[2023-08-22 07:32] LABS: Basophils # (auto) 0.03 K/uL (0.00-0.20); Basophils % (auto) 0.5 %; Eosinophils # (auto) 0.21 K/uL (0.00-0.50); Eosinophils % (auto) 3.5 %; Hemoglobin 12.8 g/dl (12.0-16.0); Immature Granulocytes # (auto) 0.03 K/uL (0.01-0.20); Immature Granulocytes % (auto) 0.5 %; Lymphocytes # (auto) 1.01 K/uL (1.20-3.40); Lymphocytes % (auto) 16.8 %; Mean Corpuscular Hemoglobin 29.3 pg (25.0-34.0); Mean Corpuscular Volume 91.5 fL (80.0-100.0); Mean Platelet Volume 9.6 fL (9.4-12.4); Monocytes # (auto) 0.86 K/uL (0.11-0.59); Monocytes % (auto) 14.3 %; Neutrophils # (auto) 3.88 K/uL (1.40-6.50); Neutrophils % (auto) 64.4 %; Platelet Count 200 K/uL (130-400); RDW Coefficient of Variation 14.4 % (11.5-14.5); RDW Standard Deviation 48.7 fL (36.4-46.3); Red Blood Count 4.37 M/uL (4.20-5.40); White Blood Count 6.02 K/ul (4.8-10.8)
[2023-08-22 08:18] LABS: Albumin Globulin Ratio 1.3 (0.9-2); BUN Creatinine Ratio 12.5 (10-20); Bilirubin,Total 0.6 mg/dl (0.2-1.0); Calcium 8.2 mg/dl (8.6-10.3); Creatinine Clr Calc Pharmacy 71.6 ml/min; Est GFR (Non-African American) 71.6 ml/min; Globulin 2.4 gm/dl (2.5-4.0); Magnesium 1.6 mg/dl (1.7-2.4); Potassium 3.6 mmol/L (3.5-5.1); Total Protein 5.4 gm/dl (6.0-8.3)
--- NOTE | 2023-08-22 09:10 | Surgery Progress Note ---
Date of Service August 22, 2023 Assessment & Plan (1) Diverticulitis of intestine with perforation and abscess: Plan Yari may advance to a full liquid diet today If that goes well she may have a mechanical soft and low fiber diet tomorrow for breakfast and be discharged home on antibiotics for 14 days Yari should have a colonoscopy after 2 months of being symptom-free off of antibiotics. Follow-up with GI as an outpatient Admission and Anticipated Discharge Date Admission Date: August 18, 2023 Subjective Patient seen and examined this a.m. She states she has no abdominal pain, still no nausea vomiting is tolerating clear liquids. She had a bowel movement and continues to pass plenty of gas Physical Exam Constitutional: healthy appearing; not ill appearing, not in distress and not diaphoretic Respiratory: normal respiratory effort; no respiratory distress, no labored breathing and does not use accessory muscles Cardiovascular: Rate/Rhythm: regular rate; not tachycardic Gastrointestinal (Abdomen): Abdomen is soft and nontender Results & Data Vital Signs (Past 12 Hours) Vital Signs Temp Pulse Pulse Resp BP BP Pulse Ox 08/22/23 07:46 36.7 C 72 14 122/80 97 08/21/23 21:58 36.7 C 72 16 123/67 95 08/21/23 21:37 O2 Del Method 08/22/23 07:46 Room Air 08/21/23 21:58 Room Air 08/21/23 21:37 Room Air PG Care Time/CCT Total # of Minutes Spent Total Time Spent with Patient: Total time spent is greater than 50% in coordination of care (as documented) at patient's floor/unit and/or counseling patient: Coding Level of Care Code 64392 SUB INP/OBS CARE 09/04MIN Diagnoses Diverticulitis of intestine with perforation and abscess K57.80
[2023-08-22] MEDS: ENOXAPARIN INJ 40 MG/0.4 ML SYR SQ SCH ×2 (09:12→20:19)
[2023-08-22] MEDS: ACETAMINOPHEN 325 MG TAB PO SCH ×4 (09:12→20:18)
[2023-08-22] MEDS: LORATADINE 10 MG TAB PO SCH (09:13)
[2023-08-22] MEDS: CYANOCOBALAMIN (B-12) 2,500 MCG TABLET SL SCH (09:13)
[2023-08-22] MEDS: CEROVITE ADV FORMULA TAB PO SCH (09:13)
[2023-08-22] MEDS: FLUTICASONE FUROATE 100MCG 14 PUFFS/INHALER INH SCH (09:14)
[2023-08-22] MEDS: CALCIUM CARBONATE 1250MG TAB PO SCH (09:14)
[2023-08-22] MEDS: ATORVASTATIN 20 MG TAB PO SCH (09:14)
[2023-08-22] MEDS: TROLAMINE SALICYLATE 10% CRM 255 APPLN/85 GM TUBE EXT SCH ×2 (09:15→20:20)
[2023-08-22] MEDS: PREGABALIN 25 MG CAP PO SCH (09:23)
[2023-08-22] MEDS: MAGNESIUM SULFATE / D5W 1 GM/100 ML BAG IV SCH ×2 (09:36→11:39)
[2023-08-22] MEDS: oxyCODONE HCL IR 5 MG TAB (IMMEDIATE RELEASE) PO PRN ×2 (14:06→20:18)
[2023-08-22] MEDS: PANTOprazole 40 MG TAB PO SCH (17:47)
--- NOTE | 2023-08-22 19:13 | Hospitalist Progress Note ---
Date of Service August 22, 2023 Assessment & Plan (1) Acute diverticulitis: Plan: 78-year-old female with past med significant for hyperlipidemia, prediabetes, COPD, allergic rhinitis, hypertension, solar purpura, peripheral vascular disease, obesity, CKD stage III, history of breast cancer admitted with severe back pain and acute sigmoid diverticulitis with localized perforation. Acute diverticulitis Localized perforation ER notified surgery, General surgery recommending conservative management with abx Received IV Levaquin and Flagyl as patient is allergic to penicillins Continued Cipro and Flagyl Advanced to full liquids continue IVF/Antibiotics IV Dilaudid as needed IV antiemetics as needed Surgery consult - appreciate recs Closely monitor Severe back pain History of sciatica CT lumbar spine showing degenerative changes and grade 2 anterior subluxation of L5 on S1 Received Decadron Pain control MRI reviewed, showed L5-S1 anterior listhesis, L1-L2 severe neuroforaminal narrowing secondary to disc protrusion Consult ortho spine Dr. Chavez consult PT, add myoflex Standing lumbar XR reviewed Prn OXY IR Visual hallucinations Possibly from baclofen CT head negative Currently vision wnl resolved Prediabetes Will follow HbA1c levels a1c 6.1 pt educated regarding pre diabetes, lifestyle modifications Hypertension On lisinopril hydrochlorothiazide BP on softer side so will hold for now resume as able Hyperlipidemia On statin, continue History of COPD Nebs as needed CKD stage III Stable DVT prophylaxis: Lovenox Disposition: Home once stable (2) Diverticulitis of intestine with perforation and abscess: (3) Abdominal pain: Admission and Anticipated Discharge Date Admission Date: August 18, 2023 Subjective Pt was seen and denied acute concerns. Stated that she was having BMs, passing gas, tolerating the liquid diet. Abdominal pain now nonexistent. Occasional back pain. Review of Systems Review of Systems: All systems reviewed & are unremarkable except as noted in Subjective Physical Exam Physical Exam: General: Alert, oriented. No acute distress Skin: No noted rashes or bruises Psych: Appropriate mood and affect Neuro: No gross deficits HEENT: NC/AT Chest: Nontender to palpation. CV: RRR Resp: no increased effort of breathing. Abdomen: Soft nontender Extremities: trace edema in lower extremities bilaterally. Results & Data Results & Data Vital Signs (Past 12 Hours) Vital Signs Temp Pulse Resp BP BP Pulse Ox O2 Del Method 08/22/23 12:20 36.3 C L 69 14 114/76 95 Room Air 08/22/23 07:46 36.7 C 72 14 122/80 97 Room Air 08/22/23 07:40 Room Air
[2023-08-22] MEDS: PREGABALIN 50 MG CAP PO SCH (20:18)
[2023-08-23] MEDS: metroNIDAZOLE 500 MG/100 ML BAG IV SCH ×2 (03:49→11:18)
[2023-08-23] MEDS: CIPROFLOXACIN / D5W 400 MG/200 ML BAG IV SCH (05:14)
[2023-08-23] MEDS: NSS + 20MEQ KCL 20 MEQ/1,000 ML BAG IV SCH (05:14)
[2023-08-23 07:08] LABS: Basophils # (auto) 0.04 K/uL (0.00-0.20); Basophils % (auto) 0.5 %; Eosinophils # (auto) 0.25 K/uL (0.00-0.50); Eosinophils % (auto) 3.3 %; Hematocrit (blood only) 36.2 % (37.0-47.0); Hemoglobin 12.1 g/dl (12.0-16.0); Immature Granulocytes # (auto) 0.03 K/uL (0.01-0.20); Immature Granulocytes % (auto) 0.4 %; Lymphocytes # (auto) 1.09 K/uL (1.20-3.40); Lymphocytes % (auto) 14.2 %; Mean Corpuscular Hemoglobin 29.1 pg (25.0-34.0); Mean Corpuscular Hgb Conc 33.4 g/dL (32.0-36.0); Mean Platelet Volume 9.9 fL (9.4-12.4); Monocytes # (auto) 0.91 K/uL (0.11-0.59); Monocytes % (auto) 11.9 %; Neutrophils # (auto) 5.34 K/uL (1.40-6.50); Neutrophils % (auto) 69.7 %; Platelet Count 198 K/uL (130-400); RDW Coefficient of Variation 14.6 % (11.5-14.5); RDW Standard Deviation 46.3 fL (36.4-46.3); Red Blood Count 4.16 M/uL (4.20-5.40); White Blood Count 7.66 K/ul (4.8-10.8)
[2023-08-23 07:18] LABS: Albumin Globulin Ratio 1.3 (0.9-2); Albumin Level 2.8 gm/dl (3.4-5.0); BUN Creatinine Ratio 11.1 (10-20); Bilirubin,Total 0.6 mg/dl (0.2-1.0); Calcium 7.9 mg/dl (8.6-10.3); Creatinine Clr Calc Pharmacy 79.6 ml/min; Est GFR (African American) 94.3 ml/min; Est GFR (Non-African American) 81.3 ml/min; Globulin 2.2 gm/dl (2.5-4.0); Magnesium 1.9 mg/dl (1.7-2.4); Phosphorus 2.5 mg/dl (2.5-4.9); Potassium 4.1 mmol/L (3.5-5.1)
[2023-08-23] MEDS: ACETAMINOPHEN 325 MG TAB PO SCH ×2 (09:36→12:33)
[2023-08-23] MEDS: CYANOCOBALAMIN (B-12) 2,500 MCG TABLET SL SCH (09:37)
[2023-08-23] MEDS: TROLAMINE SALICYLATE 10% CRM 255 APPLN/85 GM TUBE EXT SCH (09:37)
[2023-08-23] MEDS: CEROVITE ADV FORMULA TAB PO SCH (09:37)
[2023-08-23] MEDS: FLUTICASONE FUROATE 100MCG 14 PUFFS/INHALER INH SCH (09:37)
[2023-08-23] MEDS: ATORVASTATIN 20 MG TAB PO SCH (09:37)
[2023-08-23] MEDS: LORATADINE 10 MG TAB PO SCH (09:37)
[2023-08-23] MEDS: CALCIUM CARBONATE 1250MG TAB PO SCH (09:37)
[2023-08-23] MEDS: ENOXAPARIN INJ 40 MG/0.4 ML SYR SQ SCH (09:39)
[2023-08-23] MEDS: PREGABALIN 25 MG CAP PO SCH (09:48)
[2023-08-23] MEDS: oxyCODONE HCL IR 5 MG TAB (IMMEDIATE RELEASE) PO PRN (11:22)
--- NOTE | 2023-08-24 03:55 | Discharge Summary ---
Discharge Summary Date of Service August 23, 2023 Notes For Next Care Provider Per General Surgery, please ensure followup with GI as an outpatient. Pt needs colonoscopy 2 months after symptoms resolve off antibiotics Please ensure follow up with orthopedic surgery, Dr Chavez's office after discharge Medication Changes From Visit Ciprofloxacin 500mg BID x14 days Metronidazole 500mg TID x14 days Oxycodone 5mg q8h Admission HPI Per Admitting Provider 78-year-old female with past med significant for hyperlipidemia, prediabetes, COPD, allergic rhinitis, hypertension, solar purpura, peripheral vascular disease, obesity, CKD stage III, history of breast cancer, presents with severe back pain going on since radiating to the left hip, left abdomen and left leg. She is taking baclofen and daily Percocet but the pain was not getting better and the last few days she is also HAVING nausea and not able to eat anything. Somewhat constipated. Denies any blood in the stools. Micturating okay. And she was having difficulty ambulating which prompted her to come to the ER today. Denies any headache. No runny nose or sore throat. No cough. No chest pain or shortness of breath. She also complains of last several days of seeing colors when she is closing eyes and when she opens eyes she almost feels like a 3D picture going on in front of her . That was happening until before she came to the hospital. But currently vision is okay. She also noticed some twitching of her right fingers. CT abdomen pelvis showing acute sigmoid diverticulitis with localized perforation. Past medical history as mentioned above Past surgical history breast lesion excision. . Colonoscopy. Double knee replacement. Several knee surgeries. Bilateral knee arthroscopy. Cataracts. Appendectomy. Revision of tennis elbow. Social history. . No smoking. Alcohol occasionally. No drug use. Family history. Mother had colon cancer. Father had staph infection of heart valve. Maternal grandmother had colon cancer. Admission Exam Per Admitting Provider General- Not in distress Head- atraumatic Eyes- EOMI,vision ok. ENT- oropharynx clear Neck- supple, no JVD. Lungs- clear to auscultation no wheezing or crackles. Heart- regular rhythm; no murmur, no gallop. Abdomen- normal bowel sounds, soft, tenderness in LLQ region no distension. Extremities- no pretibial edema, no erythema seen Neuro- alert, oriented x 3; EOMI; no facial palsy; no dysarthria; moves extremities. Skin- warm & dry Principal Dx & Hospital Course #1 = Principal Diagnosis (1) Acute diverticulitis: 78-year-old female with past med significant for hyperlipidemia, prediabetes, COPD, allergic rhinitis, hypertension, solar purpura, peripheral vascular disease, obesity, CKD stage III, history of breast cancer admitted with severe back pain and acute sigmoid diverticulitis with localized perforation. Acute diverticulitis Localized perforation On admission, CT abd/pelvis noted acute diverticulitis with adjacent air-fluid collection compatible with localized perforation. ER notified surgery, General surgery recommending conservative management with a bx Received IV Levaquin and Flagyl as patient is allergic to penicillins Continued on IV Cipro and Flagyl, discharged with a 14 day po regimen of the same Advanced to soft diet on discharge Pain control- discharged with oxycodone 5mg q8h prn Surgery consulted - appreciate recs -Per General Surgery, treat for 14 days after discharge with antibiotics, followup with GI as an outpatient. Pt needs colonoscopy 2 months after symptoms resolve off antibiotics. Severe back pain History of sciatica CT lumbar spine showing degenerative changes and grade 2 anterior subluxation of L5 on S1 Received Decadron Pain control MRI reviewed, showed L5-S1 anterior listhesis, L1-L2 severe neuroforaminal narrowing secondary to disc protrusion Worked with PT Standing lumbar XR reviewed, prn OXY IR Orthopedic spine surgery follow up with Dr Chavez after discharge. Visual hallucinations Possibly from baclofen CT head negative Currently vision wnl resolved Prediabetes a1c 6.1 pt educated regarding pre diabetes, lifestyle modifications Hypertension On lisinopril hydrochlorothiazide resume on discharge Hyperlipidemia On statin, continue History of COPD Nebs as needed CKD stage III Stable (2) Diverticulitis of intestine with perforation and abscess: (3) Abdominal pain: Discharge Exam General: Alert, oriented. No acute distress Skin: No noted rashes or bruises Psych: Appropriate mood and affect Neuro: No gross deficits HEENT: NC/AT Chest: Nontender to palpation. CV: RRR Resp: no increased effort of breathing. Abdomen: Soft nontender Extremities: trace edema in lower extremities bilaterally. Updated Medication List Medication Instructions Recorded Confirmed Type atorvastatin 20 mg tablet 20 mg PO DAILY 08/18/23 08/18/23 History baclofen 10 mg tablet 10 mg PO BID 08/18/23 08/18/23 History beclomethasone dipropionate 40 1 inh inhalation AMPM 08/18/23 08/18/23 History mcg/actuation HFA breath activated aerosol (Qvar RediHaler) calcium carbonate 500 mg-vitamin 1 tab PO DAILY 08/18/23 08/18/23 History D3 15 mcg (600 unit) tablet cyanocobalamin (vitamin B-12) 5,000 mcg sublingual DAILY 08/18/23 08/18/23 History 5,000 mcg sublingual tablet (Vitamin B-12) diclofenac sodium 1 % topical gel 0 g topical TID PRN Pain 08/18/23 08/18/23 History ipratropium 0.5 mg-albuterol 3 mg 3 ml inhalation QID 08/18/23 08/18/23 History (2.5 mg base)/3 mL nebulization soln lisinopril 20 2 tab PO QAM 08/18/23 08/18/23 History mg-hydrochlorothiazide 12.5 mg tablet loratadine 10 mg tablet 10 mg PO DAILY 08/18/23 08/18/23 History meloxicam 7.5 mg tablet 7.5 mg PO QAM 08/18/23 08/18/23 History ecrvvhtbgfrn-jokywage-omikez 1 tab PO DAILY 08/18/23 08/18/23 History tablet (Multivitamin 50 Plus tablet) omega-3 fatty acids 1,000 mg 1,000 mg PO DAILY 08/18/23 08/18/23 History capsule omeprazole 20 mg capsule,delayed 40 mg PO DAILY 08/18/23 08/18/23 History release pregabalin 25 mg capsule 25 mg PO QAM 08/18/23 08/18/23 History pregabalin 25 mg capsule 50 mg PO QPM 08/18/23 08/18/23 History ciprofloxacin HCl 500 mg tablet 500 mg PO BID #28 tabs 08/23/23 Rx metronidazole 500 mg tablet 500 mg PO Q8H #42 tabs 08/23/23 Rx oxycodone 5 mg tablet 5 mg PO Q8H PRN pain #15 tabs 08/23/23 Rx Hospital Stay Data Consultations 08/18/23 03:46 ED Decision to Admit Stat 08/18/23 08:00 Consult General Surgery Routine 08/20/23 10:40 Consult Orthopedic Surgery Routine Diagnostic Imagining Performed 08/18/23 00:40 CT abd pelvis wo con Stat CT lumbar spine wo con Stat 08/18/23 07:58 CT head/brain wo con Routine 08/20/23 10:30 MR lumbar spine wo con Routine Abdomen/Pelvis CT 08/18/23 00:40 CR Exam(s): CT ABDOMEN + PELVIS Without Contrast EXAM: CT Abdomen and Pelvis Without Intravenous Contrast CLINICAL HISTORY: Reason for exam: LLQ abd pain. TECHNIQUE: Axial computed tomography images of the abdomen and pelvis without intravenous contrast. Automated exposure control was utilized for the study. A dose lowering technique was utilized adhering to the principles of ALARA. COMPARISON: 05/10/2014. FINDINGS: Lung bases: Unremarkable. No mass. No consolidation. ABDOMEN: Liver: Unremarkable. Gallbladder and bile ducts: Unremarkable. No calcified stones. No ductal dilation. Pancreas: Unremarkable. No ductal dilation. Spleen: Unremarkable. No splenomegaly. Adrenals: Unremarkable. No mass. Kidneys and ureters: Complex partially calcified 7.5 x 5.4 cm right renal cyst or cystic mass. No hydronephrosis or hydroureter. Stomach and bowel: No obstruction or ileus. Left and sigmoid colon diverticulosis. Proximal sigmoid colon wall thickening with surrounding fluid and infiltration and a extraluminal gas-containing collection 2.5 x 3.1 cm, consistent diverticulitis and localized perforation/abscess. No free intraperitoneal gas elsewhere in the abdomen or pelvis. PELVIS: Appendix: No findings to suggest acute appendicitis. Bladder: Partially contracted. No stones. Reproductive: Uterus is grossly unremarkable. Ovaries not visualized. ABDOMEN and PELVIS: Intraperitoneal space: No free air. No free fluid. Bones/joints: No acute fracture. Degenerative changes lumbar spine, unchanged. Soft tissues: Unremarkable. Vasculature: Atherosclerotic vascular calcifications. No abdominal aortic aneurysm. Lymph nodes: Unremarkable. No enlarged lymph nodes. IMPRESSION: Proximal sigmoid colon acute diverticulitis with adjacent air-fluid collection compatible with localized perforation. Right renal cyst seen on 05/10/2014 now with a complex partially calcified appearance. Recommend correlation with ultrasound. Communications: Call Doctor Pneumoperitoneum, new or unexpected Electronically signed by: Alexandr Benavides M.D. 08/18/23 03:[address] 08/18/23 00:40 Exam(s): CT L SPINE EXAM: CT Lumbar Spine Without Intravenous Contrast CLINICAL HISTORY: Reason for exam: low back pain, radiculopathy. TECHNIQUE: Axial computed tomography images of the lumbar spine without intravenous contrast. Automated exposure control was utilized for the study. A dose lowering technique was utilized adhering to the principles of ALARA. COMPARISON: CT abdomen pelvis 05/10/2014. FINDINGS: Vertebrae: No acute fracture. Maintenance of height of the vertebral bodies. Bilateral L5 spondylitic defects. Unchanged 1.1 cm grade 2 anterior spinal listhesis of L5 on S1 spondylolisthesis. Bone mineralization within normal limits. Discs/spinal canal/neural foramina: Multilevel degenerative changes, greatest at L4-5 and L5-S1.. Soft tissues: Paraspinal soft tissues are unremarkable. Partially visualized probable sigmoid colon diverticulitis. IMPRESSION: Chronic degenerative changes lumbar spine including grade 2 anterior subluxation of L5 on S1. Pelvic inflammatory changes, see CT abdomen pelvis performed at the same time. Electronically signed by: Alexandr Benavides M.D. 08/18/23 03:[address] 08/18/23 07:58 CT SCAN OF THE BRAIN WITHOUT IV CONTRAST CLINICAL HISTORY: Change in mental status. Visual hallucinations. COMPARISON STUDY: MRI of the brain dated 06/15/2007. TECHNIQUE: Unenhanced axial CT scan of the brain is performed from the vertex to the skull base. A dose lowering technique was utilized adhering to the principles of ALARA. CT DOSE: 625.8 mGy.cm FINDINGS: Brain parenchyma: There is age-related involutional change noting ditk-iu-iyrutryu subcortical and periventricular microangiopathic disease. There is no hemorrhage, mass effect, or evidence of acute territorial ischemia by CT criteria. Cochran-white matter differentiation is preserved. No extra-axial fluid collection is seen. Ventricles, sulci, cisterns: Prominent secondary to involutional change. Intracranial vasculature: There is atherosclerotic calcification of the cavernous carotid arteries. Calvarium: Unremarkable. Sinuses and mastoids: The visualized paranasal sinuses are clear. The mastoid ai r cells are well pneumatized. Orbits: The bony orbits are grossly intact. There are bilateral ocular lens implants. IMPRESSION: There is no hemorrhage, mass effect, or evidence of acute territor ial ischemia by CT criteria. ACT 112: Negative or not required by law. Electronically signed by: Noah Rowe M.D. 08/18/2023 12:17 PM Lumbar Spine MRI 08/20/23 10:30 LUMBAR SPINE MRI HISTORY: Low back pain with left-sided sciatica. eval for disc herniation TECHNIQUE: Multiplanar multisequence MRI of the lumbar spine was performed without the use of contrast. COMPARISON: Lumbar spine CT 08/18/2023. Abdomen and pelvis CT 08/18/2023. FINDINGS: For the purpose of the report the L5-S1 disc space will be located on axial image 23 of 26. Bilateral L5 spondylolysis with associated 9 mm of anterolisthesis. This remains unchanged. Severe disc space narrowing at L5-S1. There is mild disc space narrowing at L2-L3, L3-L4, L4-5. Kpwp-xq-rvdcuudf facet degenerative changes within the lumbar spine. The conus terminates at the L1 level. Mild disc space narrowing within the lower thoracic spine. The sacrum is intact. Partially visualized acute sigmoid diverticulitis with associated pericolonic contained perforation/abscess measuring 2.7 cm. Multiseptated cystic lesion within the right kidney is only partially imaged on this study. Paravertebral soft tissues are unremarkable. L1-L2: There is 9 x 4 mm left paracentral/foraminal disc extrusion best seen on axial image 2 and sagittal image 11. This likely compresses the exiting left L1 nerve root at this level. No significant central canal or right-sided neural foraminal narrowing. There is severe left-sided neural foraminal narrowing due to the disc extrusion. L2-L3: Small broad-based posterior disc bulge without significant central canal or neural foraminal narrowing. L3-L4: No significant central canal or neural foraminal narrowing. L4-L5: Small broad-based posterior disc bulge asymmetric to the left without significant central canal or right-sided neural foraminal narrowing. There is mild left-sided neural foraminal narrowing. L5-S1: No significant central canal narrowing. There is moderate to severe bilateral neural foraminal narrowing due to the anterolisthesis. IMPRESSION: 1. A 9 x 4 mm left paracentral/foraminal disc extrusion at L1-L2 which compresses the exiting left L1 nerve root and results in severe left-sided neural foraminal narrowing. 2. Moderate to severe bilateral neural foraminal narrowing at L5-S1 secondary to the L5 spondylolysis/spondylolisthesis. 3. No acute fractures within the lumbar spine. 4. Partially visualized acute sigmoid diverticulitis with an associated pericolonic contained perforation/abscess measuring 2.7 cm. This is better ap preciated on the recent abdomen and pelvis CT. 5. Partially visualized septated right renal cystic lesion is also better appreciated on the recent abdomen and pelvis CT. ACT 112: Negative or not required by law. Electronically signed by: Rivas Kelly M.D. 08/20/2023 3:29 PM Lumbar Spine X-Ray 08/20/23 16:02 XR lumbar spine 2-3V CLINICAL HISTORY: standing films. Low back pain. COMPARISON STUDY: Lumbar spine MRI 08/20/2023. 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 Severe disc space narrowing at L5-S1. Mild disc space narrowing throughout the remaining lumbar spine. No acute fractures. The sacrum is intact. IMPRESSION: No acute fractures. Degenerative changes as described above. ACT 112: Negative or not required by law. Electronically signed by: Rivas Kelly M.D. 08/21/2023 6:41 AM Discharge Instructions Given to Patient (Per Discharging Provider) Ms. Long, Silvino were admitted and treated for acute diverticulitis. We are discharging you home with 14 days of the antibiotics ciprofloxacin and metronidazole. Please take as prescribed. You were also seen by the orthopedic spine surgeon and they will follow up with you in the office. Their office will contact you to schedule an appointment. Discharging you home with a few days of pain medication oxycodone 5mg to take only as needed to help with your pain. Be careful with using that medication as it can make you constipated. Please keep close follow up with your primary care provider and gastroenterology after discharge. You will need a colonoscopy for further evaluation. Should your symptoms worsen or return, please do not hesitate to come back to the emergency room. It was a pleasure taking care of you while you were here. Total Time Total Time Spent Total Time Spent (In Minutes): >30 minutes
--- NOTE | 2023-08-27 13:37 | Coding Query ---
CODING QUERY To promote full compliance with coding requirements relating to patient care, provider participation is requested in all cases of cloud automation tester uncertainty. Please assist us with the question(s) below: Coding Question(s): There is documentation in the record of, "Diverticulitis of intestine with perforation and abscess", and the 08/18 Surgery Consultation documents, "CT A/P revealed diverticulosis with proximinal sigmoid colon inflammation, diverticulitis with adjacent 3cm abscess collection". Please specify below, regarding the location of the abscess: ( ) abscess located within the intestine ( X ) abscess located outside the intestine. Please Specify further the location of the abscess:_pericolic Physician's Response(s): Thank you Marietta Bagley Principal Diagnosis: "that condition established after study, to be chiefly responsible for occasioning the admission of the patient to the hospital for care." Co-Existing Principal Diagnosis: "when two or more diagnoses equally meet the criteria for principal diagnosis as determined by the circumstances of admission, diagnostic work up, and/or therapy provided, and the Alphabetic Index, Tabular List, or another coding guideline does not provide sequencing direction, any one of the diagnoses may be sequenced first." "When the physician has documented what appears to be a current diagnosis in the body of the record, but has not included the diagnosis in the final diagnostic statement, the physician should be asked whether the diagnosis should be added." (Source [facility]oding [facility] 2 QTR90. p3-4) ELIANA
== END 2023-08-23 15:59 | disposition home or self-care (01) | DRG 391 ==
LOC: ED 00:22 → EDINP 04:59 → SUATTDRO 04:59 → 3W 05:59

== ENCOUNTER 2024-02-17 16:25 | Inpatient (IN) ==
[2024-02-17 18:13] LABS: Basophils # (auto) 0.07 K/uL (0.00-0.20); Basophils % (auto) 0.6 %; Eosinophils # (auto) 0.28 K/uL (0.00-0.50); Eosinophils % (auto) 2.3 %; Hematocrit (blood only) 38.8 % (37.0-47.0); Hemoglobin 12.8 g/dl (12.0-16.0); Immature Granulocytes # (auto) 0.07 K/uL (0.01-0.20); Immature Granulocytes % (auto) 0.6 %; Lymphocytes % (auto) 9.7 %; Mean Corpuscular Hemoglobin 29.5 pg (25.0-34.0); Mean Corpuscular Volume 89.4 fL (80.0-100.0); Mean Platelet Volume 9.5 fL (9.4-12.4); Monocytes # (auto) 1.38 K/uL (0.11-0.59); Monocytes % (auto) 11.1 %; Neutrophils # (auto) 9.38 K/uL (1.40-6.50); Neutrophils % (auto) 75.7 %; Platelet Count 322 K/uL (130-400); RDW Coefficient of Variation 13.6 % (11.5-14.5); RDW Standard Deviation 44.7 fL (36.4-46.3); Red Blood Count 4.34 M/uL (4.20-5.40); White Blood Count 12.38 K/ul (4.8-10.8)
[2024-02-17 18:24] LABS: Alanine Aminotransferase 11 U/L (7-52); Albumin Globulin Ratio 1.1 (0.9-2); Albumin Level 3.6 gm/dl (3.4-5.0); Alkaline Phosphatase 72 U/L (34-104); Anion Gap 8 (3-11); Aspartate Aminotransferase 17 U/L (13-39); BUN Creatinine Ratio 22.5 (10-20); Blood Urea Nitrogen 29 mg/dl (6-23); Carbon Dioxide 29 mmol/L (21-32); Chloride 100 mmol/L (98-107); Est GFR (African American) 46.6 ml/min; Est GFR (Non-African American) 40.2 ml/min; Globulin 3.3 gm/dl (2.5-4.0); Glucose 94 mg/dl (70-99(Fasting)); Lipase 12 U/L (11-82); Potassium 3.6 mmol/L (3.5-5.1); Sodium 137 mmol/L (136-145); Total Protein 6.9 gm/dl (6.0-8.3)
[2024-02-17 20:30] LABS: Appearance Urine Clear (Clear); Bacteria Urine Automated None Seen (None Seen); Bilirubin Urine Negative (Negative); Blood Urine Negative (Negative); Cast Urine Automated 0-2 /lpf (0-2); Color Urine Yellow; Epithelial Cell Urine Auto 0-2 /hpf (0-2); Glucose Urine UA Negative (Negative); Ketones Urine Negative (Negative); Leukocyte Esterase Urine Trace (Negative); Nitrite Urine Negative (Negative); Protein Urine Negative (Negative); RBC Urine Automated 0-2 /hpf (0-2); Urobilinogen Urine Negative (Negative); WBC Urine Automated 0-5 /hpf (0-5); pH Urine 5.5 (4.5-7.5)
--- NOTE | 2024-02-17 20:54 | Emergency Department Note ---
Impression & Plan Diverticulitis of intestine with abscess, Leukocytosis, Acute kidney injury superimposed on chronic kidney disease, Diverticulitis of colon with perforation ED Provider Note HISTORY OF PRESENT ILLNESS: Patient is a 78-year-old female presenting with left lower quadrant abdominal pain. Patient reports she started having vague intermittent left lower quadrant abdominal pain over the last 2 weeks. Reports that 3 days ago the pain became significantly worse. She states she had chills and had to turn off her air conditioning 3 days ago because she was feeling so chilled. No notable fevers at home. She stopped any oral intake yesterday because she thought it would help her pain. She took some old Vicodin at home with little relief in her symptoms. Denies any chest pain or shortness of breath. Denies any dysuria or hematuria. She has a prior abdominal surgical history of an appendectomy. Reports that she had acute diverticulitis in August 2023, and reports that the pain today feels similar. She has not been on any recent antibiotics. She saw her primary care provider today in the office and they ordered outpatient CT scan which showed "inflammation and abscess with extraluminal foci of gas in the left lower quadrant concerning for a diverticular abscess with contained bowel perforation." She was referred to the emergency department for further evaluation. ROS: as above PHYSICAL EXAM: Constitutional: Patient appears in no acute distress. HENT: Head: Normocephalic and atraumatic. Eyes: EOMI, PERRL Mouth/Throat: Mucous membranes moist. Neck: Trachea midline. Neck supple. Cardiovascular: RRR, No murmurs, rubs or gallops. Intact distal pulses. Pulmonary/Chest: No respiratory distress. Breath sounds clear and equal bilaterally. No wheezes or rales. Abdominal: Abdomen soft, no rebound or guarding. LLQ TTP Musculoskeletal: No edema, tenderness or deformity noted. Skin: Warm and dry. No rash, erythema, pallor or cyanosis Psychiatric: Appropriate mood and affect for situation. Neurological: Alert and keenly responsive. CN II-XII grossly intact, moving all extremities equally and fully. MDM: - Vitals signs stable. - History obtained via patient. History as above. - Chronic conditions affecting care: GERD; HLD; CKD; COPD; PVD - Differential diagnoses include, but are not limited to: Aortic aneurysm; diverticulitis; ischemic colitis; ureteral calculi; UTI - Order placed for continuous cardiac monitoring. At this time, monitor showed rate of 83 bpm with normal sinus rhythm, per my interpretation. - External medical records reviewed. CT abdomen/pelvis without IV contrast with oral contrast obtained today at 1310 was reviewed. Showed "inflammation and abscess with extraluminal foci of gas in the left lower quadrant, probably representing a diverticular abscess and contained bowel perforation from sigmoid diverticulitis. Additional extraluminal foci of gas in the lesion with developing fistulous tract not excluded. Complex cystic mass in the right kidney, poorly assessed without IV contrast. Recommend outpatient MRI abdomen with gadolinium." Per body of report, patient's abscess is 4.5 cm. - Laboratory workup interpreted by myself showed leukocytosis (WBC 12.38) with left shift; stable electrolytes; VANNESSA on CKD; normal lipase; normal liver function tests - UA negative for infection - Blood cultures obtained - Patient has penicillin allergy. Given 2g IV rocephin + 500 mg IV flagyl for antibiotic coverage - Patient given 2L NS for sepsis fluid resuscitation. Patient's sepsis fluid volume based on ideal body weight is 1704.30 mL. - Given 50 mcg IV fentanyl for pain management. - Discussed case with surgeon on-call, Dr. Rodrigues, at 2034. Recommended admission to the hospital for IV antibiotics and surgery will follow as a consult service. - Discussion was had with heel caser about patient's case and need for admission - Hospitalist, Dr. Muse, consulted for admission - [facility] ASSESSMENT AND PLAN: Diagnosis: Acute diverticulitis with abscess; leukocytosis; VANNESSA on CKD; diverticulitis of colon with perforation Plan: Admit Past Med/Surg History Problem List (Updated 02/17/24 @ 20:59 by Savana Banda MD) Diverticulitis of colon with perforation (Acute) Acute kidney injury superimposed on chronic kidney disease (Acute) Leukocytosis (Acute) Diverticulitis of intestine with abscess (Acute) Diverticulitis of intestine with perforation and abscess (Acute) Acute diverticulitis Abdominal pain (Acute) Acute lumbar radiculopathy (Acute) Low back pain (Acute) Acute colitis (Acute) Social History Smoking Status: Never smoker Hx Alcohol Use: Yes Alcohol type: wine Hx Substance Use: No Preferred Language: Hungarian Communication Ability: Effective Construction Driller Required: No Beliefs That Will Affect Care: None Current Living Situation: Spouse Feels Safe at Home: Yes Assistive Devices: Cane Allergies Allergies Allergy/AdvReac Type Severity Reaction Status Date / Time Penicillins Allergy Intermediate RASH/HIVES; Verified 08/18/23 06:32 FATHER FROM PCN REACTION zolpidem Allergy Mild RASH Verified 08/18/23 01:20 talc Allergy Unknown "CANNOT Verified 08/18/23 01:20 USE TALC PRODUCTS!" SEVERE BURNING, PAIN lemon Allergy Blister Verified 08/21/23 09:15 tamoxifen AdvReac Severe nausea/vomi Verified 08/18/23 01:20 ting [place] And Derivatives AdvReac Blister Verified 08/21/23 09:16 orange AdvReac Blister Verified 08/21/23 09:12 pineapple AdvReac Blister Verified 08/21/23 09:11 tomato AdvReac Blister Verified 08/21/23 09:11 Imidazole Antifungals Allergy Severe "BURNING, Uncoded 08/18/23 01:20 AGONIZING PAIN" Home Meds Home Medications Medication Instructions Recorded Confirmed atorvastatin 20 mg tablet 20 mg PO DAILY 08/18/23 08/18/23 baclofen 10 mg tablet 10 mg PO BID 08/18/23 08/18/23 beclomethasone dipropionate 40 1 inh inhalation AMPM 08/18/23 08/18/23 mcg/actuation HFA breath activated aerosol (Qvar RediHaler) calcium carbonate 500 mg-vitamin 1 tab PO DAILY 08/18/23 08/18/23 D3 15 mcg (600 unit) tablet cyanocobalamin (vitamin B-12) 5,000 mcg sublingual DAILY 08/18/23 08/18/23 5,000 mcg sublingual tablet (Vitamin B-12) diclofenac sodium 1 % topical gel 0 g topical TID PRN Pain 08/18/23 08/18/23 ipratropium 0.5 mg-albuterol 3 mg 3 ml inhalation QID 08/18/23 08/18/23 (2.5 mg base)/3 mL nebulization soln lisinopril 20 2 tab PO QAM 08/18/23 08/18/23 mg-hydrochlorothiazide 12.5 mg tablet loratadine 10 mg tablet 10 mg PO DAILY 08/18/23 08/18/23 meloxicam 7.5 mg tablet 7.5 mg PO QAM 08/18/23 08/18/23 vgelkyrviwoe-jvlhfjba-mhuwzd 1 tab PO DAILY 08/18/23 08/18/23 tablet (Multivitamin 50 Plus tablet) omega-3 fatty acids 1,000 mg 1,000 mg PO DAILY 08/18/23 08/18/23 capsule omeprazole 20 mg capsule,delayed 40 mg PO DAILY 08/18/23 08/18/23 release pregabalin 25 mg capsule 25 mg PO QAM 08/18/23 08/18/23 pregabalin 25 mg capsule 50 mg PO QPM 08/18/23 08/18/23 Previous Rx's Medication Instructions Recorded ciprofloxacin HCl 500 mg tablet 500 mg PO BID #28 tabs 08/23/23 metronidazole 500 mg tablet 500 mg PO Q8H #42 tabs 08/23/23 oxycodone 5 mg tablet 5 mg PO Q8H PRN pain #15 tabs 08/23/23 Results & Data (ED) Vital Signs Vital Signs - 24 hr 02/17/24 16:52 02/17/24 19:29 02/17/24 20:35 Temperature 36.9 C 37.3 C Temperature Source Oral Oral Pulse Rate 87 Pulse Rate [Radial] 82 82 Pulse Strength [Radial] Normal Respiratory Rate 18 18 Respiratory Effort / Characteristics Non-Labored Non-Labored Respiratory Depth Normal Normal Blood Pressure 123/79 Blood Pressure [Left Arm] 143/83 H 113/67 Blood Pressure Mean 93 Blood Pressure Mean [Left Arm] 103 82 Pulse Oximetry 95 95 98 Oxygen Delivery Method Room Air Room Air Room Air Sepsis Recent Fever Within 48 Hours No Sepsis New/Unexplained Change in Mental Status No Sepsis Action Taken by Nursing No Action Required Laboratory Data 02/17/24 17:45 02/17/24 17:45 Lab Results 02/17/24 02/17/24 Range/Units 17:45 19:51 WBC 12.38 H (4.8-10.8) K/ul RBC 4.34 (4.20-5.40) M/uL Hgb 12.8 (12.0-16.0) g/dl Hct 38.8 (37.0-47.0) % MCV 89.4 (80.0-100.0) fL MCH 29.5 (25.0-34.0) pg MCHC 33.0 (32.0-36.0) g/dL RDW Std Deviation 44.7 (36.4-46.3) fL RDW Coeff of [place] 13.6 (11.5-14.5) % Plt Count 322 (130-400) K/uL MPV 9.5 (9.4-12.4) fL Immature Gran % (Auto) 0.6 % Neut % (Auto) 75.7 % Lymph % (Auto) 9.7 % [place] % (Auto) 11.1 % Eos % (Auto) 2.3 % Baso % (Auto) 0.6 % Neut # (Auto) 9.38 H (1.40-6.50) K/uL Lymph # (Auto) 1.20 (1.20-3.40) K/uL [place] # (Auto) 1.38 H (0.11-0.59) K/uL Eos # (Auto) 0.28 (0.00-0.50) K/uL Baso # (Auto) 0.07 (0.00-0.20) K/uL Immature Gran # (Auto) 0.07 (0.01-0.20) K/uL Sodium 137 (136-145) mmol/L Potassium 3.6 (3.5-5.1) mmol/L Chloride 100 (98-107) mmol/L Carbon Dioxide 29 (21-32) mmol/L Anion Gap 8 (3-11) BUN 29 H (6-23) mg/dl Creatinine 1.29 H (0.6-1.2) mg/dl Est Cr Clr Drug Dosing Not Reportable Est GFR ( Amer) 46.6 ml/min Est GFR (Non-Af Amer) 40.2 ml/min BUN/Creatinine Ratio 22.5 H (10-20) Glucose 94 (70-99(Fasting)) mg/dl Calcium 9.0 (8.6-10.3) mg/dl Total Bilirubin 1.0 (0.2-1.0) mg/dl AST 17 (13-39) U/L ALT 11 (7-52) U/L Alkaline Phosphatase 72 (34-104) U/L Total Protein 6.9 (6.0-8.3) gm/dl Albumin 3.6 (3.4-5.0) gm/dl Globulin 3.3 (2.5-4.0) gm/dl Albumin/Globulin Ratio 1.1 (0.9-2) Lipase 12 (11-82) U/L Procalcitonin 0.07 (0-0.5) ng/ml Urine Color Yellow Urine Appearance Clear (Clear) Urine pH 5.5 (4.5-7.5) Ur Specific [place] 1.010 (1.000-1.030) Urine Protein Negative (Negative) Urine Glucose (UA) Negative (Negative) Urine Ketones Negative (Negative) Urine Blood Negative (Negative) Urine Nitrite Negative (Negative) Urine Bilirubin Negative (Negative) Urine Urobilinogen Negative (Negative) Ur Leukocyte Esterase Trace H (Negative) Urine WBC (Auto) 0-5 (0-5) /hpf Urine RBC (Auto) 0-2 (0-2) /hpf U Hyaline Cast (Auto) 0-2 (0-2) /lpf U Epithel Cells (Auto) 0-2 (0-2) /hpf Urine Bacteria (Auto) None Seen (None Seen) Discharge Plan Visit Data Chief Complaint: Referred by Doctor Stated Complaint: ABCESS ED Provider: Savana Banda Discharge Problem: Diverticulitis of intestine with abscess, Leukocytosis, Acute kidney injury superimposed on chronic kidney disease, Diverticulitis of colon with perforation Forms Stand Alone Forms: My [facility] Prescriptions Prescriptions: No Action atorvastatin 20 mg tablet 20 mg PO DAILY ipratropium-albuterol 0.5 mg-3 mg(2.5 mg base)/3 mL solution for nebulization 3 ml INHALATION QID Rx Instructions: AM, NOON, PM & BEFORE HS omega-3 fatty acids 1,000 mg Capsule 1,000 mg PO DAILY lisinopril-hydrochlorothiazide 20-12.5 mg tablet 2 tab PO QAM meloxicam 7.5 mg tablet 7.5 mg PO QAM baclofen 10 mg tablet 10 mg PO BID Rx Instructions: AM & HS FOR 1 DAYS , END 08/18/2023 omeprazole 20 mg capsule,delayed release(DR/EC) 40 mg PO DAILY Rx Instructions: BEFORE DINNER loratadine 10 mg Tablet 10 mg PO DAILY Multivitamin 50 Plus Tablet 1 tab PO DAILY pregabalin 25 mg capsule 25 mg PO QAM pregabalin 25 mg capsule 50 mg PO QPM diclofenac sodium 1 % Gel 0 g TOPICAL TID PRN (Reason: Pain) cyanocobalamin (vitamin B-12) [Vitamin B-12] 5,000 mcg Tablet, Sublingual 5,000 mcg SUBLINGUAL DAILY calcium carbonate-vitamin D3 500 mg-15 mcg (600 unit) Tablet 1 tab PO DAILY Qvar RediHaler 40 mcg/actuation HFA aerosol breath activated 1 inh INHALATION AMPM metronidazole 500 mg tablet 500 mg PO Q8H Qty: 42 0RF ciprofloxacin HCl 500 mg tablet 500 mg PO BID Qty: 28 0RF oxycodone 5 mg tablet 5 mg PO Q8H PRN (Reason: pain) Qty: 15 0RF Referrals Referrals: Maricarmen Ann DO [Primary Care Provider] -
--- NOTE | 2024-02-17 20:58 | Surgery Consultation ---
Date of Consultation February 17, 2024 Assessment & Plan (1) Diverticulitis of intestine with perforation and abscess: Patient is being admitted on the hospitalist service. From surgical perspective we recommend the following: Implement n.p.o. status Provide IV fluid for hydration Broad-spectrum antibiotics to be initiated and she has thus far received Rocephin and Flagyl. Antibiotics can be adjusted/tailored based on her clinical response Serial labs should be followed Analgesics to be provided Antiemetics to be provided As the patient had her CT scan performed at an outside facility we are only able to view the patient's report and not the actual images. On 02/18/2024 attempts can be made to have the actual images pushed to the system at [facility] and then consideration can be given to enlisting the help of IR to see if the noted abscess is of large enough size for any attempted drainage At the present time the patient is nontoxic-appearing and she is normotensive without tachycardia or fever. She does exhibit a slight leukocytosis. I do feel that conservative measures are warranted at this time. Will be preferable to treat her in a conservative manner as any surgical intervention would likely necessitate a colostomy. If patient fails to respond to the above noted conservative measures consideration can be given to reimaging her abdomen with further recommendations to follow thereafter Additional recommendations will be made based on her clinical course as it unfolds History of Present Illness Reason for Consultation: Diverticulitis History of Present Illness This is a 78-year-old female with an underlying history of diverticulitis. In August of this year the patient was hospitalized for diverticulitis and she was treated successfully in a conservative manner. She was followed by [facility] physician group general surgery, Dr. Shafer. The patient notes that she completed a course of antibiotics and made what she describes as a full recovery from this problem and did not have any issues until approximately 2 weeks ago. She does note that approximately 2 weeks ago she developed some lower abdominal pain greatest in the left lower quadrant with some radiation to her back. She does not report any modifying factors this pain but it did not improve over the past 2 weeks so she sought medical attention with her primary care team who ordered an outpatient CT scanthis will be described below. The patient denies any fevers but has had occasional chills. She denies any nausea or vomiting. She does report a decreased appetite. She notes that she has been having normal bowel movements up until yesterday. She denies any melena or bright red blood per rectum. Of note, the patient says that she has not had a colonoscopy since her bout of diverticulitis in August of this year. Because of the CT scan findings (which will be described below) she was advised to go to the emergency department for further treatment. The patient did have an outpatient CT scan performed today. The scan showed the patient had inflammation and abscess with an extraluminal foci of gas in the left lower quadrant which is felt to represent a diverticular abscess and contained bowel perforation arising from the sigmoid colon due to diverticulitis. There is an extraluminal foci of gas with a possible developing fistulous tract. Patient was also noted to have a complex cystic mass of the right kidney. Since arrival to the emergency department the patient has had labs performed where CBC revealed white blood cell count was slightly elevated 12.3. Hemoglobin, hematocrit, platelet count were all normal. Chemistry profile showed sodium and potassium were normal. Her BUN and creatinine were 29 and 1.2. There is no elevation of her LFTs or lipase. Procalcitonin level is nonelevated. Urinalysis only showed trace leukocyte Estrace but was otherwise not indicative of infection. At the time of my interview the patient was resting comfortably in bed and she was in no distress. Allergies Allergy/AdvReac Type Severity Reaction Status Date / Time Penicillins Allergy Intermediate RASH/HIVES; Verified 08/18/23 06:32 FATHER FROM PCN REACTION zolpidem Allergy Mild RASH Verified 08/18/23 01:20 talc Allergy Unknown "CANNOT Verified 08/18/23 01:20 USE TALC PRODUCTS!" SEVERE BURNING, PAIN lemon Allergy Blister Verified 08/21/23 09:15 tamoxifen AdvReac Severe nausea/vomi Verified 08/18/23 01:20 ting [place] And Derivatives AdvReac Blister Verified 08/21/23 09:16 orange AdvReac Blister Verified 08/21/23 09:12 pineapple AdvReac Blister Verified 08/21/23 09:11 tomato AdvReac Blister Verified 08/21/23 09:11 Imidazole Antifungals Allergy Severe "BURNING, Uncoded 08/18/23 01:20 AGONIZING PAIN" Home Medications Medication Instructions Recorded Confirmed Type atorvastatin 20 mg tablet 20 mg PO DAILY 02/17/24 02/17/24 History beclomethasone dipropionate 40 1 inh inhalation BID 02/17/24 02/17/24 History mcg/actuation HFA breath activated aerosol (Qvar RediHaler) ipratropium 0.5 mg-albuterol 3 mg 3 ml inhalation TID 02/17/24 02/17/24 History (2.5 mg base)/3 mL nebulization soln lisinopril 20 2 tab PO DAILY 02/17/24 02/17/24 History mg-hydrochlorothiazide 12.5 mg tablet meloxicam 7.5 mg tablet 7.5 mg PO DAILY 02/17/24 02/17/24 History omeprazole 20 mg capsule,delayed 20 mg PO DAILY 02/17/24 02/17/24 History release pregabalin 25 mg capsule 50 mg PO BID 02/17/24 02/17/24 History Patient History Social History Smoking Status: Never smoker Hx Alcohol Use: No Hx Substance Use: No Preferred Language: Kiswahili Communication Ability: Effective Lye Treater Required: No Beliefs That Will Affect Care: None Current Living Situation: Spouse Other Information That Helps Us Care for You: No Feels Safe at Home: Yes Safety Concerns: Feels Safe At This Time Assistive Devices: Cane Physical Exam Constitutional: WD/WN, vitals as above Eyes: Wears glasses ENMT: Ears: no hearing impairment and no external ear abnormality Mouth: no oropharynx abnormality Neck: trachea midline Respiratory: normal respiratory effort; no respiratory distress and no labored breathing Cardiovascular: Rate/Rhythm: regular rate and regular rhythm Gastrointestinal (Abdomen): Patient's abdomen is rotund but it is soft and nonrigid. There is no rebound tenderness or guarding. Patient only had some slight tenderness to palpation in the left lower quadrant. Musculoskeletal: No calf tenderness Skin: no rashes Neurologic: moves all extremities Psychiatric: A+Ox3, euthymic affect Results & Data Vital Signs (Past 12 Hours) Vital Signs Temp Pulse Pulse Resp BP BP Pulse Ox 02/17/24 20:35 82 18 113/67 98 02/17/24 19:29 37.3 C 82 143/83 H 95 02/17/24 16:52 36.9 C 87 18 123/79 95 O2 Del Method 02/17/24 20:35 Room Air 02/17/24 19:29 Room Air 02/17/24 16:52 Room Air PG Care Time/CCT Total # of Minutes Spent Total Time Spent with Patient: Total time spent is greater than 50% in coordination of care (as documented) at patient's floor/unit and/or counseling patient: Coding Level of Care Code 69882 INT INP/OBS CARE 375MIN Diagnoses Diverticulitis of intestine with perforation and abscess K57.80
[2024-02-17] MEDS: fentaNYL citrate PF 100 MCG/2 ML VIAL IV STA (21:48)
[2024-02-17] MEDS: metroNIDAZOLE 500 MG/100 ML BAG IV STA (21:48)
[2024-02-17] MEDS: SODIUM CHLORIDE 0.9% 2,000 ML IV ONE (21:48)
[2024-02-17] MEDS: cefTRIAXone SODIUM 2,000 MG/50 ML BAG IV SCH (21:48)
--- NOTE | 2024-02-17 22:20 | History & Physical Report ---
Date of Service February 17, 2024 Assessment & Plan (1) Diverticulitis of colon with perforation: Plan: 78-year-old female with past medical history significant for dyslipidemia, prediabetes, COPD, allergic rhinitis, hypertension, solar purpura, peripheral vascular disease, GERD, morbid obesity, CKD stage III, history of breast cancer presents with abdominal pain and acute diverticulitis. Patient is having low back pain and hip pain radiating to left lower abdomen since couple of weeks but got progressively worse lately. Went to PCP and CT scan was done which showing acute diverticulitis with possible contained perforation and possible fistula and was sent here. Patient denies any fever. She had normal bowel movement in the morning. Micturating okay. Denies any chest pain or shortness of breath. No cough. No headache. No blurred vision. No runny nose. No sore throat or cough .Appetite is down last few days. Hemodynamics are okay. Diverticulitis of colon with perforation. CT abdomen pelvis done as outpatient shows:1. Inflammation and abscess with extraluminal foci of gas in the left lower quadrant, probably representing a diverticular abscess and contained bowel perforation from sigmoid diverticulitis. Additional extraluminal foci of gas in the lesion with developing fistulous track not excluded. 2. Complex cystic mass in the right kidney, poorly assessed without IV contrast. Recommend outpatient MRI abdomen with gadolinium. patient is allergic penicillins. Got Rocephin and Flagyl in ER. Will continue with cefepime and Flagyl NPO. IV fluids. Pain meds as needed. Surgery consult. Prediabetes. Will follow HbA1c levels. Hyperlipidemia. On statin. COPD. Continue home inhalers and nebs as needed. Hypertension. Continue lisinopril/hydrochlorothiazide. Will monitor. GERD on omeprazole. VANNESSA on CKD stage III baseline creatinine around 1. Presented with creatinine 1.2. Will follow repeat labs in AM. If worsening will hold lisinopril/hydrochlorothiazide. Complex right renal cyst. Needs follow-up with MRI with contrast DVT prophylaxis. Lovenox. Disposition. Medical floor. Full code. History of Present Illness Chief Complaint: abdominal pain and found to have acute diverticulitis Primary Care Provider: Maricarmen Ann DO 78-year-old female with past medical history significant for dyslipidemia, prediabetes, COPD, allergic rhinitis, hypertension, solar purpura, peripheral vascular disease, GERD, morbid obesity, CKD stage III, history of breast cancer presents with abdominal pain and acute diverticulitis. Patient is having low back pain and hip pain radiating to left lower abdomen since couple of weeks but got progressively worse lately. Went to PCP and CT scan was done which showing acute diverticulitis with possible contained perforation and possible fistula and was sent here. Patient denies any fever. She had normal bowel movement in the morning. Micturating okay. Denies any chest pain or shortness of breath. No cough. No headache. No blurred vision. No runny nose. No sore throat or cough .Appetite is down last few days. Hemodynamics are okay. Past medical history as mentioned above, past surgical history. Breast lesion excision. . Colonoscopy. Double knee replacement. 7 knee surgeries. Tendon rupture repair. Injection of lumbosacral spine. Knee arthroscopy. Partial mastectomy. Appendectomy. Bilateral cataracts. Revision of tennis elbow. Social history. . No smoking. Alcohol occasional. No drug use. Family history. Brother has alcoholism. Mother had colon cancer. Maternal grandmother had colon cancer. Father had staph infection of heart valve Allergies Allergy/AdvReac Type Severity Reaction Status Date / Time Penicillins Allergy Intermediate RASH/HIVES; Verified 08/18/23 06:32 FATHER FROM PCN REACTION zolpidem Allergy Mild RASH Verified 08/18/23 01:20 talc Allergy Unknown "CANNOT Verified 08/18/23 01:20 USE TALC PRODUCTS!" SEVERE BURNING, PAIN lemon Allergy Blister Verified 08/21/23 09:15 tamoxifen AdvReac Severe nausea/vomi Verified 08/18/23 01:20 ting [place] And Derivatives AdvReac Blister Verified 08/21/23 09:16 orange AdvReac Blister Verified 08/21/23 09:12 pineapple AdvReac Blister Verified 08/21/23 09:11 tomato AdvReac Blister Verified 08/21/23 09:11 Imidazole Antifungals Allergy Severe "BURNING, Uncoded 08/18/23 01:20 AGONIZING PAIN" Home Medications Medication Instructions Recorded Confirmed Type atorvastatin 20 mg tablet 20 mg PO DAILY 02/17/24 02/17/24 History beclomethasone dipropionate 40 1 inh inhalation BID 02/17/24 02/17/24 History mcg/actuation HFA breath activated aerosol (Qvar RediHaler) ipratropium 0.5 mg-albuterol 3 mg 3 ml inhalation TID 02/17/24 02/17/24 History (2.5 mg base)/3 mL nebulization soln lisinopril 20 2 tab PO DAILY 02/17/24 02/17/24 History mg-hydrochlorothiazide 12.5 mg tablet meloxicam 7.5 mg tablet 7.5 mg PO DAILY 02/17/24 02/17/24 History omeprazole 20 mg capsule,delayed 20 mg PO DAILY 02/17/24 02/17/24 History release pregabalin 25 mg capsule 50 mg PO BID 02/17/24 02/17/24 History Past Med/Surg History Problem List (Updated 02/17/24 @ 20:59 by Savana Banda MD) Diverticulitis of colon with perforation (Acute) Acute kidney injury superimposed on chronic kidney disease (Acute) Leukocytosis (Acute) Diverticulitis of intestine with abscess (Acute) Diverticulitis of intestine with perforation and abscess (Acute) Acute diverticulitis Abdominal pain (Acute) Acute lumbar radiculopathy (Acute) Low back pain (Acute) Acute colitis (Acute) Social History Smoking Status: Never smoker Hx Alcohol Use: No Hx Substance Use: No Preferred Language: Danish Communication Ability: Effective Information Security Associate Required: No Beliefs That Will Affect Care: None Current Living Situation: Spouse Other Information That Helps Us Care for You: No Feels Safe at Home: Yes Safety Concerns: Feels Safe At This Time Assistive Devices: Glasses Review of Systems Review of Systems: All systems reviewed & are unremarkable except as noted in HPI & below Physical Exam Physical Exam: General- Not in distress Head- atraumatic Eyes- PERRL. ENT- oropharynx clear Neck- supple, no JVD. Lungs- clear to auscultation no wheezing or crackles. Heart- regular rate and rhythm; no murmur, no gallop. Abdomen- normal bowel sounds, soft, Mild tenderness in LUQ and Lower abdomen. No distension. Extremities- Mild pretibial edema present, no erythema seen. Neuro- alert, oriented PERRL, no facial palsy; no dysarthria; moves extremities. Results & Data Results & Data Vital Signs (Past 12 Hours) Vital Signs Temp Pulse Pulse Resp BP BP Pulse Ox 02/17/24 20:35 82 18 113/67 98 02/17/24 19:29 37.3 C 82 143/83 H 95 02/17/24 16:52 36.9 C 87 18 123/79 95 O2 Del Method 02/17/24 20:35 Room Air 02/17/24 19:29 Room Air 02/17/24 16:52 Room Air Diagnostic Findings Laboratory Results WBC 12.38 K/ul (4.8-10.8) H 02/17/24 17:45 RBC 4.34 M/uL (4.20-5.40) 02/17/24 17:45 Hgb 12.8 g/dl (12.0-16.0) 02/17/24 17:45 Hct 38.8 % (37.0-47.0) 02/17/24 17:45 MCV 89.4 fL (80.0-100.0) 02/17/24 17:45 MCH 29.5 pg (25.0-34.0) 02/17/24 17:45 MCHC 33.0 g/dL (32.0-36.0) 02/17/24 17:45 RDW Std Deviation 44.7 fL (36.4-46.3) 02/17/24 17:45 RDW Coeff of Kavita 13.6 % (11.5-14.5) 02/17/24 17:45 Plt Count 322 K/uL (130-400) 02/17/24 17:45 MPV 9.5 fL (9.4-12.4) 02/17/24 17:45 Immature Gran % (Auto) 0.6 % 02/17/24 17:45 Neut % (Auto) 75.7 % 02/17/24 17:45 Lymph % (Auto) 9.7 % 02/17/24 17:45 Swain % (Auto) 11.1 % 02/17/24 17:45 Eos % (Auto) 2.3 % 02/17/24 17:45 Baso % (Auto) 0.6 % 02/17/24 17:45 Neut # (Auto) 9.38 K/uL (1.40-6.50) H 02/17/24 17:45 Lymph # (Auto) 1.20 K/uL (1.20-3.40) 02/17/24 17:45 Swain # (Auto) 1.38 K/uL (0.11-0.59) H 02/17/24 17:45 Eos # (Auto) 0.28 K/uL (0.00-0.50) 02/17/24 17:45 Baso # (Auto) 0.07 K/uL (0.00-0.20) 02/17/24 17:45 Immature Gran # (Auto) 0.07 K/uL (0.01-0.20) 02/17/24 17:45 Sodium 137 mmol/L (136-145) 02/17/24 17:45 Potassium 3.6 mmol/L (3.5-5.1) 02/17/24 17:45 Chloride 100 mmol/L (98-107) 02/17/24 17:45 Carbon Dioxide 29 mmol/L (21-32) 02/17/24 17:45 Anion Gap 8 (3-11) 02/17/24 17:45 BUN 29 mg/dl (6-23) H 02/17/24 17:45 Creatinine 1.29 mg/dl (0.6-1.2) H 02/17/24 17:45 Est Cr Clr Drug Dosing Not Reportable 02/17/24 17:45 Est GFR ( Amer) 46.6 ml/min 02/17/24 17:45 Est GFR (Non-Af Amer) 40.2 ml/min 02/17/24 17:45 BUN/Creatinine Ratio 22.5 (10-20) H 02/17/24 17:45 Glucose 94 mg/dl (70-99(Fasting)) 02/17/24 17:45 Lactate 0.9 mmol/L (0.4-2.0) 02/17/24 21:37 Calcium 9.0 mg/dl (8.6-10.3) 02/17/24 17:45 Total Bilirubin 1.0 mg/dl (0.2-1.0) 02/17/24 17:45 AST 17 U/L (13-39) 02/17/24 17:45 ALT 11 U/L (7-52) 02/17/24 17:45 Alkaline Phosphatase 72 U/L (34-104) 02/17/24 17:45 Total Protein 6.9 gm/dl (6.0-8.3) 02/17/24 17:45 Albumin 3.6 gm/dl (3.4-5.0) 02/17/24 17:45 Globulin 3.3 gm/dl (2.5-4.0) 02/17/24 17:45 Albumin/Globulin Ratio 1.1 (0.9-2) 02/17/24 17:45 Lipase 12 U/L (11-82) 02/17/24 17:45 Procalcitonin 0.07 ng/ml (0-0.5) 02/17/24 17:45 Urine Color Yellow 02/17/24 19:51 Urine Appearance Clear (Clear) 02/17/24 19:51 Urine pH 5.5 (4.5-7.5) 02/17/24 19:51 Ur Specific Hitchcock 1.010 (1.000-1.030) 02/17/24 19:51 Urine Protein Negative (Negative) 02/17/24 19:51 Urine Glucose (UA) Negative (Negative) 02/17/24 19:51 Urine Ketones Negative (Negative) 02/17/24 19:51 Urine Blood Negative (Negative) 02/17/24 19:51 Urine Nitrite Negative (Negative) 02/17/24 19:51 Urine Bilirubin Negative (Negative) 02/17/24 19:51 Urine Urobilinogen Negative (Negative) 02/17/24 19:51 Ur Leukocyte Esterase Trace (Negative) H 02/17/24 19:51 Urine WBC (Auto) 0-5 /hpf (0-5) 02/17/24 19:51 Urine RBC (Auto) 0-2 /hpf (0-2) 02/17/24 19:51 U Hyaline Cast (Auto) 0-2 /lpf (0-2) 02/17/24 19:51 U Epithel Cells (Auto) 0-2 /hpf (0-2) 02/17/24 19:51 Urine Bacteria (Auto) None Seen (None Seen) 02/17/24 19:51 Code Status & VTE Plan VTE Prophylaxis Plan VTE Prophylaxis will be ordered: Yes
[2024-02-17] MEDS ORDERED: ACETAMINOPHEN 325 MG TAB PO PRN (23:02)
[2024-02-18] MEDS: SODIUM CHLORIDE 0.9% 1,000 ML IV SCH (00:01)
[2024-02-18] MEDS: PREGABALIN 50 MG CAP PO STA (00:02)
[2024-02-18] MEDS: metroNIDAZOLE 500 MG/100 ML BAG IV SCH (05:35)
[2024-02-18] MEDS: HYDROmorphone INJ 0.5 MG/0.5 ML SYR IV PRN (05:36)
[2024-02-18] MEDS: ENOXAPARIN INJ 40 MG/0.4 ML SYR SQ SCH (05:36)
[2024-02-18 06:26] LABS: Basophils # (auto) 0.06 K/uL (0.00-0.20); Basophils % (auto) 0.5 %; Eosinophils # (auto) 0.27 K/uL (0.00-0.50); Eosinophils % (auto) 2.4 %; Hematocrit (blood only) 36.5 % (37.0-47.0); Hemoglobin 11.8 g/dl (12.0-16.0); Immature Granulocytes # (auto) 0.04 K/uL (0.01-0.20); Immature Granulocytes % (auto) 0.4 %; Lymphocytes # (auto) 1.23 K/uL (1.20-3.40); Mean Corpuscular Hemoglobin 29.2 pg (25.0-34.0); Mean Corpuscular Hgb Conc 32.3 g/dL (32.0-36.0); Mean Corpuscular Volume 90.3 fL (80.0-100.0); Mean Platelet Volume 9.5 fL (9.4-12.4); Monocytes # (auto) 1.38 K/uL (0.11-0.59); Monocytes % (auto) 12.4 %; Neutrophils # (auto) 8.16 K/uL (1.40-6.50); Neutrophils % (auto) 73.3 %; Platelet Count 281 K/uL (130-400); RDW Coefficient of Variation 13.4 % (11.5-14.5); RDW Standard Deviation 44.6 fL (36.4-46.3); Red Blood Count 4.04 M/uL (4.20-5.40); White Blood Count 11.14 K/ul (4.8-10.8)
[2024-02-18 06:45] LABS: Calcium 8.4 mg/dl (8.6-10.3); Creatinine Clr Calc Pharmacy 48.5 ml/min; Est GFR (African American) 51.9 ml/min; Est GFR (Non-African American) 44.8 ml/min; Magnesium 1.8 mg/dl (1.7-2.4); Potassium 3.7 mmol/L (3.5-5.1)
[2024-02-18] MEDS: ALBUT/IPRATROP 3MG/0.5MG NEB 3 ML VIAL INH SCH (07:04)
[2024-02-18] MEDS ORDERED: ALBUT/IPRATROP 3MG/0.5MG NEB 3 ML VIAL INH PRN (07:16)
[2024-02-18 07:31] LABS: Estimated Average Glucose 126 mg/dl
[2024-02-18] MEDS: LISINOPRIL/HCTZ 20/12.5MG 1 TAB TAB PO SCH (09:02)
[2024-02-18] MEDS: ATORVASTATIN 20 MG TAB PO SCH (09:02)
[2024-02-18] MEDS: PANTOprazole 40 MG TAB PO SCH (09:02)
[2024-02-18] MEDS: CYANOCOBALAMIN (B-12) 500 MCG TABLET PO SCH (09:02)
[2024-02-18] MEDS: FLUTICASONE FUROATE 100MCG 14 PUFFS/INHALER INH SCH (09:03)
[2024-02-18] MEDS: CEFEPIME 2,000 MG in SYRINGE 0 ML IV SCH (09:06)
[2024-02-18] MEDS: PREGABALIN 50 MG CAP PO SCH (09:06)
--- NOTE | 2024-02-18 10:06 | Surgery Progress Note ---
Date of Service February 18, 2024 Assessment & Plan (1) Diverticulitis of colon with perforation: Plan: improving already would keep npo/ice chips until tomorrow no urgent indication for surgical intervention. will continue to follow along (2) Acute kidney injury superimposed on chronic kidney disease: Admission and Anticipated Discharge Date Admission Date: February 17, 2024 Subjective pt seen. feeling better already. no new complaints. Physical Exam Constitutional: WD/WN, vitals as above no acute distress and not ill appearing Eyes: PERRL, conjunctivae normal, anicteric sclerae EOM intact bilaterally ENMT: external ear and nose normal, oropharynx normal Ears: no hearing impairment Neck: trachea midline, no thyromegaly Respiratory: normal respiratory effort; no respiratory distress and does not use accessory muscles Cardiovascular: Rate/Rhythm: regular rate and regular rhythm Gastrointestinal (Abdomen): soft. mild LLQ ttp. no peritonitis Skin: no rashes, warm and dry Psychiatric: Orientation: alert, oriented x 3 and cooperative Results & Data Vital Signs (Past 12 Hours) Vital Signs Temp Pulse Pulse Resp BP Pulse Ox O2 Del Method 02/18/24 06:31 36.7 C 82 18 107/67 94 Room Air 02/17/24 23:15 36.6 C 85 16 122/65 94 Room Air 02/17/24 22:39 36.8 C 79 16 137/77 99 Room Air PG Care Time/CCT Total # of Minutes Spent Total Time Spent with Patient: Total time spent is greater than 50% in coordination of care (as documented) at patient's floor/unit and/or counseling patient: Coding Level of Care Code 64380 SUB INP/OBS CARE Diagnoses Diverticulitis of colon with perforation K57.20 Acute kidney injury superimposed on chronic kidney disease N17.9; N18.9
--- NOTE | 2024-02-18 12:25 | Hospitalist Progress Note ---
Date of Service February 18, 2024 Assessment & Plan (1) Diverticulitis of colon with perforation: Plan Pt is a 78-year-old female with past medical history significant for dyslipidemia, prediabetes, COPD, allergic rhinitis, hypertension, solar purpura, peripheral vascular disease, GERD, morbid obesity, CKD stage III, history of breast cancer who presents with abdominal pain and acute diverticulitis. Patient is having low back pain and hip pain radiating to left lower abdomen for a few weeks but got progressively worse lately. Went to PCP and CT scan was done which showed acute diverticulitis with possible contained perforation and possible fistula and was sent here. Patient denies any fever. She had normal bowel movement in the morning. Diverticulitis of colon with perforation CT abdomen pelvis done as outpatient shows: -1. Inflammation and abscess with extraluminal foci of gas in the left lower quadrant, probably representing a diverticular abscess and contained bowel perforation from sigmoid diverticulitis. Additional extraluminal foci of gas in the lesion with developing fistulous track not excluded. -2. Complex cystic mass in the right kidney, poorly assessed without IV contrast. Recommend outpatient MRI abdomen with gadolinium. patient is allergic to penicillins. Got Rocephin and Flagyl in ER. Continue with cefepime and Flagyl NPO IV fluids Pain meds as needed Surgery consult -conservative management VANNESSA on CKD stage III baseline creatinine around 1. Presented with creatinine 1.2. Improved Complex right renal mass Needs outpt follow-up with MRI with contrast PCP followup Prediabetes HbA1c 6.0, stable pcp f/u Hyperlipidemia On statin. COPD Continue home inhalers and nebs as needed. Hypertension Continue lisinopril/hydrochlorothiazide. monitor. GERD on omeprazole VANNESSA on CKD stage III baseline creatinine around 1. Presented with creatinine 1.2. Improved Diet: NPO with chips/sips DVT prophylaxis: Lovenox Dispo: PT/OT ordered for further recs Admission and Anticipated Discharge Date Admission Date: February 17, 2024 Subjective Pt was seen with partner at bedside. Noted abdominal pain on the left only with sitting up but states otherwise pain has been well controlled. Denied N/V, fevers Review of Systems Review of Systems: All systems reviewed & are unremarkable except as noted in Subjective Physical Exam Physical Exam: General: Alert, oriented. No acute distress Skin: No noted rashes or bruises Psych: Appropriate mood and affect Neuro: No gross deficits HEENT: NC/AT CV: RRR Resp: Breath sounds clear bilaterally, no increased effort of breathing. Abdomen: . Soft, nontender on exam, but tenderness when pt sat up Extremities: trace edema in lower extremities bilaterally. Results & Data Results & Data Vital Signs (Past 12 Hours) Vital Signs Temp Pulse Resp BP Pulse Ox O2 Del Method 02/18/24 06:31 36.7 C 82 18 107/67 94 Room Air
--- OUTSIDE RECORDS SUMMARY | 2024-02-18 13:01 | External Medical Summary | Summary of Care ---
Author Name Unknown Organization [facility] Address [address] [address] Phone [phone] Care Team Providers Care Fee Clerk Name Role Phone SolomonMaricarmen sim Elliot BISHOP Primary Care Provider [phone] Reason for Visit * Reason Onset Date Comments Follow Up 12/31/2023 Encounter Details Date Type Department Care Team (Late st Contact Info) Description 12/31/2023 11:00 AM EDT Scheduled Telephone Interventional [facility] Center, [facility] [address] [place] [address] [place] Nurse Phone Call Interventional Pain [facility] [address] [place] [address] Lumbar radicular pain*; Spondylolisthesis, grade 2 Allergies Active Allergy Reactions Criticality Noted Date Comments Amoxicillin Unknown 03/13/1999 Imidazole Antifungals 03/13/1999 Vaginal infections Tamoxifen Citrate Nausea/vomiting High 02/14/2010 documented as of this encounter (statuses as of 12/31/2023) Medications Medication Sig Dispensed Refills Start Date End Date Status Multiple Vitamins-Minerals (MULTIVITAMIN WOMENS 50+ ADV) TABS Take 1 Tablet by mouth in the morning. Active Calcium Carb-Cholecalciferol 500-600 MG-UNIT Oral Tablet Take by mouth daily at noon. Active Salt Flat-3 Fatty Acids (FISH OIL) 1000 MG Capsule Take 1 Capsule by mouth daily at noon. Active Loratadine 10 MG Oral Tablet Take 1 Tablet by mouth in the morning. 30 Tab 11 03/27/2021 Active Vitamin B-12 6000 MCG Sublingual Tablet Sublingual Place 1 Tablet under the tongue in the morning. Active Omeprazole 20 MG Oral Capsule Delayed Release (PriLOSEC)Indication s:Gastroesophageal reflux disease without esophagitis Take 2 Capsules by mouth daily before dinner. 200 Capsule 3 03/19/2023 Active Qvar RediHaler 40 MCG/ACT Inhalation Aerosol Breath Activated (Beclomethasone Diprop HFA) Inhale 1 Puff by mouth in the morning and 1 Puff before bedtime. 10.6 g 2 07/18/2023 Active Additional Information Patient taking differently:1 Puff Inhalation BID (.AM/PM),Only using once a day., Reported on 11/28/2023 Atorvastatin Calcium 20 MG Oral Tablet (Lipitor) TAKE ONE TABLET BY MOUTH EVERY DAY 100 Tablet 3 07/31/2023 4 Active Ipratropium-Albutero l 0.5-2.5 (3) MG/3ML Inhalation Solution (Duoneb)Indications: COPD, group A, by GOLD 2017 classification ([facility]) Inhale 3 mL via nebulizer in the morning and 3 mL at noon and 3 mL in the evening and 3 mL before bedtime. 50 mL 1 08/08/2023 Active Pregabalin 25 MG Oral Capsule (Lyrica)Indications: Neuropathy Take 2 capsules by mouth in the morning and two capsules by mouth in the evening 360 Capsule 1 10/28/2023 Active Meloxicam 7.5 MG Oral Tablet (Mobic) Take 1 Tablet by mouth in the morning. 100 Tablet 3 11/19/2023 Active Lisinopril-hydroCHLO ROthiazide 20-12.5 MG Oral TabletIndications:Es sential hypertension with goal blood pressure less than 130/80 TAKE TWO TABLETS BY MOUTH EVERY MORNING 200 Tablet 1 12/15/2023 5 Active predniSONE 10 MG Oral Tablet (Deltasone)Indicatio ns:Viral URI with cough Take 5 tabs for 2 days, 4 tabs for 2 days, 3 tabs for 2 days, 2 tabs for 2 days 1 tab for 2 days 30 Tablet 12/18/2023 Active documented as of this encounter (statuses as of 12/31/2023) Active Problems Problem Noted Date Diagnosed Date [...] as of this encounter (statuses as of 12/31/2023) Resolved Problems Problem Noted Date Diagnosed Date [...] as of this encounter (statuses as of 12/31/2023) Immunizations Name Administration Dates Next Due COVID-19 [...] Date Recorded PHQ Adult Total Score 0 09/01/2023 Hunger Vital Sign Answer Date Recorded Within the past 12 months, y ou worried that your food would run out before you got the money to buy more. Never true 09/01/19 24 Within the past 12 months, t he food you bought just didn't last and you didn't have money to get more. Never true 09/01/2023 Sex and Gender Information Value Date Recorded Sex Assigned at Female 04/11/2022 9:21 AM EDT Gender Identity Female 04/11/2022 9:21 AM EDT Sexual Orientation Straight 09/10/2019 2: 34 PM EST Job Start Date Occupation Industry Not on file Not on file Not on file documented as of this encounter Miscellaneous Notes * Addendum Note - Mary Callahan PA-C - 12/31/2023 12:12 PM EDTAddended by: MARY CALLAHAN on: 12/31/2023 12:12 PM Modules accepted: Orders * Telephone Encounter - Mary Callahan PA-C - 12/31/2023 12:10 PM EDT 100% pain relief following interlaminar TRISTAN L5/S1 on 12/01/23. Can place repeat order, will need to space injections. Should be aware that if pain does not return, to cancel repeat injection. 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 Stop mobic three days prior. * Telephone Encounter - Yari Marino LPN - 12/31/2023 9:19 AM EDT Patient reports 100% improvement after L5/S1 interlaminar epidural steroid injection on the left side. No pain currently. Patient states she was told by that she will need these regularly and was to get scheduled for a f/u inj when we did this phone call. Please place order if necessary. documented in this encounter Plan of Treatment Upcoming Encounters Date Type Department Care Team (Late st Contact Info) Description 01/06/2024 3:40 PM EDT Office Visit Family Practice [address] [facility] [address] [place] [address] Maricarmen Ann DO [address] [place] [address] 03/30/2024 2:00 PM EDT Nurse Only Ancillary [facility] [address] [place] [address] College, Nurse Annual Wellness Visit [address] [address] 08/20/2024 10:45 AM EST Office Visit Dermatology [facility] [address] [place] [address] Richard Ley MD [address] [facility] [address] Scheduled Orders Name Type Priority Associated Diagnoses Orde r Schedule INJECT DX/THER SUBSTANCE INTERLAMINAR LUMBAR/SACRAL W IMAGE GUIDE Procedures Routine Lumbar radicular pain Spondylolisthesis, grade 2 Expected: 04/01/2024 (Approximate), Expires: 01/30/2025 Scheduled Procedures Name Priority Associated Diagnoses Date/Ti me COLONOSCOPY FLEXIBLE PROXIMA L DIAGNOSTIC Recall Family history of colon cancer Health Maintenance Due Date Last Done Comments Alpha-1 Antitrypsin 1963 CKD PHOS USE SMARTSET 95864 05/10/2022 05/10/2021 COVID-19 Vaccine ( season) 2023 09/20/2021, 11/09/2020, 10/19/2020 GFR 12/29/2023 06/30/2023, 2 10/2022, 04/12/2022, Additional history exists Albumin/Creatinine Ratio 02/29/2024 02/28/2023, 090 08/2021 O2 ASSESSMENT COMPLETED IN PAST YEAR FOR COPD 05/01/2024 05/01/2023 CKD HGB USE SMARTSET 24332 06/30/202406/30, 06/30/2023, 04/08/2022, Additional history exists HbA1c 06/30/2024 06/30/2023, 09/2021, 05/10/2021, Additional history exists Depression Screening 09/01/2024 09/01/2023 Colonoscopy 04/21/2025 04/21/2020, 04/11, 03/15/2015, Additional history exists DXA Scan 03/21/2027 03/21/2020, 05/11, 05/26/2013 DTaP,Tdap,and Td Vaccines (3 - Td or Tdap) 04/11/2032 04/11/2022, 12/20/2011, 09/03/2005, Additional history exists Pneumococcal Vaccine: 65+ Years Completed 07/28/2015, 05/12/2013 RETIRED - COLONOSCOPY-EVERY 5 YRS AGES 18-100 Discontinued 04/21/2020, 04/21/2020, 03/15/2015, Additional history exists Zoster Vaccines Completed 12/25/2020, 04/12, 12/20/2011 Influenza Vaccine (FLU shot) Completed 05/13/2023, 04/11/2022, 06/15/2021, Additional history exists GARDASIL-HPV IMMUNIZATION SERIES Aged Out No longer eligible based on patient's age to complete this topic Hepatitis B Aged Out No longer eligi ble based on patient's age to complete this topic MENINGOCOCCAL (MENACTRA/MENVEO) Aged Out No longer eligible based on patient's age to complete this topic documented as of this encounter Medical Devices Implanted Type Area Photography Assistant Device Identifier Shelf Expiration Date Model / Serial / Lot Lens Li61ao 13.00mm 19.00 - [id number] - [id number] Implanted:Qty: 1 on 04/17/2023 by Bryan Richards MD at OR [facility] Left: Eye [employer] 12/09/2027 [id number] / [id number] / [id number] Lens Li61ao 13.00mm 18.50 - [id number] - [id number] Implanted:Qty: 1 on 05/01/2023 by Bryan Richards MD at OR [facility] Right: Eye [employer] 10/09/2027 [id number] / [id number] / [id number] documented as of this encounter Visit Diagnoses Diagnosis Lumbar radicular pain- Primary Thoracic or lumbosacral neuritis or radiculitis, unspecified Spondylolisthesis, grade 2 Congenital spondylolisthesis documented in this encounter Advance Directives * Full Code (Latest Code Status on File) Date Activated Date Inactivated Comments 05/01/2023 9:33 AM 05/01/2023 4:13 PM This order r eflects the patients wishes and were consensually agreed upon. Question Answer Comments Discussion of Advance Directives occurred with: Patient Does the patient have a Living Will? No Does the patient have Health Care Power of Attor ivelisse? No * Full Code Date Activated Date Inactivated Comments 04/17/2023 8:37 AM 04/17/2023 2:50 PM This order ref lects the patients wishes and were consensually agreed upon. Question Answer Comments Discussion of Advance Directives occurred with: Patient Does the patient have a Living Will? No Does the patient have Health Care Power of Attor ivelisse? No Healthcare Agents on File Name Relationship Healthcare Agent Relationshi p Communication Noah Flores Adult Child Health Care Repr esentative (appointed verbally by patient or by statute hierarchy) Care Teams Fee Clerk Relationship Specialty Start Date End Date Maricarmen Ann DO [address] [place] [address] PCP - General Family Medicine 03/26/23 documented as of this encounter
--- OUTSIDE RECORDS SUMMARY | 2024-02-18 13:01 | External Medical Summary | Summary of Care ---
Author Name Unknown Organization [facility] Address [address] [place] [address] Phone [phone] Care Team Providers Care Shotgun Shell Assembly Machine Operator Name Role Phone Maricarmen Ricardo DO Primary Care Provider Reason for Visit * Reason Onset Date Comments Medication Refill 01/26/2024 Encounter Details Date Type Department Care Team (Late st Contact Info) Description 01/26/2024 Refill Family Practice [address] [place] [address] [place] [address] Maricarmen Ricardo DO [address] [place] [address] Allergies Active Allergy Reactions Criticality Noted Date Comments Amoxicillin Unknown 03/13/1999 Imidazole Antifungals 03/13/1999 Vaginal infections Tamoxifen Citrate Nausea/vomiting High 02/14/2010 documented as of this encounter (statuses as of 01/28/2024) Medications Medication Sig Dispensed Refills Start Date End Date Status Multiple Vitamins-Minerals (MULTIVITAMIN WOMENS 50+ ADV) TABS Take 1 Tablet by mouth in the morning. Active Calcium Carb-Cholecalcifero l 500-600 MG-UNIT Oral Tablet Take by mouth daily at noon. Active [place]-3 Fatty Acids (FISH OIL) 1000 MG Capsule [...] before dinner. 200 Capsule 3 03/19/2023 Active Atorvastatin Calcium 20 MG Oral Tablet (Lipitor) TAKE ONE TABLET BY MOUTH EVERY DAY 100 Tablet 3 07/31/2023 4 Active Ipratropium-Albuter ol 0.5-2.5 (3) MG/3ML Inhalation Solution (Duoneb)Indications :COPD, group A, by GOLD 2017 classification ([facility]) Inhale 3 mL via nebulizer in the morning and 3 mL at noon and 3 mL in the evening and 3 mL before bedtime. 50 mL 1 08/08/2023 Active Pregabalin 25 MG Oral Capsule (Lyrica)Indications :Neuropathy Take 2 capsules by mouth in the morning and two capsules by mouth in the evening 360 Capsule 1 10/28/2023 Active Meloxicam 7.5 MG Oral Tablet (Mobic) Take 1 Tablet by mouth in the morning. 100 Tablet 3 11/19/2023 Active Lisinopril-hydroCHL OROthiazide 20-12.5 MG Oral TabletIndications:E ssential hypertension with goal blood pressure less than 130/80 TAKE TWO TABLETS BY MOUTH EVERY MORNING 200 Tablet 1 12/15/2023 5 Active predniSONE 10 MG Oral Tablet (Deltasone)Indicati ons:Viral URI with cough Take 5 tabs for 2 days, 4 tabs for 2 days, 3 tabs for 2 days, 2 tabs for 2 days 1 tab for 2 days 30 Tablet 12/18/2023 Active Qvar RediHaler 40 MCG/ACT Inhalation Aerosol Breath Activated (Beclomethasone Diprop HFA) Inhale 1 Puff by mouth in the morning and 1 Puff before bedtime. 10.6 g 2 01/28/2024 Active Qvar RediHaler 40 MCG/ACT Inhalation Aerosol Breath Activated (Beclomethasone Diprop HFA) Inhale 1 Puff by mouth in the morning and 1 Puff before bedtime. 10.6 g 2 07/18/2023 4 Discontinue d(Refill) documented as of this encounter (statuses as of 01/28/2024) Active Problems Problem Noted Date Diagnosed Date [...] as of this encounter (statuses as of 01/28/2024) Resolved Problems Problem Noted Date Diagnosed Date [...] as of this encounter (statuses as of 01/28/2024) Immunizations Name Administration Dates Next Due COVID-19 [...] 06/28/2019 TDAP (age 10 and older)(Boostrix) 04/11/2022 TDAP, Age 7 and older, IM (Adacel) 12/20/2011 Varicella Zoster Vaccine (Adult) 12/20/2011 Zoster [...] money to get more. Never true 09/01/2023 Childcare Answer Date Recorded Do you feel overwhelmed with taking care of a child, family member or friend? No 09/01/2023 Does your family need help f inding childcare? (Household - for ages 0-17 years) Not on file 09/01/2023 Clothing Answer Date Recorded Have you been unable to get clothing when it was really needed? No 09/01/2023 Is your family able to get c lothes or diapers when needed? (Household - for ages 0-17 years) Not on file 09/01/2023 Personal Safety Answer Date Recorded Do you feel unsafe or have concerns for your saf ety? No 09/01/2023 Do you have concerns for you r family's safety? (Household - for ages 0-17 years) Not on file 09/01/2023 Utilities Answer Date Recorded Do you have trouble paying y our heating, water, or electric bill? No 09/01/2023 Is your family able to pay t he heat, water, or electric bill? (Household - for ages 0-17 years) Not on file 09/01/2023 Does your family have access to good internet? (Household - for ages 0-17 years) Not on file 09/01/2023 Employment Status Answer Date Recorded Are you unemployed or without regular income? No 09/01/2023 Does the household have a re gular source of income? (Household - for ages 0-17 years) Not on file 09/01/2023 Social Connections Answer Date Recorded How often do you feel lonely or isolated from th ose around you? Never 09/01/2023 Financial Resource Strain Answer Date R ecorded Do you have any trouble payi ng for your medications, or do you think you might in the future? No 09/01/2023 Does your family have troubl e paying for medicine? (Household - for ages 0-17 years) Not on file 09/01/2023 Transportation Needs Answer Date Record ed READ ONLY Do you have troubl e getting a ride to medical visits or work? Never True 09/01/2023 Does your family have a hard time getting a ride to doctors visits? (Household - for ages 0-17 years) Not on file 09/01/2023 Has lack of transportation k ept you from medical appointments, meetings, work, or from getting things needed for daily living? Check all that apply. (Adult - for ages 18 years and over) Not on file 09/01/2023 Do you (or your family) have trouble finding or paying for a ride (transportation)? (Household - for ages 0-17 years) Not on file 09/01/2023 Housing Stability Answer Date Recorded Do you currently live in a s helter or have no steady place to sleep at night? No 09/01/2023 READ ONLY Do you think you a re at risk of becoming homeless? No 09/01/2023 Does your family worry about paying for your home or becoming homeless? (Household - for ages 0-17 years) Not on file 0 09/01/2023 Are you homeless or worried that you might be in the future? (Adult - for ages 18 years and over) Not on file Are you (or your family) anna marie eless or worried that you might be in the future? (Household - for ages 0-17 years) Not on file Food Insecurity Answer Date Recorded Do you need food for this week? No 09/01/2023 Are you able to get enough f ood for your family? (Household - for ages 0-17 years) Not on file 09/01/2023 Does your family need food t his week? (Household - for ages 0-17 years) Not on file 09/01/2023 Do you always have enough fo od for your family? (Household - for ages 0-17 years) Not on file 09/01/2023 Sex and Gender Information Value Date Recorded Sex Assigned at Female 04/11/2022 9:21 AM EDT Gender Identity Female 04/11/2022 9:21 AM EDT Sexual Orientation Straight 09/10/2019 2: 34 PM EST Job Start Date Occupation Industry Not on file Not on file Not on file documented as of this encounter Miscellaneous Notes * Telephone Encounter - Luis Benitez [facility] - 01/28/2024 9:51 AM EDT Signed Prescriptions: Disp Refills Qvar RediHaler 40 MCG/ACT Inhalation Aeros*10.6 g 2 Sig: Inhale 1 Puff by mouth in the morning and 1 Puff before bedtime.Authorizing Provider: MARICARMEN RICARDO User: LUIS BENITEZ documented in this encounter Plan of Treatment Upcoming Encounters Date Type Department Care Team (Latest Contact Info) Description 03/29/2024 10:30 AM EDT Hospital Encounter [facility] Operating Room [facility] [address] [place] [phone] Valdemar Siddiqi, [address] [place] [phone] 03/29/2024 10:30 AM EDT - 03/29/2024 10:55 AM EDT Surgery OR [facility], Operating Room [facility] [address] [place] [phone] Valdemar Siddiqi, [address] [place] [phone] INJECTION SPINE LUMBAR OR SACRAL 03/30/2024 2:00 PM EDT Nurse Only Ancillary [facility] [address] [place] [address] College, Nurse Annual Wellness Visit 65 [facility] [address] [facility], [place] [address] 08/20/2024 10:45 AM EST Office Visit Dermatology [facility] [place] [address] [place], [place] [address] Richard Ley MD [address] [place] [id number] Scheduled Procedures Name Priority Associated Diagnoses Date/Ti me INJECTION SPINE LUMBAR OR SACRAL Lumbar radiculopathy 03/29/2024 10:30 AM EDT COLONOSCOPY FLEXIBLE PROXIMAL DIAGNOSTIC Recall Family history of colon cancer Health Maintenance Due Date Last Done Comments Alpha-1 Antitrypsin 1965 CKD PHOS USE SMARTSET 61125 05/10/2022 05/10/2021 COVID-19 Vaccine ( season) 2023 09/20/2021, 11/09/2020, 10/19/2020 GFR 12/29/2023 06/30/2023, 10/10, 04/12/2022, Additional history exists Albumin/Creatinine Ratio 02/29/2024 02/28/2023, 0908/2021 O2 ASSESSMENT COMPLETED IN PAST YEAR FOR COPD 05/01/2024 05/01/2023 CKD HGB USE SMARTSET 75082 06/30/202406/30, 06/30/2023, 04/08/2022, Additional history exists HbA1c 06/30/2024 06/30/2023, 09/0 09/2021, 05/10/2021, Additional history exists Depression Screening [...] this encounter Medical Devices Implanted Type Area Photographic Enlarger Operator Device Identifier Shelf Expiration Date Model / Serial / Lot Lens Li61ao 13.00mm 19.00 - [id number] - [id number] Implanted:Qty: 1 on 04/17/2023 by Bryan Richards MD at OR [facility] Left: Eye [employer] 12/09/2027 [id number] / [id number] / [id number] Lens Li61ao 13.00mm 18.50 - [id number] - [id number] Implanted:Qty: 1 on 05/01/2023 by Bryan Richards MD at OR [facility] Right: Eye [employer] 10/09/2027 [id number] / [id number] / [id number] documented as of this encounter Advance Directives * Full Code [...] patient or by statute hierarchy) Care Teams Shotgun Shell Assembly Machine Operator Relationship Specialty Start Date End Date Maricarmen Ricardo DO PCP - General Family Medicine 03/26/23 documented as of this encounter
--- OUTSIDE RECORDS SUMMARY | 2024-02-18 13:02 | External Medical Summary | Summary of Care ---
Author Name Unknown Organization [facility] Address [address] [facility] [address] Phone [phone] Care Team Providers Care Manufacturer'S Service Representative Name Role Phone Maricarmen Ann DO Primary Care Provider [phone] Reason for Visit * Reason Comments Follow Up Encounter Details Date Type Department Care Team (Latest Contact Info) Description 11/28/2023 11:20 AM EDT Office Visit Family Practice [address] [facility] [address] [place] [address] Maricarmen Ann DO [address] [place] [address] Prediabetes*; HTN, goal below 140/90; Loss of weight; Lumbar radiculopathy Allergies Active Allergy Reactions Criticality Noted Date Comments Amoxicillin Unknown 03/13/1999 Imidazole Antifungals 03/13/1999 Vaginal infections Tamoxifen Citrate Nausea/vomiting High 02/14/2010 documented as of this encounter (statuses as of 11/28/2023) Medications Medication Sig Dispensed Refills Start Date End Date Status Multiple Vitamins-Minerals (MULTIVITAMIN WOMENS 50+ ADV) TABS Take 1 Tablet by mouth in the morning. 0 Active Calcium Carb-Cholecalciferol 500-600 MG-UNIT Oral Tablet Take by mouth daily at noon. 0 Active Barre-3 Fatty Acids (FISH OIL) 1000 MG Capsule Take 1 Capsule by mouth daily at noon. 0 Active Loratadine 10 MG Oral Tablet Take 1 Tablet by mouth in the morning. 30 Tab 11 03/27/2021 Active Vitamin B-12 6000 MCG Sublingual Tablet Sublingual Place 1 Tablet under the tongue in the morning. 0 Active Lisinopril-hydroCHLO ROthiazide 20-12.5 MG Oral [...] COPD, group A, by GOLD 2017 classification ([facility]) Inhale 3 mL via nebulizer in the [...] the morning. 100 Tablet 3 11/19/2023 Active documented as of this encounter (statuses as of 11/28/2023) Active Problems Problem Noted Date Diagnosed Date [...] as of this encounter (statuses as of 11/28/2023) Resolved Problems Problem Noted Date Diagnosed Date [...] as of this encounter (statuses as of 11/28/2023) Immunizations Name Administration Dates Next Due COVID-19 [...] Sign Reading Time Taken Comments Blood Pressure 120/66 11/28/2023 11:36 AM EDT Pulse 75 11/28/2023 11:36 AM EDT Temperature 36.1 C (97 F) 11/28/2023 11:36 AM EDT Respiratory Rate 16 11/28/2023 11:36 AM EDT Oxygen Saturation 96% 11/28/2023 11:36 AM EDT Inhaled Oxygen Concentration - - Weight 104 kg (229 lb 3.2 oz) 11/28/2023 11:36 A M EDT Height 165.1 cm (5' 5") 11/28/2023 11:36 AM EDT Body Mass Index 38.14 11/28/2023 11:36 AM EDT documented in this encounter Progress Notes * Maricarmen Ann, - 11/28/2023 11:41 AM EDT SUBJECTIVE: Chief Complaint Patient presents with Follow Up HPI: Yari Long is a 78 year old female who presents today for regular return. Pt notes that she has been out of meloxicam. She states that she is scheduled for her spinal injection on Friday. She [facility]. Pt states that she feels she is in a funk. She notes that she just sits all day and wastes her day away. She does not feel that she needs anything for her mood. Pt notes that she has changed her diet. She is avoiding things that may affect her diverticulitis. She states that she just could not stand eating. She is not back to eating regularly. She states that she has been cutting back on sugar. PHM: Patient Active Problem List Diagnosis Code Allergic rhinitis J30.9 Dyslipidemia, goal to be determined E78.5 ADVANCE DIRECTIVE INFORMATION Gastroesophageal reflux disease without esophagitis K21.9 HTN, goal below 140/90 I10 Body mass index (BMI) of 40.0 to 44.9 in adult (HCC) Z68.41 S/P TKR (total knee replacement), left Z96.652 Prediabetes R73.03 History of breast cancer Z85.3 Solar purpura ([facility]) D69.2 Chronic kidney disease, stage 3a N18.31 Morbid obesity ([facility]) E66.01 Hypertensive kidney disease with stage 3a chronic kidney disease ([facility]) I12.9, N18.31 Other specified peripheral vascular diseases ([facility]) I73.89 COPD, group A, by GOLD 2017 classification ([facility]) J44.9 Caregiver stress Z63.6 Current Outpatient Medications Medication Sig Dispense Refill Multiple Vitamins-Minerals (MULTIVITAMIN WOMENS 50+ ADV) TABS Take 1 Tablet by mouth in the morning. Calcium Carb-Cholecalciferol 500-600 MG-UNIT Oral Tablet Take by mouth daily at noon. Barre-3 Fatty Acids (FISH OIL) 1000 MG Capsule Take 1 Capsule by mouth daily at noon. Loratadine 10 MG Oral Tablet Take 1 Tablet by mouth in the morning. 30 Tab 11 Vitamin B-12 6000 MCG Sublingual Tablet Sublingual Place 1 Tablet under the tongue in the morning. Lisinopril-hydroCHLOROthiazide 20-12.5 MG Oral Tablet TAKE TWO TABLETS BY MOUTH EVERY MORNING 200 Tablet 3 Omeprazole 20 MG Oral Capsule Delayed Release (PriLOSEC) Take 2 Capsules by mouth daily before dinner. 200 Capsule 3 Qvar RediHaler 40 MCG/ACT Inhalation Aerosol Breath Activated (Beclomethasone Diprop HFA) Inhale 1 Puff by mouth in the morning and 1 Puff before bedtime. (Patient taking differently: Inhale 1 Puff by mouth in the morning and 1 Puff before bedtime. Only using once a day. .) 10.6 g 2 Atorvastatin Calcium 20 MG Oral Tablet (Lipitor) TAKE ONE TABLET BY MOUTH EVERY DAY 100 Tablet 3 Ipratropium-Albuterol 0.5-2.5 (3) MG/3ML Inhalation Solution (Duoneb) Inhale 3 mL via nebulizer in the morning and 3 mL at noon and 3 mL in the evening and 3 mL before bedtime. 50 mL 1 Pregabalin 25 MG Oral Capsule (Lyrica) Take 2 capsules by mouth in the morning and two capsules by mouth in the evening 360 Capsule 1 Meloxicam 7.5 MG Oral Tablet (Mobic) Take 1 Tablet by mouth in the morning. 100 Tablet 3 No current facility-administered medications for this [...] term Recurrent major depressive disorder, in remission ([facility]) 12/12/2016 Vertigo BPV, MRI 2006, min microvascular disease Past Surgical History: Procedure Laterality Date BREAST LESION,OTHER,EXCISION 08/24/2007 Excision left breast mass (infiltrating lobular carcinoma) at [facility] [place] - Dr. You DELIVERY 1982 Delivery Only COLONOSCOPY 11/2004 tics COLONOSCOPY W/ LESION REMOVAL, SNARE 03/07/2010 done diverticulosis, polyp x1--hyperplastic tissue repeat in 5 years COLONOSCOPY, DIAGNOSTIC (RECTUM) 03/15/2015 diverticulosis, repeat 5 yrs/COLONOSCOPY FLEXIBLE PROXIMAL DIAGNOSTIC performed by Brendan Miller MD at ENDOSCOPY [facility] COLONOSCOPY, DIAGNOSTIC (RECTUM) 04/21/2020 diverticulosis, repeat 5 yrs / COLONOSCOPY FLEXIBLE PROXIMAL DIAGNOSTIC performed by Janneth Coffey MDat ENDOSCOPY [facility] INFORMATION 1999 double knee replacement INFORMATION 7 knee surgeries INFORMATION EPL tendon rupture repair KNEE ARTHROSCOPY, DIAGNOSTIC bilateral MASTECTOMY, PARTIAL 09/11/2007 Left PM with deep axillary SLNB at [facility] -Dr. You MISCELLANEOUS ORDER ([facility] ONLY) 1979 FNAB of left breast (benign) REMOVAL OF APPENDIX 04/30/2008 REMOVE CATARACT, INSERT LENS PROSTH Left 04/17/2023 Left EXTRACAPSULAR CATARACT REMOVAL WITH INTRAOCULAR LENS performed by Bryan Richards MD at [facility] REMOVE CATARACT, INSERT LENS PROSTH Right 05/01/2023 Right EXTRACAPSULAR CATARACT REMOVAL WITH INTRAOCULAR LENS performed by Bryan Richards MD at OR [facility] REVISION OF TENNIS ELBOW Review of patient's [...] color change, pallor and rash. OBJECTIVE: BP 120/66 (BP Site: Left Arm, BP Position: Sitting, BP Cuff Size: Large) | Pulse 75 | Temp 36.1 C(97 F) (Tympanic) | Resp 16 | Ht 1.651 m (5' 5") | Wt 104 kg (229 lb 3.2 oz) | SpO2 96% | BMI 38.14 kg/m | BSA 2.18 m PHYSICAL EXAM: Physical Exam Constitutional: General: [...] oriented to person, place, and time. ASSESSMENT/PLAN: (R73.03) Prediabetes (primary encounter diagnosis) Plan: HEMOGLOBIN A1C, BASIC METABOLIC PANEL Pt declines lab studies today. Did advise. She states she will get at next visit. (I10) HTN, goal below 140/90 Plan: TSH WITH FREE T4 IF INDICATED Pt declines lab studies today. BP controlled. (R63.4) Loss of weight Plan: Advised lab studies as above but she declines. Initially said she was not trying to lose weight but then reports changes in diet. Will see her back in a month to re-evaluate and monitor weight. (M54.16) Lumbar radiculopathy Plan: pt will keep appt for injection as scheduled on Friday. Follow-up: 1 month Total time today including reviewing chart before the visit, pertinent labs, imaging reports, face to face time, and documentation time was 31 minutes. Maricarmen Ann DO documented in this encounter Nursing Notes * Beverly Bond LPN - 11/28/2023 11:31 AM EDT Patient here for routine follow up visit. Reports she continues to have and back, right hip, left shoulder pain. Had injection in left shoulder yesterday. Still waiting on injection in back. States aches all over d/t being out of Meloxicam. Waiting for script to come from Mail order. Would like to discuss cream from corn detasseler machine operator that clears up topical areas that can lead to cancer - cannot remember the name of the cream. Still has spot on left eyelid and has been using cream for 3 months. Has f/u derm appt in August. Patient has been verbally educated on the need or importance of Immunizations: RSV, COVID and has declined topic(s). documented in this encounter Plan of Treatment Upcoming Encounters Date Type Department Care Team (Latest Contact Info) Description 12/01/2023 12:55 PM EDT Hospital Encounter [facility] Operating Room [facility] [address] [phone] Valdemar Siddiqi DO [address] [phone] 12/01/2023 12:55 PM EDT - 12/01/2023 1:20 PM EDT Surgery OR [facility], Operating Room [facility] [address] [place] [phone] Valdemar Siddiqi, DO [address] [place] [id number] INJECTION SPINE LUMBAR OR SACRAL 01/06/2024 3:40 PM EDT Office Visit Family Practice [address] [facility] [address] [place] [address] Maricarmen Ann, DO [address] [place] [address] 03/30/2024 2:00 PM EDT Nurse Only Ancillary [address] [facility] [address] [facility] [place] [address] College, Nurse Annual Wellness Visit [address] [place] [address] 08/20/2024 10:45 AM EST Office Visit Dermatology [facility] [address] [facility] [address] Richard Ley MD [address] [place] [address] Scheduled Orders Name Type Priority Associated Diagnoses Orde r Schedule HEMOGLOBIN A1C Lab Routine Prediabetes Expected: 11/28/2023 (Approximate), Expires: 11/27/2024 BASIC METABOLIC PANEL Lab Routine Prediabetes Expected: 11/28/2023 (Approximate), Expires: 11/27/2024 TSH WITH FREE T4 IF INDICATED Lab Routine HTN, goal below 140/90 Expected: 11/28/2023 (Approximate), Expires: 11/27/2024 Scheduled Procedures Name Priority Associated Diagnoses Date/Ti me INJECTION SPINE LUMBAR OR SACRAL Lumbar radiculopathy 12/01/2023 12:55 PM EDT COLONOSCOPY FLEXIBLE PROXIMAL DIAGNOSTIC Recall Family history of colon cancer Health Maintenance Due Date Last Done Comments Alpha-1 Antitrypsin 1965 CKD PHOS USE SMARTSET 34278 05/10/2022 05/10/2021 COVID-19 Vaccine ( season) 2023 09/20/2021, 11/09/2020, 10/19/2020 Postponed from 04/11/2023 (Patient Declined After Education) GFR 12/29/2023 06/30/2023, 10/10, 04/12/2022, Additional history exists Albumin/Creatinine Ratio 02/29/2024 02/28/2023, 09/0 08/2021 O2 ASSESSMENT COMPLETED IN PAST YEAR FOR COPD 05/01/2024 05/01/2023 CKD HGB USE SMARTSET 30081 06/30/202406/30, 06/30/2023, 04/08/2022, Additional history exists HbA1c 06/30/2024 06/30/2023, 09/0 09/2021, 05/10/2021, Additional history exists Depression Screening 09/01/2024 09/01/2023 COLONOSCOPY-EVERY 5 YRS AGES 18-100 04/21/2025 04/21/2020, [...] this encounter Medical Devices Implanted Type Area Director [employer] Device Identifier Shelf Expiration Date Model / Serial / Lot Lens Li61ao 13.00mm 19.00 - [id number] - [id number] Implanted:Qty: 1 on 04/17/2023 by Bryan Richards MD at OR [facility] Left: Eye [employer] 12/09/2027 [id number] / [id number] / [id number] Lens Li61ao 13.00mm 18.50 - [id number] - [id number] Implanted:Qty: 1 on 05/01/2023 by Bryan Richards MD at OR [facility] Right: Eye [employer] 10/09/2027 [id number] / [id number] / [id number] documented as of this encounter Visit Diagnoses Diagnosis Prediabetes- Primary Other abnormal glucose HTN, goal below 140/90 Unspecified essential hypertension Loss of weight Lumbar radiculopathy Thoracic or lumbosacral neuritis or radiculitis, unspecified Lumbar radiculopathy Thoracic or lumbosacral neuritis or radiculitis, unspecified documented in this encounter Advance Directives Latest Code Status on File Code Status Date Activated Date Inactivated Comments Full Code 05/01/2023 9:33 AM 05/01/2023 4:13 PM This order reflects the patients wishes and were consensually agreed upon. Question Answer Comments Discussion of Advance Directives occurred with: Patient Does the patient have a Living Will? No Does the patient have Health Care Power of Tree Cutter? No Code Status History Code Status Date Activated Date Inactivated Comments Full Code 04/17/2023 8:37 AM 04/17/2023 2:50 PM This or adele reflects the patients wishes and were consensually agreed upon. Question Answer Comments Discussion of Advance Directives occurred with: Patient Does the patient have a Living Will? No Does the patient have Health Care Power of Tree Cutter? No Healthcare Agents on File Name Relationship Healthcare Agent Relationshi p Communication Noah Flores Adult Child Health Care Repr esentative (appointed verbally by patient or by statute hierarchy) Care Teams Manufacturer'S Service Representative Relationship Specialty Start Date End Date Maricarmen Ann DO [address] [place] [address], [place] [address] PCP - General Family Medicine 03/26/23 documented as of this encounter
--- OUTSIDE RECORDS SUMMARY | 2024-02-18 13:02 | External Medical Summary | Summary of Care ---
Author Name Unknown Organization [facility] Address [address] [address] Phone [phone] Care Team Providers Care Head Turbine Operator Name Role Phone Seth Maricarmen Elliot BISHOP Primary Care Provider [phone] Reason for Visit * Auth/Cert Specialty Diagnoses / Procedures Referred By Mary Kate ortega Referred To Contact Diagnoses Lumbar radiculopathy Lumbar radiculopathy [M54.16] Procedures INJECT DX/THER SUBSTANCE INTERLAMINAR LUMBAR/SACRAL W IMAGE GUIDE INJECTION SPINE LUMBAR OR SACRAL Valdemar Siddiqi DO [address] [place] [address] Or [facility] [address] [place] [address] Referral ID Status Reason Start Date Expiration Date Visits Re quested Visits Authorized [id number] Encounter Details Date Type Department Care Team (Latest Contact Info) Description 12/01/2023 12:19 PM EDT - 12/01/2023 1:24 PM EDT Hospital Encounter OR [facility], Operating Room [facility] [address] [place] [address] Valdemar Siddiqi DO [address] [place] [address] Discharge Disposition: Home - Self Care Allergies Active Allergy Reactions Criticality Noted Date Comments Amoxicillin Unknown 03/13/1999 Imidazole Antifungals 03/13/1999 Vaginal infections Tamoxifen Citrate Nausea/vomiting High 02/14/2010 documented as of this encounter (statuses as of 12/02/2023) Medications Medication Sig Dispensed Refills Start Date End Date Status Multiple Vitamins-Minerals (MULTIVITAMIN WOMENS 50+ ADV) TABS Take 1 Tablet by mouth in the morning. 0 Active Calcium Carb-Cholecalciferol 500-600 MG-UNIT Oral Tablet Take by mouth daily at noon. 0 Active Widener-3 Fatty Acids (FISH OIL) 1000 MG Capsule [...] 2017 classification (FORMERLY [facility]) Inhale 3 mL via nebulizer in the morning and 3 mL at noon and 3 mL in the evening and 3 mL before bedtime. 50 mL 1 08/08/2023 Active Pregabalin 25 MG Oral Capsule (Lyrica)Indications: Neuropathy Take 2 capsules by mouth in the morning and two capsules by mouth in the evening 360 Capsule 1 10/28/2023 Active documented as of this encounter (statuses as of 12/02/2023) Active Problems Problem Noted Date Diagnosed Date [...] as of this encounter (statuses as of 12/02/2023) Resolved Problems Problem Noted Date Diagnosed Date [...] as of this encounter (statuses as of 12/02/2023) Immunizations Name Administration Dates Next Due COVID-19 mRNA, LNP-s, No Pre serve, 2-Dose Series ([employer]) 09/20/2021,11/09/2020,10/19/2020 Pneumococcal Conjugate Vacc, 13 Valent (Prevnar) [...] Sign Reading Time Taken Comments Blood Pressure 130/76 12/01/2023 1:16 PM EDT Pulse 64 12/01/2023 1:16 PM EDT Temperature 36.7 C (98.1 F) 12/01/2023 12:45 PM E DT Respiratory Rate 16 12/01/2023 1:16 PM EDT Oxygen Saturation 98% 12/01/2023 1:16 PM EDT Inhaled Oxygen Concentration - - Weight - - Height - - Body Mass Index - - documented in this encounter Discharge Instructions * Discharge Instr - AVS* Valdemar Siddiqi DO - 12/01/2023 1:09 PM EDT [facility] [address] [place] [address] Discharge Date: 12/01/2023 You may call [facility] at [phone] during business hours. For after-hours emergencies call 911. Your attending physician at the time of your discharge was: Valdemar Siddiqi DO [address] [address] The information below provides you with the instructions and the list of medications you need to betaking following discharge from the hospital. If you have any questions, please ask before leaving.Please carry this letter with you when you see your doctor in the clinic. Diet: Resume your normal diet If you are diabetic, follow your blood sugars closely for next 2-3 days as they are likely to be elevated. If you are having difficulty controlling your blood sugars call your family doctor or the physician that treats your diabetes. Activity: Do not engage in strenuous activity today Resume your normal activities tomorrow Do not soak in water for 24 hours. No swimming, hot tub or bath but showering is allowed. Do not use heat on the injection site for 24 hours. If uncomfortable ice may be helpful. Some injections may make your arms or legs weak for a few hours. Be extremely careful when walking or changing positions that you do not fall. Have someone assist you for the next 6 hours. If weakness or numbness becomes progressive CALL IMMEDIATELY or GO TO THE NEAREST EMERGENCY ROOM Keep a diary of your pain until seen in the office to help us determine how effective the injectionwas Do not restart physical therapy or chiropractic manipulation until 48 hours after your injection Call : If weakness or numbness suddenly becomes worse or become progressive If the injection site becomes red, swollen, warm to the touch, begins to bleed or drain fluid, or is excessively painful. If you have any questions Medications: Resume all the medications you were taking prior to your injection. Resume your anticoagulants tomorrow unless otherwise instructed by your family physician, bark scaler or the anticoagulation clinic. Additional Instructions: None Driving: You may resume driving in 12-24 hours if no weakness is noted . Date you may return to work or school: N/A Follow Up: Please make a follow-up telephone appointment with our nursing staff in 4-6 weeks. documented in this encounter Progress Notes * Valdemar Siddiqi DO - 12/01/2023 1:09 PM EDT [facility] [address] [place] [address] OUTPATIENT SURGERY DISCHARGE SUMMARY NOTE Name: Yari Long Location: OR [facility]/OR Date: 12/01/2023 Time: 1:09 PM Surgery Date: 12/01/2023 Procedure: INJECTION SPINE LUMBAR OR SACRAL No laterality found for procedure #1 Surgeon: Valdemar Siddiqi DO Discharge Diagnosis: lumbar radicular pain After examination of this patient, I have determined she is ready for discharge to home when the patient meets criteria. Discharge instructions were given to the patient. Valdemar Siddiqi DO OR [facility], Operating Room [facility] [address] [facility] [place] [address] documented in this encounter H&P Notes * Valdemar Siddiqi DO - 12/01/2023 12:47 PM EDT Interventional Pain H&P Subjective: History of Present Illness: Yari Long is a 78 year old year-old female with a past medical history significant for lumbar radicular pain who is presenting for L5/S1 TRISTAN to improve her pain and function. her pain is essentially unchanged since our last office visit with her. ASA 3 AW nml Review of Systems: A focused 12-pt ROS were of reviewed with the patient including difficulty with sleep, snoring, aspiration history, dysphagia, stomach pain, nausea and vomiting, severe headaches, confusion, open skin lesions or wounds, chest pain, shortness of breath, excessive thirst, somnolence, dysuria, incomplete bladder emptying, easy bruising, recent clotting problems or bleeding, depression or rushed thoughts unless noted previously. Review of patient's allergies indicates: Allergen Reactions Tamoxifen Citrate Nausea/vomiting Amoxicillin Unknown Imidazole Antifungals Vaginal infections Medications, Past Medical History, Past Surgical History reviewed and documented in Epic. See detailed report if needed. Pertinent Labs/Test Results: INR (no units) Date Value 12/13/2002 1.87 No results found for: "CREATININE" Hemoglobin A1C (%) Date Value 06/30/2023 5.7 (H) 03/21/2020 5.9 (H) No results found for: "AMPHETAMINE", "BARBITURATES", "BENZODIAZEPINES", "BUPRENORPHINE", "METHADONE", "OPIATES", "OXYCODONE", "PHENCYCLIDINE", "CANNABINOIDS", "TOX SCREEN", "URINE", "TOX SCREEN-SERUM", "TOX SCREEN, URINE" Imaging: I personally reviewed the imaging and my findings were . RADIOLOGY EXAM - GENERAL RAD (IMAGES ONLY,NO REPORT) This is an imaging study not interpreted or resulted by a [facility] or [facility] contracted radiologist. RADIOLOGY EXAM - MRI (IMAGES ONLY, NO REPORT) This is an imaging study not interpreted or resulted by a [facility] or [facility] contracted radiologist. RADIOLOGY EXAM - CT (IMAGES ONLY, NO REPORT) This is an imaging study not interpreted or resulted by a [facility] or [facility] contracted radiologist. Objective Physical Exam: Vital Signs: BP 125/75 | Pulse 66 | Temp 36.7 C (98.1 F) (Tympanic) | Resp 18 | SpO2 97% There is no height or weight on file to calculate BMI. General: No apparent distress. Eyes: pupils equal and round, sclera white, pupils midsize. ENT: mucous membranes moist Resp: Non-labored breathing CV: Extremities warm and well-perfused. Psych: Oriented; affect warm, insight good. Skin: No rashes or lesions appreciated on exposed skin Neuromuscular Exam: SLR pos, TTT over lumbar spine Assessment: Yari is a 78 year old year-old female with: Lumbar radicular pain Plan: The patient is undergoing L5/S1 TRISTAN today to alleviate her pain and improve her function. The risks, benefits and alternatives to the procedure were reviewed at length and the patient was provided the opportunity to ask questions which were answered to their voiced understanding. Following this comprehensive discussion, the patient opted to proceed. The patient was consented to the procedure following this comprehensive conversation. Valdemar Siddiqi DO OR [facility], Operating Room [facility] [address] documented in this encounter Nursing Notes * Ingrid Li RN - 12/01/2023 1:14 PM EDT Pt tolerated procedure well. Pt has been visited by Dr. Siddiqi. Discharge instructions reviewed with pt and pt has verbalized understanding of these teachings. Pt ready for discharge. * Nancy Snyder RN - 12/01/2023 1:08 PM EDT Band aid applied to area. Patient transferred to PACU 11 via wheelchair * Nancy Snyder RN - 12/01/2023 1:03 PM EDT Patient tolerating pain management injection well. documented in this encounter OR Notes * OR Surgeon - Valdemar Siddiqi DO - 12/01/2023 1:08 PM EDT INTERLAMINAR LUMBAR EPIDURAL STEROID INJECTION DATE: 12/01/2023 PHYSICIAN: Valdemar Siddiqi DO PREOPERATIVE DIAGNOSIS: Lumbar spondylosis with lumbar radiculopathy. POSTOPERATIVE DIAGNOSIS: Lumbar spondylosis with lumbar radiculopathy. PROCEDURE PERFORMED: L5/S1 interlaminar epidural steroid injection on the left side. Fluoroscopy for precise needle placement. ANESTHESIA: Local infiltration with 1% lidocaine. MONITORS: Automatic blood pressure cuff, pulse oximetry. There was no retail event assistant, EBL or drains placed during this procedure. INDICATIONS: I had the pleasure of seeing Yari Long ([id number]) [facility]. Yari Long is a 78 year old year-old female has a history of lumbar radiculopathy. she is here today for an interlaminar lumbar epidural steroid injection today. MEDICATIONS: No current facility-administered medications for this encounter. ALLERGIES: Review of patient's allergies indicates: Allergen Reactions Tamoxifen Citrate Nausea/vomiting Amoxicillin Unknown Imidazole Antifungals Vaginal infections REVIEW OF SYSTEMS: Negative for fever, chills, chest pain, SOB, bleeding abnormalities, nausea, vomiting, diarrhea, worsening edema, or new rashes. FOCUSED PHYSICAL EXAMINATION: The patient is awake, alert and oriented, and is in no acute distress. Vital signs are stable. The patient is afebrile. The rest of the PE is essentially unchanged from the patient's recent visit to our office. I explained the procedure to the patient including the risks, benefits and alternatives to the procedure. The risks discussed with the patient included but were not limited to: bleeding, infection, and damage to surrounding nerves, tissues, and organs, paralysis, increased pain, pain at the site ofinjection, allergic reaction, blood pressure instability, seizures, heart block, headaches, increase in blood sugar, worsening of glaucoma, blindness, manic episodes, mood instability, . Alternatives to the procedure were also explained and include: do nothing, surgery, medications, and physical therapy. The patient verbalized understanding and was willing to proceed. PROCEDURE IN DETAIL: An informed consent was obtained. The patient was taken to the procedure room,was positively identified by the staff and attending physician. The patient was positioned prone onthe procedure bed. Vital signs were monitored as above and remained stable throughout the procedure. The skin was prepped and draped in a standard sterile fashion. A surgical pause time-out was performed and agreed upon by the members of the team. Fluoroscopic view of the lumbar spine was obtainedand the area of interest was identified. The skin and subcutaneous tissues were anesthetized using 1% lidocaine and 25-gauge 1-1/2 inch needle. After that, a 20-gauge, 3.5-inch epidural needle was advanced towards the L5/S1 interlaminar windowin the left paramedian position. AP, contralateral oblique and lateral views were used to assess appropriate needle position. Loss of resistance to air technique was utilized and was obtained at 8 cmfrom the skin. The needle's position was additionally verified by injecting radiopaque dye, which showed spread of the dye in the epidural space in AP and lateral views. After negative aspiration forCSF and blood, 80 mg of Kenalog diluted in 2 mL of 1% lidocaine and 1mL of sterile preservative free normal saline was injected into the epidural space. The needle was withdrawn. The patient tolerated the procedure well. COMPLICATIONS: None. DISPOSITION: 1. Return to clinic in 1-2 months for follow-up evaluation, sooner as needed. 2. Resume activity as tolerated. 3. Patient can drive after 12-24 hours if no weakness noted. Valdemar Siddiqi DO OR [facility], Operating Room [facility] [address] [facility] [address] documented in this encounter Plan of Treatment Upcoming Encounters Date Type Department Care Team (Late st Contact Info) Description 12/31/2023 11:00 AM EDT Scheduled Telephone Interventional Pain Center, [facility] [address] [place] [address] Del Nurse Phone Call Interventional Pain Valdemar [address] [place] [address] 01/06/2024 3:40 PM EDT Office Visit Family Practice [address] [facility] [address] [place] [address] Maricarmen Ann DO [address] [place] [address] 03/30/2024 2:00 PM EDT Nurse Only Ancillary [address] [facility] [address] [place] [address] College, Nurse Annual Wellness Visit [address] [place] [address] 08/20/2024 10:45 AM EST Office Visit Dermatology [facility] [address] [place] [address] Richard Ley MD [address] [place] [address] Scheduled Procedures Name Priority Associated Diagnoses Date/Ti me COLONOSCOPY FLEXIBLE PROXIMA L DIAGNOSTIC Recall Family history of colon cancer Health Maintenance Due Date Last Done Comments Alpha-1 Antitrypsin 1963 CKD PHOS USE SMARTSET 12001 05/10/2022 05/10/2021 COVID-19 Vaccine ( season) 2023 09/20/2021, 11/09/2020, 10/19/2020 GFR 12/29/2023 06/30/2023, 10/10, 04/12/2022, Additional history exists Albumin/Creatinine Ratio 02/29/2024 02/28/2023, 0908/2021 O2 ASSESSMENT COMPLETED IN PAST YEAR FOR COPD 05/01/2024 05/01/2023 CKD HGB USE SMARTSET 91496 06/30/202406/30, 06/30/2023, 04/08/2022, Additional history exists HbA1c [...] this encounter Medical Devices Implanted Type Area Pure Culture Operator Device Identifier Shelf Expiration Date Model / Serial / Lot Lens Li61ao 13.00mm 19.00 - [id number] - [id number] Implanted:Qty: 1 on 04/17/2023 by Bryan Richards MD at OR [facility] Left: Eye [employer] 12/09/2027 [id number] / [id number] / [id number] Lens Li61ao 13.00mm 18.50 - [id number] - [id number] Implanted:Qty: 1 on 05/01/2023 by Bryan Richards MD at OR [facility] Right: Eye [employer] 10/09/2027 [id number] / [id number] / [id number] documented as of this encounter Procedures Procedure Name Priority Date/Time Associated Diagnosis Comments FLUORO INTERVENTIONAL PAIN PROCEDURE NONBILLABLE Routine 12/01/2023 1:14 PM EDT documented in this encounter Results * FLUORO INTERVENTIONAL PAIN PROCEDURE NONBILLABLE (12/01/2023 1:14 PM EDT) Narrative Scheduling, Silent - 12/01/2023 1:14 PM EDT This procedure will not be read by a Radiologist. Please see operative note. Valdemar Siddiqi DO RAD FLUOROSCOPY documented in this encounter Administered Medications Inactive Administered Medications - up to 3 most recent administrations Medication Order MAR Action Action Date Dose Rate Site Iohexol (Omnipaque 180) inj 1 mL 1 mL, Intravenous, ONCE, On Fri12/01/23 at 1330, For 1 dose Given 12/01/2023 1:05 PM EDT 2 mL lidocaine 1 % inj 20 mg 20 mg (2 mL), Subcutaneous, ONCE, On Fri12/01/23 at 1330, For 1 dose Given 12/01/2023 1:03 PM EDT 5 mL O ther-Specify Triamcinolone Acetonide (Kenalog) 40 MG/ML inj 40 mg 40 mg, Injection, ONCE, On Fri12/01/23 at 1330, For 1 dose Given 12/01/2023 1:06 PM EDT 80 mg documented in this encounter Active and Recently Administered Medications Times are shown in EDT. Scheduled Medication Order 11/29/2023 11/30/2023 12/01/2023 Iohexol (Omnipaque 180) inj 1 mL (COMPLETED) 1 mL, Intravenous, ONCE, On Fri12/01/23 at 1330, For 1 dose 1305 (Given - Provid er: Nancy Snyder RN) lidocaine 1 % inj 20 mg (COMPLETED) 20 mg (2 mL), Subcutaneous, ONCE, On Fri12/01/23 at 1330, For 1 dose 1303 (Given - Provid er: Nancy Snyder RN) Triamcinolone Acetonide (Kenalog) 40 MG/ML inj 40 mg (COMPLETED) 40 mg, Injection, ONCE, On 4/22/24 at 1330, For 1 dose 1306 (Given - Provid er: Nancy Snyder RN) documented in this encounter Advance Directives [...] the patient have Health Care Power of Compliance Paralegal? No Code Status History Code Status Date Activated Date Inactivated Comments Full Code 04/17/2023 8:37 AM 04/17/2023 2:50 PM This or adele reflects the patients wishes and were consensually agreed upon. Question Answer Comments Discussion of Advance Directives occurred with: Patient Does the patient have a Living Will? No Does the patient have Health Care Power of Compliance Paralegal? No Healthcare Agents on File Name Relationship Healthcare Agent Relationshi p Communication Noah Beiswenger Adult Child Health Care Repr esentative (appointed verbally by patient or by statute hierarchy) Care Teams Head Turbine Operator Relationship Specialty Start Date End Date Maricarmen Ann DO [address] [place] [address] PCP - General Family Medicine 03/26/23 documented as of this encounter
--- OUTSIDE RECORDS SUMMARY | 2024-02-18 13:02 | External Medical Summary | Summary of Care ---
Author Name Unknown Organization [facility] Address [address] [facility] [address] Phone [phone] Care Team Providers Care Core Maker Name Role Phone Maricarmen Ricardo DO Primary Care Provider Reason for Visit * Reason Comments Medication Refill Encounter Details Date Type Department Care Team (Late st Contact Info) Description 12/13/2023 [facility] [address] [place] [address] Maricarmen Ricardo DO 293 [place] [address] Essential hypertension with goal blood pressure less than 130/80 Allergies Active Allergy Reactions Criticality Noted Date Comments Amoxicillin Unknown 03/13/1999 Imidazole Antifungals 03/13/1999 Vaginal infections Tamoxifen Citrate Nausea/vomiting High 02/14/2010 documented as of this encounter (statuses as of 12/15/2023) Medications Medication Sig Dispensed Refills Start Date End Date Status Multiple Vitamins-Minerals (MULTIVITAMIN WOMENS 50+ ADV) TABS Take 1 Tablet by mouth in the morning. 0 Active Calcium Carb-Cholecalcifero l 500-600 MG-UNIT Oral Tablet Take by mouth daily at noon. 0 Active [place]-3 Fatty Acids (FISH OIL) 1000 MG Capsule Take 1 Capsule by mouth daily at noon. 0 Active Loratadine 10 MG Oral Tablet Take 1 Tablet by mouth in the morning. 30 Tab 11 03/27/2021 Active Vitamin B-12 6000 MCG Sublingual Tablet Sublingual Place 1 Tablet under the tongue in the morning. 0 Active Omeprazole 20 MG Oral Capsule Delayed [...] 100 Tablet 3 07/31/2023 07/30/20 24 Active Ipratropium-Albuter ol 0.5-2.5 (3) MG/3ML Inhalation Solution (Duoneb)Indications :COPD, group A, by GOLD 2017 classification ([facility]) Inhale 3 mL via nebulizer in the [...] MOUTH EVERY MORNING 200 Tablet 1 12/15/2023 12/15/19 25 Active Lisinopril-hydroCHL OROthiazide 20-12.5 MG Oral TabletIndications:E ssential hypertension with goal blood pressure less than 130/80 TAKE TWO TABLETS BY MOUTH EVERY MORNING 200 Tablet 3 11/20/2022 12/13/19 24 Discontinu ed(Refill) documented as of this encounter (statuses as of 12/15/2023) Active Problems Problem Noted Date Diagnosed Date [...] as of this encounter (statuses as of 12/15/2023) Resolved Problems Problem Noted Date Diagnosed Date [...] as of this encounter (statuses as of 12/15/2023) Immunizations Name Administration Dates Next Due COVID-19 [...] encounter Miscellaneous Notes * Telephone Encounter - Savana Veronica [facility] - 12/15/2023 7:47 AM EDTSigned Prescriptions: Disp Refills Lisinopril-hydroCHLOROthiazide 20-12.5 MG *200 Ta*1 Sig: TAKE TWO TABLETS BY MOUTH EVERY MORNINGAuthorizing Provider: MARICARMEN RICARDO User: SAVANA VERONICA N documented in this encounter Plan of Treatment Upcoming Encounters Date Type Department Care Team (Late st Contact Info) Description 12/31/2023 11:00 AM EDT Scheduled Telephone Interventional Pain Center, [facility] 132 [facility] [place] [address] Nurse Del Phone Call [facility] 132 [facility] [place] [address] 01/06/2024 3:40 PM EDT Office Visit Family Practice 65 [facility] 293 [facility], [place] [phone] Maricarmen Ricardo DO 293 [facility] [place] [address] 03/30/2024 2:00 PM EDT Nurse Only Ancillary 65 [facility] 293 [facility] [place] [address] College, Nurse Annual Wellness Visit [address] [place] [address] 08/20/2024 10:45 AM EST Office Visit Dermatology [employer] 200 [facility] [place] [address] Richard Ley MD 200 [facility] [place] [address] Scheduled Procedures Name Priority Associated Diagnoses Date/Ti me COLONOSCOPY FLEXIBLE PROXIMA L DIAGNOSTIC Recall Family history of colon cancer Health Maintenance Due Date Last Done Comments Alpha-1 Antitrypsin 1963 CKD PHOS USE SMARTSET 79103 05/10/2022 05/10/2021 COVID-19 Vaccine ( season) 2023 09/20/2021, 11/09/2020, 10/19/2020 GFR 12/29/2023 06/30/2023, 10/10, 04/12/2022, Additional history exists Albumin/Creatinine Ratio 02/29/2024 02/28/2023, 08/2021 O2 ASSESSMENT COMPLETED IN PAST YEAR FOR COPD 05/01/2024 05/01/2023 CKD HGB USE SMARTSET 60832 06/30/202406/30, 06/30/2023, 04/08/2022, Additional history exists HbA1c [...] this encounter Medical Devices Implanted Type Area Wafer Machine Operator Device Identifier Shelf Expiration Date Model / Serial / Lot Lens Li61ao 13.00mm 19.00 - [id number] - [id number] Implanted:Qty: 1 on 04/17/2023 by Bryan Richards MD at OR [facility] Left: Eye BAUSCH [employer] LOMB 12/09/2027 [id number] / [id number] / [id number] Lens Li61ao 13.00mm 18.50 - [id number] - [id number] Implanted:Qty: 1 on 05/01/2023 by Bryan Richards MD at OR [facility] Right: Eye BAUSCH & LOMB 10/09/2027 [id number] / [id number] / [id number] documented as of this encounter Visit Diagnoses Diagnosis Essential hypertension with goal blood pressure less than 130/80 documented in this encounter Advance Directives Latest Code Status on File Code Status Date Activated Date Inactivated Comments Full Code 05/01/2023 9:33 AM 05/01/2023 4:13 PM This order reflects the patients wishes and were consensually agreed upon. Question Answer Comments Discussion of Advance Directives occurred with: Patient Does the patient have a Living Will? No Does the patient have Health Care Power of Baseball Sewer Hand? No Code Status History Code Status Date Activated Date Inactivated Comments Full Code 04/17/2023 8:37 AM 04/17/2023 2:50 PM This or adele reflects the patients wishes and were consensually agreed upon. Question Answer Comments Discussion of Advance Directives occurred with: Patient Does the patient have a Living Will? No Does the patient have Health Care Power of Baseball Sewer Hand? No Healthcare Agents on File Name Relationship Healthcare Agent Relationshi p Communication Noah Flores Adult Child Health Care Repr esentative (appointed verbally by patient or by statute hierarchy) Care Teams Core Maker Relationship Specialty Start Date End Date Maricarmen Ricardo DO [address] [place] [address] PCP - General Family Medicine 03/26/23 documented as of this encounter
--- OUTSIDE RECORDS SUMMARY | 2024-02-18 13:02 | External Medical Summary | Summary of Care ---
Author Name Unknown Organization [facility] Address [address] [facility] [place] [address] Phone [phone] Care Team Providers Care Food Sales Clerk Name Role Phone Maricarmen Ann DO Primary Care Provider [phone] Reason for Visit * Reason Onset Date Comments Advice 12/18/2023 Cough, sob Encounter Details Date Type Department Care Team (Late st Contact Info) Description 12/18/2023 Telephone Family Practice [address] [place] 293 [place] [phone] Maricarmen Ann DO 293 [place] [address] Advice (Cough, sob) Allergies Active Allergy Reactions Criticality Noted Date Comments Amoxicillin Unknown 03/13/1999 Imidazole Antifungals 03/13/1999 Vaginal infections Tamoxifen Citrate Nausea/vomiting High 02/14/2010 documented as of this encounter (statuses as of 12/18/2023) Medications Medication Sig Dispensed Refills Start Date End Date Status Multiple Vitamins-Minerals (MULTIVITAMIN WOMENS 50+ ADV) TABS Take 1 Tablet by mouth in the morning. 0 Active Calcium Carb-Cholecalciferol 500-600 MG-UNIT Oral Tablet Take by mouth daily at noon. 0 Active [place]-3 Fatty Acids (FISH OIL) 1000 MG Capsule [...] COPD, group A, by GOLD 2017 classification ([facility]) Inhale 3 mL via nebulizer [...] MORNING 200 Tablet 1 12/15/2023 5 Active documented as of this encounter (statuses as of 12/18/2023) Active Problems Problem Noted Date Diagnosed Date [...] as of this encounter (statuses as of 12/18/2023) Resolved Problems Problem Noted Date Diagnosed Date [...] as of this encounter (statuses as of 12/18/2023) Immunizations Name Administration Dates Next Due COVID-19 [...] Telephone Encounter - Jessie Bills LPN - 12/18/2023 11:31 AM EDT Called patient, scheduled. She was hesitant to come in but advised office visit is needed. Thank you * Telephone Encounter - Mery Casey OSA - 12/18/2023 11:22 AM EDT Pt left voicemail requesting a med be sent as she has been up since 4 am coughing. Pt stated that her diaphragm hurt, everything hurts. Pt was very SOB on the voicemail. Please contact her KAYLEN to advise if an appt is needed or if a med can be sent. documented in this encounter Plan of Treatment Upcoming Encounters Date Type Department Care Team (Late st Contact Info) Description 12/18/2023 1:00 PM EDT Office Visit Family [address] 293 [facility] [place] [address] Maricarmen Ann, 293 [place] [address] 12/31/2023 11:00 AM EDT Scheduled Telephone Interventional Pain Center, [facility] [address] [place] [address] [place], Nurse Phone Call Interventional Pain [facility] [address] [place] [address] 01/06/2024 3:40 PM EDT Office Visit [address] 293 [facility] [place] [address] Maricarmen Ann, 293 [facility], [place] [address] 03/30/2024 2:00 PM EDT Nurse Only Ancillary 65 [facility] 293 [facility] [place] [address] College, Nurse Annual Wellness Visit [address] [place] [address] 08/20/2024 10:45 AM EST Office [facility] 200 [facility] [place] [address] Richard Ley MD [facility] [address] Scheduled Procedures Name Priority Associated Diagnoses Date/Ti me COLONOSCOPY FLEXIBLE PROXIMA L DIAGNOSTIC Recall Family history of colon cancer Health Maintenance Due Date Last Done Comments Alpha-1 Antitrypsin 1963 CKD PHOS USE SMARTSET 22018 05/10/2022 05/10/2021 COVID-19 Vaccine ( season) 2023 09/20/2021, 11/09/2020, 10/19/2020 GFR 12/29/2023 06/30/2023, 10/10, 04/12/2022, Additional history exists Albumin/Creatinine Ratio 02/29/2024 02/28/2023, 08/2021 O2 ASSESSMENT COMPLETED IN PAST YEAR FOR COPD 05/01/2024 05/01/2023 CKD HGB USE SMARTSET 04538 06/30/202406/30, 06/30/2023, 04/08/2022, Additional history exists HbA1c [...] this encounter Medical Devices Implanted Type Area Senior Mechanical Technician Device Identifier Shelf Expiration Date Model / Serial / Lot Lens Li61ao 13.00mm 19.00 - [id number] - [id number] Implanted:Qty: 1 on 04/17/2023 by Bryan Richards MD at OR [facility] Left: Eye [employer]USCH [employer] LOMB 12/09/2027 [id number] / [id number] / [id number] Lens Li61ao 13.00mm 18.50 - [id number] - [id number] Implanted:Qty: 1 on 05/01/2023 by Bryan Richards MD at OR [facility] Right: Eye BAUSCH & LOMB 10/09/2027 [id number] / [id number] / [id number] documented as of this encounter Advance Directives [...] the patient have Health Care Power of Facing End Trimmer? No Code Status History Code Status Date Activated Date Inactivated Comments Full Code 04/17/2023 8:37 AM 04/17/2023 2:50 PM This or adele reflects the patients wishes and were consensually agreed upon. Question Answer Comments Discussion of Advance Directives occurred with: Patient Does the patient have a Living Will? No Does the patient have Health Care Power of Facing End Trimmer? No Healthcare Agents on File Name Relationship Healthcare Agent Relationshi p Communication Noah Beiswenger Adult Child Health Care Repr esentative (appointed verbally by patient or by statute hierarchy) Care Teams Food Sales Clerk Relationship Specialty Start Date End Date Maricarmen Ann DO [address] [place] [address] PCP - General Family Medicine 03/26/23 documented as of this encounter
--- OUTSIDE RECORDS SUMMARY | 2024-02-18 13:02 | External Medical Summary | Summary of Care ---
Author Name Unknown Organization [facility] Address [address] [place] [address] Phone [phone] Care Team Providers Care Clinic Office Coordinator Name Role Phone Maricarmen Ann DO Primary Care Provider Reason for Visit * Reason Onset Date Comments Advice 11/28/2023 Information 11/28/202311/27 Encounter Details Date Type Department Care Team (Late st Contact Info) Description 11/28/2023 Telephone Family Practice 65 [facility] [place] 293 [place] [address] Maricarmen Ann DO 293 [place] [address] Advice; Information (11/27) Allergies Active Allergy Reactions Criticality Noted Date [...] by mouth daily at noon. 0 Active [place]-3 Fatty Acids (FISH OIL) 1000 MG Capsule [...] A, by GOLD 2017 classification ([facility]) Inhale 3 mL via nebulizer in [...] Miscellaneous Notes * Telephone Encounter - Ree Knight [facility] - 12/02/2023 4:41 PM EDT Script will be overnighted - will arrive on 12/03. Ree Tirado, Pharm D, [facility] Clinical Pharmacist [address] - [facility] 12/02/2023, 4:41 PM Ph. [phone] * Telephone Encounter - Beverly Bond LPN - 11/28/2023 4:01 PM EDT Call placed to patient and relayed message from pharmacist. Pt states the last script for Meloxicam was sent to [facility] and she did not pick it up. States she is out of Meloxicam. Call placed to [facility] and confirmed that patient did not picker the Meloxicam. Ree, are you able to assist with having this overnighted from mail order on Friday? * Telephone Encounter - Lala Cosme RP - 11/28/2023 2:50 PM EDT Please make patient aware... Checked with Mail Order. Meloxicam last filled 09/16/23. The insurance will not allow fill until 12/01/23. Ulysses Tejeda, [facility] Clinical Pharmacist Scott [address] [place] 11/28/2023, 2:51 PM * Telephone Encounter - Maricarmen Ann DO - 11/28/2023 1:02 PM EDT Please call mail order. Pt has not yet received her meloxicam. It was sent on 11/18. documented in this encounter Plan of Treatment Upcoming Encounters Date Type Department Care Team (Late st Contact Info) Description 12/31/2023 11:00 AM EDT Scheduled Telephone Interventional Pain Center, [facility] 132 [facility] [place] [address] [facility] Nurse Phone Call Interventional Pain [facility] [address] [facility] [place] [address] 01/06/2024 3:40 PM EDT Office Visit Family Practice 65 [facility] 293 [place] [address] Maricarmen Ann DO 293 [place] [address] 03/30/2024 2:00 PM EDT Nurse Only Ancillary 65 [facility] 293 [place] [address] [place], Nurse Annual Wellness Visit [address] [address] 08/20/2024 10:45 AM EST [facility] 200 [facility] [address] Richard Ley MD 200 [facility] [place] [address] Scheduled Procedures Name Priority Associated Diagnoses Date/Ti me COLONOSCOPY FLEXIBLE PROXIMA L DIAGNOSTIC Recall Family history of colon cancer Health Maintenance Due Date Last Done Comments Alpha-1 Antitrypsin 1963 CKD PHOS USE SMARTSET 80537 05/10/2022 05/10/2021 COVID-19 Vaccine ( season) 2023 09/20/2021, 11/09/2020, 10/19/2020 GFR 12/29/2023 06/30/2023, 10/10, 04/12/2022, Additional history exists Albumin/Creatinine Ratio 02/29/2024 02/28/2023, 08/2021 O2 ASSESSMENT COMPLETED IN PAST YEAR FOR COPD 05/01/2024 05/01/2023 CKD HGB USE SMARTSET 85287 06/30/202406/30, 06/30/2023, 04/08/2022, Additional history exists HbA1c [...] Medical Devices Implanted Type Area Medical Lab Scientist Device Identifier Shelf Expiration Date Model / Serial / Lot Lens Li61ao 13.00mm 19.00 - [id number] - [id number] Implanted:Qty: 1 on 04/17/2023 by Bryan Richards MD at OR [facility] Left: Eye BAUSCH [employer] LOMB 12/09/2027 [id number] / [id number] / [id number] Lens Li61ao 13.00mm 18.50 - [id number] - [id number] Implanted:Qty: 1 on 05/01/2023 by Bryan Richards MD at OR [facility] Right: Eye BAUSCH & LOMB 10/09/2027 [id number] / [id number] / [id number] documented as of this encounter Advance Directives [...] the patient have Health Care Power of Diamond Wheel Edger? No Code Status History Code Status Date Activated Date Inactivated Comments Full Code 04/17/2023 8:37 AM 04/17/2023 2:50 PM This or adele reflects the patients wishes and were consensually agreed upon. Question Answer Comments Discussion of Advance Directives occurred with: Patient Does the patient have a Living Will? No Does the patient have Health Care Power of Diamond Wheel Edger? No Healthcare Agents on File Name Relationship Healthcare Agent Relationshi p Communication Noah Flores Adult Child Health Care Repr esentative (appointed verbally by patient or by statute hierarchy) Care Teams Clinic Office Coordinator Relationship Specialty Start Date End Date Maricarmen Ann DO [address] [place] [address] PCP - General Family Medicine 03/26/23 documented as of this encounter
--- OUTSIDE RECORDS SUMMARY | 2024-02-18 13:02 | External Medical Summary | Summary of Care ---
Author Name Unknown Organization [facility] Address [address] [facility] [place] [address] Phone [phone] Care Team Providers Care Hand Former Helper Name Role Phone Maricarmen Ann DO Primary Care Provider Reason for Visit * Reason Onset Date Comments Advice 12/18/2023 Cough, sob Encounter Details Date Type Department Care Team (Late st Contact Info) Description 12/18/2023 Telephone Family Practice [address], [place] 293 [place] [phone] Maricarmen Ann DO 293 [place] [address] Advice (Cough, sob) Allergies Active Allergy Reactions [...] by mouth daily at noon. 0 Active [place]-3 Fatty Acids (FISH OIL) 1000 MG Capsule [...] COPD, group A, by GOLD 2017 classification ([facility]) Inhale 3 mL via nebulizer [...] Telephone Encounter - Maricarmen Ann DO - 12/18/2023 1:13 PM EDT Noted. * Telephone Encounter - Jessie Bills LPN [...] AM EDT Scheduled Telephone Interventional [facility] Center, [facility] [address] [place] [address] [place] Nurse Phone Call Interventional Pain [place] [address] [place] [address] 01/06/2024 3:40 PM EDT Office Visit Family Practice [address] [place] [address] 293 [facility], [place] [address] Maricarmen Ann DO 293 [facility], [place] [address] 03/30/2024 2:00 PM EDT Nurse Only Ancillary 65 [facility] 293 [place] [address] College, Nurse Annual Wellness Visit [address] [facility] 293 [place] [address] 08/20/2024 10:45 AM EST Office Visit Dermatology [facility] 200 [facility] [place] [address] Richard Ley MD 200 [facility] [address] Scheduled Procedures Name Priority Associated Diagnoses Date/Ti me COLONOSCOPY FLEXIBLE PROXIMA L DIAGNOSTIC Recall Family history of colon cancer Health Maintenance Due Date Last Done Comments Alpha-1 Antitrypsin 1963 CKD PHOS USE SMARTSET 17178 05/10/2022 05/10/2021 COVID-19 Vaccine ( season) 2023 09/20/2021, 11/09/2020, 10/19/2020 Postponed from 04/11/2023 (Acute Illness) GFR 12/29/2023 06/30/2023, 10/10, 04/12/2022, Additional history exists Albumin/Creatinine Ratio 02/29/2024 02/28/2023, 08/2021 O2 ASSESSMENT COMPLETED IN PAST YEAR FOR COPD 05/01/2024 05/01/2023 CKD HGB USE SMARTSET 07463 06/30/202406/30, 06/30/2023, 04/08/2022, Additional history exists HbA1c [...] this encounter Medical Devices Implanted Type Area Security Monitor Device Identifier Shelf Expiration Date Model / Serial / Lot Lens Li61ao 13.00mm 19.00 - [id number] - [id number] Implanted:Qty: 1 on 04/17/2023 by Bryan Richards MD at OR [facility] Left: Eye BAUSCH & LOMB 12/09/2027 [id number] / [id number] / [id number] Lens Li61ao 13.00mm 18.50 - [id number] - [id number] Implanted:Qty: 1 on 05/01/2023 by Bryan Richards MD at OR [facility] Right: Eye BAUSCH & LOMB 10/09/2027 [id number] / [id number] / [id number] documented as of this encounter Advance Directives [...] the patient have Health Care Power of Yard Engineer? No Code Status History Code Status Date Activated Date Inactivated Comments Full Code 04/17/2023 8:37 AM 04/17/2023 2:50 PM This or adele reflects the patients wishes and were consensually agreed upon. Question Answer Comments Discussion of Advance Directives occurred with: Patient Does the patient have a Living Will? No Does the patient have Health Care Power of Yard Engineer? No Healthcare Agents on File Name Relationship Healthcare Agent Relationshi p Communication Noah Flores Adult Child Health Care Repr esentative (appointed verbally by patient or by statute hierarchy) Care Teams Hand Former Helper Relationship Specialty Start Date End Date Maricarmen Ann DO 293 [place] [address] PCP - General Family Medicine 03/26/23 documented as of this encounter
--- OUTSIDE RECORDS SUMMARY | 2024-02-18 13:02 | External Medical Summary | Summary of Care ---
Author Name Unknown Organization [facility] Address [address] [facility] [address] Phone [phone] Care Team Providers Care Manager Technical Services Name Role Phone SolomonMaricarmen sim Primary Care Provider [phone] Reason for Visit * Reason Onset Date Comments Follow Up 12/31/2023 Encounter Details Date Type Department Care Team (Late st Contact Info) Description 12/31/2023 11:00 AM EDT Scheduled Telephone Interventional Pain Center, [facility] [address] [place] [address] Del Nurse Phone Call Interventional Pain [facility] [address] [place] [address] Allergies Active Allergy Reactions Criticality Noted Date [...] Take by mouth daily at noon. Active Angie-3 Fatty Acids (FISH OIL) 1000 MG Capsule [...] ([facility]) Inhale 3 mL via nebulizer in [...] encounter Miscellaneous Notes * Telephone Encounter - Yari Marino LPN [...] PM EDT Office Visit Family Practice 65 [facility] [address] [place] [address] Maricarmen Ann DO [address] [place] [address] 03/30/2024 2:00 PM EDT Nurse Only Ancillary 65 [facility] [address] [place] [address] College, Nurse Annual Wellness Visit [address] [address] 08/20/2024 10:45 AM EST Office Visit Dermatology [facility] [place] [address] [place] [place] [address] Richard Ley MD 200 [facility] [place] [address] Scheduled Procedures Name Priority Associated Diagnoses Date/Ti me COLONOSCOPY FLEXIBLE PROXIMA L DIAGNOSTIC Recall Family history of colon cancer Health Maintenance Due Date Last Done Comments Alpha-1 Antitrypsin 1963 CKD PHOS USE SMARTSET 77670 05/10/2022 05/10/2021 COVID-19 Vaccine ( season) 2023 09/20/2021, 11/09/2020, 10/19/2020 GFR 12/29/2023 06/30/2023, 10/10, 04/12/2022, Additional history exists Albumin/Creatinine Ratio 02/29/2024 02/28/2023, 09/0 08/2021 O2 ASSESSMENT COMPLETED IN PAST YEAR FOR COPD 05/01/2024 05/01/2023 CKD HGB USE SMARTSET 49773 06/30/202406/30, 06/30/2023, 04/08/2022, Additional history exists HbA1c [...] this encounter Medical Devices Implanted Type Area Kelp Or Seagrass Gatherer Device Identifier Shelf Expiration Date Model / Serial / Lot Lens Li61ao 13.00mm 19.00 - [id number] - [id number] Implanted:Qty: 1 on 04/17/2023 by Bryan Richards MD at OR [facility] Left: Eye [employer]USCH [employer] LOMB 12/09/2027 [id number] / [id number] / [id number] Lens Li61ao 13.00mm 18.50 - [id number] - [id number] Implanted:Qty: 1 on 05/01/2023 by Bryan Richards MD at OR [facility] Right: Eye BAUSCH [employer] LOMB 10/09/2027 [id number] / [id number] / [id number] documented as of this encounter Advance Directives [...] patient or by statute hierarchy) Care Teams Manager Technical Services Relationship Specialty Start Date End Date Maricarmen Ann DO [address] [place] [address] PCP - General Family Medicine 03/26/23 documented as of this encounter
--- OUTSIDE RECORDS SUMMARY | 2024-02-18 13:02 | External Medical Summary | Summary of Care ---
Author Name Unknown Organization [facility] Address [address] [facility] [address] Phone [phone] Care Team Providers Care Soil Checker Name Role Phone Maricarmen Ann DO Primary Care Provider [phone] Reason for Visit * Reason Comments Acute Encounter Details Date Type Department Care Team (Late st Contact Info) Description 12/18/2023 1:00 PM EDT Office Visit Family Practice [address] [place] [address] [place] [address] Maricarmen Ann DO [address] [place] [address] Viral URI with cough*; Leg cramp; Pain of left thumb Allergies Active Allergy Reactions Criticality Noted Date [...] by mouth daily at noon. 0 Active [place]-3 Fatty Acids (FISH OIL) 1000 MG Capsule [...] COPD, group A, by GOLD 2017 classification ([facility]) Inhale 3 mL via nebulizer in the [...] 1 tab for 2 days 30 Tablet 0 12/18/2023 Active documented as of this encounter [...] Sign Reading Time Taken Comments Blood Pressure 118/60 12/18/2023 1:10 PM EDT Pulse 79 12/18/2023 1:10 PM EDT Temperature 36.4 C (97.5 F) 12/18/2023 1:10 PM ED T Respiratory Rate 16 12/18/2023 1:10 PM EDT Oxygen Saturation 98% 12/18/2023 1:10 PM EDT Inhaled Oxygen Concentration - - Weight 104.1 kg (229 lb 8 oz) 12/18/2023 1:10 PM EDT Height 165.1 cm (5' 5") 12/18/2023 1:10 PM EDT Body Mass Index 38.19 12/18/2023 1:10 PM EDT documented in this encounter Progress Notes * Maricarmen Ann, - 12/18/2023 1:14 PM EDT SUBJECTIVE: Chief Complaint Patient presents with Acute HPI: Yari Long is a 78 year old female who presents today with complaints of cough. Pt notesthat it started about 2 days ago. She states that she laid down last night and started coughing. She feels that her cough as been consistent today. She is coughing up some yellow mucous. She thinks she is short of breath. She is wheezing. She has not tried her nebulizer. She notes no fever. No runny nose. She has been using her Qvar. PHM: Patient Active Problem List Diagnosis Code Allergic rhinitis J30.9 Dyslipidemia, goal to be determined E78.5 ADVANCE DIRECTIVE INFORMATION Gastroesophageal reflux disease without esophagitis K21.9 HTN, goal below 140/90 I10 Body mass index (BMI) of 40.0 to 44.9 in adult (HCC) Z68.41 S/P TKR (total knee replacement), left Z96.652 Prediabetes R73.03 History of breast cancer Z85.3 Solar purpura ([facility]) D69.2 Chronic kidney disease, stage 3a N18.31 Morbid obesity ([facility]) E66.01 Hypertensive kidney disease with stage 3a chronic kidney disease ([facility]) I12.9, N18.31 Other specified peripheral vascular diseases ([facility]) I73.89 COPD, group A, by GOLD 2017 classification ([facility]) J44.9 Caregiver stress Z63.6 Current Outpatient Medications Medication Sig Dispense Refill Multiple Vitamins-Minerals (MULTIVITAMIN WOMENS 50+ ADV) TABS Take 1 Tablet by mouth in the morning. Calcium Carb-Cholecalciferol 500-600 MG-UNIT Oral Tablet Take by mouth daily at noon. [place]-3 Fatty Acids (FISH OIL) 1000 MG Capsule Take 1 Capsule by mouth daily at noon. Loratadine 10 MG Oral Tablet Take 1 Tablet by mouth in the morning. 30 Tab 11 Vitamin B-12 6000 MCG Sublingual Tablet Sublingual Place 1 Tablet under the tongue in the morning. Omeprazole 20 MG Oral Capsule Delayed Release [...] mouth in the morning. 100 Tablet 3 Lisinopril-hydroCHLOROthiazide 20-12.5 MG Oral Tablet TAKE TWO TABLETS BY MOUTH EVERY MORNING 200 Tablet 1 No current facility-administered medications for this [...] term Recurrent major depressive disorder, in remission ([facility]) 12/12/2016 Vertigo BPV, MRI 2006, min microvascular disease Past Surgical History: Procedure Laterality Date BREAST LESION,OTHER,EXCISION 08/24/2007 Excision left breast [place]infiltrating lobular carcinoma[place] [facility] DELIVERY 1981 Delivery Only COLONOSCOPY 11/2004 tics COLONOSCOPY W/ LESION REMOVAL, SNARE 03/07/2010 done diverticulosis, polyp x1--hyperplastic tissue repeat in 5 years COLONOSCOPY, DIAGNOSTIC (RECTUM) 03/15/2015 diverticulosis, repeat 5 yrs/COLONOSCOPY FLEXIBLE PROXIMAL DIAGNOSTIC performed by Brendan Miller MD at ENDOSCOPY [facility] COLONOSCOPY, DIAGNOSTIC (RECTUM) 04/21/2020 diverticulosis, repeat 5 yrs / COLONOSCOPY FLEXIBLE PROXIMAL DIAGNOSTIC performed by Rosa Maria Medina ENDOSCOPY [facility] INFORMATION 1999 double knee replacement INFORMATION 7 knee surgeries INFORMATION EPL tendon rupture repair INJECT DX/THER SUBSTANCE INTERLAMINAR LUMBAR/SACRAL W IMAGE GUIDE 12/01/2023 INJECTION SPINE LUMBAR OR SACRAL performed by Valdemar Siddiqi DO at OR [facility] KNEE ARTHROSCOPY, DIAGNOSTIC bilateral MASTECTOMY, PARTIAL 09/11/2007 Left PM with deep axillary SLNB at [facility] -Dr. You MISCELLANEOUS ORDER ([facility] ONLY) 1979 FNAB of left breast (benign) REMOVAL OF APPENDIX 04/30/2008 REMOVE CATARACT, INSERT LENS PROSTH Left 04/17/2023 Left EXTRACAPSULAR CATARACT REMOVAL WITH INTRAOCULAR LENS performed by Bryan Richards MD at [facility] REMOVE CATARACT, INSERT LENS PROSTH Right 05/01/2023 Right EXTRACAPSULAR CATARACT REMOVAL WITH INTRAOCULAR LENS performed by Bryan Richards MD at OR [facility] REVISION OF TENNIS ELBOW Review of [...] and unexpected weight change. Respiratory: Positive for cough, shortness of breath and wheezing. Negative for chest tightness. Cardiovascular: Negative for chest pain, palpitations and leg swelling. Gastrointestinal: Negative for abdominal pain, constipation, diarrhea, nausea and vomiting. Musculoskeletal: Negative for arthralgias, gait problem and joint swelling. Skin: Negative for color change, pallor and rash. OBJECTIVE: BP 118/60 (BP Site: Left Arm, BP Position: Sitting, BP Cuff Size: Regular) | Pulse 79 | Temp 36.4 C (97.5 F) (Tympanic) | Resp 16 | Ht 1.651 m (5' 5") | Wt 104.1 kg (229 lb 8 oz) | SpO2 98% | BMI38.19 kg/m | BSA 2.18 m PHYSICAL EXAM: Physical Exam Constitutional: General: She is not in acute distress. Appearance: She is well-developed. Cardiovascular: Rate and Rhythm: Normal rate and regular rhythm. Heart sounds: Normal heart sounds. No murmur heard. No friction rub. No gallop. Pulmonary: Effort: Pulmonary effort is normal. No respiratory distress. Breath sounds: Wheezing and rhonchi present. No rales. Abdominal: General: Bowel sounds [...] oriented to person, place, and time. ASSESSMENT/PLAN: (J06.9) Viral URI with cough (primary encounter diagnosis) Plan: predniSONE 10 MG Oral Tablet (Deltasone) Pt will start prednisone taper. Likely some exacerbation of asthma triggered by viral illness. She declines nebulizer in clinic today. Advised to use it as soon as she gets home. Declines COVID swab.Continue symptomatic care with tylenol, fluids and rest. (R25.2) Leg cramp Plan: ?if related to radicular symptoms. Had recent injection. Can try adding in gatorade or pedialyte. Call office if symptoms worsen or fail to improve. (M79.645) Pain of left thumb Plan: pt can use voltaren topically. Wear brace as needed. She has a history of surgery there and known arthritis. Orthopedics if persistent. Follow-up: as scheduled Total time today including reviewing chart before the visit, pertinent labs, imaging reports, face to face time, and documentation time was 32 minutes. Maricarmen Ann DO documented in this encounter Nursing Notes * Beverly Bond LPN - 12/18/2023 1:08 PM EDT Patient here for acute visit. Symptoms started approx 3 days ago with slight cough. Increased coughing during the night. Woke up coughing and has been coughing since. Cough is productive with yellowsputum. Denies fever, sore throat. Has not used nebulizer in over a year. documented in this encounter Plan of Treatment Upcoming Encounters Date Type Department Care Team (Late st Contact Info) Description 12/19/2023 10:15 AM EDT Nurse Only Family Practice 65 [facility] 293 [place] [address] College, Nurse Fam Prac [address] [place] [address] 12/31/2023 11:00 AM EDT [facility]uled [facility] [address] [place] [address] Del Nurse Phone Call Interventional Pain Valdemar [address] [place] [address] 01/06/2024 3:40 PM EDT Office Visit Family Practice 65 [facility] [address] [place] [address] Maricarmen Ann DO 293 [facility] [place] [address] 03/30/2024 2:00 PM EDT Nurse Only Ancillary 65 [facility] [address] [place] [address] College, Nurse Annual Wellness Visit [address] [address] 08/20/2024 10:45 AM EST Office Visit Dermatology [facility] 200 [facility] [place] [address] Richard Ley MD 200 [facility] [place] [address] Scheduled Procedures Name Priority Associated Diagnoses Date/Ti me COLONOSCOPY FLEXIBLE PROXIMA L DIAGNOSTIC Recall Family history of colon cancer Health Maintenance Due Date Last Done Comments Alpha-1 Antitrypsin 1963 CKD PHOS USE SMARTSET 99560 05/10/2022 05/10/2021 COVID-19 Vaccine ( season) 2023 09/20/2021, 11/09/2020, 10/19/2020 Postponed from 04/11/2023 (Acute Illness) GFR 12/29/2023 06/30/2023, 10/10, 04/12/2022, Additional history exists Albumin/Creatinine Ratio 02/29/2024 02/28/2023, 09/0 08/2021 O2 ASSESSMENT COMPLETED IN PAST YEAR FOR COPD 05/01/2024 05/01/2023 CKD HGB USE SMARTSET 76414 06/30/202406/30, 06/30/2023, 04/08/2022, Additional history exists HbA1c [...] this encounter Medical Devices Implanted Type Area Band Instrument Repairer Device Identifier Shelf Expiration Date Model / Serial / Lot Lens Li61ao 13.00mm 19.00 - [id number] - [id number] Implanted:Qty: 1 on 04/17/2023 by Bryan Richards MD at [facility] Left: Eye [employer]OMB 12/09/2027 [id number] / [id number] / [id number] Lens Li61ao 13.00mm 18.50 - [id number] - [id number] Implanted:Qty: 1 on 05/01/2023 by Bryan Richards MD at OR [facility] Right: Eye BAUSCH [employer] LOMB 10/09/2027 [id number] / [id number] / [id number] documented as of this encounter Visit Diagnoses Diagnosis Viral URI with cough- Primary Acute upper respiratory infections of unspecified site Leg cramp Cramp of limb Pain of left thumb Pain in limb documented in this encounter Advance Directives Latest Code Status on File Code Status Date Activated Date Inactivated Comments Full Code 05/01/2023 9:33 AM 05/01/2023 4:13 PM This order reflects the patients wishes and were consensually agreed upon. Question Answer Comments Discussion of Advance Directives occurred with: Patient Does the patient have a Living Will? No Does the patient have Health Care Power of Tank Inspector? No Code Status History Code Status Date Activated Date Inactivated Comments Full Code 04/17/2023 8:37 AM 04/17/2023 2:50 PM This or adele reflects the patients wishes and were consensually agreed upon. Question Answer Comments Discussion of Advance Directives occurred with: Patient Does the patient have a Living Will? No Does the patient have Health Care Power of Tank Inspector? No Healthcare Agents on File Name Relationship Healthcare Agent Relationshi p Communication Noah Flores Adult Child Health Care Repr esentative (appointed verbally by patient or by statute hierarchy) Care Teams Soil Checker Relationship Specialty Start Date End Date Maricarmen Ann DO [address] [place] [address] PCP - General Family Medicine 03/26/23 documented as of this encounter
--- OUTSIDE RECORDS SUMMARY | 2024-02-18 13:03 | External Medical Summary | Summary of Care ---
Author Name Unknown Organization [facility] Address [address] [facility] [place] [address] Phone [phone] Care Team Providers Care Replanting Machine Crew Name Role Phone Maricarmen Ann Primary Care Provider Reason for Visit * Reason Onset Date Comments Referral 09/23/2023 Encounter Details Date Type Department Care Team (Late st Contact Info) Description 09/23/2023 Telephone Access Center, [place] 100 [address] [facility] *DO NOT REMOVE THIS DEPARTMENT* [place] [id number] Services, Scheduling [address] [place] [address] Referral Allergies Active Allergy Reactions Criticality Noted Date Comments Amoxicillin Unknown 03/13/1999 Imidazole Antifungals 03/13/1999 Vaginal infections Tamoxifen Citrate Nausea/vomiting High 02/14/2010 documented as of this encounter (statuses as of 09/23/2023) Medications Medication Sig Dispensed Refills Start Date End Date Status Multiple Vitamins-Minerals (MULTIVITAMIN WOMENS 50+ ADV) TABS Take 1 Tablet by mouth in the morning. 0 Active Calcium Carb-Cholecalciferol 500-600 MG-UNIT Oral Tablet Take by mouth daily at noon. 0 Active [place]-3 Fatty Acids (FISH OIL) 1000 MG Capsule [...] MOUTH EVERY MORNING 200 Tablet 3 11/20/2022 12/21/2023 Active Omeprazole 20 MG Oral Capsule Delayed [...] COPD, group A, by GOLD 2017 classification ([facility]) Inhale 3 mL via nebulizer in the morning and 3 mL at noon and 3 mL in the evening and 3 mL before bedtime. 50 mL 1 08/08/2023 Active Meloxicam 7.5 MG Oral Tablet (Mobic) Take 1 Tablet by mouth in the morning. 0 Active documented as of this encounter (statuses as of 09/23/2023) Active Problems Problem Noted Date Diagnosed Date [...] as of this encounter (statuses as of 09/23/2023) Resolved Problems Problem Noted Date Diagnosed Date [...] as of this encounter (statuses as of 09/23/2023) Immunizations Name Administration Dates Next Due COVID-19 mRNA, LNP-s, No Pre serve, 2-Dose Series (Tunessence) 09/20/2021,11/09/2020,10/19/2020 Pneumococcal Conjugate Vacc, 13 Valent (Prevnar) [...] encounter Miscellaneous Notes * Telephone Encounter - Maile Barroso OSA - 09/23/2023 1:17 PM EST Caller requesting the following information to be faxed: Name/Company of caller: [facility] Information requested to be faxed: Referral, Physical Therapy Fax number: [phone] Attention to Name/Company: [facility] Any additional information?: Faxed via RightFax; Transmittal Confirmation: 09/23/23 124p EST documented in this encounter Plan of Treatment Upcoming Encounters Date Type Department Care Team (Latest Contact Info) Description 11/28/2023 11:20 AM EDT Office Visit Family Practice 65 [facility] 293 [place] [address] Maricarmen Ann, DO 293 [place] [address] 12/01/2023 12:55 PM EDT Hospital Encounter OR [facility], Operating [facility] [address] [place] [address] Valdemar Siddiqi, DO [address] [place] [address] 12/01/2023 12:55 PM EDT - 12/01/2023 1:20 PM EDT Surgery OR [facility], Operating Room [facility] [address] [place] [phone] Valdemar Siddiqi, DO [address] [place] [phone] INJECTION SPINE LUMBAR OR SACRAL 03/30/2024 2:00 PM EDT Nurse Only Ancillary 65 [facility] 293 [facility], [place] [address] College, Nurse Annual Wellness Visit [address] [address] 08/20/2024 10:45 AM EST Office Visit Dermatology [place] [place] [facility] [place] [address] Richard Ley MD 200 [facility] [place] [address] Scheduled Procedures Name Priority Associated Diagnoses Date/Ti me INJECTION SPINE LUMBAR OR SACRAL Lumbar radiculopathy 12/01/2023 12:55 PM EDT COLONOSCOPY FLEXIBLE PROXIMAL DIAGNOSTIC Recall Family history of colon cancer Health Maintenance Due Date Last Done Comments Alpha-1 Antitrypsin 1963 CKD PHOS USE SMARTSET 31116 05/10/2022 05/10/2021 COVID-19 Vaccine ( season) 2023 09/20/2021, 11/09/2020, 10/19/2020 GFR 12/29/2023 06/30/2023, 10/10, 04/12/2022, Additional history exists Albumin/Creatinine Ratio 02/29/2024 02/28/2023, 09/0 08/2021 O2 ASSESSMENT COMPLETED IN PAST YEAR FOR COPD 05/01/2024 05/01/2023 CKD HGB USE SMARTSET 16934 06/30/202406/30, 06/30/2023, 04/08/2022, Additional history exists HbA1c [...] encounter Medical Devices Implanted Type Area Consumer Marketing Analyst Device Identifier Shelf Expiration Date Model / Serial / Lot Lens Li61ao 13.00mm 19.00 - [id number] - [id number] Implanted:Qty: 1 on 04/17/2023 by Bryan Richards MD at OR [facility] Left: Eye [employer]USCH [employer] LOMB 12/09/2027 [id number] / [id number] / [id number] Lens Li61ao 13.00mm 18.50 - [id number] - [id number] Implanted:Qty: 1 on 05/01/2023 by Bryan Richards MD at OR [facility] Right: Eye BAUSCH [employer] LOMB 10/09/2027 [id number] / [id number] / [id number] documented as of this encounter Advance Directives [...] the patient have Health Care Power of Network Consultant? No Code Status History Code Status Date Activated Date Inactivated Comments Full Code 04/17/2023 8:37 AM 04/17/2023 2:50 PM This or adele reflects the patients wishes and were consensually agreed upon. Question Answer Comments Discussion of Advance Directives occurred with: Patient Does the patient have a Living Will? No Does the patient have Health Care Power of Network Consultant? No Healthcare Agents on File Name Relationship Healthcare Agent Relationshi p Communication Noah Beiswenger Adult Child Health Care Repr esentative (appointed verbally by patient or by statute hierarchy) Care Teams Replanting Machine Crew Relationship Specialty Start Date End Date Maricarmen Ann DO [address] [facility] [place] [address] PCP - General Family Medicine 03/26/23 documented as of this encounter
--- OUTSIDE RECORDS SUMMARY | 2024-02-18 13:03 | External Medical Summary | Summary of Care ---
Author Name Unknown Organization [facility] Address [address] [place] [address] Phone [phone] Care Team Providers Care Educational Technologist Name Role Phone Maricarmen Ricardo DO Primary Care Provider [phone] Reason for Visit * Reason Onset Date Comments Medication Refill 11/18/2023 Encounter Details Date Type Department Care Team (Late st Contact Info) Description 11/18/2023 Refill Care Coordination and Integration [address] [place], [place] [id number] Maricarmen Ricardo DO [address] [place] [address] Allergies Active Allergy Reactions Criticality Noted Date Comments Amoxicillin Unknown 03/13/1999 Imidazole Antifungals 03/13/1999 Vaginal infections Tamoxifen Citrate Nausea/vomiting High 02/14/2010 documented as of this encounter (statuses as of 11/19/2023) Medications Medication Sig Dispensed Refills Start Date End Date Status Multiple Vitamins-Minerals (MULTIVITAMIN WOMENS 50+ ADV) TABS Take 1 Tablet by mouth in the morning. 0 Active Calcium Carb-Cholecalcifero l 500-600 MG-UNIT Oral Tablet Take by mouth daily at noon. 0 Active Wellborn-3 Fatty Acids (FISH OIL) 1000 MG Capsule Take 1 Capsule by mouth daily at noon. 0 Active Loratadine 10 MG Oral Tablet Take 1 Tablet by mouth in the morning. 30 Tab 11 03/27/2021 Active Vitamin B-12 6000 MCG Sublingual Tablet Sublingual Place 1 Tablet under the tongue in the morning. 0 Active Lisinopril-hydroCHL OROthiazide 20-12.5 MG Oral [...] group A, by GOLD 2017 classification ([facility]) Inhale 3 mL via nebulizer in [...] the morning. 100 Tablet 3 11/19/2023 Active Meloxicam 7.5 MG Oral Tablet (Mobic) Take 1 Tablet by mouth in the morning. 90 Tablet 3 10/28/2023 4 Discontinue d(Refill) documented as of this encounter (statuses as of 11/19/2023) Active Problems Problem Noted Date Diagnosed Date [...] as of this encounter (statuses as of 11/19/2023) Resolved Problems Problem Noted Date Diagnosed Date [...] as of this encounter (statuses as of 11/19/2023) Immunizations Name Administration Dates Next Due COVID-19 [...] Telephone Encounter - Maricarmen Ricardo DO - 11/19/2023 3:50 PM EDTSigned Prescriptions: Disp Refills Meloxicam 7.5 MG Oral Tablet (Mobic) 100 Ta*3 Sig: Take 1 Tabletby mouth in the morning.Authorizing Provider: MARICARMEN RICARDO * Telephone Encounter - Maricarmen Ricardo DO - 11/19/2023 3:50 PM EDT Rx sent. * Telephone Encounter - Jessie Bills LPN - 11/18/2023 1:22 PM EDTPending Prescriptions: Disp Refills Meloxicam 7.5 MG Oral Tablet (Mobic) 100 Ta*3 Sig: Take 1 Tablet by mouth in the morning. * Telephone Encounter - Jessie Bills LPN - 11/18/2023 1:22 PM EDT Did you pend patient's preferred pharmacy and medication before forwarding?yes [facility] Pending Prescriptions: Disp Refills Meloxicam 7.5 MG Oral Tablet (Mobic) 100 Ta*3 Sig: Take 1 Tablet by mouth in the morning. Last Visit: Visit date not found (in office), Visit date not found (telemedicine) Next Visit: Visit date not found If no future appointments scheduled, and last appointment is greater than a year ago, please schedule patient for a follow-up appointment Last date the medication was ordered: Is this request for a controlled substance?No [...] PM HGBA1C 5.9 (H) 03/21/2020 11:03 AM * Telephone Encounter - Jessie Kingston OSA - 11/18/2023 1:14 PM EDTPending Prescriptions: Disp Refills Meloxicam 7.5 MG Oral Tablet (Mobic) 90 Tab*3 Sig: Take 1 Tablet by mouth in the morning. documented in this encounter Plan of Treatment Upcoming Encounters Date Type Department Care Team (Latest Contact Info) Description 11/28/2023 11:20 AM EDT Office Visit Family Practice 65 [facility] 293 [facility], [place] [address] Maricarmen Ricardo, DO 293 [facility], [place] [address] 12/01/2023 12:55 PM EDT Hospital Encounter [facility], Operating Room [facility] [address] [place] [phone] Valdemar Siddiqi DO [address] [place] [address] 12/01/2023 12:55 PM EDT - 12/01/2023 1:20 PM EDT Surgery OR [facility], Operating Room [facility] [address] [place] [phone] Valdemar Siddiqi DO [address] [place] [address] INJECTION SPINE LUMBAR OR SACRAL 03/30/2024 2:00 PM EDT Nurse Only Ancillary 65 [facility] 293 [facility], [place] [address] College, Nurse Annual Wellness Visit [address] [address] 08/20/2024 10:45 AM EST Office Visit Dermatology [facility] [place] [address] [place] [address] Richard Ley MD [address] [place] [address] Scheduled Procedures Name Priority Associated Diagnoses Date/Ti me INJECTION SPINE LUMBAR OR SACRAL Lumbar radiculopathy 12/01/2023 12:55 PM EDT COLONOSCOPY FLEXIBLE PROXIMAL DIAGNOSTIC Recall Family history of colon cancer Health Maintenance Due Date Last Done Comments Alpha-1 Antitrypsin 1963 CKD PHOS USE SMARTSET 12432 05/10/2022 05/10/2021 COVID-19 Vaccine ( season) 2023 09/20/2021, 11/09/2020, 10/19/2020 GFR 12/29/2023 06/30/2023, 10/10, 04/12/2022, Additional history exists Albumin/Creatinine Ratio 02/29/2024 02/28/2023, 0908/2021 O2 ASSESSMENT COMPLETED IN PAST YEAR FOR COPD 05/01/2024 05/01/2023 CKD HGB USE SMARTSET 39438 06/30/202406/30, 06/30/2023, 04/08/2022, Additional history exists HbA1c [...] this encounter Medical Devices Implanted Type Area Nascar Racer Device Identifier Shelf Expiration Date Model / Serial / Lot Lens Li61ao 13.00mm 19.00 - [id number] - [id number] Implanted:Qty: 1 on 04/17/2023 by Bryan Richards MD at OR [facility] Left: Eye BAUSCH [employer] LOMB 12/09/2027 [id number] / [id number] / [id number] Lens Li61ao 13.00mm 18.50 - [id number] - [id number] Implanted:Qty: 1 on 05/01/2023 by Bryan Richards MD at OR [facility] Right: Eye BAUSCH & LOMB 10/09/2027 [id number] / [id number] / [id number] documented as of this encounter Advance Directives [...] the patient have Health Care Power of Crawler Dragline Operator? No Code Status History Code Status Date Activated Date Inactivated Comments Full Code 04/17/2023 8:37 AM 04/17/2023 2:50 PM This or adele reflects the patients wishes and were consensually agreed upon. Question Answer Comments Discussion of Advance Directives occurred with: Patient Does the patient have a Living Will? No Does the patient have Health Care Power of Crawler Dragline Operator? No Healthcare Agents on File Name Relationship Healthcare Agent Relationshi p Communication Noah Beiswenger Adult Child Health Care Repr esentative (appointed verbally by patient or by statute hierarchy) Care Teams Educational Technologist Relationship Specialty Start Date End Date Maricarmen Ricardo DO [address] [place] [address] PCP - General Family Medicine 03/26/23 documented as of this encounter
--- OUTSIDE RECORDS SUMMARY | 2024-02-18 13:03 | External Medical Summary | Summary of Care ---
Author Name Unknown Organization [facility] Address [address] [place] [address] Phone [phone] Care Team Providers Care Camp Manager Name Role Phone Maricarmen Ann Primary Care Provider Encounter Details Date Type Department Care Team (Late st Contact Info) Description 09/29/2023 10:45 AM EST Scheduled Telephone Care Coordination and Integration [address] [place] [address] [place] Dukey Rider [address] [place], [place] [id number] Allergies Active Allergy Reactions Criticality Noted Date Comments Amoxicillin Unknown 03/13/1999 Imidazole Antifungals 03/13/1999 Vaginal infections Tamoxifen Citrate Nausea/vomiting High 02/14/2010 documented as of this encounter (statuses as of 09/29/2023) Medications Medication Sig Dispensed Refills Start Date End Date Status Multiple Vitamins-Minerals (MULTIVITAMIN WOMENS 50+ ADV) TABS Take 1 Tablet by mouth in the morning. 0 Active Calcium Carb-Cholecalciferol 500-600 MG-UNIT Oral Tablet Take by mouth daily at noon. 0 Active Grey Eagle-3 Fatty Acids (FISH OIL) 1000 MG Capsule [...] COPD, group A, by GOLD 2017 classification ([facility]) Inhale 3 mL via nebulizer in the morning and 3 mL at noon and 3 mL in the evening and 3 mL before bedtime. 50 mL 1 08/08/2023 Active Meloxicam 7.5 MG Oral Tablet (Mobic) Take 1 Tablet by mouth in the morning. 0 Active documented as of this encounter (statuses as of 09/29/2023) Active Problems Problem Noted Date Diagnosed Date [...] as of this encounter (statuses as of 09/29/2023) Resolved Problems Problem Noted Date Diagnosed Date [...] as of this encounter (statuses as of 09/29/2023) Immunizations Name Administration Dates Next Due COVID-19 mRNA, LNP-s, No Pre serve, 2-Dose Series (Grid Net) 09/20/2021,11/09/2020,10/19/2020 Pneumococcal Conjugate Vacc, 13 Valent (Prevnar) [...] AM EDT Office Visit Family Practice 65 [facility] 293 [place] [address] Maricarmen Ann, DO [address] [place] [address] 12/01/2023 12:55 PM EDT Hospital Encounter OR [facility], Operating Room [facility] [address] [facility] [place] [address] Valdemar Siddiqi, DO [address] [place] [address] 12/01/2023 12:55 PM EDT - 12/01/2023 1:20 PM EDT Surgery OR OSS, Operating Room OSS [address] [place] [phone] Valdemar Siddiqi, DO [address] [facility] [phone] INJECTION SPINE LUMBAR OR SACRAL 03/30/2024 2:00 PM EDT Nurse Only Ancillary 65 [facility] 293 [place] [address] College, Nurse Annual Wellness Visit [address] [address] 08/20/2024 10:45 AM EST Office Visit Dermatology [facility] [facility] [place] [address] [place] [address] Richard Ley MD 200 [facility] [place] [address] Scheduled Procedures Name Priority Associated Diagnoses Date/Ti me INJECTION SPINE LUMBAR OR SACRAL Lumbar radiculopathy 12/01/2023 12:55 PM EDT COLONOSCOPY FLEXIBLE PROXIMAL DIAGNOSTIC Recall Family history of colon cancer Health Maintenance Due Date Last Done Comments Alpha-1 Antitrypsin 1963 CKD PHOS USE SMARTSET 99826 05/10/2022 05/10/2021 COVID-19 Vaccine ( season) 2023 09/20/2021, 11/09/2020, 10/19/2020 GFR 12/29/2023 06/30/2023, 10/10, 04/12/2022, Additional history exists Albumin/Creatinine Ratio 02/29/2024 02/28/2023, 08/2021 O2 ASSESSMENT COMPLETED IN PAST YEAR FOR COPD 05/01/2024 05/01/2023 CKD HGB USE SMARTSET 47778 06/30/202406/30, 06/30/2023, 04/08/2022, Additional history exists HbA1c [...] this encounter Medical Devices Implanted Type Area Wine Steward/Stewardess Device Identifier Shelf Expiration Date Model / Serial / Lot Lens Li61ao 13.00mm 19.00 - [id number] - [id number] Implanted:Qty: 1 on 04/17/2023 by SusieBryan mandujano MD at OR [facility] Left: Eye BAUSCH [employer] LOMB 12/09/2027 [id number] / [id number] / [id number] Lens Li61ao 13.00mm 18.50 - [id number] - [id number] Implanted:Qty: 1 on 05/01/2023 by Bryan Richards MD at OR [facility] Right: Eye BAUSCH & LOMB 10/09/2027 [id number] / [id number] / [id number] documented as of this encounter Advance Directives [...] the patient have Health Care Power of Filter Pulp Washer? No Code Status History Code Status Date Activated Date Inactivated Comments Full Code 04/17/2023 8:37 AM 04/17/2023 2:50 PM This or adele reflects the patients wishes and were consensually agreed upon. Question Answer Comments Discussion of Advance Directives occurred with: Patient Does the patient have a Living Will? No Does the patient have Health Care Power of Filter Pulp Washer? No Healthcare Agents on File Name Relationship Healthcare Agent Relationshi p Communication Noah Herrerangarvin Adult Child Health Care Repr esentative (appointed verbally by patient or by statute hierarchy) Care Teams Camp Manager Relationship Specialty Start Date End Date Maricarmen Ann DO [address] [place] [address] PCP - General Family Medicine 03/26/23 documented as of this encounter
--- OUTSIDE RECORDS SUMMARY | 2024-02-18 13:03 | External Medical Summary | Summary of Care ---
Author Name Unknown Organization [facility] Address [address] [facility] [place] [address] Phone [phone] Care Team Providers Care Inspector General Name Role Phone Maricarmen Ann DO Primary Care Provider Encounter Details Date Type Department Care Team (Late st Contact Info) Description 08/18/2023 Orders Only Family Practice 65 [facility] [address] [place] [address] Maricarmen Ann DO [address] [place] [address] Allergies Active Allergy Reactions Criticality Noted Date Comments Amoxicillin Unknown 03/13/1999 Imidazole Antifungals 03/13/1999 Vaginal infections Tamoxifen Citrate Nausea/vomiting High 02/14/2010 documented as of this encounter (statuses as of 09/24/2023) Medications Medication Sig Dispensed Refills Start Date End Date Status Multiple Vitamins-Minerals (MULTIVITAMIN WOMENS 50+ ADV) TABS Take 1 Tablet by mouth in the morning. 0 Active Calcium Carb-Cholecalciferol 500-600 MG-UNIT Oral Tablet Take by mouth daily at noon. 0 Active Hall[place]-3 Fatty Acids (FISH OIL) 1000 MG Capsule [...] ([facility]) Inhale 3 mL via nebulizer in the morning and 3 mL at noon and 3 mL in the evening and 3 mL before bedtime. 50 mL 1 08/08/2023 Active documented as of this encounter (statuses as of 09/24/2023) Active Problems Problem Noted Date Diagnosed Date [...] as of this encounter (statuses as of 09/24/2023) Resolved Problems Problem Noted Date Diagnosed Date [...] as of this encounter (statuses as of 09/24/2023) Immunizations Name Administration Dates Next Due COVID-19 [...] AM EDT Office Visit Family Practice [address] [place] 293 [facility], [place] [address] Maricarmen Ann, DO 293 [facility], [place] [address] 12/01/2023 12:55 PM EDT Hospital Encounter OR [facility], Operating Room OSS [address] [place], [place] [address] Valdemar Siddiqi, DO [address] [place] [address] 12/01/2023 12:55 PM EDT - 12/01/2023 1:20 PM EDT Surgery OR OSS, Operating Room OSS [address] [place] [phone] Valdemar Siddiqi, DO [address] [place] [address] INJECTION SPINE LUMBAR OR SACRAL 03/30/2024 2:00 PM EDT Nurse Only Ancillary 65 [facility] 293 [facility], [place] [address] College, Nurse Annual Wellness Visit [address] [place] [address] 08/20/2024 10:45 AM EST Office Visit Dermatology [facility] 200 [facility] [place] [address] Richard Ley MD 200 [facility] [place], [place] [address] Scheduled Procedures Name Priority Associated Diagnoses Date/Ti me INJECTION SPINE LUMBAR OR SACRAL Lumbar radiculopathy 12/01/2023 12:55 PM EDT COLONOSCOPY FLEXIBLE PROXIMAL DIAGNOSTIC Recall Family history of colon cancer Health Maintenance Due Date Last Done Comments Alpha-1 Antitrypsin 1963 CKD PHOS USE SMARTSET 80540 05/10/2022 05/10/2021 COVID-19 Vaccine ( season) 2023 09/20/2021, 11/09/2020, 10/19/2020 GFR 12/29/2023 06/30/2023, 10/10, 04/12/2022, Additional history exists Albumin/Creatinine Ratio 02/29/2024 02/28/2023, 08/2021 O2 ASSESSMENT COMPLETED IN PAST YEAR FOR COPD 05/01/2024 05/01/2023 CKD HGB USE SMARTSET 38768 06/30/202406/30, 06/30/2023, 04/08/2022, Additional history exists HbA1c [...] this encounter Medical Devices Implanted Type Area Birth Attendant Device Identifier Shelf Expiration Date Model / Serial / Lot Lens Li61ao 13.00mm 19.00 - [id number] - [id number] Implanted:Qty: 1 on 04/17/2023 by Bryan Richards MD at OR [facility] Left: Eye [employer]USCH [employer] LOMB 12/09/2027 [id number] / [id number] / [id number] Lens Li61ao 13.00mm 18.50 - [id number] - [id number] Implanted:Qty: 1 on 05/01/2023 by Bryan Richards MD at OR [facility] Right: Eye BAUSCH [employer] LOMB 10/09/2027 [id number] / [id number] / [id number] documented as of this encounter Procedures Procedure Name Priority Date/Time Associated Diagnosis Comments RADIOLOGY EXAM - CT (IMAGES ONLY, NO REPORT) Routine 08/18/2023 1:40 AM EST documented in this encounter Results * RADIOLOGY EXAM - CT (IMAGES ONLY, NO REPORT) (08/18/2023 1:40 AM EST) 08/18/2023 1:36 AM EST Narrative Scheduling, Silent - 09/24/2023 8:07 PM EST This is an imaging study not interpreted or resulted by a [employer] or [employer] contracted radiologist. Maricarmen Ann DO RAD CT documented in this encounter Advance Directives Latest Code Status on File Code Status Date Activated Date Inactivated Comments Full Code 05/01/2023 9:33 AM 05/01/2023 4:13 PM This order reflects the patients wishes and were consensually agreed upon. Question Answer Comments Discussion of Advance Directives occurred with: Patient Does the patient have a Living Will? No Does the patient have Health Care Power of Wood Drilling Machine Operator? No Code Status History Code Status Date Activated Date Inactivated Comments Full Code 04/17/2023 8:37 AM 04/17/2023 2:50 PM This or adele reflects the patients wishes and were consensually agreed upon. Question Answer Comments Discussion of Advance Directives occurred with: Patient Does the patient have a Living Will? No Does the patient have Health Care Power of Wood Drilling Machine Operator? No Healthcare Agents on File Name Relationship Healthcare Agent Relationshi p Communication Noah Beiswenger Adult Child Health Care Repr esentative (appointed verbally by patient or by statute hierarchy) Care Teams Inspector General Relationship Specialty Start Date End Date Maricarmen Ann DO [address] [place] [address] PCP - General Family Medicine 03/26/23 documented as of this encounter
--- OUTSIDE RECORDS SUMMARY | 2024-02-18 13:03 | External Medical Summary | Summary of Care ---
Author Name Unknown Organization [facility] Address [address] [place] [address] Phone [phone] Care Team Providers Care Shaper Setter Name Role Phone Maricarmen Ann Primary Care Provider Encounter Details Date Type Department Care Team (Latest Contact Info) Description 08/18/2023 1:40 AM EST - 08/18/2023 11:59 PM [facility] Hospital Encounter Radiology Film File [address] [place] [address] Discharge Disposition: Home - Self Care Allergies Active Allergy Reactions Criticality Noted Date Comments Amoxicillin Unknown 03/13/1999 Imidazole Antifungals 03/13/1999 Vaginal infections Tamoxifen Citrate Nausea/vomiting High 02/14/2010 documented as of this encounter (statuses as of 09/25/2023) Medications Medication Sig Dispensed Refills Start Date End Date Status Multiple Vitamins-Minerals (MULTIVITAMIN WOMENS 50+ ADV) TABS Take 1 Tablet by mouth in the morning. 0 Active Calcium Carb-Cholecalciferol 500-600 MG-UNIT Oral Tablet Take by mouth daily at noon. 0 Active Voss-3 Fatty Acids (FISH OIL) 1000 MG Capsule [...] 2017 classification ([facility]) Inhale 3 mL via nebulizer in the morning and 3 mL at noon and 3 mL in the evening and 3 mL before bedtime. 50 mL 1 08/08/2023 Active documented as of this encounter (statuses as of 09/25/2023) Active Problems Problem Noted Date Diagnosed Date [...] as of this encounter (statuses as of 09/25/2023) Resolved Problems Problem Noted Date Diagnosed Date [...] as of this encounter (statuses as of 09/25/2023) Immunizations Name Administration Dates Next Due COVID-19 mRNA, LNP-s, No Pre serve, 2-Dose Series (e[employer]eter) 09/20/2021,11/09/2020,10/19/2020 Pneumococcal Conjugate Vacc, 13 Valent (Prevnar) [...] EDT Office Visit Family Practice [address] [place] [address] [place] [address] Maricarmen Ann DO [address] [facility] [address] 12/01/2023 12:55 PM EDT Hospital Encounter OR [facility], Operating Room OSS [address] [place] [phone] Valdemar Siddiqi, DO [address] [place] [address] 12/01/2023 12:55 PM EDT - 12/01/2023 1:20 PM EDT Surgery OR OSS, Operating Room [facility] [address] [place] [phone] Valdemar Siddiqi, DO [address] [place] [phone] INJECTION SPINE LUMBAR OR SACRAL 03/30/2024 2:00 PM EDT Nurse Only Ancillary 65 [facility] [address] [place] [address] College, Nurse Annual Wellness Visit [address] [address] 08/20/2024 10:45 AM EST Office Visit Dermatology [facility] 200 [facility] [place] [address] Richard Ley MD 200 [facility] [place] [address] Scheduled Procedures Name Priority Associated Diagnoses Date/Ti me INJECTION SPINE LUMBAR OR SACRAL Lumbar radiculopathy 12/01/2023 12:55 PM EDT COLONOSCOPY FLEXIBLE PROXIMAL DIAGNOSTIC Recall Family history of colon cancer Health Maintenance Due Date Last Done Comments Alpha-1 Antitrypsin 1963 CKD PHOS USE SMARTSET 72302 05/10/2022 05/10/2021 COVID-19 Vaccine ( season) 2023 09/20/2021, 11/09/2020, 10/19/2020 GFR 12/29/2023 06/30/2023, 10/10, 04/12/2022, Additional history exists Albumin/Creatinine Ratio 02/29/2024 02/28/2023, 08/2021 O2 ASSESSMENT COMPLETED IN PAST YEAR FOR COPD 05/01/2024 05/01/2023 CKD HGB USE SMARTSET 12120 06/30/202406/30, 06/30/2023, 04/08/2022, Additional history exists HbA1c [...] this encounter Medical Devices Implanted Type Area Gas Brazer Device Identifier Shelf Expiration Date Model / Serial / Lot Lens Li61ao 13.00mm 19.00 - [id number] - [id number] Implanted:Qty: 1 on 04/17/2023 by Bryan Richards MD at OR [facility] Left: Eye BAUSCH & LOMB 12/09/2027 [id number] / [id number] / [id number] Lens Li61ao 13.00mm 18.50 - [id number] - [id number] Implanted:Qty: 1 on 05/01/2023 by Bryan Richards MD at OR [facility] Right: Eye BAUSCH & LOMB 10/09/2027 [id number] / [id number] / [id number] documented as of this encounter Procedures Procedure [...] study not interpreted or resulted by a [facility] or [employer] contracted radiologist. Maricarmen Ann DO RAD CT [...] the patient have Health Care Power of Superintendent Compressor Stations? No Code Status History Code Status Date Activated Date Inactivated Comments Full Code 04/17/2023 8:37 AM 04/17/2023 2:50 PM This or adele reflects the patients wishes and were consensually agreed upon. Question Answer Comments Discussion of Advance Directives occurred with: Patient Does the patient have a Living Will? No Does the patient have Health Care Power of Superintendent Compressor Stations? No Healthcare Agents on File Name Relationship Healthcare Agent Relationshi p Communication Noah Beiswenger Adult Child Health Care Repr esentative (appointed verbally by patient or by statute hierarchy) Care Teams Shaper Setter Relationship Specialty Start Date End Date Maricarmen Ann DO [address] [place] [address] PCP - General Family Medicine 03/26/23 documented as of this encounter
--- OUTSIDE RECORDS SUMMARY | 2024-02-18 13:03 | External Medical Summary | Summary of Care ---
Author Name Unknown Organization [facility] Address [address] [facility] [place] [address] Phone [phone] Care Team Providers Care Steward/Stewardess Railroad Dining Car Name Role Phone Maricarmen Ann DO Primary Care Provider [phone] Encounter Details Date Type Department Care Team (Late st Contact Info) Description 08/20/2023 Orders Only Family Practice 65 [facility] [address] [place] [address] Maricarmen Ann DO 293 [place] [address] Allergies Active Allergy Reactions Criticality Noted Date [...] by mouth daily at noon. 0 Active [place]-3 Fatty Acids (FISH OIL) 1000 MG Capsule [...] COPD, group A, by GOLD 2017 classification ([facility]) Inhale 3 mL via nebulizer [...] EDT Office Visit Family Practice [address], [place] 293 [facility], [place] [address] Maricarmen Ann, DO 293 [facility], [place] [address] 12/01/2023 12:55 PM EDT Hospital Encounter OR [facility], Operating Room [facility] [address] [place], [place] [address] Valdemar Siddiqi, DO [address] [place] [address] 12/01/2023 12:55 PM EDT - 12/01/2023 1:20 PM EDT Surgery OR OSS, Operating Room [facility] [address] [place] [phone] Valdemar Siddiqi, DO [address] [place] [address] INJECTION SPINE LUMBAR OR SACRAL 03/30/2024 2:00 PM EDT Nurse Only Ancillary 65 [facility] 293 [facility], [place] [address] College, Nurse Annual Wellness Visit [address] [place] [address] 08/20/2024 10:45 AM EST Office Visit Dermatology [facility] 200 [facility] [place] [address] Richard Ley MD 200 [facility] [place], [place] [address] Scheduled Procedures Name Priority Associated Diagnoses Date/Ti me INJECTION SPINE LUMBAR OR SACRAL Lumbar radiculopathy 12/01/2023 12:55 PM EDT COLONOSCOPY FLEXIBLE PROXIMAL DIAGNOSTIC Recall Family history of colon cancer Health Maintenance Due Date Last Done Comments Alpha-1 Antitrypsin 1963 CKD PHOS USE SMARTSET 67415 05/10/2022 05/10/2021 COVID-19 Vaccine ( season) 2023 09/20/2021, 11/09/2020, 10/19/2020 GFR 12/29/2023 06/30/2023, 10/10, 04/12/2022, Additional history exists Albumin/Creatinine Ratio 02/29/2024 02/28/2023, 08/2021 O2 ASSESSMENT COMPLETED IN PAST YEAR FOR COPD 05/01/2024 05/01/2023 CKD HGB USE SMARTSET 25242 06/30/202406/30, 06/30/2023, 04/08/2022, Additional history exists HbA1c [...] this encounter Medical Devices Implanted Type Area Retail Store Clerk Device Identifier Shelf Expiration Date Model / Serial / Lot Lens Li61ao 13.00mm 19.00 - [id number] - [id number] Implanted:Qty: 1 on 04/17/2023 by Bryan Richards MD at OR [facility] Left: Eye [employer]OMB 12/09/2027 [id number] / [id number] / [id number] Lens Li61ao 13.00mm 18.50 - [id number] - [id number] Implanted:Qty: 1 on 05/01/2023 by Bryan Richards MD at OR [facility] Right: Eye BAUSCH [employer] LOMB 10/09/2027 [id number] / [id number] / [id number] documented as of this encounter Procedures Procedure Name Priority Date/Time Associated Diagnosis Comments RADIOLOGY EXAM - MRI (IMAGES ONLY, NO REPORT) Routine 08/20/2023 1:00 PM EST documented in this encounter Results * RADIOLOGY EXAM - MRI (IMAGES ONLY, NO REPORT) (08/20/2023 1:00 PM EST) 08/20/2023 1:00 PM EST Narrative Scheduling, Silent - 09/24/2023 8:10 PM EST This is an imaging study not interpreted or resulted by a [employer] or [employer] contracted radiologist. Maricarmen Ann DO RAD MRI-MRA documented in this encounter Advance Directives Latest Code Status on File Code Status Date Activated Date Inactivated Comments Full Code 05/01/2023 9:33 AM 05/01/2023 4:13 PM This order reflects the patients wishes and were consensually agreed upon. Question Answer Comments Discussion of Advance Directives occurred with: Patient Does the patient have a Living Will? No Does the patient have Health Care Power of Full Stack Python Developer? No Code Status History Code Status Date Activated Date Inactivated Comments Full Code 04/17/2023 8:37 AM 04/17/2023 2:50 PM This or adele reflects the patients wishes and were consensually agreed upon. Question Answer Comments Discussion of Advance Directives occurred with: Patient Does the patient have a Living Will? No Does the patient have Health Care Power of Full Stack Python Developer? No Healthcare Agents on File Name Relationship Healthcare Agent Relationshi p Communication Noah Mattwengarvin Adult Child Health Care Repr esentative (appointed verbally by patient or by statute hierarchy) Care Teams Steward/Stewardess Railroad Dining Car Relationship Specialty Start Date End Date Maricarmen Ann DO [address] [place] [address] PCP - General Family Medicine 03/26/23 documented as of this encounter
--- OUTSIDE RECORDS SUMMARY | 2024-02-18 13:03 | External Medical Summary | Summary of Care ---
Author Name Unknown Organization [facility] Address [address] [facility] [place] [address] Phone [phone] Care Team Providers Care Parking Lot Attendant And Cashier Name Role Phone Maricarmen Ann Primary Care Provider [phone] Encounter Details Date Type Department Care Team (Latest Contact Info) Description 08/20/2023 4:35 PM EST - 08/20/2023 11:59 PM EST Hospital Encounter Radiology Film File [address] [place] [address] Discharge Disposition: Home - Self [...] by mouth daily at noon. 0 Active [place]-3 Fatty Acids (FISH OIL) 1000 MG Capsule [...] A, by GOLD 2017 classification ([facility]) Inhale 3 mL via nebulizer in the [...] mRNA, LNP-s, No Pre serve, 2-Dose Series ([employer]) 09/20/2021,11/09/2020,10/19/2020 Pneumococcal Conjugate Vacc, 13 Valent (Prevnar) [...] EDT Office Visit Family Practice [address], [place] 293 [place] [address] [facility]armen Ann DO [facility] [address] 12/01/2023 12:55 PM EDT Hospital Encounter OR [facility], Operating Room OSS [address] [place] [phone] Valdemar Siddiqi, DO [address] [place] [address] 12/01/2023 12:55 PM EDT - 12/01/2023 1:20 PM EDT Surgery OR OSS, Operating Room [facility] [address] [place] [address] Valdemar Siddiqi, DO [address] [place] [address] INJECTION SPINE LUMBAR OR SACRAL 03/30/2024 2:00 PM EDT Nurse Only Ancillary 65 [facility] 293 [place] [address] College, Nurse Annual Wellness Visit [address] [address] 08/20/2024 10:45 AM EST Office Visit Dermatology [facility] 200 [facility] [place] [address] Richard Ley MD 200 [facility] [place] [address] Scheduled Procedures Name Priority Associated Diagnoses Date/Ti me INJECTION SPINE LUMBAR OR SACRAL Lumbar radiculopathy 12/01/2023 12:55 PM EDT COLONOSCOPY FLEXIBLE PROXIMAL DIAGNOSTIC Recall Family history of colon cancer Health Maintenance Due Date Last Done Comments Alpha-1 Antitrypsin 1963 CKD PHOS USE SMARTSET 88165 05/10/2022 05/10/2021 COVID-19 Vaccine ( season) 2023 09/20/2021, 11/09/2020, 10/19/2020 GFR 12/29/2023 06/30/2023, 10/10, 04/12/2022, Additional history exists Albumin/Creatinine Ratio 02/29/2024 02/28/2023, 08/2021 O2 ASSESSMENT COMPLETED IN PAST YEAR FOR COPD 05/01/2024 05/01/2023 CKD HGB USE SMARTSET 12902 06/30/202406/30, 06/30/2023, 04/08/2022, Additional history exists HbA1c [...] this encounter Medical Devices Implanted Type Area Furniture Crater Device Identifier Shelf Expiration Date Model / Serial / Lot Lens Li61ao 13.00mm 19.00 - [id number] - [id number] Implanted:Qty: 1 on 04/17/2023 by Bryan Richards MD at OR [facility] Left: Eye [employer]OMB 12/09/2027 [id number] / [id number] / [id number] Lens Li61ao 13.00mm 18.50 - [id number] - [id number] Implanted:Qty: 1 on 05/01/2023 by Bryan Richards MD at OR [facility] Right: Eye [employer]CH [employer] LOMB 10/09/2027 [id number] / [id number] / [id number] documented as of this encounter Procedures Procedure Name Priority Date/Time Associated Diagnosis Comments RADIOLOGY EXAM - GENERAL RAD (IMAGES ONLY,NO REPORT) Routine 08/20/2023 4:35 PM EST documented in this encounter Results * RADIOLOGY EXAM - GENERAL RAD (IMAGES ONLY,NO REPORT) (08/20/2023 4:35 PM EST) 08/20/2023 4:32 PM EST Narrative Scheduling, Silent - 09/24/2023 8:12 PM EST This is an imaging study not interpreted or resulted by a [facility] or [employer] contracted radiologist. Maricarmen Ann DO RADIOLOGY (RAD GENER AL) documented in this encounter Advance Directives Latest Code Status on File Code Status Date Activated Date Inactivated Comments Full Code 05/01/2023 9:33 AM 05/01/2023 4:13 PM This order reflects the patients wishes and were consensually agreed upon. Question Answer Comments Discussion of Advance Directives occurred with: Patient Does the patient have a Living Will? No Does the patient have Health Care Power of Tallow Maker? No Code Status History Code Status Date Activated Date Inactivated Comments Full Code 04/17/2023 8:37 AM 04/17/2023 2:50 PM This or adele reflects the patients wishes and were consensually agreed upon. Question Answer Comments Discussion of Advance Directives occurred with: Patient Does the patient have a Living Will? No Does the patient have Health Care Power of Tallow Maker? No Healthcare Agents on File Name Relationship Healthcare Agent Relationshi p Communication Noah Mattwenger Adult Child Health Care Repr esentative (appointed verbally by patient or by statute hierarchy) Care Teams Parking Lot Attendant And Cashier Relationship Specialty Start Date End Date Maricarmen Ann DO [address] [place] [address], [place] [address] PCP - General Family Medicine 03/26/23 documented as of this encounter
--- OUTSIDE RECORDS SUMMARY | 2024-02-18 13:03 | External Medical Summary | Summary of Care ---
Author Name Unknown Organization [facility] Address [address] [facility] [place] [address] Phone [phone] Care Team Providers Care Manager Market Name Role Phone Maricarmen Ann Primary Care Provider Encounter Details Date Type Department Care Team (Latest Contact Info) Description 08/20/2023 1:00 PM EST - 08/20/2023 4:34 PM EST Hospital Encounter Radiology Film File [address] [place] [address] Discharge Disposition: Home - Self [...] by mouth daily at noon. 0 Active [place]-3 Fatty Acids (FISH OIL) 1000 MG Capsule [...] [facility]) Inhale 3 mL via nebulizer in the [...] mRNA, LNP-s, No Pre serve, 2-Dose Series ([facility] [facility] 09/20/2021,11/09/2020,10/19/2020 Pneumococcal Conjugate Vacc, 13 Valent [...] EDT Office Visit Family Practice [address], [place] 293 [place] [place] [address] Maricarmen Ann DO [address] [facility] [address] 12/01/2023 12:55 PM EDT Hospital Encounter OR [facility], Operating Room [facility] [address] [place] [phone] Valdemar Siddiqi, DO [address] [place] [address] 12/01/2023 12:55 PM EDT - 12/01/2023 1:20 PM EDT Surgery OR OSS, Operating Room [facility] [address] [place] [address] Valdemar Siddiqi, DO [address] [place] [address] INJECTION SPINE LUMBAR OR SACRAL 03/30/2024 2:00 PM EDT Nurse Only Ancillary 65 [facility] 293 [place] [address] College, Nurse Annual Wellness Visit [address] [address] 08/20/2024 10:45 AM EST Office Visit Dermatology [facility] 200 [facility] [place] [address] Richard Ley MD 200 [facility] [place] [address] Scheduled Procedures Name Priority Associated Diagnoses Date/Ti me INJECTION SPINE LUMBAR OR SACRAL Lumbar radiculopathy 12/01/2023 12:55 PM EDT COLONOSCOPY FLEXIBLE PROXIMAL DIAGNOSTIC Recall Family history of colon cancer Health Maintenance Due Date Last Done Comments Alpha-1 Antitrypsin 1963 CKD PHOS USE SMARTSET 84197 05/10/2022 05/10/2021 COVID-19 Vaccine ( season) 2023 09/20/2021, 11/09/2020, 10/19/2020 GFR 12/29/2023 06/30/2023, 10/10, 04/12/2022, Additional history exists Albumin/Creatinine Ratio 02/29/2024 02/28/2023, 08/2021 O2 ASSESSMENT COMPLETED IN PAST YEAR FOR COPD 05/01/2024 05/01/2023 CKD HGB USE SMARTSET 00340 06/30/202406/30, 06/30/2023, 04/08/2022, Additional history exists HbA1c [...] this encounter Medical Devices Implanted Type Area Microbiological Lab Technician Device Identifier Shelf Expiration Date Model / Serial / Lot Lens Li61ao 13.00mm 19.00 - [id number] - [id number] Implanted:Qty: 1 on 04/17/2023 by Bryan Richards MD at OR [facility] Left: Eye [employer]CH [employer] LOMB 12/09/2027 [id number] / [id number] / [id number] Lens Li61ao 13.00mm 18.50 - [id number] - [id number] Implanted:Qty: 1 on 05/01/2023 by Bryan Richards MD at OR [facility] Right: Eye BAUSCH [employer] LOMB 10/09/2027 [id number] / [id number] / [id number] documented as of this encounter Procedures Procedure [...] interpreted or resulted by a [facility] contracted radiologist. Maricarmen Ann DO RAD MRI-MRA [...] the patient have Health Care Power of Drop Pit Worker? No Code Status History Code Status Date Activated Date Inactivated Comments Full Code 04/17/2023 8:37 AM 04/17/2023 2:50 PM This or adele reflects the patients wishes and were consensually agreed upon. Question Answer Comments Discussion of Advance Directives occurred with: Patient Does the patient have a Living Will? No Does the patient have Health Care Power of Drop Pit Worker? No Healthcare Agents on File Name Relationship Healthcare Agent Relationshi p Communication Noah Mcmahaniswenger Adult Child Health Care Repr esentative (appointed verbally by patient or by statute hierarchy) Care Teams Manager Market Relationship Specialty Start Date End Date Maricarmen Ann DO [address] [place] [address], [place] [address] PCP - General Family Medicine 03/26/23 documented as of this encounter
--- OUTSIDE RECORDS SUMMARY | 2024-02-18 13:03 | External Medical Summary | Summary of Care ---
Author Name Unknown Organization [facility] Address [address] [place] [address] Phone [phone] Care Team Providers Care Mussel Farmer Name Role Phone Maricarmen Ricardo Primary Care Provider [phone] Reason for Visit * Reason Onset Date Comments Medication Refill 10/27/2023 Encounter Details Date Type Department Care Team (Late st Contact Info) Description 10/27/2023 Refill Care Coordination and Integration [address] [place], [place] [id number] Xena Giraldo RN [address] [place] [address] Neuropathy Allergies Active Allergy Reactions Criticality Noted Date Comments Amoxicillin Unknown 03/13/1999 Imidazole Antifungals 03/13/1999 Vaginal infections Tamoxifen Citrate Nausea/vomiting High 02/14/2010 documented as of this encounter (statuses as of 10/28/2023) Medications Medication Sig Dispensed Refills Start Date End Date Status Multiple Vitamins-Minerals (MULTIVITAMIN WOMENS 50+ ADV) TABS Take 1 Tablet by mouth in the morning. 0 Active Calcium Carb-Cholecalcifero l 500-600 MG-UNIT Oral Tablet Take by mouth daily at noon. 0 Active [place]-3 Fatty Acids (FISH OIL) 1000 MG Capsule [...] :COPD, group A, by GOLD 2017 classification ([facility]) Inhale 3 mL via nebulizer [...] in the morning. 90 Tablet 3 10/28/2023 Active Pregabalin 25 MG Oral Capsule (Lyrica)Indications :Neuropathy Take one capsule by mouth in the morning and two capsules by mouth in the evening 270 Capsule 1 04/17/2023 4 Discontinue d(Refill) Meloxicam 7.5 MG Oral Tablet (Mobic) Take 1 Tablet by mouth in the morning. 0 4 Discontinue d(Refill) documented as of this encounter (statuses as of 10/28/2023) Active Problems Problem Noted Date Diagnosed Date [...] as of this encounter (statuses as of 10/28/2023) Resolved Problems Problem Noted Date Diagnosed Date [...] as of this encounter (statuses as of 10/28/2023) Immunizations Name Administration Dates Next Due COVID-19 [...] Telephone Encounter - Maricarmen Ricardo DO - 10/28/2023 8:26 AM EDTSigned Prescriptions: Disp Refills Pregabalin 25 MG Oral Capsule (Lyrica) 360 Ca*1 Sig: Take 2 capsules by mouth in the morning and two capsules by mouth in the evening Authorizing Provider: MARICARMEN RICARDO Meloxicam 7.5 MG Oral Tablet (Mobic) 90 Tab*3 Sig: Take 1 Tablet by mouth in the morning. Authorizing Provider: MARICARMEN RICARDO * Telephone Encounter - Xena Giraldo RN - 10/27/2023 10:50 AM EDT Pt is completely out of her lyrica. See below. Did you pend patient's preferred pharmacy and medication before forwarding?yes Pharmacy: [id number] Pending Prescriptions: Disp Refills Pregabalin 25 MG Oral Capsule (Lyrica) 360 Ca*1 Sig: Take 2 capsules by mouth in the morning and two capsules by mouth in the evening Meloxicam 7.5 MG Oral Tablet (Mobic) 90 Tab*3 Sig: Take 1 Tablet by mouth in the morning. Last Visit: Visit date not found (in office), Visit date not found (telemedicine) Next Visit: Visit date not found If no future appointments scheduled, and last appointment is greater than a year ago, please schedule patient for a follow-up appointment Last date the medication was ordered: 04/17/2023 Is this request for a controlled substance?No [...] EDT Office Visit Family Practice [address], [place] 293 [facility] [place] [address] Maricarmen Ricardo, DO 293 [place] [address] 12/01/2023 12:55 PM EDT Hospital Encounter OR [facility], Operating Room [facility] [address] [place] [address] Valdemar Siddiqi, [address] [place] [address] 12/01/2023 12:55 PM EDT - 12/01/2023 1:20 PM EDT Surgery OR [facility], Operating Room [facility] [address] [place] [phone] Valdemar Siddiqi, [address] [place] [address] INJECTION SPINE LUMBAR OR SACRAL 03/30/2024 2:00 PM EDT Nurse Only Ancillary 65 [facility] 293 [facility], [place] [address] College, Nurse Annual Wellness Visit [address] [address] 08/20/2024 10:45 AM EST Office Visit Dermatology [facility] 200 [place] [address] Richard Ley MD 200 [facility] [place] [address] Scheduled Procedures Name Priority Associated Diagnoses Date/Ti me INJECTION SPINE LUMBAR OR SACRAL Lumbar radiculopathy 12/01/2023 12:55 PM EDT COLONOSCOPY FLEXIBLE PROXIMAL DIAGNOSTIC Recall Family history of colon cancer Health Maintenance Due Date Last Done Comments Alpha-1 Antitrypsin 1963 CKD PHOS USE SMARTSET 84751 05/10/2022 05/10/2021 COVID-19 Vaccine ( season) 2023 09/20/2021, 11/09/2020, 10/19/2020 GFR 12/29/2023 06/30/2023, 10/10, 04/12/2022, Additional history exists Albumin/Creatinine Ratio 02/29/2024 02/28/2023, 0908/2021 O2 ASSESSMENT COMPLETED IN PAST YEAR FOR COPD 05/01/2024 05/01/2023 CKD HGB USE SMARTSET 71859 06/30/202406/30, 06/30/2023, 04/08/2022, Additional history exists HbA1c [...] this encounter Medical Devices Implanted Type Area Deli/Bakery Associate Device Identifier Shelf Expiration Date Model / Serial / Lot Lens Li61ao 13.00mm 19.00 - [id number] - [id number] Implanted:Qty: 1 on 04/17/2023 by Bryan Richards MD at OR [facility] Left: Eye [employer] LOMB 12/09/2027 [id number] / [id number] / [id number] Lens Li61ao 13.00mm 18.50 - [id number] - [id number] Implanted:Qty: 1 on 05/01/2023 by Bryan Richards MD at OR [facility] Right: Eye BAUSCH [employer] LOMB 10/09/2027 [id number] / [id number] / [id number] documented as of this encounter Visit Diagnoses Diagnosis Neuropathy Mononeuritis of unspecified site Lumbar radiculopathy Thoracic or lumbosacral neuritis or [...] the patient have Health Care Power of Treasury Accountant? No Code Status History Code Status Date Activated Date Inactivated Comments Full Code 04/17/2023 8:37 AM 04/17/2023 2:50 PM This or adele reflects the patients wishes and were consensually agreed upon. Question Answer Comments Discussion of Advance Directives occurred with: Patient Does the patient have a Living Will? No Does the patient have Health Care Power of Treasury Accountant? No Healthcare Agents on File Name Relationship Healthcare Agent Relationshi p Communication Noah Mattwenger Adult Child Health Care Repr esentative (appointed verbally by patient or by statute hierarchy) Care Teams Mussel Farmer Relationship Specialty Start Date End Date Maricarmen Ricardo DO [address] [place] [address] PCP - General Family Medicine 03/26/23 documented as of this encounter
--- OUTSIDE RECORDS SUMMARY | 2024-02-18 13:03 | External Medical Summary | Summary of Care ---
Author Name Unknown Organization [facility] Address [address] [facility] [place] [address] Phone [phone] Care Team Providers Care Human Resources Recruiter Name Role Phone Maricarmen Ann DO Primary Care Provider Encounter Details Date Type Department Care Team (Late st Contact Info) Description 08/20/2023 Orders Only Family Practice 65 [facility] [address] [place] [address] Maricarmen Ann DO 293 [place] [address] Allergies Active Allergy Reactions Criticality Noted Date [...] by mouth daily at noon. 0 Active [place]-3 Fatty Acids (FISH OIL) 1000 MG Capsule [...] EDT Office Visit Family Practice [address] [place] 293 [facility], [place] [address] Maricarmen Ann, DO 293 [facility], [place] [address] 12/01/2023 12:55 PM EDT Hospital Encounter OR [facility], Operating Room O[facility] [address] [place], [place] [address] Valdemar Siddiqi, DO [address] [place] [address] 12/01/2023 12:55 PM EDT - 12/01/2023 1:20 PM EDT Surgery OR OSS, Operating Room OSS [address] [place] [id number] Valdemar Siddiqi, DO [address] [place] [address] INJECTION SPINE LUMBAR OR SACRAL 03/30/2024 2:00 PM EDT Nurse Only Ancillary 65 [facility] 293 [facility], [place] [address] College, Nurse Annual Wellness Visit [address] [place] [address] 08/20/2024 10:45 AM EST Office Visit Dermatology [facility] 200 [facility] [place] [address] Richard Ley MD 200 [facility] [place], [place] [address] Scheduled Procedures Name Priority Associated Diagnoses Date/Ti me INJECTION SPINE LUMBAR OR SACRAL Lumbar radiculopathy 12/01/2023 12:55 PM EDT COLONOSCOPY FLEXIBLE PROXIMAL DIAGNOSTIC Recall Family history of colon cancer Health Maintenance Due Date Last Done Comments Alpha-1 Antitrypsin 1963 CKD PHOS USE SMARTSET 28604 05/10/2022 05/10/2021 COVID-19 Vaccine ( season) 2023 09/20/2021, 11/09/2020, 10/19/2020 GFR 12/29/2023 06/30/2023, 10/10, 04/12/2022, Additional history exists Albumin/Creatinine Ratio 02/29/2024 02/28/2023, 08/2021 O2 ASSESSMENT COMPLETED IN PAST YEAR FOR COPD 05/01/2024 05/01/2023 CKD HGB USE SMARTSET 95440 06/30/202406/30, 06/30/2023, 04/08/2022, Additional history exists HbA1c [...] this encounter Medical Devices Implanted Type Area General Warehouse Associate Device Identifier Shelf Expiration Date Model / Serial / Lot Lens Li61ao 13.00mm 19.00 - [id number] - [id number] Implanted:Qty: 1 on 04/17/2023 by Bryan Richards MD at OR [facility] Left: Eye [employer] 12/09/2027 [id number] / [id number] / [id number] Lens Li61ao 13.00mm 18.50 - [id number] - [id number] Implanted:Qty: 1 on 05/01/2023 by Bryan Richards MD at OR [facility] Right: Eye [employer]OM[employer] 10/09/2027 [id number] / [id number] / [id number] documented as of this encounter Procedures Procedure [...] study not interpreted or resulted by a [employer] or [employer] contracted radiologist. Maricarmen Ann DO RADIOLOGY (RAD [...] the patient have Health Care Power of Manager Erp? No Code Status History Code Status Date Activated Date Inactivated Comments Full Code 04/17/2023 8:37 AM 04/17/2023 2:50 PM This or adele reflects the patients wishes and were consensually agreed upon. Question Answer Comments Discussion of Advance Directives occurred with: Patient Does the patient have a Living Will? No Does the patient have Health Care Power of Manager Erp? No Healthcare Agents on File Name Relationship Healthcare Agent Relationshi p Communication Noah Beiswenger Adult Child Health Care Repr esentative (appointed verbally by patient or by statute hierarchy) Care Teams Human Resources Recruiter Relationship Specialty Start Date End Date Maricarmen Ann DO [address] [place] [address] PCP - General Family Medicine 03/26/23 documented as of this encounter
--- OUTSIDE RECORDS SUMMARY | 2024-02-18 13:04 | External Medical Summary | Summary of Care ---
Author Name Unknown Organization [facility] Address [address] [place] [address] Phone [phone] Care Team Providers Care Form Setter Supervisor Name Role Phone Maricarmen Ann Primary Care Provider Reason for Visit * Reason Onset Date Comments Advice 09/01/2023 Encounter Details Date Type Department Care Team (Late st Contact Info) Description 09/01/2023 Warning Analyst Telephone Care Coordination and Integration [address] [place] [address] Xena Giraldo RN [address] [place] [address] Advice Allergies Active Allergy Reactions Criticality Noted Date Comments Amoxicillin Unknown 03/13/1999 Imidazole Antifungals 03/13/1999 Vaginal infections Tamoxifen Citrate Nausea/vomiting High 02/14/2010 documented as of this encounter (statuses as of 09/02/2023) Medications Medication Sig Dispensed Refills Start Date End Date Status Multiple Vitamins-Minerals (MULTIVITAMIN WOMENS 50+ ADV) TABS Take 1 Tablet by mouth in the morning. 0 Active Calcium Carb-Cholecalcifero l 500-600 MG-UNIT Oral Tablet Take by mouth daily at noon. 0 Active [place]-3 Fatty Acids (FISH OIL) 1000 MG Capsule [...] :COPD, group A, by GOLD 2017 classification ([facility]) Inhale 3 mL via nebulizer in the morning and 3 mL at noon and 3 mL in the evening and 3 mL before bedtime. 50 mL 1 08/08/2023 Active Ciprofloxacin HCl 500 MG Oral Tablet (Cipro) Take 1 Tablet by mouth in the morning and 1 Tablet before bedtime. X 14 days. 0 08/23/2023 Active metroNIDAZOLE 500 MG Oral Tablet (Flagyl) Take 1 Tablet by mouth in the morning and 1 Tablet at noon and 1 Tablet before bedtime. X 14 days. 0 08/23/2023 Active Nystatin 768124 UNIT/ML Mouth/Throat SuspensionIndicatio ns:Thrush Swish and swallow 5 mL in the morning and 5 mL at noon and 5 mL in the evening and 5 mL before bedtime. Do all this for 14 days. For thrush.. 280 mL 0 08/28/2023 4 Active oxyCODONE HCl 5 MG Oral Tablet (Oxy IR) Take 1 Tablet by mouth every 8 hours as needed (for pain). 20 Tablet 0 09/02/2023 Active oxyCODONE HCl 5 MG Oral Tablet (Oxy IR) Take 1 Tablet by mouth every 8 hours as needed (for pain). 0 08/23/2023 4 Discontinue d(Refill) documented as of this encounter (statuses as of 09/02/2023) Active Problems Problem Noted Date Diagnosed Date [...] as of this encounter (statuses as of 09/02/2023) Resolved Problems Problem Noted Date Diagnosed Date [...] as of this encounter (statuses as of 09/02/2023) Immunizations Name Administration Dates Next Due COVID-19 mRNA, LNP-s, No Pre serve, 2-Dose Series (Spriggle Kids) 09/20/2021,11/09/2020,10/19/2020 Pneumococcal Conjugate Vacc, 13 Valent (Prevnar) [...] encounter Miscellaneous Notes * Telephone Encounter - Xena Giraldo RN - 09/02/2023 5:18 PM EST Noted and discussed with pt. * Telephone Encounter - Maricarmen Ann DO - 09/02/2023 8:33 AM EST I have sent oxycodone. Limit to only as needed use or bedtime. * Telephone Encounter - Xena Giraldo RN - 09/01/2023 12:52 PM EST Pt is still having a lot of back pain. She is out of the oxycodone she was prescribed in the hospital and the baclofen dr. Toney gave her. Wants to know if she could have one or the other for just at night as she is really struggling to sleep. (She is sleeping in her recliner mostly). Thanks, Xena Garza (Gott), RN CCM Nurses Warning Analyst Scott 65 [facility] documented in this encounter Plan of Treatment Upcoming Encounters Date Type Department Care Team (Late st Contact Info) Description 09/23/2023 8:00 AM EST Office Visit Interventional [facility] Center, [facility] 132 [facility] [place] [address] Seda Plummer PA-C [facility] [place] [address] 11/28/2023 11:20 AM EDT Office Visit Family Practice [address] [place] [address] 293 [place] [address] Maricarmen Ann DO 293 [place] [address] 03/30/2024 2:00 PM EDT Nurse Only Ancillary [address] [place] [address] 293 [place] [address] College, Nurse Annual Wellness Visit [address] [address] 08/20/2024 10:45 AM EST Office Visit Dermatology [facility] 200 [place] [address] Richard Ley MD 200 [facility] [place] [address] Scheduled Procedures Name Priority Associated Diagnoses Date/Ti me COLONOSCOPY FLEXIBLE PROXIMA L DIAGNOSTIC Recall Family history of colon cancer Health Maintenance Due Date Last Done Comments Alpha-1 Antitrypsin 1963 CKD PHOS USE SMARTSET 75742 05/10/2022 05/10/2021 COVID-19 Vaccine ( season) 2023 09/20/2021, 11/09/2020, 10/19/2020 GFR 12/29/2023 06/30/2023, 10/10, 04/12/2022, Additional history exists Albumin/Creatinine Ratio 02/29/2024 02/28/2023, 08/2021 O2 ASSESSMENT COMPLETED IN PAST YEAR FOR COPD 05/01/2024 05/01/2023 CKD HGB USE SMARTSET 33955 06/30/202406/30, 06/30/2023, 04/08/2022, Additional history exists HbA1c [...] this encounter Medical Devices Implanted Type Area Votator Machine Operator Device Identifier Shelf Expiration Date Model / Serial / Lot Lens Li61ao 13.00mm 19.00 - [id number] - [id number] Implanted:Qty: 1 on 04/17/2023 by Bryan Richards MD at OR [facility] Left: Eye [employer] 12/09/2027 [id number] / [id number] / [id number] Lens Li61ao 13.00mm 18.50 - [id number] - [id number] Implanted:Qty: 1 on 05/01/2023 by Bryan Richards MD at OR [facility] Right: Eye [employer]OM[employer] 10/09/2027 [id number] / [id number] / [id number] documented as of this encounter Advance Directives [...] the patient have Health Care Power of Health Care Liaison? No Code Status History Code Status Date Activated Date Inactivated Comments Full Code 04/17/2023 8:37 AM 04/17/2023 2:50 PM This or adele reflects the patients wishes and were consensually agreed upon. Question Answer Comments Discussion of Advance Directives occurred with: Patient Does the patient have a Living Will? No Does the patient have Health Care Power of Health Care Liaison? No Healthcare Agents on File Name Relationship Healthcare Agent Relationshi p Communication Noah Mattwengarvin Adult Child Health Care Repr esentative (appointed verbally by patient or by statute hierarchy) Care Teams Form Setter Supervisor Relationship Specialty Start Date End Date Maricarmen Ann DO [address] [place] [address] PCP - General Family Medicine 03/26/23 documented as of this encounter
--- OUTSIDE RECORDS SUMMARY | 2024-02-18 13:04 | External Medical Summary | Summary of Care ---
Author Name Unknown Organization [facility] Address [address] [facility] [place] [address] Phone [phone] Care Team Providers Care Barrel Lathe Operator Outside Name Role Phone Maricarmen Ricardo DO Primary Care Provider [phone] Reason for Visit * Reason Comments Medication Refill Encounter Details Date Type Department Care Team (Late st Contact Info) Description 09/11/2023 Refill Family Practice [address] [place] [address] [place] [address] Maricarmen Ricardo DO [address] [place] [address] Allergies Active Allergy Reactions Criticality Noted Date Comments Amoxicillin Unknown 03/13/1999 Imidazole Antifungals 03/13/1999 Vaginal infections Tamoxifen Citrate Nausea/vomiting High 02/14/2010 documented as of this encounter (statuses as of 09/11/2023) Medications Medication Sig Dispensed Refills Start Date End Date Status Multiple Vitamins-Minerals (MULTIVITAMIN WOMENS 50+ ADV) TABS Take 1 Tablet by mouth in the morning. 0 Active Calcium Carb-Cholecalcifero l 500-600 MG-UNIT Oral Tablet Take by mouth daily at noon. 0 Active [place]-3 Fatty Acids (FISH OIL) 1000 MG Capsule [...] :COPD, group A, by GOLD 2017 classification ([facility]) Inhale 3 mL via nebulizer in [...] X 14 days. 0 08/23/2023 Active Nystatin 346523 UNIT/ML Mouth/Throat SuspensionIndicatio ns:Thrush Swish and swallow [...] (for pain). 20 Tablet 0 09/02/2023 Active Meloxicam 7.5 MG Oral Tablet (Mobic) TAKE ONE TABLET BY MOUTH EVERY MORNING 90 Tablet 0 09/11/2023 5 Active Meloxicam 7.5 MG Oral Tablet (Mobic) TAKE ONE TABLET BY MOUTH EVERY MORNING 90 Tablet 0 06/13/2023 4 Discontinue d(Refill) documented as of this encounter (statuses as of 09/11/2023) Active Problems Problem Noted Date Diagnosed Date [...] as of this encounter (statuses as of 09/11/2023) Resolved Problems Problem Noted Date Diagnosed Date [...] as of this encounter (statuses as of 09/11/2023) Immunizations Name Administration Dates Next Due COVID-19 [...] encounter Miscellaneous Notes * Telephone Encounter - Jose Juan Cabrera [facility] - 09/11/2023 4:40 PM EST Signed Prescriptions: Disp Refills Meloxicam 7.5 MG Oral Tablet (Mobic) 90 Tab*0 Sig: TAKE ONE TABLET BY MOUTH EVERY MORNINGAuthorizing Provider: MARICARMEN RICARDO User: JOSE JUAN CABRERA documented in this encounter Plan of Treatment Upcoming Encounters Date Type Department Care Team (Late st Contact Info) Description 09/23/2023 8:00 AM EST Office Visit Interventional Pain Center, [facility] [address] [place] [address] Seda Callahan PA-C [address] [place] [address] 11/28/2023 11:20 AM EDT Office Visit Family Practice 65 [facility] 293 [place] [address] Maricarmen Ricardo DO 293 [place] [address] 03/30/2024 2:00 PM EDT Nurse Only Ancillary 65 [facility] 293 [place] [address] College, Nurse Annual Wellness Visit [address] [place] [address] 08/20/2024 10:45 AM EST Office Visit Dermatology [facility] 200 [place] [address] [facility] [address] Scheduled Procedures Name Priority Associated Diagnoses Date/Ti me COLONOSCOPY FLEXIBLE PROXIMA L DIAGNOSTIC Recall Family history of colon cancer Health Maintenance Due Date Last Done Comments Alpha-1 Antitrypsin 1963 CKD PHOS USE SMARTSET 59466 05/10/2022 05/10/2021 COVID-19 Vaccine ( season) 2023 09/20/2021, 11/09/2020, 10/19/2020 GFR 12/29/2023 06/30/2023, 10/10, 04/12/2022, Additional history exists Albumin/Creatinine Ratio 02/29/2024 02/28/2023, 08/2021 O2 ASSESSMENT COMPLETED IN PAST YEAR FOR COPD 05/01/2024 05/01/2023 CKD HGB USE SMARTSET 14097 06/30/202406/30, 06/30/2023, 04/08/2022, Additional history exists HbA1c [...] this encounter Medical Devices Implanted Type Area [employer] Sprayer Device Identifier Shelf Expiration Date Model / Serial / Lot Lens Li61ao 13.00mm 19.00 - [id number] - [id number] Implanted:Qty: 1 on 04/17/2023 by Bryan Richards MD at OR [facility] Left: Eye [employer] 12/09/2027 [id number] / [id number] / [id number] Lens Li61ao 13.00mm 18.50 - [id number] - [id number] Implanted:Qty: 1 on 05/01/2023 by Bryan Richards MD at OR [facility] Right: Eye [employer] LOMB 10/09/2027 [id number] / [id number] / [id number] documented as of this encounter Advance Directives [...] the patient have Health Care Power of Rn Informatics? No Code Status History Code Status Date Activated Date Inactivated Comments Full Code 04/17/2023 8:37 AM 04/17/2023 2:50 PM This or adele reflects the patients wishes and were consensually agreed upon. Question Answer Comments Discussion of Advance Directives occurred with: Patient Does the patient have a Living Will? No Does the patient have Health Care Power of Rn Informatics? No Healthcare Agents on File Name Relationship Healthcare Agent Relationshi p Communication Noah Flores Adult Child Health Care Repr esentative (appointed verbally by patient or by statute hierarchy) Care Teams Barrel Lathe Operator Outside Relationship Specialty Start Date End Date Maricarmen Ricardo DO [address] [place] [address] PCP - General Family Medicine 03/26/23 documented as of this encounter
--- OUTSIDE RECORDS SUMMARY | 2024-02-18 13:04 | External Medical Summary | Summary of Care ---
Author Name Unknown Organization [facility] Address [address] [place] [address] Phone [phone] Care Team Providers Care Cake Icer And Packer Name Role Phone SolomonMaricarmen sim Primary Care Provider [phone] Reason for Visit * Reason Comments Dosage Adjustment In Person (Anticoag Cl inic) Medication Management Encounter Details Date Type Department Care Team (Late st Contact Info) Description 08/28/2023 1:20 PM [facility] Pharmacy Family Practice 65 [facility] [address] [place] [phone] College, Pharmacist [address] [address] Encounter for long-term (current) use of medications* Allergies Active Allergy Reactions Criticality Noted Date Comments Amoxicillin Unknown 03/13/1999 Imidazole Antifungals 03/13/1999 Vaginal infections Tamoxifen Citrate Nausea/vomiting High 02/14/2010 documented as of this encounter (statuses as of 08/29/2023) Medications Medication Sig Dispensed Refills Start Date End Date Status Multiple Vitamins-Minerals (MULTIVITAMIN WOMENS 50+ ADV) TABS Take 1 Tablet by mouth in the morning. 0 Active Calcium Carb-Cholecalcifero l 500-600 MG-UNIT Oral Tablet Take by mouth daily at noon. 0 Active [place]-3 Fatty Acids (FISH OIL) 1000 MG Capsule [...] 2017 classification ([facility]) Inhale 3 mL via nebulizer in the [...] bedtime. X 14 days. 0 08/23/2023 Active oxyCODONE HCl 5 MG Oral Tablet (Oxy IR) Take 1 Tablet by mouth every 8 hours as needed (for pain). 0 08/23/2023 Active Diclofenac Sodium 1 % External Gel (Voltaren)Indicatio ns:Hand arthritis Apply topically to affected area 3 times a day as needed for Pain or Pain, Mild (to hands). 150 g 1 07/26/2022 4 Discontinue d(Medicatio n List Clean Up) Cephalexin 500 MG Oral CapsuleIndications: Blister of great toe of left foot, initial encounter Take 1 Capsule by mouth in the morning and 1 Capsule before bedtime. Do all this for 10 days. 20 Capsule 0 04/30/2023 4 Discontinue d(End of Procedure) documented as of this encounter (statuses as of 08/29/2023) Active Problems Problem Noted Date Diagnosed Date [...] as of this encounter (statuses as of 08/29/2023) Resolved Problems Problem Noted Date Diagnosed Date [...] as of this encounter (statuses as of 08/29/2023) Immunizations Name Administration Dates Next Due COVID-19 mRNA, LNP-s, No Pre serve, 2-Dose Series ([employer]) 09/20/2021,11/09/2020,10/19/2020 Pneumococcal Conjugate Vacc, 13 Valent (Prevnar) [...] Answer Date Recorded PHQ Adult Total Score 10 08/28/2023 Hunger Vital Sign Answer Date Recorded Within the past 12 months, y ou worried that your food would run out before you got the money to buy more. Never true 08/28/19 24 Within the past 12 months, t he food you bought just didn't last and you didn't have money to get more. Never true 08/28/2023 Sex and Gender Information Value Date Recorded Sex Assigned at Female 04/11/2022 9:21 AM EDT Gender Identity Female 04/11/2022 9:21 AM EDT Sexual Orientation Straight 09/10/2019 2: 34 PM EST Job Start Date Occupation Industry Not on file Not on file Not on file documented as of this encounter Progress Notes * Jodi Tirado, Ree Holliday, [facility] - 08/28/2023 8:23 AM EST Medication Therapy [facility] - Medication Reconciliation Yari Long is an 78 year old being seen for medication reconciliation. Prescription insurance information: [employer] Mendes Do you have any other prescription coverage: No Preferred pharmacy: [facility] ([facility]) and [facility] [x] Problem list reviewed [x] Allergies reviewed and updated if needed [x] Drug interaction check completed [x] HEDIS list addressed Immunizations: Up to Date Date of Hospital Admission/Primary Diagnosis: 08/18/23 at [facility] for diverticulitis. Also had visual hallucinations - hypothesized potentially from baclofen? Date of Discharge from Hospital: 08/23/23 Medication changes during admission/on discharge: Added: ciprofloxacin 500mg twice daily for 14 days, metronidazole 500mg q8h for 14 days, oxycodone 5mg every 8 hrs prn #15. Advised to start bowel regimen, but no specifics given to patient. Modified: none - Antihypertensives held inpatient due to low BP but resumed on discharge. Discontinued: none - baclofen still listed on discharge Does the patient currently have all of their medications in their home?: Yes, but was frustrated with [facility] bc they were closed when she was discharged. Medication Organization/Adherence: Has home care nurse or caregiver: no Patient uses a pill box? Yes, refill(s) completed by self When you are at home, how often do you miss doses of medications? Less than once a week How difficult is it for you to pay for your medications? Somewhat difficult How often do you experience side effects from your medications? Weekly Reports specifically oral thrush due to antibiotics and Qvar. Labs/Vitals/Risk Scores: The 10-year ASCVD risk score (Anil MCCLELLAND, et al., 2019) is: 17.6% Values used to calculate the score: Age: 78 years Sex: Female Is Non- : No Diabetic: No Tobacco smoker: No Systolic Blood Pressure: 110 mmHg Is BP treated: Yes HDL Cholesterol: 63 mg/dL Total Cholesterol: 149 mg/dL BP Readings from Last 3 Encounters: 08/08/23 110/66 05/13/23 104/68 05/01/23 99/46 Recent Labs Units 06/30/23 1247 04/12/22 1026 HEMOGLOBIN A1C - [facility] % 5.7* 5.9* Recent Labs Units 06/30/23 1247 10/31/22 1109 04/12/22 1026 ESTIMATED GLOMERULAR FILTRATION RATE - [facility] mL/min 61 62 59* Serum creatinine: 1 mg/dL 06/30/23 1247 Estimated creatinine clearance: 58.3 mL/min Assessment & Plan: Medication discrepancies identified: updated per transitions of care Dose/frequency of medications appropriate for current renal function? yes Other medication problems identified: none Patient education provided: regarding washing mouth out after Qvar (which she's already doing) and the potential for constipation with oxycodone or diarrhea with antibiotics. Referral pended for follow up management of: N/A Summary- Changes & Recommendations: Med rec completed with patient after hospitalization. Repeat med rec visit in 1 year Ree Lewis [facility] Clinical Pharmacist - Customer Quality Engineer Medication Therapy Management Clinic 08/28/2023, 8:23 AM documented in this encounter Plan of Treatment Upcoming Encounters Date Type Department Care Team (Late st Contact Info) Description 09/01/2023 10:00 AM EST Nurse Only Family Practice [address] [place] [phone] [place], Nurse Fam Prac [address] [place] [address] 09/23/2023 8:00 AM EST Office Visit [facility], [facility] [address] [place] [address] Seda Plummer PA-C [facility] [address] 11/28/2023 11:20 AM EDT Office Visit Family Practice 65 [facility] 293 [facility], [place] [phone] Maricarmen Ann DO 293 [place] [address] 03/30/2024 2:00 PM EDT Nurse Only Ancillary [address] [place] [address] College, Nurse Annual Wellness Visit [address] [place] [address] 08/20/2024 10:45 AM EST Office Visit Dermatology [place], [place] [address] [facility] [place], [place] [address] Richard Ley MD [address] [facility] [place], [place] [address] Scheduled Procedures Name Priority Associated Diagnoses Date/Ti me COLONOSCOPY FLEXIBLE PROXIMA L DIAGNOSTIC Recall Family history of colon cancer Health Maintenance Due Date Last Done Comments Alpha-1 Antitrypsin 1963 CKD PHOS USE SMARTSET 03148 05/10/2022 05/10/2021 COVID-19 Vaccine ( season) 2023 09/20/2021, 11/09/2020, 10/19/2020 Depression, Most Recent Score >= 10 (will fire each visit until score < 10) 08/29/2023 08/28/2023 GFR 12/29/2023 06/30/2023, 10/10, 04/12/2022, Additional history exists Albumin/Creatinine Ratio 02/29/2024 02/28/2023, 090 08/2021 O2 ASSESSMENT COMPLETED IN PAST YEAR FOR COPD 05/01/2024 05/01/2023 CKD HGB USE SMARTSET 91564 06/30/202406/30, 06/30/2023, 04/08/2022, Additional history exists HbA1c 06/30/2024 06/30/2023, 09/0 09/2021, 05/10/2021, Additional history exists COLONOSCOPY-EVERY 5 [...] this encounter Medical Devices Implanted Type Area Professional Athletes Coach Device Identifier Shelf Expiration Date Model / Serial / Lot Lens Li61ao 13.00mm 19.00 - [id number] - [id number] Implanted:Qty: 1 on 04/17/2023 by Bryan Richards MD at OR [facility] Left: Eye [employer] 12/09/2027 [id number] / [id number] / [id number] Lens Li61ao 13.00mm 18.50 - [id number] - [id number] Implanted:Qty: 1 on 05/01/2023 by Bryan Richards MD at OR [facility] Right: Eye [employer]USCH [employer] LOMB 10/09/2027 [id number] / [id number] / [id number] documented as of this encounter Visit Diagnoses Diagnosis Encounter for long-term (current) use of medications- Primary Encounter for long-term (current) use of other medications documented in this encounter Advance Directives Latest Code Status on File Code Status Date Activated Date Inactivated Comments Full Code 05/01/2023 9:33 AM 05/01/2023 4:13 PM This order reflects the patients wishes and were consensually agreed upon. Question Answer Comments Discussion of Advance Directives occurred with: Patient Does the patient have a Living Will? No Does the patient have Health Care Power of Retail Project Merchandiser? No Code Status History Code Status Date Activated Date Inactivated Comments Full Code 04/17/2023 8:37 AM 04/17/2023 2:50 PM This or adele reflects the patients wishes and were consensually agreed upon. Question Answer Comments Discussion of Advance Directives occurred with: Patient Does the patient have a Living Will? No Does the patient have Health Care Power of Retail Project Merchandiser? No Care Teams Cake Icer And Packer Relationship Specialty Start Date End Date Maricarmen Ann DO [address] [place] [address] PCP - General Family Medicine 03/26/23 documented as of this encounter
--- OUTSIDE RECORDS SUMMARY | 2024-02-18 13:04 | External Medical Summary | Summary of Care ---
Author Name Unknown Organization [facility] Address [address] [facility] [place] [address] Phone [phone] Care Team Providers Care Customer Account Administrator Name Role Phone Maricarmen Ann DO Primary Care Provider [phone] Reason for Visit * Reason Onset Date Comments Hospital Follow-Up 08/25/2023 Encounter Details Date Type Department Care Team (Late st Contact Info) Description 08/25/2023 Telephone Family Practice 65 [facility], [place] [address] [place] [phone] Maricarmen Ann DO [address] [place] [address] Hospital Follow-Up Allergies Active Allergy Reactions Criticality Noted Date Comments Amoxicillin Unknown 03/13/1999 Imidazole Antifungals 03/13/1999 Vaginal infections Tamoxifen Citrate Nausea/vomiting High 02/14/2010 documented as of this encounter (statuses as of 08/25/2023) Medications Medication Sig Dispensed Refills Start Date End Date Status Multiple Vitamins-Minerals (MULTIVITAMIN WOMENS 50+ ADV) TABS Take by mouth daily at noon. 0 Active Calcium Carb-Cholecalciferol 500-600 MG-UNIT Oral Tablet Take by mouth daily at noon. 0 Active [place]-3 Fatty Acids (FISH OIL) 1000 MG Capsule [...] A, by GOLD 2017 classification ([facility]) Inhale 3 mL via nebulizer [...] as needed (for pain). 0 08/23/2023 Active documented as of this encounter (statuses as of 08/25/2023) Active Problems Problem Noted Date Diagnosed Date [...] as of this encounter (statuses as of 08/25/2023) Resolved Problems Problem Noted Date Diagnosed Date [...] as of this encounter (statuses as of 08/25/2023) Immunizations Name Administration Dates Next Due COVID-19 mRNA, LNP-s, No Pre serve, 2-Dose Series ([employer]) 09/20/2021,11/09/2020,10/19/2020 Pneumococcal Conjugate Vacc, 13 Valent (Prevnar) [...] Miscellaneous Notes * Telephone Encounter - Jessie Nath RN - 08/25/2023 10:45 AM EST Transitions of Care Note Reason for Referral:Recent Admission Phone visit for follow up: LUMA Admitted to: [facility], Date: 08/18/2023 Discharged to: home, Date: 08/23/2023 Diagnosis driving hospitalization: diverticulitis with abscess; acute lumbar radiculopathy Source/Contact: Patient SUBJECTIVE Consent: Verbal consent for review of hospital discharge: Yes REVIEW OF SYSTEMS Patient/Other Reports: Current patient/caregiver problems or concerns: pt had called in-states she is having bilateral lower leg edema-uncomfortable/painful, some pitting edema. Was on IV fluids and then clear liquids the entire time she was in the hospital. Did not have swelling in hospital, but did wear compression stockings while in hospital. Denies any SOB, difficulty breathing, chest pain. Sleeping in recliner-hashard time lying down because of back pain-has ruptured disc between L1 and L2. Hard to elevate whenon recliner. Spoke with Dr Ann. Told to try to lie down several times a day for as long as shecan and elevate legs. Also told to try to wear her compression stockings. To monitor for worsening of swelling, diff breathing/SOB/chest pain. Pt is waiting for call from Dr Chavez's office for appt.Pt has f/u with Dr Ann and was told to follow up with gastroenterology-will discuss with Dr Ann on . CV: Edema- lower extrem swelling bilateral Pulmonary: Denies problems Chills/Sweats/Fever:Denies chills/sweats Denies fever Appetite:Denies problems such as nausea, vomiting, burning, decreased appetite Current diet: low fiber, bland diet, bite size Bowel: denies problems Bladder: denies problems Wound (If applicable): N/A Pain:Location- lower back Intensity- 6 (Scale 0-10) Oxycodone-decreases pain Lying down, certain movements- increases pain Sleep:Problematic-back pain, sleeping in recliner FUNCTIONAL STATUS: ADL'S: Needs Assistance With:N/A as pt is independent IADL'S: Needs Assistance With:Grocery Shopping, Cooking food, and Routine Housework Cognitive and Mental Health: denies problems, alert and oriented x 3, and able to communicate, understand instructions, process information. MEDICATION RECONCILIATION Medications: Discharge med list reviewed with patient or caregiver Reviewed and updated all prescription and OTC medications in Epic New medication(s) filled since hospitalization- Ciprofloxacin 500 mg bid x 14 days Metronidazole 500 mg q 8 hr x 14 days Reports all medications taken as prescribed. Denies side effects OBJECTIVE ASSESSMENT Medication Risk Assessment: No risks identified Did patient fail outpatient treatment? No Discharge instructions available for review? Yes PLAN Symptom Monitoring Interventions:Member/caregiver education - signs and symptoms to contact PrimaryCare (DO NOT DELETE-[place] symptoms patient is to report to PCP) 1. SOB, difficulty breathing, chest pain 2. Fever, n/v/d 3. Increased swelling, worsening pain Yam CurerHarpooner of Care interventions/Action Plan: Medication reconciliation and 5 - 7 day follow-up with PCP in place - Date: 08/28/23 Educated on role of LUMA completed with patient/caregiver. Educated patient/caregiver on patient right to have input on LUMA plan of care. Verification of Home Health/DME if indicated: n/a Identified Care Gaps: No Care Gaps closed this call: Appointment made or confirmed, Medication adherence, Plan of care optimization, Post discharge appointment, Safety and self care issues addressed, and Transition of Care follow-up communication Re-evaluation of Plan of Care and progress towards goals achievement: Patient education this visit: Confirmed appt with Dr Ann on 08/28/23. Pt waiting for call back from ortho- Dr Chavez's office for appt. To monitor swelling in legs and call if any SOB, diff breathing, chest pain, worsening pain. To try to elevate several times a day and wear compression stockings. Plan to follow-up as previously scheduled, instructed to call Primary Care Provider with change in symptoms or as needed before next follow-up, discharge needs met, verbalizes understanding and agrees with plan. Jessie Nath, RN documented in this encounter Plan of Treatment Upcoming Encounters Date Type Department Care Team (Late st Contact Info) Description 08/28/2023 1:20 PM EST Pharmacy Family Practice [address] [phone] [place], Pharmacist [address] [address] 08/28/2023 1:40 PM EST Office Visit Family Practice [address] [place] [phone] Maricarmen Ann DO [address] [place] [address] 03/30/2024 2:00 PM EDT Nurse Only Ancillary [address] [address] [place], Nurse Annual Wellness Visit [address] [address] 08/20/2024 10:45 AM EST Office Visit Dermatology [facility] [place] [address] [facility] [place] [address] Richard Ley MD [address] [facility] [place] [address] Scheduled Procedures Name Priority Associated Diagnoses Date/Ti me COLONOSCOPY FLEXIBLE PROXIMA L DIAGNOSTIC Recall Family history of colon cancer Health Maintenance Due Date Last Done Comments Alpha-1 Antitrypsin 1963 CKD PHOS USE SMARTSET 43607 05/10/2022 05/10/2021 COVID-19 Vaccine (4 - 2023-24 season) 2023 09/20/2021, 11/09/2020, 10/19/2020 GFR 12/29/2023 06/30/2023, 10/10, 04/12/2022, Additional history exists Albumin/Creatinine Ratio 02/29/2024 02/28/2023, 08/2021 O2 ASSESSMENT COMPLETED IN PAST YEAR FOR COPD 05/01/2024 05/01/2023 CKD HGB USE SMARTSET 50936 06/30/202406/30, 06/30/2023, 04/08/2022, Additional history exists HbA1c [...] this encounter Medical Devices Implanted Type Area Structural Steel Trades Worker Device Identifier Shelf Expiration Date Model / Serial / Lot Lens Li61ao 13.00mm 19.00 - [id number] - [id number] Implanted:Qty: 1 on 04/17/2023 by Bryan Richards MD at OR [facility] Left: Eye [employer]CH [employer] LOMB 12/09/2027 [id number] / [id number] / [id number] Lens Li61ao 13.00mm 18.50 - [id number] - [id number] Implanted:Qty: 1 on 05/01/2023 by Bryan Richards MD at OR [facility] Right: Eye BAUSCH & LOMB 10/09/2027 [id number] / [id number] / [id number] documented as of this encounter Visit Diagnoses Diagnosis Diverticulitis of colon- Primary Diverticulitis of colon (without mention of hemorrhage) documented in this encounter Advance Directives Latest Code Status on File Code Status Date Activated Date Inactivated Comments Full Code 05/01/2023 9:33 AM 05/01/2023 4:13 PM This order reflects the patients wishes and were consensually agreed upon. Question Answer Comments Discussion of Advance Directives occurred with: Patient Does the patient have a Living Will? No Does the patient have Health Care Power of Credit Union Examiner? No Code Status History Code Status Date Activated Date Inactivated Comments Full Code 04/17/2023 8:37 AM 04/17/2023 2:50 PM This or adele reflects the patients wishes and were consensually agreed upon. Question Answer Comments Discussion of Advance Directives occurred with: Patient Does the patient have a Living Will? No Does the patient have Health Care Power of Credit Union Examiner? No Care Teams Customer Account Administrator Relationship Specialty Start Date End Date Maricarmen Ann DO [address] [place] [address] PCP - General Family Medicine 03/26/23 documented as of this encounter
--- OUTSIDE RECORDS SUMMARY | 2024-02-18 13:04 | External Medical Summary | Summary of Care ---
Author Name Unknown Organization [facility] Address [address] [place] [address] Phone [phone] Care Team Providers Care Cras Name Role Phone Maricarmen Ann DO Primary Care Provider [phone] Reason for Referral * Evaluate & Treat - Unlimited Visits (Within 10 days (routine)) - Authorized Specialty Diagnoses / Procedures Referred By Contac t Referred To Contact Pain Management / Pain Medicine Diagnoses Lumbar radiculopathy Maricarmen Ann DO [address] [place] [address] Referral ID Status Reason Start Date Expiration Date Visits Requested Visits Authorized [id number] Authorized Specialty Services Required 08/28/2023 999 999 Question Answer Referral Priority Within 10 days (routine) [facility] Reason for referral? Interventional Pain Management - (Injection) What condition is the patient being referred for? Lumbar Radiculopathy What is the preferred location to have this test performed? [facility] Comments Patient Name: Yari Long Date of : 1945 Department Phone Number: MRI or CT (if unable to have a MRI) is recommended if any of the following apply: 1. Patient has neck or back pain with radiation to extremities. A previous MRI will be accepted if symptoms unchanged since prior MRI. 2. Spinal surgery since last MRI. If yes, order a MRI with and without contrast. 3. Hx or ongoing cancer treatment. Patient will need spine x-ray (Ap/Lat) for axial neck or back pain if not done previously. Fax No. [facility] [phone] or contact front loader residential driver [phone] Fax No. [facility] [phone] or contact front loader residential driver [phone] Fax No. [facility] [phone] or contact front loader residential driver [phone] Reason for Visit * Reason Comments Hospital Follow-Up Encounter Details Date Type Department Care Team (Latest Contact Info) Description 08/28/2023 1:40 PM EST Office Visit Family Practice [address] [place] [address] [place] [id number] Maricarmen Ann DO [address] [place] [address] Hospital discharge follow-up*; Lumbar radiculopathy; Diverticulitis of colon; Thrush; COPD, group A, by GOLD 2017 classification ([facility]); Other specified peripheral vascular diseases ([facility]); Hypertensive kidney disease with stage 3a chronic kidney disease ([facility]); Dyslipidemia, goal to be determined; Solar purpura ([facility]); Morbid obesity due to excess calories ([facility]); Caregiver stress Allergies Active Allergy Reactions Criticality Noted Date Comments Amoxicillin Unknown 03/13/1999 Imidazole Antifungals 03/13/1999 Vaginal infections Tamoxifen Citrate Nausea/vomiting High 02/14/2010 documented as of this encounter (statuses as of 09/01/2023) Medications Medication Sig Dispensed Refills Start Date End Date Status Multiple Vitamins-Minerals (MULTIVITAMIN WOMENS 50+ ADV) TABS Take 1 Tablet by mouth in the morning. 0 Active Calcium Carb-Cholecalcifero l 500-600 MG-UNIT Oral Tablet Take by mouth daily at noon. 0 Active Organ-3 Fatty Acids (FISH OIL) 1000 MG Capsule [...] :COPD, group A, by GOLD 2017 classification ([facility]) Inhale 3 mL via nebulizer in the [...] as needed (for pain). 0 08/23/2023 Active Nystatin 092398 UNIT/ML Mouth/Throat SuspensionIndicatio ns:Thrush Swish and swallow 5 mL in the morning and 5 mL at noon and 5 mL in the evening and 5 mL before bedtime. Do all this for 14 days. For thrush.. 280 mL 0 08/28/2023 4 Active Diclofenac Sodium 1 % External Gel (Voltaren)Indicatio ns:Hand arthritis Apply topically to affected area 3 times a day as needed for Pain or Pain, Mild (to hands). 150 g 1 07/26/2022 4 Discontinue d(Medicatio n List Clean Up) documented as of this encounter (statuses as of 09/01/2023) Active Problems Problem Noted Date Diagnosed Date [...] as of this encounter (statuses as of 09/01/2023) Resolved Problems Problem Noted Date Diagnosed Date [...] as of this encounter (statuses as of 09/01/2023) Immunizations Name Administration Dates Next Due COVID-19 mRNA, LNP-s, No Pre serve, 2-Dose Series ([employer] 09/20/2021,11/09/2020,10/19/2020 Pneumococcal Conjugate Vacc, 13 Valent [...] Sign Reading Time Taken Comments Blood Pressure 120/68 08/28/2023 1:40 PM EST Pulse 85 08/28/2023 1:40 PM EST Temperature 36.8 C (98.2 F) 08/28/2023 1:40 PM ES T Respiratory Rate 16 08/28/2023 1:40 PM EST Oxygen Saturation 96% 08/28/2023 1:40 PM EST Inhaled Oxygen Concentration - - Weight 110.6 kg (243 lb 14.4 oz) 08/28/2023 1:40 PM EST Height 165.1 cm (5' 5") 08/28/2023 1:40 PM EST Body Mass Index 40.59 08/28/2023 1:40 PM EST documented in this encounter Patient Instructions * Patient Instructions* Maricarmen Ann DO - 08/28/2023 2:38 PM EST -Use tylenol 1000mg three times a day -Use Oxycodone if needed -Increase Lyrica to 2 tablets twice daily documented in this encounter Progress Notes * Maricarmen Ann DO - 08/28/2023 2:08 PM EST SUBJECTIVE: Chief Complaint Patient presents with Hospital Follow-Up HPI: Yari Long is a 78 year old female who presents today for hospital follow-up. Pt was admitted with diverticulitis and lumbar radiculopathy. She was started on antibiotics. Was evaluated byortho who advised interventional pain management once treatment complete for diverticulitis. She was discharged on oxycodone. She was discharged on 08/23. Pt notes that her abdominal pain is gone. She is finishing out her antibiotics. She states that sheis not eating well because she can't cook for herself. She states that she can only eat tiny bits and then feels full. She states that her tongue has a coating on it. She notes that things seem dry. Pt is not using her oxycodone when she is going to sleep or when she is trying to nap. She is not using anything else. She has not even used her heating pad. PHM: Patient Active Problem List Diagnosis Code Allergic rhinitis J30.9 Dyslipidemia, goal to be determined E78.5 ADVANCE DIRECTIVE INFORMATION Gastroesophageal reflux disease without esophagitis K21.9 HTN, goal below 140/90 I10 Body mass index (BMI) of 40.0 to 44.9 in adult ([facility]) Z68.41 S/P TKR (total knee replacement), left Z96.652 Prediabetes R73.03 History of breast cancer Z85.3 Solar purpura ([facility]) D69.2 Chronic kidney disease, stage 3a N18.31 Morbid obesity ([facility]) E66.01 Hypertensive kidney disease with stage 3a chronic kidney disease ([facility]) I12.9, N18.31 Other specified peripheral vascular diseases ([facility]) I73.89 COPD, group A, by GOLD 2017 classification ([facility]) J44.9 Caregiver stress Z63.6 Current Outpatient Medications Medication Sig Dispense Refill Multiple Vitamins-Minerals (MULTIVITAMIN WOMENS 50+ ADV) TABS Take 1 Tablet by mouth in the morning. Calcium Carb-Cholecalciferol 500-600 MG-UNIT Oral Tablet Take by mouth daily at noon. Organ-3 Fatty Acids (FISH OIL) 1000 MG Capsule [...] 3 mL before bedtime. 50 mL 1 Ciprofloxacin HCl 500 MG Oral Tablet (Cipro) Take 1 Tablet by mouth in the morning and 1 Tablet before bedtime. X 14 days. metroNIDAZOLE 500 MG Oral Tablet (Flagyl) Take 1 Tablet by mouth in the morning and 1 Tablet at noon and 1 Tablet before bedtime. X 14 days. oxyCODONE HCl 5 MG Oral Tablet (Oxy IR) Take 1 Tablet by mouth every 8 hours as needed (for pain). No current facility-administered medications for this visit. [...] left breast mass (infiltrating lobular carcinoma) at [facility] - Dr. You DELIVERY 1982 Delivery Only COLONOSCOPY 11/2004 tics COLONOSCOPY W/ LESION REMOVAL, SNARE 03/07/2010 done diverticulosis, polyp x1--hyperplastic tissue repeat in 5 years COLONOSCOPY, DIAGNOSTIC (RECTUM) 03/15/2015 diverticulosis, repeat 5 yrs/COLONOSCOPY FLEXIBLE PROXIMAL DIAGNOSTIC performed by Brendan Miller MD at ENDOSCOPY [facility] COLONOSCOPY, DIAGNOSTIC (RECTUM) 04/21/2020 diverticulosis, repeat 5 yrs / COLONOSCOPY FLEXIBLE PROXIMAL DIAGNOSTIC performed by Janenth Coffey MDat ENDOSCOPY [facility] INFORMATION 1999 double knee replacement INFORMATION 7 knee surgeries INFORMATION EPL tendon rupture repair KNEE ARTHROSCOPY, DIAGNOSTIC bilateral MASTECTOMY, PARTIAL 09/11/2007 Left PM with deep axillary SLNB at [facility] -Dr. You MISCELLANEOUS ORDER ([facility] ONLY) 1979 FNAB of left breast (benign) REMOVAL OF APPENDIX 04/30/2008 REMOVE CATARACT, INSERT LENS PROSTH Left 04/17/2023 Left EXTRACAPSULAR CATARACT REMOVAL WITH INTRAOCULAR LENS performed by Bryan Richards MD at OR [facility] REMOVE CATARACT, INSERT LENS PROSTH Right 05/01/2023 Right EXTRACAPSULAR CATARACT REMOVAL WITH INTRAOCULAR LENS performed by Bryan Richards MD at OR [facility] REVISION OF TENNIS ELBOW Review of [...] chills, fatigue, fever and unexpected weight change. HENT: As per HPI Respiratory: Negative for cough, chest tightness, shortness of breath and wheezing. Cardiovascular: Negative for chest pain, palpitations and leg swelling. Gastrointestinal: Negative for abdominal pain, constipation, diarrhea, nausea and vomiting. Musculoskeletal: Positive for back pain. Negative for arthralgias, gait problem and joint swelling. Skin: Negative for color change, pallor and rash. OBJECTIVE: BP 120/68 (BP Site: Left Arm, BP Position: Sitting, BP Cuff Size: Large) | Pulse 85 | Temp 36.8 C(98.2 F) (Tympanic) | Resp 16 | Ht 1.651 m (5' 5") | Wt 110.6 kg (243 lb 14.4 oz) | SpO2 96% | BMI 40.59 kg/m | BSA 2.25 m PHYSICAL EXAM: Physical Exam Constitutional: General: She is not in acute distress. Appearance: She is well-developed. HENT: Mouth/Throat: Comments: +thrush Cardiovascular: Rate and Rhythm: Normal rate and [...] oriented to person, place, and time. ASSESSMENT/PLAN: (Z09) Hospital discharge follow-up (primary encounter diagnosis) (M54.16) Lumbar radiculopathy Plan: DISCH MED RECON CUR MED LIS, PAIN MEDICINE REFERRAL OP Pt will be referred to pain medicine per ortho recommendations. Advised to take tylenol 1000 mg three times a day. Use oxycodone if needed, particularly to sleep. Can use ice/heat to area. Reviewed importance of getting up and moving. (K57.32) Diverticulitis of colon Plan: DISCH MED RECON CUR MED LIS Pt to finish out antibiotics. Reviewed that she needs to eat. Discussed ways to make meal prep easier for her. (B37.0) Thrush Plan: Nystatin 867128 UNIT/ML Mouth/Throat Suspension Pt will use nystatin. She will monitor. (J44.9) COPD, group A, by GOLD 2017 classification ([facility]) Plan: No current issues. Continue on current inhalers. (I73.89) Other specified peripheral vascular diseases ([facility]) Plan: No change presently. (I12.9, N18.31) Hypertensive kidney disease with stage 3a chronic kidney disease ([facility]) Plan: Pt will remain on current regimen. No changes for now. Continue current regimen. (E78.5) Dyslipidemia, goal to be determined Plan: Pt will remain on atorvastatin. No changes for now. (D69.2) Solar purpura ([facility]) Plan: Pt monitoring. Encouraged to moisturize. (E66.01) Morbid obesity due to excess calories ([facility]) Plan: weight loss encouraged. (Z63.6) Caregiver stress Plan: Pt continues to struggle to care for her , particularly when she is having issues. Advised to discuss with family and ask for help. Follow-up: as scheduled Total time today including reviewing chart before the visit, pertinent labs, imaging reports, face to face time, and documentation time was 41 minutes. Maricarmen Ann DO * Ree Knight RP - 08/28/2023 1:37 PM EST Waking up every 2 hrs over night to go the bathroom. Not able to fix anything in kitchen because so much pain. Thinks she has oral thrush documented in this encounter Nursing Notes * Beverly Bond LPN - 08/28/2023 2:11 PM EST Patient here for Hospital discharge follow up visit. Hospitalized for back pain. Reports she was diagnosed for Diverticulitis. Did not help back pain. Can't sleep, stand, lay down. States she feels like her entire body is retaining fluid. documented in this encounter Plan of Treatment Upcoming Encounters Date Type Department Care Team (Late st Contact Info) Description 09/23/2023 8:00 AM EST Office Visit [facility] [address] [facility] [place] [address] Seda Plummer PA-C [address] [facility] [place] [address] 11/28/2023 11:20 AM EDT Office Visit Family Practice [address] [facility] [address] [facility] [place] [phone] Maricarmen Ann DO [address] [place] [address] 03/30/2024 2:00 PM EDT Nurse Only Ancillary [address] [facility] [address] [place] [address] College, Nurse Annual Wellness Visit [address] [address] 08/20/2024 10:45 AM EST Office Visit Dermatology [facility] [address] [facility] [place] [address] Richard Ley MD [address] [place] [address] Scheduled Procedures Name Priority Associated Diagnoses Date/Ti me COLONOSCOPY FLEXIBLE PROXIMA L DIAGNOSTIC Recall Family history of colon cancer Scheduled Referrals Name Type Priority Associated Diagnoses Orde r Schedule PAIN MEDICINE REFERRAL OP Referral Within 10 days (routine) Lumbar radiculopathy Ordered: 08/28/2023 Health Maintenance Due Date Last Done Comments Alpha-1 Antitrypsin 1963 CKD PHOS USE SMARTSET 70691 05/10/2022 05/10/2021 COVID-19 Vaccine ( season) 2023 09/20/2021, 11/09/2020, 10/19/2020 GFR 12/29/2023 06/30/2023, 10/10, 04/12/2022, Additional history exists Albumin/Creatinine Ratio 02/29/2024 02/28/2023, 08/2021 O2 ASSESSMENT COMPLETED IN PAST YEAR FOR COPD 05/01/2024 05/01/2023 CKD HGB USE SMARTSET 50732 06/30/202406/30, 06/30/2023, 04/08/2022, Additional history exists HbA1c [...] this encounter Medical Devices Implanted Type Area Special Systems Technician Device Identifier Shelf Expiration Date Model / Serial / Lot Lens Li61ao 13.00mm 19.00 - [id number] - [id number] Implanted:Qty: 1 on 04/17/2023 by Bryan Richards MD at OR [facility] Left: Eye [employer] 12/09/2027 [id number] / [id number] / [id number] Lens Li61ao 13.00mm 18.50 - [id number] - [id number] Implanted:Qty: 1 on 05/01/2023 by Bryan Richards MD at OR [facility] Right: Eye [employer] 10/09/2027 [id number] / [id number] / [id number] documented as of this encounter Visit Diagnoses Diagnosis Hospital discharge follow-up- Primary Other follow-up examination Lumbar radiculopathy Thoracic or lumbosacral neuritis or radiculitis, unspecified Diverticulitis of colon Diverticulitis of colon (without mention of hemorrhage) Thrush Candidiasis of mouth COPD, group A, by GOLD 2017 classification ([facility]) Other specified peripheral vascular diseases ([facility]) Hypertensive kidney disease with stage 3a chronic kidney disease ([facility]) Dyslipidemia, goal to be determined Other and unspecified hyperlipidemia Solar purpura ([facility]) Other nonthrombocytopenic purpuras Morbid obesity due to excess calories ([facility]) Caregiver stress Other health problem within the family documented in this encounter Advance Directives Latest Code Status on File Code Status Date Activated Date Inactivated Comments Full Code 05/01/2023 9:33 AM 05/01/2023 4:13 PM This order reflects the patients wishes and were consensually agreed upon. Question Answer Comments Discussion of Advance Directives occurred with: Patient Does the patient have a Living Will? No Does the patient have Health Care Power of Change Room Attendant? No Code Status History Code Status Date Activated Date Inactivated Comments Full Code 04/17/2023 8:37 AM 04/17/2023 2:50 PM This or adele reflects the patients wishes and were consensually agreed upon. Question Answer Comments Discussion of Advance Directives occurred with: Patient Does the patient have a Living Will? No Does the patient have Health Care Power of Change Room Attendant? No Healthcare Agents on File Name Relationship Healthcare Agent Relationshi p Communication Noah Flores Adult Child Health Care Repr esentative (appointed verbally by patient or by statute hierarchy) Care Teams Cras Relationship Specialty Start Date End Date Maricarmen Ann DO [address] [place] [address], [place] [address] PCP - General Family Medicine 03/26/23 documented as of this encounter
--- OUTSIDE RECORDS SUMMARY | 2024-02-18 13:04 | External Medical Summary | Summary of Care ---
Author Name Unknown Organization [facility] Address [address] [facility] [place] [address] Phone [phone] Care Team Providers Care Coping Machine Operator Name Role Phone Maricarmen Ann DO Primary Care Provider [phone] Reason for Visit * Reason Comments Back Pain * Evaluate & Treat - Unlimited Visits (Within 10 days (routine)) - Authorized Specialty Diagnoses / Procedures Referred By Contlisa t Referred To Contact Pain Management / Pain Medicine Diagnoses Lumbar radiculopathy Maricarmen Ann DO [address] [place] [address] Referral ID Status Reason Start Date Expiration Date Visits Requested Visits Authorized [id number] Authorized Specialty Services Required 08/28/[phone] Encounter Details Date Type Department Care Team (Late st Contact Info) Description 09/23/2023 8:00 AM EST Office Visit Interventional [facility], [facility] [address] [place] [address] Seda Callahan PA-C [address] [place] [address] Lumbar radicular pain*; Spondylolisthesis, grade 2 Allergies [...] by mouth daily at noon. 0 Active Brooklet-3 Fatty Acids (FISH OIL) 1000 MG Capsule [...] :COPD, group A, by GOLD 2017 classification ([facility]) Inhale 3 mL via nebulizer in the morning and 3 mL at noon and 3 mL in the evening and 3 mL before bedtime. 50 mL 1 08/08/2023 Active Meloxicam 7.5 MG Oral Tablet (Mobic) Take 1 Tablet by mouth in the morning. 0 Active Ciprofloxacin HCl 500 MG Oral Tablet (Cipro) Take 1 Tablet by mouth in the morning and 1 Tablet before bedtime. X 14 days. 0 08/23/2023 4 Discontinue d(Medicatio n List Clean Up) metroNIDAZOLE 500 MG Oral Tablet (Flagyl) Take 1 Tablet by mouth in the morning and 1 Tablet at noon and 1 Tablet before bedtime. X 14 days. 0 08/23/2023 4 Discontinue d(Medicatio n List Clean Up) oxyCODONE HCl 5 MG Oral Tablet (Oxy IR) Take 1 Tablet by mouth every 8 hours as needed (for pain). 20 Tablet 0 09/02/2023 4 Discontinue d(Medicatio n List Clean Up) Meloxicam 7.5 MG Oral Tablet (Mobic) TAKE ONE TABLET BY MOUTH EVERY MORNING 90 Tablet 0 09/11/2023 4 Discontinue d(Medicatio n List Clean Up) [...] mRNA, LNP-s, No Pre serve, 2-Dose Series ([employer]) 09/20/2021,11/09/2020,10/19/2020 Pneumococcal Conjugate Vacc, 13 Valent (Prevnar) [...] as of this encounter Progress Notes * Seda Callahan PA-C - 09/23/2023 8:11 AM EST GENERAL HISTORY & PHYSICAL EXAMINATION - Anesthesia and Pain Service Name: Yari Long Location: [facility], [facility] REFERRING PHYSICIAN: Maricarmen Ann DO Thank you for referring Yari Long. CHIEF COMPLAINT: Low back pain HPI: Yari Long is a 78 year old female who complains of chronic B low back and buttock pain that radiates to lateral hips and thighs, L > R. Notes intermittent episodes of LE radiculopathy in the past few years, generally resolved without intervention. Progressive pain Jul 2023 when hospitalized for acute diverticulitis. She did have a consultation with Dr. Chavez at that time, CT and MRI of L spine completed - recommended consideration of injection. She is no longer being treated fordiverticulitis. Completed one session of PT a few weeks ago, notes this increased her pain and wanted to hold off until her consultation with us prior to scheduling additional visits. Considering retu rning to local [facility] to use pool for aerobic exercise. Mild relief with medication management, chronic B LE neuropathy using lyrica. Symptoms occur daily. Pain is constant, rated 3/10. Aggravating factors include: standing, reaching overhead, transitional movement. Unable to provide alleviating factors. Admits associated LE weakness and balance changes, using cane to ambulate which she's needed for a few years but depending on more frequently, including indoors. Baseline B LE paresthesia, known neuropathy extends to mancilla. Denies bowel or bladder incontinence. Denies hx spine surgery or injections. Reviewed L spine MRI 08/18/23 - severe DDD L5/S1, significant spondylolisthesis L5/S1 with moderate to severe B foraminal narrowing, severe L foraminal narrowing L1/2 due to L paracentral disc extrusion with compression of L S1 nerve root. Reviewed L spine CT 08/18/23 - B L5 spondylitic defect with grade 2 listhesis L5 on S1, Reviewed L spine xray 08/18/23 - B L5 spondylolysis with grade 2 listhesis, severe DDD L5/S1, no acute fracture. Significant past medical hx includes: morbid obesity, CKD, COPD, HTN, prediabetes, peripheral vascular disease. Current medications used for pain: tylenol, mobic, lyrica. Past medications used for pain: oxycodone, diclofenac gel, baclofen. Anticoagulation therapy: no Diabetic: no PAST MEDICAL HISTORY: Past Medical History: Diagnosis Date Allergic rhinitis [...] term Recurrent major depressive disorder, in remission ([facility]) 12/12/2016 Vertigo BPV, MRI 2007, min microvascular disease Past Medical History - Pertinent Findings: (-) clotting disorder PAST SURGICAL HISTORY: Past Surgical History: Procedure Laterality Date BREAST LESION,OTHER,EXCISION 08/24/2007 Excision left breast mass (infiltrating lobular carcinoma) at [facility] - Dr. You DELIVERY 1982 Delivery Only COLONOSCOPY 11/2004 tics COLONOSCOPY W/ LESION REMOVAL, SNARE 03/07/2010 done diverticulosis, polyp x1--hyperplastic tissue repeat in 5 years COLONOSCOPY, DIAGNOSTIC (RECTUM) 03/15/2015 diverticulosis, repeat 5 yrs/COLONOSCOPY FLEXIBLE PROXIMAL DIAGNOSTIC performed by Brendan Miller MD at ENDOSCOPY [facility] COLONOSCOPY, DIAGNOSTIC (RECTUM) 04/21/2020 diverticulosis, repeat 5 yrs / COLONOSCOPY FLEXIBLE PROXIMAL DIAGNOSTIC performed by Janneth Coffey MDa ENDOSCOPY [facility] INFORMATION 1999 double knee replacement INFORMATION 7 knee surgeries INFORMATION EPL tendon rupture repair KNEE ARTHROSCOPY, DIAGNOSTIC bilateral MASTECTOMY, PARTIAL 09/11/2007 Left PM with deep axillary SLNB at [facility] -Dr. You MISCELLANEOUS ORDER ([facility] ONLY) 1979 FNAB of left breast (benign) REMOVAL OF APPENDIX 04/30/2008 REMOVE CATARACT, INSERT LENS PROSTH Left 04/17/2023 Left EXTRACAPSULAR CATARACT REMOVAL WITH INTRAOCULAR LENS performed by Bryan Richards MD at OR [facility] REMOVE CATARACT, INSERT LENS PROSTH Right 05/01/2023 Right EXTRACAPSULAR CATARACT REMOVAL WITH INTRAOCULAR LENS performed by Bryan Richards MD at OR [facility] REVISION OF TENNIS ELBOW FAMILY HISTORY: Family History Problem Relation Age of Onset Cancer Mother Colon cancer (dec at age 78) Other (Other) Father Staff infection of heart valve Alcohol and Other Disorders Associated Sister Alcohol and Other Disorders Associated Brother Colon cancer Grandmother (Maternal) Family History - Pertinent Findings: (-) clotting disorder SOCIAL HISTORY: Social History Tobacco Use Smoking status: Never Passive exposure: Past Smokeless tobacco: Never Vaping Use Vaping Use: Never used Substance Use Topics Alcohol use: Yes Comment: occasionally Drug use: No CURRENT MEDICATIONS: Note that discontinued and completed medications (per the MAR) continue to display for 24 hours. Ordered medications to be given in the future also display. Current Outpatient Medications Medication Sig Dispense Refill Multiple Vitamins-Minerals (MULTIVITAMIN WOMENS 50+ ADV) TABS Take 1 Tablet by mouth in the morning. Calcium Carb-Cholecalciferol 500-600 MG-UNIT Oral Tablet Take by mouth daily at noon. Brooklet-3 Fatty Acids (FISH OIL) 1000 MG Capsule [...] bymouth in the evening 270 Capsule 1 Qvar RediHaler 40 MCG/ACT Inhalation Aerosol Breath [...] 3 mL before bedtime. 50 mL 1 No current facility-administered medications for this visit. ALLERGIES: Tamoxifen citrate, Amoxicillin, and Imidazole antifungals ROS: Constitutional: Negative for fatigue, fever, appetite change, unexplained weight loss. ENT: Negative for hearing loss, sore throat. Respiratory: Negative for cough, shortness of breath, dyspnea. Musculoskeletal: Negative for neck, mid-back pain. + low back and LE pain - see HPI Neurological: Negative for headaches, seizures. + paresthesias B LE - see HPI Genitourinary: Negative for dysuria, urinary frequency, hematuria. Hematologic/ Lymphatic: Negative for easy bleeding, bruising, lymphadenopathy. Gastrointestinal: Negative for abdominal pain, nausea, vomiting, constipation, diarrhea. Cardiovascular: Negative for chest pain, palpitations, ankle swelling, orthopnea. PHYSICAL EXAMINATION: Most Recent Vital Signs: There were no vitals filed for this visit. General Appearance: Patient appears to be about stated age, pleasant and cooperative with normal affect. HEENT: head normocephalic, pupils equal round and reactive to light and accommodation, EOMI, hearing intact and equal bilaterally, and nose clear, throat normal Chest: No gross abnormality. Nonlabored breathing. Lumbar Spine: Normal lumbar lordatic curvature is present. Skin is intact without gross abnormalities. No masses palpable. Midline and B paravertebral musculature nontender. B sacroiliac joint nontender. No evidence of myofascial trigger points. Mildly limited active ROM with flexion and extension of the lumbar spine. Lower Extremity Strength: Hip Flexion 5/5 bilaterally. Hip Abductor 5/5 bilaterally. Hip Adductor 5/5 bilaterally. Extensor Hallicus Longus 5/5 bilaterally. Deep Tendon Reflex: Patellar: 2/4 bilaterally. Achilles: 1/4 bilaterally. Low Back Provocative Testing: DAISY test: negative bilaterally. Straight Leg Raise Test: negative bilaterally. Lumbar Facet Loading: positive bilaterally. Sensation: Dermatomal sensation not formally tested. Grossly normal and symmetric unless otherwise specified. Gait: Intact, antalgic. Slow to rise from seated position due to pain. Ambulates with cane. IMAGING: L spine MRI [facility] 08/18/23 - severe DDD L5/S1, significant spondylolisthesis L5/S1 with moderate to severe B foraminal narrowing, severe L foraminal narrowing L1/2 due to L paracentral disc extrusion with compression of L S1 nerve root. L spine CT [facility] 08/18/23 - B L5 spondylitic defect with grade 2 listhesis L5 on S1. L spine xray [facility] 08/18/23 - B L5 spondylolysis with grade 2 listhesis, severe DDD L5/S1, no acute fracture. ASSESSMENT: Lumbar radicular pain, B LE B L5 spondylolysis with grade 2 listhesis PLAN: Progressive low back pain with B LE radiculopathy. Evaluated by Dr. Chavez who updated L spine imaging and recommended consideration of injection. Neurologically intact. Reviewed L spine MRI 08/18/23 - severe DDD L5/S1, significant spondylolisthesis L5/S1 with moderate to severe B foraminal narrowing, severe L foraminal narrowing L1/2 due to L paracentral disc extrusion with compression of L S1 nerve root. Reviewed L spine CT 08/18/23 - B L5 spondylitic defect with grade 2 listhesis L5 on S1. Reviewed L spine xray 08/18/23 - B L5 spondylolysis with grade 2 listhesis, severe DDD L5/S1, no acute fracture. Discussed radicular pain and consideration of TRISTAN using fluoroscopy. Risks including, but not limited to, bleeding, infection, worsening pain, failure to alleviate pain, nerve injury and possible steroid side effects were reviewed. Pre-procedure instructions reviewed, reiterated need for production truck driver, will stop mobic three days prior. Due to severity and duration of symptoms, will schedule L interlaminar TRISTAN L5/S1. Follow up six weeks after procedure. Encouraged to continue physical therapy, will let us know if new referral is needed. Fell it will help with balance, maintaining LE strength. Can return to [facility] for light water aerobics. Seda Callahan PA-C 09/23/2023 documented in this encounter Nursing Notes * Yari Marino LPN - 09/23/2023 7:57 AM EST Patient presents with low back and left mid thigh pain x1.5months that started after vomiting No hx of lumbar surgery or injections Recently finished antibiotic for diverticulitis Imaging at [facility] Also c/o right hip pain Did 1 session of PT-increased pain documented in this encounter Plan of Treatment Upcoming Encounters Date Type Department Care Team (Latest Contact Info) Description 11/28/2023 11:20 AM EDT Office Visit Family Practice [address], [place] [address] [place] [address] Maricarmen Ann DO [address] [facility] [place] [address] 12/01/2023 12:55 PM EDT Hospital Encounter [facility], Operating Room [facility] [address] [place] [address] Valdemar Siddiqi, DO [address] [facility] [place] [address] 12/01/2023 12:55 PM EDT - 12/01/2023 1:20 PM EDT Surgery [facility], Operating Room [facility] [address] [place] [address] Valdemar Siddiqi, [address] [place] [phone] INJECTION SPINE LUMBAR OR SACRAL 03/30/2024 2:00 PM EDT Nurse Only Ancillary [address] [facility], [place] [address] [place] [address] College, Nurse Annual Wellness Visit [address] [address] 08/20/2024 10:45 AM EST Office Visit Dermatology [facility] [address] [facility] [place] [address] Richard Ley MD [address] [facility] [place] [address] Scheduled Orders Name Type Priority Associated Diagnoses Orde r Schedule INJECT DX/THER SUBSTANCE INTERLAMINAR LUMBAR/SACRAL W IMAGE GUIDE Procedures Routine Lumbar radicular pain Expected: 12/22/2023 (Approximate), Expires: 10/21/2024 Scheduled Procedures Name Priority Associated Diagnoses Date/Ti me INJECTION SPINE LUMBAR OR SACRAL Lumbar radiculopathy 12/01/2023 12:55 PM EDT COLONOSCOPY FLEXIBLE PROXIMAL DIAGNOSTIC Recall Family history of colon cancer Health Maintenance Due Date Last Done Comments Alpha-1 Antitrypsin 1965 CKD PHOS USE SMARTSET 93576 05/10/2022 05/10/2021 COVID-19 Vaccine ( season) 2023 09/20/2021, 11/09/2020, 10/19/2020 GFR 12/29/2023 06/30/2023, 10/10, 04/12/2022, Additional history exists Albumin/Creatinine Ratio 02/29/2024 02/28/2023, 09/0 08/2021 O2 ASSESSMENT COMPLETED IN PAST YEAR FOR COPD 05/01/2024 05/01/2023 CKD HGB USE SMARTSET 85986 06/30/202406/30, 06/30/2023, 04/08/2022, Additional history exists HbA1c 06/30/2024 06/30/2023, 0909/2021, 05/10/2021, Additional history exists Depression Screening 09/01/2024 [...] this encounter Medical Devices Implanted Type Area Brick Pointer Device Identifier Shelf Expiration Date Model / Serial / Lot Lens Li61ao 13.00mm 19.00 - [id number] - [id number] Implanted:Qty: 1 on 04/17/2023 by Bryan Richards MD at OR [facility] Left: Eye [employer] 12/09/2027 [id number] / [id number] / [id number] Lens Li61ao 13.00mm 18.50 - [id number] - [id number] Implanted:Qty: 1 on 05/01/2023 by Bryan Richards MD at OR [facility] Right: Eye [employer]OM[employer] 10/09/2027 [id number] / [id number] / [id number] documented as of this encounter Visit Diagnoses Diagnosis Lumbar radicular pain- Primary Thoracic or lumbosacral neuritis or radiculitis, unspecified Spondylolisthesis, grade 2 Congenital spondylolisthesis Lumbar radiculopathy Thoracic or lumbosacral neuritis or [...] the patient have Health Care Power of Senior Advocate? No Code Status History Code Status Date Activated Date Inactivated Comments Full Code 04/17/2023 8:37 AM 04/17/2023 2:50 PM This or adele reflects the patients wishes and were consensually agreed upon. Question Answer Comments Discussion of Advance Directives occurred with: Patient Does the patient have a Living Will? No Does the patient have Health Care Power of Senior Advocate? No Healthcare Agents on File Name Relationship Healthcare Agent [facility] Communication Noah Flores Adult Child Health Care Repr esentative (appointed verbally by patient or by statute hierarchy) Care Teams Coping Machine Operator Relationship Specialty Start Date End Date Maricarmen Ann DO [address] [place] [id number] PCP - General Family Medicine 03/26/23 documented as of this encounter
--- OUTSIDE RECORDS SUMMARY | 2024-02-18 15:45 | External Medical Summary | Summary of Care ---
Author Name Unknown Organization [facility] Address [address] [place] [address] Phone [phone] Care Team Providers Care Franchise Consultant Name Role Phone Maricarmen Ann DO Primary Care Provider [phone] Reason for Visit * Reason Onset Date Comments Test Results 02/17/2024 Encounter Details Date Type Department Care Team (Late st Contact Info) Description 02/17/2024 Telephone Family Practice [address] [facility], [place] [address] [place] [id number] Maricarmen Ann DO [address] [place] [address] Test Results Allergies Active Allergy Reactions Criticality Noted Date Comments Amoxicillin Unknown 03/13/1999 Imidazole Antifungals 03/13/1999 Vaginal infections Tamoxifen Citrate Nausea/vomiting High 02/14/2010 documented as of this encounter (statuses as of 02/17/2024) Medications Medication Sig Dispensed Refills Start Date End Date Status Multiple Vitamins-Minerals (MULTIVITAMIN WOMENS 50+ ADV) TABS Take 1 Tablet by mouth in the morning. Active Calcium Carb-Cholecalciferol 500-600 MG-UNIT Oral Tablet Take by mouth daily at noon. Active Mor[place]-3 Fatty Acids (FISH OIL) 1000 MG Capsule [...] group A, by GOLD 2017 classification ([facility]) Inhale 3 mL via nebulizer in [...] for 2 days 30 Tablet 12/18/2023 Active Additional Information Patient not taking.Reported on 02/17/2024 Qvar RediHaler 40 MCG/ACT Inhalation Aerosol Breath Activated (Beclomethasone Diprop HFA) Inhale 1 Puff by mouth in the morning and 1 Puff before bedtime. 10.6 g 2 01/28/2024 Active documented as of this encounter (statuses as of 02/17/2024) Active Problems Problem Noted Date Diagnosed Date [...] as of this encounter (statuses as of 02/17/2024) Resolved Problems Problem Noted Date Diagnosed Date [...] as of this encounter (statuses as of 02/17/2024) Immunizations Name Administration Dates Next Due COVID-19 [...] No 09/01/2023 Does the household have a [facility] source of income? (Household - for ages [...] Telephone Encounter - Jessie Bills LPN - 02/17/2024 2:44 PM EDT Patient currently in office with pcp/ordering provider. * Telephone Encounter - Jessie Bills LPN - 02/17/2024 2:03 PM EDT Impression of ct scan:: IMPRESSION 1. Inflammation and abscess with extraluminal foci of gas in the left lower quadrant, probably representing a diverticular abscess and contained bowel perforation from sigmoid diverticulitis. Additional extraluminal foci of gas in the lesion with developing fistulous track not excluded. 2. Complex cystic mass in the right kidney, poorly assessed without IV contrast. Recommend outpatient MRI abdomen with gadolinium. documented in this encounter Plan of Treatment Upcoming Encounters Date Type Department Care Team (Latest Contact Info) Description 03/29/2024 10:30 AM EDT Hospital Encounter [facility], Operating Room [facility] [address] [place] [phone] Valdemar Siddiqi, [address] [place] [phone] 03/29/2024 10:30 AM EDT - 03/29/2024 10:55 AM EDT Surgery OR [facility], Operating Room [facility] [address] [place] [phone] Valdemar Siddiqi, [address] [place] [address] INJECTION SPINE LUMBAR OR SACRAL 03/30/2024 2:00 PM EDT Nurse Only Ancillary 65 [facility] [address] [place] [address] [place], Nurse Annual Wellness Visit 65 [facility] [address] [place] [address] 08/20/2024 10:45 AM EST Office Visit Dermatology [facility] [place] [address] [facility] [place] [address] Richard Ley MD 200 [facility] [place] [address] Scheduled Procedures Name Priority Associated Diagnoses Date/Ti me INJECTION SPINE LUMBAR OR SACRAL Lumbar radiculopathy 03/29/2024 10:30 AM EDT COLONOSCOPY FLEXIBLE PROXIMAL DIAGNOSTIC Recall Family history of colon cancer Health Maintenance Due Date Last Done Comments Alpha-1 Antitrypsin 1963 CKD PHOS USE SMARTSET 10250 05/10/2022 05/10/2021 GFR 12/29/2023 06/30/2023, 10/10, 04/12/2022, Additional history exists COVID-19 Vaccine ( season) 2024 09/20/2021, 11/09/2020, 10/19/2020 Postponed from 04/11/2023 (Acute Illness) Albumin/Creatinine Ratio 02/29/2024 02/28/2023, 08/2021 Influenza Vaccine (FLU shot) (#1) 2024 05/13/2023, 04/11/2022, 06/15/2021, Additional history exists O2 ASSESSMENT COMPLETED IN PAST YEAR FOR COPD 05/01/2024 05/01/2023 CKD HGB USE SMARTSET 63558 06/30/202406/30, 06/30/2023, 04/08/2022, Additional history exists HbA1c [...] exists Zoster Vaccines Completed 12/25/2020, 04/12, 12/20/2011 HPV (Gardasil) Vaccine Aged Out No lo nger eligible based on patient's age to complete this topic Hepatitis B Vaccine Aged Out No longe r eligible based on patient's age to complete this topic MENINGOCOCCAL (MENACTRA/MENVEO) Aged Out No longer eligible based on patient's age to complete this topic documented as of this encounter Medical Devices Implanted Type Area Therapist Speech Device Identifier Shelf Expiration Date Model / Serial / Lot Lens Li61ao 13.00mm 19.00 - [id number] - [id number] Implanted:Qty: 1 on 04/17/2023 by Bryan Richards MD at OR [facility] Left: Eye [employer] 12/09/2027 [id number] / [id number] / [id number] Lens Li61ao 13.00mm 18.50 - [id number] - [id number] Implanted:Qty: 1 on 05/01/2023 by Bryan Richards MD at OR [facility] Right: Eye [employer]OMB 10/09/2027 [id number] / [id number] / [id number] documented as of this encounter Advance Directives [...] patient or by statute hierarchy) Care Teams Franchise Consultant Relationship Specialty Start Date End Date Maricarmen Ann DO [address] [place] [address] PCP - General Family Medicine 02/17/24 documented as of this encounter
[2024-02-19 07:24] LABS: Basophils # (auto) 0.05 K/uL (0.00-0.20); Basophils % (auto) 0.5 %; Eosinophils # (auto) 0.16 K/uL (0.00-0.50); Eosinophils % (auto) 1.7 %; Hemoglobin 11.3 g/dl (12.0-16.0); Immature Granulocytes # (auto) 0.03 K/uL (0.01-0.20); Immature Granulocytes % (auto) 0.3 %; Lymphocytes # (auto) 0.83 K/uL (1.20-3.40); Lymphocytes % (auto) 8.6 %; Mean Corpuscular Hemoglobin 30.3 pg (25.0-34.0); Mean Corpuscular Hgb Conc 33.2 g/dL (32.0-36.0); Mean Corpuscular Volume 91.2 fL (80.0-100.0); Mean Platelet Volume 9.6 fL (9.4-12.4); Monocytes # (auto) 1.12 K/uL (0.11-0.59); Monocytes % (auto) 11.6 %; Neutrophils # (auto) 7.47 K/uL (1.40-6.50); Neutrophils % (auto) 77.3 %; Platelet Count 244 K/uL (130-400); RDW Coefficient of Variation 13.3 % (11.5-14.5); RDW Standard Deviation 44.7 fL (36.4-46.3); Red Blood Count 3.73 M/uL (4.20-5.40); White Blood Count 9.66 K/ul (4.8-10.8)
[2024-02-19 08:14] LABS: Bilirubin,Total 0.8 mg/dl (0.2-1.0); Total Protein 5.7 gm/dl (6.0-8.3)
[2024-02-19 08:24] LABS: Albumin Globulin Ratio 1.1 (0.9-2); Calcium 8.2 mg/dl (8.6-10.3); Globulin 2.7 gm/dl (2.5-4.0); Magnesium 1.8 mg/dl (1.7-2.4); Potassium 3.6 mmol/L (3.5-5.1)
[2024-02-19 08:30] LABS: BUN Creatinine Ratio 20.6 (10-20); Creatinine Clr Calc Pharmacy 45.4 ml/min; Est GFR (African American) 47.9 ml/min; Est GFR (Non-African American) 41.4 ml/min; Phosphorus 3.7 mg/dl (2.5-4.9)
--- NOTE | 2024-02-19 08:51 | Surgery Progress Note ---
Date of Service February 19, 2024 Assessment & Plan (1) Diverticulitis of colon with perforation: Plan: pt here w/ diverticulitis with concern for perf WBC normalized at 9.6. Vitals stable and pt afebrile Abdominal pain improved from admission. No nausea/vomiting She is hungry and wants to try some clears, will trial her this AM and see how she fairs Continue IV abx as above. feeling better. will start clears. no indication for surgical intervention at this point. Admission and Anticipated Discharge Date Admission Date: February 17, 2024 Subjective Patient reports feeling much better than admission. She is hungry. She denies nausea/vomiting. Had an episode where she burped while taking pills, but feels much better. She is passing gas. No BM yet Physical Exam Physical Exam: awake/alert, no distress Gastrointestinal (Abdomen): Percussion/Palpation: + abdomen tender (mild discomfort to palpation in the llq) and abdomen soft Results & Data Vital Signs (Past 12 Hours) Vital Signs Temp Pulse Resp BP Pulse Ox O2 Del Method 02/19/24 07:01 97.9 F 77 16 103/67 96 Room Air 02/18/24 21:25 97.3 F L 86 20 105/65 95 Room Air PG Care Time/CCT Total # of Minutes Spent Total Time Spent with Patient: Total time spent is greater than 50% in coordination of care (as documented) at patient's floor/unit and/or counseling patient: Coding Level of Care Code 38754 SUB INP/OBS CARE 09/04MIN Diagnoses Diverticulitis of colon with perforation K57.20
--- NOTE | 2024-02-19 14:03 | Hospitalist Progress Note ---
Date of Service February 19, 2024 Assessment & Plan (1) Diverticulitis of colon with perforation: Plan Pt is a 78-year-old female with past medical history significant for dyslipidemia, prediabetes, COPD, allergic rhinitis, hypertension, solar purpura, peripheral vascular disease, GERD, morbid obesity, CKD stage III, history of breast cancer who presents with abdominal pain and acute diverticulitis. Patient is having low back pain and hip pain radiating to left lower abdomen for a few weeks but got progressively worse lately. Went to PCP and CT scan was done which showed acute diverticulitis with possible contained perforation and possible fistula and was sent here. Patient denies any fever. She had normal bowel movement in the morning. Diverticulitis of colon with perforation CT abdomen pelvis done as outpatient shows: -1. Inflammation and abscess with extraluminal foci of gas in the left lower quadrant, probably representing a diverticular abscess and contained bowel perforation from sigmoid diverticulitis. Additional extraluminal foci of gas in the lesion with developing fistulous track not excluded. -2. Complex cystic mass in the right kidney, poorly assessed without IV contrast. Recommend outpatient MRI abdomen with gadolinium. patient is allergic to penicillins. Got Rocephin and Flagyl in ER. Continue with cefepime and Flagyl NPO IV fluids Pain meds as needed Surgery consult -conservative management VANNESSA on CKD stage III baseline creatinine around 1. Presented with creatinine 1.2. Improved Complex right renal mass Needs outpt follow-up with MRI with contrast PCP followup Lower back pain Chronic Lidocaine patch PRN pain meds Prediabetes HbA1c 6.0, stable pcp f/u Hyperlipidemia On statin. COPD Continue home inhalers and nebs as needed. Hypertension Continue lisinopril/hydrochlorothiazide. monitor. GERD on omeprazole VANNESSA on CKD stage III baseline creatinine around 1. Presented with creatinine 1.2. Improved Diet: clears DVT prophylaxis: Lovenox Dispo: PT/OT ordered for further recs Admission and Anticipated Discharge Date Admission Date: February 17, 2024 Subjective Seen while sitting in chair at bedside. States she had clears in the AM and felt like she had some "fullness" afterwards. However seemed to be tolerating the lunch better. Overall, states she feels better than the day before. Notes lower back pain. Agreeable to lidocaine patch trial. Review of Systems Review of Systems: All systems reviewed & are unremarkable except as noted in Subjective Physical Exam Physical Exam: General: Alert, oriented. No acute distress Skin: No noted rashes or bruises Psych: Appropriate mood and affect Neuro: No gross deficits HEENT: NC/AT CV: RRR Resp: Breath sounds clear bilaterally, no increased effort of breathing. Abdomen: . Soft, nontender on exam Extremities: edema in lower extremities bilaterally. Results & Data Results & Data Vital Signs (Past 12 Hours) Vital Signs Temp Pulse Resp BP Pulse Ox O2 Del Method 02/19/24 07:01 36.6 C 77 16 103/67 96 Room Air
[2024-02-19] MEDS: LIDOCAINE 5% 1 PATCH TD SCH (20:03)
[2024-02-20 06:54] LABS: Basophils # (auto) 0.04 K/uL (0.00-0.20); Basophils % (auto) 0.6 %; Eosinophils # (auto) 0.23 K/uL (0.00-0.50); Eosinophils % (auto) 3.2 %; Immature Granulocytes # (auto) 0.03 K/uL (0.01-0.20); Immature Granulocytes % (auto) 0.4 %; Lymphocytes # (auto) 0.94 K/uL (1.20-3.40); Mean Corpuscular Hemoglobin 29.6 pg (25.0-34.0); Mean Corpuscular Hgb Conc 33.3 g/dL (32.0-36.0); Mean Corpuscular Volume 88.9 fL (80.0-100.0); Mean Platelet Volume 9.6 fL (9.4-12.4); Monocytes # (auto) 1.23 K/uL (0.11-0.59); Neutrophils # (auto) 4.78 K/uL (1.40-6.50); Neutrophils % (auto) 65.8 %; Platelet Count 249 K/uL (130-400); RDW Coefficient of Variation 13.2 % (11.5-14.5); RDW Standard Deviation 42.8 fL (36.4-46.3); Red Blood Count 3.71 M/uL (4.20-5.40); White Blood Count 7.25 K/ul (4.8-10.8)
[2024-02-20 07:14] LABS: Albumin Level 2.7 gm/dl (3.4-5.0); BUN Creatinine Ratio 18.6 (10-20); Bilirubin,Total 0.6 mg/dl (0.2-1.0); Calcium 8.1 mg/dl (8.6-10.3); Creatinine Clr Calc Pharmacy 50.7 ml/min; Est GFR (African American) 54.7 ml/min; Est GFR (Non-African American) 47.2 ml/min; Globulin 2.6 gm/dl (2.5-4.0); Magnesium 1.8 mg/dl (1.7-2.4); Phosphorus 2.8 mg/dl (2.5-4.9); Potassium 3.3 mmol/L (3.5-5.1); Total Protein 5.3 gm/dl (6.0-8.3)
[2024-02-20] MEDS: oxyCODONE HCL IR 5 MG TAB (IMMEDIATE RELEASE) PO PRN (09:14)
--- NOTE | 2024-02-20 09:15 | Surgery Progress Note ---
Date of Service February 20, 2024 Assessment & Plan (1) Diverticulitis of colon with perforation: Plan: will advance to full liquids no indications for surgery currently. will follow from periphery Dr. Melgar covering for weekend if any issues. Admission and Anticipated Discharge Date Admission Date: February 17, 2024 Subjective pt seen. continues to improve. still some mild LLQ discomfort. +bm. Physical Exam Constitutional: WD/WN, vitals as above no acute distress and not ill appearing Eyes: PERRL, conjunctivae normal, anicteric sclerae EOM intact bilaterally ENMT: external ear and nose normal, oropharynx normal Ears: no hearing impairment Neck: trachea midline, no thyromegaly Respiratory: normal respiratory effort; no respiratory distress and does not use accessory muscles Cardiovascular: Rate/Rhythm: regular rate and regular rhythm Gastrointestinal (Abdomen): soft. mild LLQ ttp. no g/r/r Skin: no rashes, warm and dry Psychiatric: Orientation: alert, oriented x 3 and cooperative Results & Data Vital Signs (Past 12 Hours) Vital Signs Temp Pulse Resp BP Pulse Ox O2 Del Method 02/20/24 08:59 72 20 108/69 97 Room Air 02/20/24 07:12 36.4 C L 73 16 114/72 94 Room Air PG Care Time/CCT Total # of Minutes Spent Total Time Spent with Patient: Total time spent is greater than 50% in coordination of care (as documented) at patient's floor/unit and/or counseling patient: Coding Level of Care Code 41637 SUB INP/OBS CARE 09/04MIN Diagnoses Diverticulitis of colon with perforation K57.20
[2024-02-20] MEDS: POTASSIUM CHLORIDE CRTAB 20 MEQ TABCR PO STA (11:27)
--- NOTE | 2024-02-20 14:42 | Hospitalist Progress Note ---
Date of Service February 20, 2024 Assessment & Plan (1) Diverticulitis of colon with perforation: Plan Pt is a 78-year-old female with past medical history significant for dyslipidemia, prediabetes, COPD, allergic rhinitis, hypertension, solar purpura, peripheral vascular disease, GERD, morbid obesity, CKD stage III, history of breast cancer who presents with abdominal pain and acute diverticulitis. Patient is having low back pain and hip pain radiating to left lower abdomen for a few weeks but got progressively worse lately. Went to PCP and CT scan was done which showed acute diverticulitis with possible contained perforation and possible fistula and was sent here. Patient denies any fever. She had normal bowel movement in the morning. Diverticulitis of colon with perforation CT abdomen pelvis done as outpatient shows: -1. Inflammation and abscess with extraluminal foci of gas in the left lower quadrant, probably representing a diverticular abscess and contained bowel perforation from sigmoid diverticulitis. Additional extraluminal foci of gas in the lesion with developing fistulous track not excluded. -2. Complex cystic mass in the right kidney, poorly assessed without IV contrast. Recommend outpatient MRI abdomen with gadolinium. patient is allergic to penicillins. Got Rocephin and Flagyl in ER. Continue with cefepime and Flagyl NPO on admission, currently advancing diet IV fluids Pain meds as needed Surgery consult -conservative management VANNESSA on CKD stage III baseline creatinine around 1. Presented with creatinine 1.2. Improved Complex right renal mass Needs outpt follow-up with MRI with contrast PCP followup Lower back pain Chronic Lidocaine patch PRN pain meds Prediabetes HbA1c 6.0, stable pcp f/u Hyperlipidemia On statin. COPD Continue home inhalers and nebs as needed. Hypertension Continue lisinopril/hydrochlorothiazide. monitor. GERD on omeprazole VANNESSA on CKD stage III baseline creatinine around 1. Presented with creatinine 1.2. Improved Diet: clears DVT prophylaxis: Lovenox Dispo: PT/OT ordered for further recs Admission and Anticipated Discharge Date Admission Date: February 17, 2024 Subjective Pt was seen with at bedside. States tolerating diet well. Looking forward to potential d/c tomorrow. Otherwise denies acute concerns, Review of Systems Review of Systems: All systems reviewed & are unremarkable except as noted in Subjective Physical Exam Physical Exam: General: Alert, oriented. No acute distress Skin: No noted rashes or bruises Psych: Appropriate mood and affect Neuro: No gross deficits HEENT: NC/AT CV: RRR Resp: Breath sounds clear bilaterally, no increased effort of breathing. Abdomen: . Soft, nontender on exam Extremities: edema in lower extremities bilaterally. Results & Data Results & Data Vital Signs (Past 12 Hours) Vital Signs Temp Pulse Resp BP Pulse Ox O2 Del Method 02/20/24 08:59 72 20 108/69 97 Room Air 02/20/24 07:12 36.4 C L 73 16 114/72 94 Room Air
[2024-02-21 07:02] LABS: Basophils # (auto) 0.03 K/uL (0.00-0.20); Basophils % (auto) 0.5 %; Eosinophils # (auto) 0.28 K/uL (0.00-0.50); Eosinophils % (auto) 4.2 %; Hemoglobin 10.5 g/dl (12.0-16.0); Immature Granulocytes # (auto) 0.02 K/uL (0.01-0.20); Immature Granulocytes % (auto) 0.3 %; Lymphocytes % (auto) 15.1 %; Mean Corpuscular Hemoglobin 29.6 pg (25.0-34.0); Mean Corpuscular Hgb Conc 32.8 g/dL (32.0-36.0); Mean Corpuscular Volume 90.1 fL (80.0-100.0); Mean Platelet Volume 9.9 fL (9.4-12.4); Monocytes # (auto) 1.24 K/uL (0.11-0.59); Monocytes % (auto) 18.7 %; Neutrophils # (auto) 4.05 K/uL (1.40-6.50); Neutrophils % (auto) 61.2 %; Platelet Count 249 K/uL (130-400); RDW Coefficient of Variation 12.9 % (11.5-14.5); RDW Standard Deviation 42.8 fL (36.4-46.3); Red Blood Count 3.55 M/uL (4.20-5.40); White Blood Count 6.62 K/ul (4.8-10.8)
[2024-02-21 07:21] LABS: Albumin Globulin Ratio 1.1 (0.9-2); Albumin Level 2.8 gm/dl (3.4-5.0); BUN Creatinine Ratio 11.8 (10-20); Bilirubin,Total 0.5 mg/dl (0.2-1.0); Creatinine Clr Calc Pharmacy 45.1 ml/min; Est GFR (African American) 47.5 ml/min; Globulin 2.5 gm/dl (2.5-4.0); Magnesium 1.6 mg/dl (1.7-2.4); Phosphorus 2.6 mg/dl (2.5-4.9); Potassium 3.3 mmol/L (3.5-5.1); Total Protein 5.3 gm/dl (6.0-8.3)
[2024-02-21] MEDS: POTASSIUM CHLORIDE CRTAB 20 MEQ TABCR PO STA (10:53)
[2024-02-21] MEDS: MAGNESIUM SULFATE / D5W 1 GM/100 ML BAG IV SCH (10:55)
--- NOTE | 2024-02-21 13:54 | Discharge Summary ---
Discharge Summary Date of Service February 21, 2024 Principal Dx & Hospital Course #1 = Principal Diagnosis (1) Diverticulitis of colon with perforation: Plan Pt is a 78-year-old female with past medical history significant for dyslipi demia, prediabetes, COPD, allergic rhinitis, hypertension, solar purpura, peripheral vascular disease, GERD, morbid obesity, CKD stage III, history of breast cancer who presents with abdominal pain and acute diverticulitis. Patient is having low back pain and hip pain radiating to left lower abdomen for a few weeks but got progressively worse lately. Went to PCP and CT scan was done which showed acute diverticulitis with possible contained perforation and possible fistula and was sent here. Patient denies any fever. She had normal bowel movement in the morning. Diverticulitis of colon with perforation CT abdomen pelvis done as outpatient shows: -1. Inflammation and abscess with extraluminal foci of gas in the left lower quadrant, probably representing a diverticular abscess and contained bowel perforation from sigmoid diverticulitis. Additional extraluminal foci of gas in the lesion with developing fistulous track not excluded. -2. Complex cystic mass in the right kidney, poorly assessed without IV contrast. Recommend outpatient MRI abdomen with gadolinium. patient is allergic to penicillins. Got Rocephin and Flagyl in ER. Continued with IV cefepime and Flagyl. NPO on admission, advanced diet IV fluids Pain meds as needed Surgery consulted -treated with conservative management of IV antibiotics -case discussed with General Surgery Dr Viraj Melgar on day of discharge 02/21/24 -recommended 14 day course of antibiotic treatment -colonoscopy in 8 weeks with GI -followup with General Surgery oupt in a few weeks Please ensure close GI f/u for recommended colonoscopy and close General surgery followup after discharge. VANNESSA on CKD stage III baseline creatinine around 1.0 Presented with creatinine 1.2. Received IV PCP followup Complex right renal mass Needs outpt follow-up with MRI with contrast PCP followup Lower back pain Chronic Lidocaine patch PRN pain meds Prediabetes HbA1c 6.0, stable pcp f/u Hyperlipidemia On statin. COPD Continue home inhalers and nebs as needed. Hypertension Continue lisinopril/hydrochlorothiazide. monitor. GERD on omeprazole Notes For Next Care Provider Per General Surgery -needs colonoscopy in 8 weeks with GI -needs general surgery followup in a few weeks Please ensure followup of complex right renal mass noted on imaging- outpt MRI recommended Medication Changes From Visit ciprofloxacin 500mg BID x 11 more days Flagyl 500mg TID x 11 more days Probiotic daily Admission HPI Per Admitting Provider 78-year-old female with past medical history significant for dyslipidemia, prediabetes, COPD, allergic rhinitis, hypertension, solar purpura, peripheral vascular disease, GERD, morbid obesity, CKD stage III, history of breast cancer presents with abdominal pain and acute diverticulitis. Patient is having low back pain and hip pain radiating to left lower abdomen since couple of weeks but got progressively worse lately. Went to PCP and CT scan was done which showing acute diverticulitis with possible contained perforation and possible fistula and was sent here. Patient denies any fever. She had normal bowel movement in the morning. Micturating okay. Denies any chest pain or shortness of breath. No cough. No headache. No blurred vision. No runny nose. No sore throat or cough .Appetite is down last few days. Hemodynamics are okay. Past medical history as mentioned above, past surgical history. Breast lesion excision. . Colonoscopy. Double knee replacement. 7 knee surgeries. Tendon rupture repair. Injection of lumbosacral spine. Knee arthroscopy. Partial mastectomy. Appendectomy. Bilateral cataracts. Revision of tennis elbow. Social history. . No smoking. Alcohol occasional. No drug use. Family history. Brother has alcoholism. Mother had colon cancer. Maternal grandmother had colon cancer. Father had staph infection of heart valve Admission Exam Per Admitting Provider General- Not in distress Head- atraumatic Eyes- PERRL. ENT- oropharynx clear Neck- supple, no JVD. Lungs- clear to auscultation no wheezing or crackles. Heart- regular rate and rhythm; no murmur, no gallop. Abdomen- normal bowel sounds, soft, Mild tenderness in LUQ and Lower abdomen. No distension. Extremities- Mild pretibial edema present, no erythema seen. Neuro- alert, oriented PERRL, no facial palsy; no dysarthria; moves extremities. Discharge Exam General: Alert, oriented. No acute distress Skin: No noted rashes or bruises Psych: Appropriate mood and affect Neuro: No gross deficits HEENT: NC/AT CV: RRR Resp: Breath sounds clear bilaterally, no increased effort of breathing. Abdomen: . Soft, nontender on discharge exam Extremities: edema in lower extremities bilaterally. Updated Medication List Medication Instructions Recorded Confirmed Type atorvastatin 20 mg tablet 20 mg PO DAILY 02/17/24 02/17/24 History beclomethasone dipropionate 40 1 inh inhalation BID 02/17/24 02/17/24 History mcg/actuation HFA breath activated aerosol (Qvar RediHaler) ipratropium 0.5 mg-albuterol 3 mg 3 ml inhalation TID 02/17/24 02/17/24 History (2.5 mg base)/3 mL nebulization soln lisinopril 20 2 tab PO DAILY 02/17/24 02/17/24 History mg-hydrochlorothiazide 12.5 mg tablet meloxicam 7.5 mg tablet 7.5 mg PO DAILY 02/17/24 02/17/24 History omeprazole 20 mg capsule,delayed 20 mg PO DAILY 02/17/24 02/17/24 History release pregabalin 25 mg capsule 50 mg PO BID 02/17/24 02/17/24 History Saccharomyces boulardii 250 mg 250 mg PO DAILY #30 caps 02/21/24 Rx capsule (Probiotic (S.boulardii)) ciprofloxacin HCl 500 mg tablet 500 mg PO BID #22 tabs 02/21/24 Rx metronidazole 500 mg tablet 500 mg PO Q8H #33 tabs 02/21/24 Rx Hospital Stay Data Consultations 02/17/24 20:41 Consult General Surgery Stat ED Decision to Admit Stat Discharge Instructions Given to Patient (Per Discharging Provider) Ms. Long, Silvino were admitted with concerning diverticulitis. You were seen by the general surgeon who recommended conservative management and that we treat you for a total of 14 day with antibiotics. We are discharging you home with 11 more days of treatment and a daily probiotic. Please take as prescribed. General surgery recommends a colonoscopy in 8 weeks with GI, your pcp can help with arranging that. General surgery would like to follow up with you in the office in a few weeks. Please keep close follow up with your primary care provider after discharge. Please do not hesitate to come back to the emergency room if your symptoms worsen or return. It was a pleasure taking care of you while you were here. Total Time Total Time Spent Total Time Spent (In Minutes): 75
[2024-02-21 18:52] LABS: A calco-baum cmplx NotReported Not Detected (NotDetected); Bact fragilis Not Reported Not Detected (NotDetected); Blood Culture Id Panel PCR Panel Negative (NotDetected); C auris Not Reported Not Detected (NotDetected); Calbicans Not Reported Not Detected (NotDetected); Candida glabrata Not Reported Not Detected (NotDetected); Candida krusei Not Reported Not Detected (NotDetected); Cneoformans/gatti Not Reported Not Detected (NotDetected); Cparapsilosis Not Reported Not Detected (NotDetected); E cloacae compx Not Reported Not Detected (NotDetected); Efaecalis Not Reported Not Detected (NotDetected); Efaecium Not Reported Not Detected (NotDetected); Enterobacterales Not Reported Not Detected (NotDetected); Escherichia coli Not Reported Not Detected (NotDetected); H influenzae Not Reported Not Detected (NotDetected); K aerogenes Not Reported Not Detected (NotDetected); Koxytoca Not Reported Not Detected (NotDetected); Kpneumoniae grp Not Reported Not Detected (NotDetected); Lmonocyt Not Reported Not Detected (NotDetected); N meningitidis Not Reported Not Detected (NotDetected); P aeruginosa Not Reported Not Detected (NotDetected); Proteus spp Not Reported Not Detected (NotDetected); Salmonella spp Not Reported Not Detected (NotDetected); Staph lugdunensis Not Reported Not Detected (NotDetected); Staph spp. Not Reported Not Detected (NotDetected); Staphaureus Not Reported Not Detected (NotDetected); Staphepi Not Reported Not Detected (NotDetected); Stenmaltophilia Not Reported Not Detected (NotDetected); Strep agal(GrpB) Not Reported Not Detected (NotDetected); Strep pneum Not Reported Not Detected (NotDetected); Strep pyog (GrpA) Not Reported Not Detected (NotDetected); Strep spp Not Reported Not Detected (NotDetected)
--- NOTE | 2024-02-21 20:35 | Communication Note ---
Date of Service: February 21, 2024 Notified by lab of abnormal blood CS result for 1 bottle during recent confinement Gram-negative rods AP Gram-negative kishore bacteremia (1 bottle for now) Recent confinement for complicated diverticulitis Patient discharged on ciprofloxacin course. Will relay to Dr. Severino in a.m.
[2024-02-21] MEDS ORDERED: MAGNESIUM OXIDE 400 MG TAB PO SCH (21:00)
[2024-02-21] MEDS ORDERED: POTASSIUM CHLORIDE CRTAB 20 MEQ TABCR PO SCH (21:00)
== END 2024-02-21 17:51 | disposition home or self-care (01) | DRG 392 ==
LOC: ED 16:25 → 3N 21:54